=== PATIENT | female | born 1940 | race Caucasian/White ===

== ENCOUNTER 2022-01-20 13:39 | Outpatient (CLI) | payer MEDICARE, SELFPAY ==
[2022-01-20 13:47] LABS: Albumin* 4.6 g/dL (3.3-5.0); Chloride* 92 mmol/L (96-114); Potassium* 3.3 mmol/L (3.6-5.1); Sodium* 134 mmol/L (135-149)
[2022-01-20 13:48] LABS: Iron* 61 ug/dL (37-170)
[2022-01-20 13:50] LABS: Alanine Aminotransferase* 17 U/L (4-35); Aspartate Amino Transferase* 22 U/L (12-35); Blood Urea Nitrogen* 99 mg/dL (7-30); Carbon Dioxide* 26 mmol/L (20-32); Creatinine* 2.1 mg/dL (0.5-1.5); Estimated Glomerular Filt Rate 24 ml/min; Glucose* 137 mg/dL (60-115); Phosphorus* 4.5 mg/dL (2.5-4.5); Uric Acid* 7.3 mg/dL (2.2-8.4)
[2022-01-20 13:55] LABS: Creatinine Urine 59.7 mg/dL
[2022-01-20 13:57] LABS: Percent Iron Saturation 18 % (20-50); Total Iron Binding Capacity 347 ug/dL (265-497)
[2022-01-20 13:58] LABS: Microalbumin Creatinine Ratio 50 mg/g (0-30); Microalbumin Urine 3 mg/dL
[2022-01-20 16:45] LABS: Ferritin* 76.1 ng/mL (11.1-264.0)
== END 2022-01-20 13:40 | disposition home or self-care (01) ==
PROVIDERS: Visit Provider Internal Medicine Nephrology
DX: D64.9 Anemia, unspecified (principal); I10 Essential (primary) hypertension; N18.9 Chronic kidney disease, unspecified
CPT/HCPCS: 80069; 82043; 82310; 82570; 82728; 83540; 83550; 83970; 84450; 84460; 84550; 87086; 87186

== ENCOUNTER 2022-03-27 20:39 | Inpatient (IN) | payer MEDICAID, SELFPAY ==
[2022-03-27 20:45] VITALS: BP 112/58; PULSE 85; RESP 18; TEMP 37.2; O2SAT 94; BMI 27.4
[2022-03-27] MEDS: ONDANSETRON 2 MG/ML inj 4 MG IVP (21:29)
[2022-03-27] MEDS: 0.9 % SODIUM CHLORIDE 1000 ml 1,000 ML IV (21:29)
[2022-03-27 21:34] LABS: Hematocrit 36.3 % (33.0-51.0); Hemoglobin* 12.4 gm/dL (12.0-16.0); Immature Granulocytes Pct Auto 0.4 %; Lymphocytes Percent Auto 2.9 % (20-44); Mean Corpuscular HGB Conc 34 gm/dL (32-36); Mean Corpuscular Hemoglobin 32 pg (26-34); Mean Corpuscular Volume 93 fL (80-100); Monocytes Percent Auto 9.5 % (0.0-11.0); Neutrophils Percent Auto 87.2 % (42.0-72.0); Platelet Count* 246 K/uL (140-440); RDW Coefficient of Variation % 15.1 % (11.5-15.5); White Blood Count* 16.82 K/uL (4.50-11.00)
--- NOTE | 2022-03-27 21:36 | ED_ITS ---
HPI - Weakness General Chief complaint: Weakness Stated complaint: Lethargy, chills Time Seen by Provider: 03/27/22 20:41 History of Present Illness HPI Narrative: Pt is a 81 year old woman with chronic diarrhea who presents with acute diarrhea and weakness starting today. Pt was in her usual state of health this morning when she began having very loose stools and vomited several times. As a result, pt became extremely weak. She has not had anything to eat today either. As a result of her symptoms, she called her sister who then called 911. Pt is subsequently brought in to the ED via ambulance. Pt has had no fever, chills, abd pain, dysuria, rash or focal neurological symptoms. No other complaints at this time. Related Data Home Medications Medication Instructions Recorded Confirmed allopurinol 100 mg tablet 200 mg PO QDAY 12/18/21 latanoprost 0.005 % eye drops 1 drp ophthalmic (eye) QPM 12/18/21 potassium chloride 20 mEq 20 meq PO BIDWMEAL 12/18/21 tablet,extended release prednisone 10 mg tablet 10 mg PO QDAY 12/18/21 timolol 0.5 % eye drops 1 drp ophthalmic (eye) QDAY 12/18/21 metolazone 5 mg tablet 2.5 mg PO DAILY PRN 01/27/22 Previous Rx's Medication Instructions Recorded torsemide 20 mg tablet 40 mg PO BID #360 tabs 12/18/21 Allergies Allergy/AdvReac Type Severity Reaction Status Date / Time oxycodone AdvReac Severe Dizzy Verified 01/27/22 13:42 procaine AdvReac Severe Combative Verified 01/27/22 13:42 codeine AdvReac Unknown Nausea, Verified 01/27/22 13:42 Dizzy Review of Systems Status of ROS: Reports: 10 or more systems reviewed and unremarkable except as noted in History and below [facility] Medical History History of malignant neoplasm of breast Surgical History History of hysterectomy for benign disease History of lumpectomy of left breast Status post hysterectomy Status post left breast lumpectomy Status post total hip replacement, right Status post total left knee replacement Family History Mother Colon cancer Heart disease Father Skin cancer Exam Narrative: Exam Narrative: EXAM GENERAL: Patient appears comfortable and well. EYES: No scleral icterus. THYROID: no thyroid nodules or thyromegaly. LYMPH: No supraclavicular or cervical lymphadenopathy. SKIN: Visible skin seen during exam normal or with benign process only. EXT: No dependent lower extremity pedal edema. HEART: Regular rate and rhythm with no murmurs, rubs, or gallops. LUNGS: Clear to auscultation bilaterally with no crackles or wheezes. ABD: Soft, non tender, non distended. PSYCH: Good eye contact, speech is not pressured. Const: Vital Signs, click to edit/add: Vital Signs - 24 hr 03/27/22 20:45 Temperature 98.9 F Pulse Rate [Pulse Oximeter] 85 Respiratory Rate 18 Blood Pressure [Le ft Upper Arm] 112/58 L Pulse Oximetry 94 Oxygen Delivery Me thod Room Air Course Course Hospital Course: Pt seen and examined. Normal saline bolus and zofran given. Labs pending. Reevaluation(s) Reevaluation #1: Pt has elevated WBC, Sodium of 127, Chronic elevation of Cr at 1.8. Evidence of UTI on UA. Lactate ordered as well as blood cultures. Urine sent for culture. Pt received 1 liter of saline and 4 mg of zofran. States that she is too weak to go home. Rocephin 1 gram given IVP. Time: 23:09 Reevaluation #2: Pt still feeling too weak to go home. Time: 23:55 Vital Signs Vital signs: Initial Vital Signs Temperature 98.9 F 03/27/22 20:45 Temperature Source Temporal Artery Scan 03/27/22 20:45 Pulse Rate 85 03/27/22 20:45 Respiratory Rate 18 03/27/22 20:45 Blood Pressure 112/58 L 03/27/22 20:45 Blood Pressure Mean 76 03/27/22 20:45 Pulse Oximetry 94 03/27/22 20:45 Oxygen Delivery Method 03/27/22 20:45 Vital Signs Temperature 98.9 F 03/27/22 20:45 Pulse Rate 85 03/27/22 20:45 Respiratory Rate 18 03/27/22 20:45 Blood Pressure 112/58 L 01/06/23 20:45 Pulse Oximetry 94 03/27/22 20:45 Oxygen Delivery Method 03/27/22 20:45 Temperature 98.9 F 03/27/22 20:45 Pulse Rate 85 03/27/22 20:45 Respiratory Rate 18 03/27/22 20:45 Blood Pressure 112/58 L 03/27/22 20:45 Pulse Oximetry 94 03/27/22 20:45 Oxygen Delivery Method 03/27/22 20:45 MDM - Weakness MDM Narrative Medical decision making narrative: Pt presents with nausea and vomiting and weakness. No cardiac symptoms. Pt given normal saline and zofran still feeling weak. Pt noted to be mildly hyponatremic and hypokalemic with an elevated WBC and a chronically elevated Cr. UA shows evidence of UTI. Lactate normal. Troponin pending. Pt given IV Rocephin 1 gram and will be admitted for further evaluation. Cultures pending. Differential Diagnosis Differential diagnosis: Likely anemia, hypoglycemia, sepsis and dehydration Lab Data Labs: Lab Results 03/27/22 03/27/22 03/27/22 Range/Units 21:24 21:24 21:24 WBC 16.82 H (4.50-11.00) K/uL RBC 3.90 L (4.00-5.20) m/uL Hgb 12.4 (12.0-16.0) gm/dL Hct 36.3 (33.0-51.0) % MCV 93 (80-100) fL MCH 32 (26-34) pg MCHC 34 (32-36) gm/dL RDW Coeff of [place] 15.1 (11.5-15.5) % Plt Count 246 (140-440) K/uL Neut % (Auto) 87.2 H (42.0-72.0) % Lymph % (Auto) 2.9 L (20-44) % [place] % (Auto) 9.5 (0.0-11.0) % Eos % (Auto) 0.0 (0.0-7.0) % Baso % (Auto) 0.0 (0.0-3.0) % Neut # (Auto) 14.70 H (1.7-7.0) K/uL Lymph # (Auto) 0.50 L (0.90-2.90) K/uL [place] # (Auto) 1.60 H (0.00-0.90) K/UL Eos # (Auto) 0.00 (0.00-0.50) K/uL Baso # (Auto) 0.00 (0.00-0.30) K/uL Sodium 127 L (135-149) mmol/L Potassium 3.1 L (3.6-5.1) mmol/L Chloride 87 L (96-114) mmol/L Carbon Dioxide 28 (20-32) mmol/L BUN 84 H (7-30) mg/dL Creatinine 1.8 H (0.5-1.5) mg/dL Estimated Creat Clear 24.64 Estimated GFR 28 ml/min Glucose 150 H (60-115) mg/dL Lactate (0.5-1.9) mmol/L Calcium 8.1 L (8.4-10.6) mg/dL Total Bilirubin 1.2 (0.1-1.5) mg/dL AST 42 H (12-35) U/L ALT 20 (4-35) U/L Alkaline Phosphatase 58 (40-150) U/L Total Protein 8.2 (6.0-8.3) g/dL Albumin 4.2 (3.3-5.0) g/dL Amylase (18-89) U/L Urine Color (Yellow) Urine Appearance (Clear) Urine pH (5.0-8.5) Ur Specific [place] (1.000-1.030) Urine Protein (Negative) Urine Glucose (UA) (Negative) Urine Ketones (Negative) Urine Blood (Negative) Urine Nitrite (Negative) Urine Bilirubin (Negative) Urine Urobilinogen (0.2-1.0) Ur Leukocyte Esterase (Negative) Urine RBC (0-2) Urine WBC (0-5) Ur Squamous Epith Cells (None-Few) Urine Bacteria (None) SARS-CoV-2 (PCR) Negative SARS-CoV-2 (Negative) Influenza Type A (PCR) Negative PCR FLU A (Negative) Influenza Type B (PCR) Negative PCR FLU B (Negative) RSV (PCR) Negative PCR RSV (Negative) 03/27/22 03/27/22 03/27/22 Range/Units 21:24 22:00 23:15 WBC (4.50-11.00) K/uL RBC (4.00-5.20) m/uL Hgb (12.0-16.0) gm/dL Hct (33.0-51.0) % MCV (80-100) fL MCH (26-34) pg MCHC (32-36) gm/dL RDW Coeff of [place] (11.5-15.5) % Plt Count (140-440) K/uL Neut % (Auto) (42.0-72.0) % Lymph % (Auto) (20-44) % [place] % (Auto) (0.0-11.0) % Eos % (Auto) (0.0-7.0) % Baso % (Auto) (0.0-3.0) % Neut # (Auto) (1.7-7.0) K/uL Lymph # (Auto) (0.90-2.90) K/uL [place] # (Auto) (0.00-0.90) K/UL Eos # (Auto) (0.00-0.50) K/uL Baso # (Auto) (0.00-0.30) K/uL Sodium (135-149) mmol/L Potassium (3.6-5.1) mmol/L Chloride (96-114) mmol/L Carbon Dioxide (20-32) mmol/L BUN (7-30) mg/dL Creatinine (0.5-1.5) mg/dL Estimated Creat Clear Estimated GFR ml/min Glucose (60-115) mg/dL Lactate 1.2 (0.5-1.9) mmol/L Calcium (8.4-10.6) mg/dL Total Bilirubin (0.1-1.5) mg/dL AST (12-35) U/L ALT (4-35) U/L Alkaline Phosphatase (40-150) U/L Total Protein (6.0-8.3) g/dL Albumin (3.3-5.0) g/dL Amylase 137 H (18-89) U/L Urine Color Dark yellow (Yellow) Urine Appearance Slightly Cloudy A (Clear) Urine pH 6.0 (5.0-8.5) Ur Specific [place] 1.015 (1.000-1.030) Urine Protein 2+ A (Negative) Urine Glucose (UA) Negative (Negative) Urine Ketones Negative (Negative) Urine Blood 2+ A (Negative) Urine Nitrite Negative (Negative) Urine Bilirubin Negative (Negative) Urine Urobilinogen 0.2 (0.2-1.0) Ur Leukocyte Esterase 3+ A (Negative) Urine RBC 2-5 A (0-2) Urine WBC 10-25 A (0-5) Ur Squamous Epith Cells Few (None-Few) Urine Bacteria Many A (None) SARS-CoV-2 (PCR) (Negative) Influenza Type A (PCR) (Negative) Influenza Type B (PCR) (Negative) RSV (PCR) (Negative) Discharge Plan Discharge Clinical Impression: Weakness Patient Disposition: Admitted As Inpatient Condition: Stable Activity Level: Other Discharge Diet: Other
[2022-03-27 21:42] LABS: Slide Review Reflex No
[2022-03-27 22:09] LABS: PCR FLU A Negative PCR FLU A (Negative); PCR FLU B Negative PCR FLU B (Negative); PCR RSV Negative PCR RSV (Negative)
[2022-03-27 22:19] LABS: Appearance Urine Slightly Cloudy (Clear); Bilirubin Urine Negative (Negative); Blood Urine 2+ (Negative); Color Urine Dark yellow (Yellow); Glucose Urine Negative (Negative); Ketones Urine Negative (Negative); Leukocyte Esterase Urine 3+ (Negative); Nitrite Urine Negative (Negative); Protein Urine 2+ (Negative); Specific Gravity Urine 1.015 (1.000-1.030); Urobilinogen Urine 0.2 (0.2-1.0)
[2022-03-27 22:27] LABS: SARS PCR* Negative SARS-CoV-2 (Negative)
--- NOTE | 2022-03-27 22:33 | ED.NURSE ---
Patient required assist of one to pivot to commode. Patient complained of left hip pain that she reports started yesterday.
[2022-03-27 22:35] LABS: Bacteria Urine Many; Squamous Epithelial Cell Urine Few (None-Few)
[2022-03-27 22:48] LABS: Albumin* 4.2 g/dL (3.3-5.0); Chloride* 87 mmol/L (96-114)
[2022-03-27 22:49] LABS: Sodium* 127 mmol/L (135-149)
[2022-03-27 22:51] LABS: Bilirubin Total* 1.2 mg/dL (0.1-1.5); Blood Urea Nitrogen* 84 mg/dL (7-30); Carbon Dioxide* 28 mmol/L (20-32); Creatinine* 1.8 mg/dL (0.5-1.5); Est. Creatinine Clearance* 24.64; Estimated Glomerular Filt Rate 28 ml/min; Total Protein* 8.2 g/dL (6.0-8.3)
[2022-03-27 22:52] LABS: Alanine Aminotransferase* 20 U/L (4-35); Alkaline Phosphatase* 58 U/L (40-150); Calcium* 8.1 mg/dL (8.4-10.6); Glucose* 150 mg/dL (60-115)
[2022-03-27 22:56] LABS: Potassium* 3.1 mmol/L (3.6-5.1)
[2022-03-27 22:57] LABS: Aspartate Amino Transferase* 42 U/L (12-35)
[2022-03-27 23:06] LABS: Amylase* 137 U/L (18-89)
[2022-03-27 23:30] VITALS: O2SAT 99
[2022-03-27 23:34] LABS: Lactate* 1.2 mmol/L (0.5-1.9)
[2022-03-28] VITALS (17 sets, daily range): BP systolic 88–115; BP diastolic 37–74; PULSE 70–89; RESP 16–20; TEMP 37–38.7; O2SAT 90–97; BMI 29.0
[2022-03-28] MEDS: 0.9 % SODIUM CHLORIDE 500 ML 500 ML IV ×3 (00:40→12:24)
[2022-03-28] MEDS: cefTRIAXone 1 GM in 0.9 % SODIUM CHLORIDE Mini-bag 100 ML IVPB (00:40)
[2022-03-28 00:45] LABS: Troponin I* 0.08 ng/mL (0.01-0.04)
[2022-03-28] MEDS: ONDANSETRON 2 MG/ML inj 4 MG IVP (00:53)
--- NOTE | 2022-03-28 02:10 | P.IMCN_ITS ---
Date of Consult Consult date: 03/28/22 Requesting Physician: Other Primary Care Provider: Not a Local Provider Consult Narrative Narrative: Lela Lindsey is a 81 year old female [facility] Medical History History of malignant neoplasm of breast Surgical History History of hysterectomy for benign disease History of lumpectomy of left breast Status post hysterectomy Status post left breast lumpectomy Status post total hip replacement, right Status post total left knee replacement Family History Mother Colon cancer Heart disease Father Skin cancer Meds Home Medications and Allergies Home Medications Medication Instructions Recorded Confirmed Type allopurinol 100 mg tablet 200 mg PO QDAY 12/18/21 History latanoprost 0.005 % eye drops 1 drp ophthalmic (eye) QPM 12/18/21 History potassium chloride 20 mEq 20 meq PO BIDWMEAL 12/18/21 History tablet,extended release prednisone 10 mg tablet 10 mg PO QDAY 12/18/21 History timolol 0.5 % eye drops 1 drp ophthalmic (eye) QDAY 12/18/21 History metolazone 5 mg tablet 2.5 mg PO DAILY PRN 01/27/22 History Allergies Allergy/AdvReac Type Severity Reaction Status Date / Time oxycodone AdvReac Severe Dizzy Verified 01/27/22 13:42 procaine AdvReac Severe Combative Verified 01/27/22 13:42 codeine AdvReac Unknown Nausea, Verified 01/27/22 13:42 Dizzy Exam Const: Vital Signs, click to edit/add: Vital Signs - 24 hr 03/28/22 01:49 03/27/22 23:30 03/27/22 20:45 Temperature 98.9 F 98.9 F Pulse Rate [Pulse Oximeter] 89 85 Respiratory Rate 18 18 Blood Pressure [Le ft Upper Arm] 115/74 112/58 L Pulse Oximetry 94 99 94 Oxygen Delivery Me thod Room Air Room Air Labs Labs: Short CBC 03/27/22 Range/Units 21:24 WBC 16.82 H (4.50-11.00) K/uL Hgb 12.4 (12.0-16.0) gm/dL Hct 36.3 (33.0-51.0) % Plt Count 246 (140-440) K/uL BMP 03/27/22 21:24 Sodium 127 L Potassium 3.1 L Chloride 87 L Carbon Dioxide 28 BUN 84 H Creatinine 1.8 H Glucose 150 H Calcium 8.1 L Cardiac Enzymes 03/27/22 Range/Units 23:20 Troponin I 0.08 H* (0.01-0.04) ng/mL Liver Function 03/27/22 Range/Units 21:24 Total Bilirubin 1.2 (0.1-1.5) mg/dL AST 42 H (12-35) U/L ALT 20 (4-35) U/L Alkaline Phosphatase 58 (40-150) U/L Albumin 4.2 (3.3-5.0) g/dL Urine 03/27/22 Range/Units 22:00 Urine Color Dark yellow (Yellow) Urine Appearance Slightly Cloudy A (Clear) Urine pH 6.0 (5.0-8.5) Ur Specific [place] 1.015 (1.000-1.030) Urine Protein 2+ A (Negative) Urine Glucose (UA) Negative (Negative) Assessment and Plan Assessment and plan (1) Weakness: Status: Acute (2) Edema: Status: Acute Plan [facility] Hospitalist eHospitalist was contacted with request of consultation on Vicki Lindsey for admission support. Chief complaint: Weakness and lethargy HPI: 81-year-old female with chronic diarrhea presented for acute on chronic diarrhea and weakness starting yesterday. She was in her usual state of health until last morning when she began having loose stools. It is loose watery. She denies any nausea or vomiting. As result she became very weak. Could not eat anything yesterday. Eventually brought to ED by ambulance. She denies any fever, abdominal pain, rash or focal neurologic symptoms. no abdominal pain.lives alone and does not use tobacco or alcohol. Denies any hematemesis hematochezia. Denies any new medications. No sick contacts. Medical history significant for CKD stage IV, hypertension, chronic diastolic heart failure, renal artery stenosis, anemia of renal disease, rheumatoid arthritis and hyperparathyroidism. Upon presentation she was normotensive, nontachycardic. Saturating fine on room air and afebrile. Labs show WBC 16.8, hemoglobin stable and normal platelets. BMP showed sodium 127, potassium 3.1, chloride 87, anion gap normal with bicarb 28. BUN 84 and creatinine 1.8. Glucose 150. Lactate 1.2, calcium 8.1, AST 42, normal bilirubin and other liver enzymes. Amylase 137, troponin 0.08. Urinalysis positive for bacteriuria, positive leukocyte esterase. COVID influenza and RSV negative. Blood and urine cultures sent. Patient was given normal saline and ceftriaxone and admitted for further management. Home Medications: see EMR Pertinent Medical History: See EMR Pertinent Social History: See EMR Exam (performed via interactive video with assistance of bedside nurse; ): General: alert, cooperative, no acute distress HEENT: oral mucosa dry lungs: clear to auscultation bilaterally without crackle or wheeze CV: regular rate and rhythm without loud murmur rub or gallop Abd: denies tenderness and does not exhibit signs of pain with palpation done by bedside nurse Ext: 1+ pitting edema noted Skin: no rashes, bruises or lesions. Neuro:[alert, oriented x 3. facial muscles grossly intact, moves all extremities without any significant focal deficit appreciated by nurse Labs and imaging were reviewed Assessment and Plan: Generalized weakness UTI, leukocytosis Acute on chronic diarrhea Hyponatremia, hypochloremia related to diarrhea CKD stage IV stable Slight elevation of troponin related to dehydration and CKD Patient is s/p 1.5 L of normal saline. Recheck labs in the morning. Continue ceftriaxone. Follow-up on cultures. Hold diuretics. Repeat troponins. Check C. difficile and if negative can use as needed antidiarrheals. IV fluids: none Diet: Clear liquid DVT prophylaxis: SCDs and heparin CODE STATUS: Full code [facility] you [facility] This service is available for further assistance as requested by your care team by calling [phone].
[2022-03-28] MEDS: ACETAMINOPHEN 325 MG TABLET 650 MG PO ×3 (02:46→22:00)
--- NOTE | 2022-03-28 05:30 | PC.NURSE ---
Patient to unit at 0150. A&Ox3. Rates pain in R. hip 8/10 with movement. PRN Tylenol for relief. A1/walker/GB. C/o weakness. Denies N/V/dizziness.
[2022-03-28 07:53] LABS: Basophils Percent Auto 0.1 % (0.0-3.0); Hematocrit 33.2 % (33.0-51.0); Hemoglobin* 11.2 gm/dL (12.0-16.0); Immature Granulocytes Pct Auto 0.4 %; Lymphocytes Percent Auto 5.3 % (20-44); Mean Corpuscular HGB Conc 34 gm/dL (32-36); Mean Corpuscular Hemoglobin 32 pg (26-34); Mean Corpuscular Volume 94 fL (80-100); Monocytes Percent Auto 7.9 % (0.0-11.0); Neutrophils Percent Auto 86.3 % (42.0-72.0); Platelet Count* 192 K/uL (140-440); Red Blood Count 3.55 m/uL (4.00-5.20); White Blood Count* 12.82 K/uL (4.50-11.00)
[2022-03-28 07:58] LABS: Slide Review Reflex No
[2022-03-28 08:05] LABS: Albumin* 3.6 g/dL (3.3-5.0); Chloride* 94 mmol/L (96-114)
[2022-03-28 08:06] LABS: Sodium* 130 mmol/L (135-149)
[2022-03-28 08:08] LABS: Bilirubin Total* 0.8 mg/dL (0.1-1.5); Creatinine* 1.8 mg/dL (0.5-1.5); Est. Creatinine Clearance* 23.72; Estimated Glomerular Filt Rate 28 ml/min
[2022-03-28 08:09] LABS: Alanine Aminotransferase* 16 U/L (4-35); Alkaline Phosphatase* 62 U/L (40-150); Aspartate Amino Transferase* 28 U/L (12-35); Blood Urea Nitrogen* 74 mg/dL (7-30); Calcium* 7.2 mg/dL (8.4-10.6); Carbon Dioxide* 26 mmol/L (20-32); Glucose* 117 mg/dL (60-115)
[2022-03-28 08:10] LABS: Magnesium* 1.2 mg/dL (1.5-2.6)
[2022-03-28 08:25] LABS: Troponin I* 0.08 ng/mL (0.01-0.04)
[2022-03-28 08:26] LABS: Procalcitonin* 6.44 ng/mL (<0.50)
[2022-03-28 08:37] LABS: C Reactive Protein* 22.5 mg/dL (0.5-1.0); Potassium* 2.1 mmol/L (3.6-5.1)
--- NOTE | 2022-03-28 08:49 | PM.IMHP1 ---
Hospitalist- H&P: HPI History of Present Illness Time Seen by Provider: 08:25 Date Seen: 03/28/22 Chief complaint: Lethargy, chills Narrative: Lela Lindsey is a 81 year old female who became progressively weak over the last few days. She denies urinary symptoms, fever, uri symptoms, sob, cp, melena, hematochezia. She has right hip pain that started yesterday and is a bit better today, but still there. She has a h/o RTHA, but has never had trouble with that hip before. She had 1 loose stool last night which she says is not unusual for her. She has not had any bowel movement since then. 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 Tricuspid insufficiency Venous insufficiency of both lower extremities Vitamin D deficiency Surgical History (Updated 03/28/22 @ 08:20 by Meghan Ervin MD) H/O hernia repair History of hysterectomy for benign disease History of lumpectomy of left breast S/P tendon repair S/P tubal ligation Status post hysterectomy Status post left breast lumpectomy Status post total hip replacement, right Status post total left knee replacement Family History (Updated 03/28/22 @ 08:22 by Meghan Ervin MD) Mother Colon cancer Arthritis CHF (congestive heart failure) Father Skin cancer Aunt Breast cancer Sister Brain tumor Epilepsy Stroke Social History (Updated 03/28/22 @ 08:52 by Meghan Ervin MD) Narrative: Quit smoking >15 years ago. Glass of wine or a beer once a month. No recreational drugs. FULL CODE. Highest level of school completed/degree received: high school graduate Smoking Status: Former smoker Do you use any of these nicotine containing products: None How often do you have a drink containing alcohol: never AUDIT-C Alcohol total score: 0 Non-prescribed substance use: denies use Caffeine: No service: No Meds Home Medications and Allergies Home Medications Medication Instructions Recorded Confirmed Type allopurinol 100 mg tablet 200 mg PO DAILY 12/18/21 03/28/22 History latanoprost 0.005 % eye drops 1 drp ophthalmic (eye) HS 12/18/21 03/28/22 History potassium chloride 20 mEq 40 meq PO BID 12/18/21 03/28/22 History tablet,extended release metolazone 2.5 mg tablet 2.5 mg PO .2X/WEEK PRN 03/28/22 03/28/22 History prednisone 5 mg tablet 5 mg PO DAILY 03/28/22 03/28/22 History timolol 0.25 % eye drops 1 drp ophthalmic (eye) BID 03/28/22 03/28/22 History Allergies Allergy/AdvReac Type Severity Reaction Status Date / Time oxycodone AdvReac Severe Dizzy Verified 01/27/22 13:42 procaine AdvReac Severe Combative Verified 01/27/22 13:42 codeine AdvReac Unknown Nausea, Verified 01/27/22 13:42 Dizzy Exam Narrative: Exam Narrative: General: No acute distress. Awake alert oriented x3. Generally weak, unable to pull herself up from laying down. HEENT: Normocephalic atraumatic, pupils equally round and reactive to light and accommodation. Oropharynx clear. Mucous membranes are slightly dry. No cervical lymphadenopathy, thyromegaly or carotid bruits. No JVD. Cardiovascular: Regular rate and rhythm. No murmurs, gallops, or rubs. Chest: No increased work of breathing. Clear to auscultation bilaterally. No crackles or wheezes. Abdomen: Bowel sounds present. Soft, nondistended, nontender. No hepatosplenomegaly or masses. Extremities: Right thumb deformity from childhood accident. 2+ bilateral pretibial edema, no cyanosis or clubbing. Skin: No jaundice, no pallor, no rashes. Neuro: Generalized weakness. Grossly intact. No focal deficits. Const: Vital Signs, click to edit/add: Vital Signs - 24 hr 03/28/22 01:49 03/27/22 23:30 03/28/22 01:50 Temperature 98.9 F 98.9 F Pulse Rate [Left P ulse Oximeter] Pulse Rate [Pulse Oximeter] 89 89 Respiratory Rate 18 18 Blood Pressure [Le ft Upper Arm] 115/74 115/74 Blood Pressure [Ri ght Arm] Pulse Oximetry 94 99 Oxygen Delivery Me thod Room Air 03/28/22 01:28 03/28/22 01:28 03/28/22 03:00 Temperature 98.6 F 98.9 F Pulse Rate [Left P ulse Oximeter] 74 74 Pulse Rate [Pulse Oximeter] Respiratory Rate 20 20 18 Blood Pressure [Le ft Upper Arm] Blood Pressure [Ri ght Arm] 110/59 L 110/59 L Pulse Oximetry 94 94 94 Oxygen Delivery Me thod Room Air Room Air Room Air 03/27/22 20:45 Temperature 98.9 F Pulse Rate [Left P ulse Oximeter] Pulse Rate [Pulse Oximeter] 85 Respiratory Rate 18 Blood Pressure [Le ft Upper Arm] 112/58 L Blood Pressure [Ri ght Arm] Pulse Oximetry 94 Oxygen Delivery Pa thod Room Air Hospitalist - H&P: Result Labs Labs: Short CBC 03/27/22 03/28/22 Range/Units 21:24 07:24 WBC 16.82 H 12.82 H (4.50-11.00) K/uL Hgb 12.4 11.2 L (12.0-16.0) gm/dL Hct 36.3 33.2 (33.0-51.0) % Plt Count 246 192 (140-440) K/uL BMP 03/27/22 03/28/22 21:24 07:24 Sodium 127 L 130 L Potassium 3.1 L 2.1 L* Chloride 87 L 94 L Carbon Dioxide 28 26 BUN 84 H 74 H Creatinine 1.8 H 1.8 H Glucose 150 H 117 H Calcium 8.1 L 7.2 L Cardiac Enzymes 03/27/22 03/28/22 Range/Units 23:20 07:24 Troponin I 0.08 H* 0.08 H* (0.01-0.04) ng/mL Liver Function 03/27/22 03/28/22 Range/Units 21:24 07:24 Total Bilirubin 1.2 0.8 (0.1-1.5) mg/dL AST 42 H 28 (12-35) U/L ALT 20 16 (4-35) U/L Alkaline Phosphatase 58 62 (40-150) U/L Albumin 4.2 3.6 (3.3-5.0) g/dL Urine 03/27/22 Range/Units 22:00 Urine Color Dark yellow (Yellow) Urine Appearance Slightly Cloudy A (Clear) Urine pH 6.0 (5.0-8.5) Ur Specific [place] 1.015 (1.000-1.030) Urine Protein 2+ A (Negative) Urine Glucose (UA) Negative (Negative) Assessment and Plan Assessment and plan (1) Weakness: Status: Acute (2) Dehydration: Status: Acute (3) Elevated troponin: Status: Acute (4) Chronic kidney disease, stage 3: Problem comment: Mild Cr elevation starting 2011; Increased in 2018 with diuresis. Follows with Dr. Natarajan ([facility]) Status: Acute (5) Hypokalemia: Status: Acute (6) Hypomagnesemia: Status: Acute (7) ARF (acute renal failure): Status: Acute Plan I have reviewed her [facility] records. Mild ARF on CKD. BUN elevated and Cr mildly elevated. She received 1.5 L of IV fluid in the emergency department. Give another bolus this am. Obtain chest x-ray and right hip x-ray. Ecoli in urine Jan 2022. Suspect UTI. Continue ceftriaxone started in emergency department and await cultures. Weakness is likely multifactorial including UTI and electrolyte abnormalities. Correct electrolyte abnormalities. If hip x-ray is unremarkable, start PT and OT.
--- NOTE | 2022-03-28 08:53 | CRLHL7_ITS ---
For Patients: As a result of the Cures Act, medical imaging exams and procedure reports are released immediately into your electronic medical record. You may view this report before your referring provider. If you have questions, please contact your health care provider. INDICATION: Leukocytosis. Weakness. History of tobacco use COMPARISON: December 30, 2020 TECHNIQUE: PA and lateral views of the chest were acquired FINDINGS: TUBES AND LINES: None. HEART AND MEDIASTINUM: Heart size normal. Tortuous aorta. Similar appearance to the prior study.. LUNGS AND PLEURAL SPACES: The lungs appear normal.The pleural spaces are unremarkable. OSSEOUS STRUCTURES: Age-appropriate appearance. No acute focal finding. IMPRESSION: No evidence of active pulmonary disease when compared to December 30, 2020 Dictated by Bib Jansen MD @ 03/28/2022 9:29:05 AM (Electronically Signed)
--- NOTE | 2022-03-28 08:53 | CRLHL7_ITS ---
For Patients: As a result of the Cures Act, medical imaging exams and procedure reports are released immediately into your electronic medical record. You may view this report before your referring provider. If you have questions, please contact your health care provider. Indication: Right hip pain. History of right total hip arthroplasty. No injury. Technique: Examination consists of an AP view of the pelvis as well as AP and lateral views of the right hip Comparison: None Findings: Decreased bone mineral density. Right hip arthroplasty. The arthroplasty appears intact. There is no abnormal lucency about the acetabular or femoral component of the implant. The surrounding osseous structures appear normal. No fracture or destructive process Impression: Normal appearance status post right hip arthroplasty. No visible complication. No fracture, destructive process or abnormal lucency above the implants Dictated by Bib Jansen MD @ 03/28/2022 9:33:04 AM (Electronically Signed)
[2022-03-28] MEDS: HEPARIN 5,000 UNIT/0.5 ML INJ 5000 UNIT SUBCUT ×2 (10:02→21:09)
[2022-03-28] MEDS: MAGNESIUM IV 2 GM/50 ML PIGGYBACK IVPB (10:03)
[2022-03-28] MEDS: POTASSIUM BICARB 25 MEQ EFFERVESCENT TAB PO ×6 (10:03→23:01)
[2022-03-28] MEDS: SODIUM CHLORIDE 0.9 % (FLUSH) 10 ML SYRINGE 5 ML IVF (10:03)
[2022-03-28 12:01] LABS: Troponin I* 0.08 ng/mL (0.01-0.04)
[2022-03-28] MEDS: PIPERACILLIN/TAZOBACTAM 3.375 GM in 0.9 % SODIUM CHLORIDE Mini-bag 100 ML IVPB ×3 (12:09→23:01)
[2022-03-28 12:38] LABS: Troponin I* 0.08 ng/mL (0.01-0.04)
[2022-03-28] MEDS: IPRAT-ALBUT 0.5-2.5 MG/3 ML NEB 1 NEB IH ×3 (12:40→23:36)
--- NOTE | 2022-03-28 13:44 | RESP.RT ---
Patient lying in bed, on room air, SaO2 93%, respiratory rate 18/minute, breathing regular/easy. Bilateral breath sounds; both upper lobes clear with good air movement, Both lower lobes clear, fair air movement, slightly diminished from upper lobes. Asked patiet to cough, good clear forceful cough able to clear secretions when present. Patient alert, orientated to; person, place, time. Good color and clear voice.
[2022-03-28] MEDS: 0.9 % SODIUM CHLORIDE 1000 ml 1,000 ML IV ×2 (14:22→18:08)
[2022-03-28 19:03] LABS: Chloride* 97 mmol/L (96-114); Sodium* 130 mmol/L (135-149)
[2022-03-28 19:06] LABS: Carbon Dioxide* 24 mmol/L (20-32); Creatinine* 1.5 mg/dL (0.5-1.5); Est. Creatinine Clearance* 28.47; Estimated Glomerular Filt Rate 35 ml/min
--- NOTE | 2022-03-28 19:06 | CRLHL7_ITS ---
For Patients: As a result of the Century Cures Act, medical imaging exams and procedure reports are released immediately into your electronic medical record. You may view this report before your referring provider. If you have questions, please contact your health care provider. INDICATION: Sepsis, abdominal fullness, possible hernia. TECHNIQUE: CT abdomen and pelvis acquired without contrast. COMPARISON: None. FINDINGS: Lower chest: Trace right pleural effusion. Bilateral posterior dependent atelectasis. Liver: Hepatic steatosis. No suspicious lesion given noncontrast technique Gallbladder and bile ducts: Tiny stones in the gallbladder. No mural thickening or pericholecystic fluid. No biliary ductal dilatation. Pancreas: Unremarkable. No mass or inflammation. Spleen: Unremarkable. Normal in size. No masses. Adrenal glands: Unremarkable. No nodules. Kidneys: Unremarkable. No suspicious masses, stones, or hydronephrosis. GI tract: Small hiatal hernia. The cecum is in the mid anterior abdomen. There is gaseous distention with small air-fluid levels within the colon. No evidence for obstruction. Vasculature: Normal caliber abdominal aorta with mild atherosclerotic calcification. Lymph nodes: No lymphadenopathy. Peritoneum/Abdominal Wall: Small fat-containing right Bochdalek hernia. No free fluid or free air. Pelvis: Posthysterectomy. Bones: Unremarkable for age. IMPRESSION: Cecum located in the mid anterior abdomen, compatible with mobile cecum. No evidence for gastrointestinal obstruction. Gaseous distension of the colon with small air-fluid levels. Findings are nonspecific but could represent diarrhea. Hepatic steatosis. Cholelithiasis. Small fat-containing right Bochdalek hernia. Please note that all CT scans at this facility use dose modulation, iterative reconstruction, and/or weight-based dosing when appropriate to reduce radiation dose to as low as reasonably achievable. Dictated by Basilio Glover MD @ 03/28/2022 8:21:41 PM (Electronically Signed)
[2022-03-28 19:07] LABS: Blood Urea Nitrogen* 54 mg/dL (7-30); Calcium* 6.4 mg/dL (8.4-10.6); Glucose* 117 mg/dL (60-115)
[2022-03-28 19:12] LABS: Potassium* 2.8 mmol/L (3.6-5.1)
--- NOTE | 2022-03-28 20:25 | PC.NURSE ---
shift note [id number]- Pt BP on AM assessment 95/55 and Temp 99.3. when up with OT to chair, BP 88/48 and 77/44. pt transferred back to bed and in reverse Trendelenburg. NS bolus initiated. temp up to 101.6 at 1015 with chills. second IV access obtained. Magnesium started and potassium replaced d/t being 2.1. tylenol given. Xrays obtained d/t R hip pain. EKG's done see chart. tele placed. second IV bolus initiated. abx changed from ceftraixone to Zosyn and Vanco. no BM for lyric writer. trops remained the same. pt transferred to unit at 1300.
[2022-03-28] MEDS: CALCIUM GLUC 1,000MG/50 ML 1,000 MG/50 ML BAG 100 MG IVPB (20:32)
--- NOTE | 2022-03-28 20:41 | PC.NURSE ---
shift note; Pt having pain to rt shoulder and rt hip. pt repositioned for comfort. Dr. Ervin updated on pt's vss @ 1500. pt with variable temps 99.3,100.3,100.9. Pt iv replaced in rt AC. LS with faint crkls bibasilar. Pt placed on halley hugger on low due to uncontrolled shivering. Pt taking po fluids. pt's family at bedside. Dr. Nazario notfied of pt's abd appearing swollen. BS hypo x4, abd soft on palapation. Orders to have CT of abd per Dr. Nazario. bladder scanned for 33cc.
[2022-03-28 21:12] LABS: C.Difficile Negative (Negative); CDIFFEPI 027 PRESUMPTIVE NEGATIVE (Negative)
[2022-03-28] MEDS: hydrOXYzine pamoate 25 MG CAPSULE PO (22:00)
[2022-03-28] MEDS: LOPERAMIDE HCL 2 MG CAPSULE 4 MG PO (23:36)
[2022-03-28] MEDS: MORPHINE 2 MG/ML inj IVP (23:36)
[2022-03-29] VITALS (37 sets, daily range): BP systolic 80–110; BP diastolic 43–86; PULSE 66–95; RESP 18–24; TEMP 36.3–36.8; O2SAT 94–99
[2022-03-29] MEDS: POTASSIUM BICARB 25 MEQ EFFERVESCENT TAB PO ×4 (00:51→11:11)
--- NOTE | 2022-03-29 02:00 | CRLHL7_ITS ---
For Patients: As a result of the Century Cures Act, medical imaging exams and procedure reports are released immediately into your electronic medical record. You may view this report before your referring provider. If you have questions, please contact your health care provider. INDICATION: Confirm central line placement COMPARISON: March 28, 2022 at 9:13 a.m. TECHNIQUE: Single-view study March 2022 at 2:28 a.m. FINDINGS: TUBES AND LINES: Right IJ catheter ending in the distal SVC. HEART AND MEDIASTINUM: The heart size is normal. The mediastinal contour appears normal for patient age. LUNGS AND PLEURAL SPACES: Low lung volumes. No focal consolidation or infiltrate.The pleural spaces are unremarkable. OSSEOUS STRUCTURES: Age-appropriate appearance. No acute focal finding. IMPRESSION: Right IJ catheter ending in the distal SVC. Low lung volumes. No focal consolidation or infiltrate. No pleural effusion or pneumothorax. Dictated by Bib Jansen MD @ 03/29/2022 10:21:33 AM (Electronically Signed)
[2022-03-29] MEDS: 0.9 % SODIUM CHLORIDE 1000 ml 1,000 ML 150 ML IV (03:00)
[2022-03-29] MEDS: LORazepam 2 MG/ML inj 0.5 MG IVP (03:00)
[2022-03-29 04:51] LABS: Hematocrit 31.6 % (33.0-51.0); Hemoglobin* 10.4 gm/dL (12.0-16.0); Mean Corpuscular HGB Conc 33 gm/dL (32-36); Mean Corpuscular Hemoglobin 31 pg (26-34); Mean Corpuscular Volume 95 fL (80-100); Platelet Count* 188 K/uL (140-440); Red Blood Count 3.34 m/uL (4.00-5.20); White Blood Count* 12.18 K/uL (4.50-11.00)
[2022-03-29 04:52] LABS: Immature Granulocytes Pct Auto 0.9 %; Lymphocytes Percent Auto 4.7 % (20-44); Monocytes Percent Auto 8.2 % (0.0-11.0); Neutrophils Percent Auto 86.2 % (42.0-72.0); Slide Review Reflex No
[2022-03-29 04:53] LABS: Blood Urea Nitrogen* 48 mg/dL (7-30); Calcium* 6.6 mg/dL (8.4-10.6); Carbon Dioxide* 27 mmol/L (20-32); Chloride* 95 mmol/L (96-114); Creatinine* 1.4 mg/dL (0.5-1.5); Estimated Glomerular Filt Rate 38 ml/min; Glucose* 114 mg/dL (60-115); Potassium* 3.7 mmol/L (3.6-5.1); Sodium* 129 mmol/L (135-149)
[2022-03-29 04:54] LABS: Ionized Calcium* 0.88 mmol/L (1.11-1.30); Lactate* 1.4 mmol/L (0.5-1.9)
[2022-03-29] MEDS: PIPERACILLIN/TAZOBACTAM 3.375 GM in 0.9 % SODIUM CHLORIDE Mini-bag 100 ML IVPB ×2 (05:20→11:31)
[2022-03-29 05:48] LABS: Magnesium* 1.6 mg/dL (1.5-2.6)
[2022-03-29] MEDS: LACTATED RINGERS 1000 ML 1,000 ML 150 ML IV (06:10)
[2022-03-29] MEDS: SODIUM CHLORIDE 0.9 % (FLUSH) 10 ML SYRINGE IVF ×3 (06:16→21:13)
[2022-03-29] MEDS: HEPARIN 500 UNIT/5 ML SYRINGE IVF ×4 (06:17→20:02)
[2022-03-29] MEDS: IPRAT-ALBUT 0.5-2.5 MG/3 ML NEB 1 NEB IH ×3 (06:17→20:36)
--- NOTE | 2022-03-29 06:53 | PC.NURSE ---
[id number]: at start of shift patient tele showing in and out of sinus arrhythmia to rate controlled Afib, patient slightly hypotensive, Dr Nazario updated, see new orders and EMAR for meds given. around 0000 patient became more hypotensive, see VS charting, Dr Nazario updated, see new orders/EMAR for meds given. unable to replace infiltrated PIV after multiple attempts by multiple staff, right side IJ central line place by Dr Jc with Dr Nazario and policy writer sales at bedside. patient remains afebrile, continues to report pain in R hip and back with movement, appears to sleep well between cares. c/o discomforts with most movement. assist X1 to BSC, no further loose stools overnight. abd. remains large and soft. tele currently shows NSR with a rate 60s-70s.
[2022-03-29 07:16] LABS: Basophils Absolute Auto 0.01 K/uL (0.00-0.30); Basophils Percent Auto 0.1 % (0.0-3.0); Eosinophils Absolute Auto 0.01 K/uL (0.00-0.50); Eosinophils Percent Auto 0.1 % (0.0-7.0); Hematocrit 30.5 % (33.0-51.0); Hemoglobin* 9.9 gm/dL (12.0-16.0); Immature Granulocytes Abs Auto 0.03 K/uL (0.00-0.30); Immature Granulocytes Pct Auto 0.3 %; Lymphocytes Percent Auto 4.7 % (20-44); Mean Corpuscular HGB Conc 33 gm/dL (32-36); Mean Corpuscular Hemoglobin 31 pg (26-34); Mean Corpuscular Volume 96 fL (80-100); Monocytes Percent Auto 8.3 % (0.0-11.0); Neutrophils Percent Auto 86.5 % (42.0-72.0); Platelet Count* 174 K/uL (140-440); RDW Coefficient of Variation % 15.4 % (11.5-15.5); Red Blood Count 3.19 m/uL (4.00-5.20); White Blood Count* 10.35 K/uL (4.50-11.00)
[2022-03-29 07:19] LABS: Slide Review Reflex No
[2022-03-29] MEDS: 0.9 % SODIUM CHLORIDE 1000 ml 1,000 ML IV (07:20)
[2022-03-29 07:29] LABS: Chloride* 98 mmol/L (96-114)
[2022-03-29 07:30] LABS: Potassium* 3.4 mmol/L (3.6-5.1); Sodium* 130 mmol/L (135-149)
[2022-03-29 07:32] LABS: Creatinine* 1.2 mg/dL (0.5-1.5); Est. Creatinine Clearance* 35.59; Estimated Glomerular Filt Rate 46 ml/min
[2022-03-29 07:33] LABS: Blood Urea Nitrogen* 44 mg/dL (7-30); Carbon Dioxide* 25 mmol/L (20-32); Glucose* 105 mg/dL (60-115)
[2022-03-29 07:34] LABS: Calcium* 6.9 mg/dL (8.4-10.6); Magnesium* 1.6 mg/dL (1.5-2.6)
[2022-03-29 08:07] LABS: C Reactive Protein* 30.3 mg/dL (0.5-1.0)
--- NOTE | 2022-03-29 08:36 | P.IMPN_ITS ---
Progress Note: A&P Assessment and plan (1) Septic shock: Status: Acute (2) Gram-negative bacteremia: Status: Acute (3) UTI (urinary tract infection): Problem details: Specimen: [id number] COMP Collected: 03/27/22 Received: 03/27/22 Source: Urine CC Sp Descrip: Sub Dr: Emiliano Unger M.D. Other Dr: Procedure Result Site Urine Culture Final ML Organism 1 Escherichia coli Ur [place] Count >100,000 CFU/ml E coli ODALYS RX --------- --- Ampicillin <=2 S Ampicillin/Sulbactam <=2 S Cefazolin <=4 S Cefepime <=1 S Cefoxitin <=4 S Ceftazidime <=1 S Ceftriaxone <=1 S Ciprofloxacin <=0.25 S Ertapenem <=0.5 S Gentamicin <=1 S Imipenem <=0.25 S Levofloxacin 1 S Nitrofurantoin <=16 S Tobramycin <=1 S Trimethoprim/Sulfamethoxazole <=20 S Piperacillin/Tazobactam <=4 S Status: Acute (4) Right hip pain: Problem details: Pain began 03/27/2022, severe sepsis and hypotension Right total hip arthroplasty 2015, Dr. Berrios Status: Acute (5) ARF (acute renal failure): Status: Resolved (6) Hypomagnesemia: Status: Acute (7) Hypokalemia: Status: Acute (8) Elevated troponin: Status: Acute (9) Chronic kidney disease, stage 3: Problem details: Mild Cr elevation starting 2011; Increased in 2018 with diuresis. Follows with Dr. Natarajan ([facility] [place]) Status: Acute (10) Weakness: Status: Acute (11) Anemia: Status: Acute (12) Dehydration: Status: Acute (13) Edema: Status: Acute (14) Hypocalcemia: Status: Acute Plan - BP a little better this afternoon, tolerating being off IVF this afternoon. She is on chronic prednisone and adrenal crisis may be complicating septic shock. Give stress dose steroids. - Continue to replace electrolytes. - R hip pain, sepsis. Ortho consult for possible septic hip. - G- tremayne bacteremia with Ecoli UTI, garibay sensitive. Continue broad antibiotic coverage until more is known about possibility of septic hip. Subjective Time Seen by Provider: 08:15 Date Seen: 03/29/22 Interval history: Vicki continues to complain of right hip pain, especially at night, but notes it is better again today. She states her breathing is a bit heavier today when she tries to take a deep breath. Denies CP. Exam Narrative: Exam Narrative: General: No acute distress. Awake alert oriented x3. Remains generally weak. Cardiovascular: Regular rate and rhythm. No murmurs, gallops, or rubs. Chest: No increased work of breathing. Coarse. No crackles. Abdomen: Bowel sounds present. Soft, nondistended, nontender. No hepatosplenomegaly or masses. Extremities: Bilateral pretibial edema, no cyanosis or clubbing. Const: Vital Signs, click to edit/add: Vital Signs - 24 hr 03/28/22 13:42 03/28/22 11:00 03/28/22 11:00 Temperature 99.4 F Pulse Rate 86 Pulse Rate [Left P ulse Oximeter] 70 Respiratory Rate 18 18 Blood Pressure [Ri ght Arm] 95/55 L Pulse Oximetry 93 93 Oxygen Delivery Me thod Room Air Room Air Oxygen Flow Rate 03/28/22 10:15 03/28/22 11:13 03/28/22 15:00 Temperature 101.6 F H Pulse Rate Pulse Rate [Left P ulse Oximeter] 80 71 81 Respiratory Rate 18 20 Blood Pressure [Ri ght Arm] 108/60 88/48 L Pulse Oximetry 93 90 Oxygen Delivery Me thod Room Air Room Air Oxygen Flow Rate 03/28/22 15:00 03/28/22 19:00 03/28/22 13:14 Temperature 100.3 F H 98.6 F 99.3 F Pulse Rate Pulse Rate [Left P ulse Oximeter] 81 89 86 Respiratory Rate 18 18 18 Blood Pressure [Ri ght Arm] 90/37 L 112/57 L 108/69 Pulse Oximetry 96 91 97 Oxygen Delivery Me thod Nasal Cannula Room Air Room Air Oxygen Flow Rate 2 03/28/22 21:00 03/28/22 20:00 03/28/22 19:00 Temperature 98.7 F Pulse Rate 77 Pulse Rate [Left P ulse Oximeter] 78 Respiratory Rate 20 Blood Pressure [Ri ght Arm] 110/56 L 100/55 L Pulse Oximetry 93 Oxygen Delivery Me thod Nasal Cannula Oxygen Flow Rate 2 03/28/22 23:03 03/28/22 23:00 03/28/22 23:00 Temperature 98.6 F Pulse Rate 77 Pulse Rate [Left P ulse Oximeter] 77 77 Respiratory Rate 16 16 Blood Pressure [Ri ght Arm] 103/55 L Pulse Oximetry 94 Oxygen Delivery Me thod Nasal Cannula Oxygen Flow Rate 2 03/28/22 23:44 03/29/22 00:05 03/29/22 03:30 Temperature Pulse Rate Pulse Rate [Left P ulse Oximeter] Respiratory Rate Blood Pressure [Ri ght Arm] 83/51 L 85/45 L Pulse Oximetry 94 Oxygen Delivery Me thod Oxygen Flow Rate 03/29/22 03:00 03/29/22 03:00 03/29/22 06:18 Temperature 98.1 F 97.7 F Pulse Rate 66 Pulse Rate [Left P ulse Oximeter] 68 69 Respiratory Rate 18 18 Blood Pressure [Ri ght Arm] 92/51 L 80/43 L Pulse Oximetry 95 94 Oxygen Delivery Me thod Nasal Cannula Nasal Cannula Oxygen Flow Rate 1 1 03/29/22 07:04 03/29/22 07:23 03/29/22 08:10 Temperature 98.1 F Pulse Rate Pulse Rate [Left P ulse Oximeter] 74 Respiratory Rate 24 Blood Pressure [Ri ght Arm] 102/49 L 88/48 L Pulse Oximetry 97 98 Oxygen Delivery Me thod Nasal Cannula Oxygen Flow Rate 2 03/29/22 07:30 03/29/22 08:20 03/29/22 07:40 Temperature Pulse Rate Pulse Rate [Left P ulse Oximeter] Respiratory Rate Blood Pressure [Ri ght Arm] 93/71 96/86 104/70 Pulse Oximetry Oxygen Delivery Me thod Oxygen Flow Rate 03/29/22 07:50 03/29/22 08:00 03/29/22 08:10 Temperature Pulse Rate Pulse Rate [Left P ulse Oximeter] 74 Respiratory Rate 24 Blood Pressure [Ri ght Arm] 94/51 L 95/64 94/51 L Pulse Oximetry 98 Oxygen Delivery Me thod Nasal Cannula Oxygen Flow Rate 2 Labs Labs: Laboratory Results - last 24 hr 03/28/22 03/28/22 03/28/22 07:24 10:58 11:40 WBC RBC Hgb Hct MCV MCH MCHC RDW Coeff of [place] Plt Count Neut % (Auto) Lymph % (Auto) [place] % (Auto) Eos % (Auto) Baso % (Auto) Neut # (Auto) Lymph # (Auto) [place] # (Auto) Eos # (Auto) Baso # (Auto) Sodium 130 L Potassium 2.1 L* Chloride 94 L Carbon Dioxide 26 BUN 74 H Creatinine 1.8 H Estimated Creat Clear 23.72 Estimated GFR 28 Glucose 117 H Lactate Calcium 7.2 L Ionized Calcium [place] Magnesium 1.2 L Total Bilirubin 0.8 AST 28 ALT 16 Alkaline Phosphatase 62 Troponin I 0.08 H* 0.08 H* C-Reactive Protein 22.5 H Total Protein 7.0 Albumin 3.6 Procalcitonin 6.44 H Stl C.difficile Tox PCR St C. diff Tox Epid 027 03/28/22 03/28/22 03/28/22 14:45 18:40 20:06 WBC RBC Hgb Hct MCV MCH MCHC RDW Coeff of [place] Plt Count Neut % (Auto) Lymph % (Auto) [place] % (Auto) Eos % (Auto) Baso % (Auto) Neut # (Auto) Lymph # (Auto) [place] # (Auto) Eos # (Auto) Baso # (Auto) Sodium 130 L Potassium 2.8 L* Chloride 97 Carbon Dioxide 24 BUN 54 H Creatinine 1.5 Estimated Creat Clear 28.47 Estimated GFR 35 Glucose 117 H Lactate 1.0 Calcium 6.4 L Ionized Calcium [place] Magnesium Total Bilirubin AST ALT Alkaline Phosphatase Troponin I C-Reactive Protein Total Protein Albumin Procalcitonin Stl C.difficile Tox PCR Negative St C. diff Tox Epid 027 PRESUMPTIVE NEGATIVE 03/29/22 03/29/22 03/29/22 02:30 02:30 02:30 WBC 12.18 H RBC 3.34 L Hgb 10.4 L Hct 31.6 L MCV 95 MCH 31 MCHC 33 RDW Coeff of [place] Plt Count 188 Neut % (Auto) 86.2 H Lymph % (Auto) 4.7 L [place] % (Auto) 8.2 Eos % (Auto) 0.0 Baso % (Auto) 0.0 Neut # (Auto) 10.50 H Lymph # (Auto) 0.60 L [place] # (Auto) 1.00 H Eos # (Auto) 0.00 Baso # (Auto) 0.00 Sodium Potassium Chloride Carbon Dioxide BUN Creatinine Estimated Creat Clear Estimated GFR Glucose Lactate Calcium Ionized Calcium [place] 0.88 L Magnesium Total Bilirubin AST ALT Alkaline Phosphatase Troponin I 0.10 H* C-Reactive Protein Total Protein Albumin Procalcitonin Stl C.difficile Tox PCR St C. diff Tox Epid 027 03/29/22 03/29/22 03/29/22 02:30 02:30 06:30 WBC 10.35 RBC 3.19 L Hgb 9.9 L Hct 30.5 L MCV 96 MCH 31 MCHC 33 RDW Coeff of [place] 15.4 Plt Count 174 Neut % (Auto) 86.5 H Lymph % (Auto) 4.7 L [place] % (Auto) 8.3 Eos % (Auto) 0.1 Baso % (Auto) 0.1 Neut # (Auto) 9.00 H Lymph # (Auto) 0.50 L [place] # (Auto) 0.90 Eos # (Auto) 0.01 Baso # (Auto) 0.01 Sodium 129 L Potassium 3.7 Chloride 95 L Carbon Dioxide 27 BUN 48 H Creatinine 1.4 Estimated Creat Clear 30.50 Estimated GFR 38 Glucose 114 Lactate 1.4 Calcium 6.6 L Ionized Calcium [place] Magnesium 1.6 Total Bilirubin AST ALT Alkaline Phosphatase Troponin I C-Reactive Protein 34.0 H Total Protein Albumin Procalcitonin Stl C.difficile Tox PCR St C. diff Tox Epid 027 03/29/22 06:30 WBC RBC Hgb Hct MCV MCH MCHC RDW Coeff of [place] Plt Count Neut % (Auto) Lymph % (Auto) [place] % (Auto) Eos % (Auto) Baso % (Auto) Neut # (Auto) Lymph # (Auto) [place] # (Auto) Eos # (Auto) Baso # (Auto) Sodium 130 L Potassium 3.4 L Chloride 98 Carbon Dioxide 25 BUN 44 H Creatinine 1.2 Estimated Creat Clear 35.59 Estimated GFR 46 Glucose 105 Lactate Calcium 6.9 L Ionized Calcium [place] Magnesium 1.6 Total Bilirubin AST ALT Alkaline Phosphatase Troponin I C-Reactive Protein 30.3 H Total Protein Albumin Procalcitonin Stl C.difficile Tox PCR St C. diff Tox Epid 027 Ordering Physician: Melanie Nazario M.D. Date of Service: 03/29/22 Procedure(s): XR chest 1V portable Accession Number(s): [id number] cc: Melanie Nazario M.D.; Provider,Not a Local ~ For Patients:? As a result of the Cures Act, medical imaging exams and procedure reports are released immediately into your electronic medical record.? You may view this report before your referring provider.? If you have questions, please contact your health care provider. INDICATION: Confirm central line placement COMPARISON: March 28, 2022 at 9:13 a.m. TECHNIQUE: Single-view study March 2022 at 2:28 a.m. FINDINGS: TUBES AND LINES: Right IJ catheter ending in the distal SVC. HEART AND MEDIASTINUM: The heart size is normal. The mediastinal contour appears normal for patient age. LUNGS AND PLEURAL SPACES: Low lung volumes. No focal consolidation or infiltrate.The pleural spaces are unremarkable. OSSEOUS STRUCTURES: Age-appropriate appearance. No acute focal finding. IMPRESSION: Right IJ catheter ending in the distal SVC. Low lung volumes. No focal consolidation or infiltrate. No pleural effusion or pneumothorax. Dictated by Bib Jansen MD @ 03/29/2022 10:21:33 AM (Electronically Signed)
[2022-03-29 09:11] LABS: Troponin I* 0.08 ng/mL (0.01-0.04)
[2022-03-29] MEDS: HEPARIN 5,000 UNIT/0.5 ML INJ 5000 UNIT SUBCUT ×2 (09:30→21:13)
[2022-03-29 11:22] LABS: Ionized Calcium* 0.94 mmol/L (1.11-1.30)
--- NOTE | 2022-03-29 12:46 | P.ORPN_ITS ---
Ortho Exam Const Vital Signs, click to edit/add: Vital Signs - 24 hr 03/28/22 13:42 03/28/22 15:00 03/28/22 15:00 Temperature 100.3 F H Pulse Rate Pulse Rate [Apical] Pulse Rate [Left Pulse Oximeter] 81 81 Respiratory Rate 18 18 Blood Pressure [Right Arm] 90/37 L Pulse Oximetry 93 96 Oxygen Delivery Method Room Air Nasal Cannula Oxygen Flow Rate 2 03/28/22 19:00 03/28/22 13:14 03/28/22 21:00 Temperature 98.6 F 99.3 F 98.7 F Pulse Rate Pulse Rate [Apical] Pulse Rate [Left Pulse Oximeter] 89 86 78 Respiratory Rate 18 18 20 Blood Pressure [Right Arm] 112/57 L 108/69 110/56 L Pulse Oximetry 91 97 93 Oxygen Delivery Method Room Air Room Air Nasal Cannula Oxygen Flow Rate 2 03/28/22 20:00 03/28/22 19:00 03/28/22 23:03 Temperature 98.6 F Pulse Rate 77 Pulse Rate [Apical] Pulse Rate [Left Pulse Oximeter] 77 Respiratory Rate 16 Blood Pressure [Right Arm] 100/55 L 103/55 L Pulse Oximetry 94 Oxygen Delivery Method Nasal Cannula Oxygen Flow Rate 2 03/28/22 23:00 03/28/22 23:00 03/28/22 23:44 Temperature Pulse Rate 77 Pulse Rate [Apical] Pulse Rate [Left Pulse Oximeter] 77 Respiratory Rate 16 Blood Pressure [Right Arm] Pulse Oximetry 94 Oxygen Delivery Method Oxygen Flow Rate 03/29/22 00:05 03/29/22 03:30 03/29/22 03:00 Temperature 98.1 F Pulse Rate Pulse Rate [Apical] Pulse Rate [Left Pulse Oximeter] 68 Respiratory Rate 18 Blood Pressure [Right Arm] 83/51 L 85/45 L 92/51 L Pulse Oximetry 95 Oxygen Delivery Method Nasal Cannula Oxygen Flow Rate 1 03/29/22 03:00 03/29/22 06:18 03/29/22 07:04 Temperature 97.7 F Pulse Rate 66 Pulse Rate [Apical] Pulse Rate [Left Pulse Oximeter] 69 Respiratory Rate 18 Blood Pressure [Right Arm] 80/43 L 102/49 L Pulse Oximetry 94 Oxygen Delivery Method Nasal Cannula Oxygen Flow Rate 1 03/29/22 07:23 03/29/22 08:10 03/29/22 07:30 Temperature 98.1 F Pulse Rate Pulse Rate [Apical] Pulse Rate [Left Pulse Oximeter] 74 Respiratory Rate 24 Blood Pressure [Right Arm] 88/48 L 93/71 Pulse Oximetry 97 98 Oxygen Delivery Method Nasal Cannula Oxygen Flow Rate 2 03/29/22 08:20 03/29/22 07:40 03/29/22 07:50 Temperature Pulse Rate Pulse Rate [Apical] Pulse Rate [Left Pulse Oximeter] Respiratory Rate Blood Pressure [Right Arm] 96/86 104/70 94/51 L Pulse Oximetry Oxygen Delivery Method Oxygen Flow Rate 03/29/22 08:00 03/29/22 08:10 03/29/22 07:26 Temperature Pulse Rate 70 Pulse Rate [Apical] Pulse Rate [Left Pulse Oximeter] 74 Respiratory Rate 24 Blood Pressure [Right Arm] 95/64 94/51 L Pulse Oximetry 98 Oxygen Delivery Method Nasal Cannula Oxygen Flow Rate 2 03/29/22 08:30 03/29/22 09:30 03/29/22 09:40 Temperature 97.4 F L Pulse Rate Pulse Rate [Apical] 75 Pulse Rate [Left Pulse Oximeter] Respiratory Rate 20 Blood Pressure [Right Arm] 87/53 L 80/52 L 97/60 Pulse Oximetry 97 Oxygen Delivery Method Nasal Cannula Oxygen Flow Rate 2 03/29/22 09:50 03/29/22 08:40 03/29/22 08:50 Temperature Pulse Rate Pulse Rate [Apical] Pulse Rate [Left Pulse Oximeter] Respiratory Rate Blood Pressure [Right Arm] 90/61 92/51 L 95/54 L Pulse Oximetry Oxygen Delivery Method Oxygen Flow Rate 03/29/22 09:00 03/29/22 09:10 03/29/22 09:20 Temperature Pulse Rate Pulse Rate [Apical] Pulse Rate [Left Pulse Oximeter] Respiratory Rate Blood Pressure [Right Arm] 86/57 L 95/59 L 87/50 L Pulse Oximetry Oxygen Delivery Method Oxygen Flow Rate 03/29/22 10:00 03/29/22 10:10 03/29/22 10:20 Temperature Pulse Rate Pulse Rate [Apical] Pulse Rate [Left Pulse Oximeter] Respiratory Rate Blood Pressure [Right Arm] 92/53 L 105/63 106/71 Pulse Oximetry Oxygen Delivery Method Oxygen Flow Rate 03/29/22 10:30 03/29/22 11:00 03/29/22 11:30 Temperature 98.1 F Pulse Rate Pulse Rate [Apical] Pulse Rate [Left Pulse Oximeter] 76 74 Respiratory Rate 22 Blood Pressure [Right Arm] 97/55 L 95/64 92/54 L Pulse Oximetry 98 99 Oxygen Delivery Method Nasal Cannula Nasal Cannula Oxygen Flow Rate 2 2 03/29/22 11:00 03/29/22 12:00 03/29/22 12:37 Temperature 98.1 F Pulse Rate 73 Pulse Rate [Apical] Pulse Rate [Left Pulse Oximeter] 81 74 Respiratory Rate 22 20 Blood Pressure [Right Arm] 92/59 L 97/51 L Pulse Oximetry 98 98 Oxygen Delivery Method Nasal Cannula Nasal Cannula Oxygen Flow Rate 2 2 Assessment and Plan Assessment and plan (1) Weakness: Status: Acute (2) Dehydration: Status: Acute (3) Elevated troponin: Status: Acute (4) Chronic kidney disease, stage 3: Problem details: Mild Cr elevation starting 2011; Increased in 2018 with diuresis. Follows with Dr. Natarajan ([facility] [place]) Status: Acute (5) Hypokalemia: Status: Acute (6) Hypomagnesemia: Status: Acute (7) ARF (acute renal failure): Status: Acute
--- NOTE | 2022-03-29 12:55 | P.ORCN_ITS ---
History of Present Illness HPI Time Seen by Provider: 10:30 Date Seen: 03/29/22 Consult date: 03/29/22 Requesting physician: Meghan Ervin Chief complaint: Lethargy, chills Narrative: Orthopedics is asked to consult on Lela's right hip pain. She states her pain is better today. Staff states her pain is better in the day but worsens in the evenings. Right hip pain began 03/27/2022, 2 days ago. She points to the lateral side of her right hip. She is able to stand on both feet to transition to a commode without severe right hip pain currently. She also describes diarrhea and weakness. For antibiotics she is on Zosyn and vancomycin. She was brought by ambulance to [facility] Emergency Room on 03/27/2022. She was admitted with an elevated white blood cell count, hyponatremia, hypokalemia, nausea and vomiting evidence of UTI. Yesterday she had a fever of 101.6 as a high. She has severe sepsis and hypotension. She has a history of right hip replacement in 2016 and left knee replacement in [address] Berrios and myself. She has had no trouble with her right hip until now. Review of Systems Const: Reports: fever (Yesterday, Currently afebrile), fatigue and malaise GI: Reports: diarrhea Musculo: Reports: extremity pain (Right hip and thigh pain) Endo: Reports: fatigue PFSH PFS Medical History (Updated 03/29/22 @ 13:21 by Brandie Silver PA-C) Chronic kidney disease, stage 3 Glaucoma Gout Health care maintenance History of malignant neoplasm of breast HTN (hypertension) Hyperuricemia Left anterior fascicular block Lumbar degenerative disc disease Nephrosclerosis Normal echocardiogram Spinal stenosis of lumbar region without neurogenic claudication Squamous cell carcinoma in situ (SCCIS) of skin Tricuspid insufficiency Venous insufficiency of both lower extremities Vitamin D deficiency Surgical History (Updated 03/28/22 @ 08:20 by Meghan Ervin MD) H/O hernia repair History of hysterectomy for benign disease History of lumpectomy of left breast S/P tendon repair S/P tubal ligation Status post hysterectomy Status post left breast lumpectomy Status post total hip replacement, right Status post total left knee replacement Family History (Updated 03/28/22 @ 08:22 by Meghan Ervin MD) Mother Colon cancer Arthritis CHF (congestive heart failure) Father Skin cancer Aunt Breast cancer Sister Brain tumor Epilepsy Stroke Social History (Updated 03/28/22 @ 08:52 by Meghan Ervin MD) Narrative: Quit smoking >15 years ago. Glass of wine or a beer once a month. No recreational drugs. FULL CODE. Highest level of school completed/degree received: high school graduate Smoking Status: Former smoker Do you use any of these nicotine containing products: None How often do you have a drink containing alcohol: never AUDIT-C Alcohol total score: 0 Non-prescribed substance use: denies use Caffeine: No service: No Meds Home Medications and Allergies Home Medications Medication Instructions Recorded Confirmed Type allopurinol 100 mg tablet 200 mg PO DAILY 12/18/21 03/28/22 History latanoprost 0.005 % eye drops 1 drp ophthalmic (eye) HS 12/18/21 03/28/22 H istory potassium chloride 20 mEq 40 meq PO BID 12/18/21 03/28/22 History tablet,extended release metolazone 2.5 mg tablet 2.5 mg PO .2X/WEEK PRN 03/28/22 03/28/22 History prednisone 5 mg tablet 5 mg PO DAILY 03/28/22 03/28/22 History timolol 0.25 % eye drops 1 drp ophthalmic (eye) BID 03/28/22 03/28/22 History Allergies Allergy/AdvReac Type Severity Reaction Status Date / Time oxycodone AdvReac Severe Dizzy Verified 01/27/22 13:42 procaine AdvReac Severe Combative Verified 01/27/22 13:42 codeine AdvReac Unknown Nausea, Verified 01/27/22 13:42 Dizzy Ortho Exam Narrative Exam Narrative: Alert and oriented x3. Patient is in no acute distress. Converses without labored breathing. Hearing is grossly intact. Ambulates with assistance and a walker. Examination of the right hip shows the right hip incision is healed. There is no erythema or warmth or soft tissue edema about the thigh. No ecchymosis. Mild pretibial edema. No pain with gentle log-rolling. No pain in right hip with pounding against her right heel. She has lateral hip pain with abduction. She has groin pain with flexion, internal and external rotation. Tenderness to palpation about the greater trochanter, IT band over the lateral thigh to the knee. Of note she has similar tenderness over the left greater trochanter, IT band to the knee. I observed her stand up and pivot to the commode with 2 assistants. With palpation over the right hip joint she does not describe discomfort. Range of motion of the ankle and knee and toes is normal on the right and without pain. Examination of her left knee shows midline incision is well healed. No erythema or warmth or sign of infection. Range of motion of the left knee is without pain. ( Previous knee replacement on the left.) Bilateral calves are soft and nontender. SCDs are in place. Const Vital Signs, click to edit/add: Vital Signs - 24 hr 03/28/22 13:42 03/28/22 15:00 03/28/22 15:00 Temperature 100.3 F H Pulse Rate Pulse Rate [Apical] Pulse Rate [Left Pulse Oximeter] 81 81 Respiratory Rate 18 18 Blood Pressure [Right Arm] 90/37 L Pulse Oximetry 93 96 Oxygen Delivery Method Room Air Nasal Cannula Oxygen Flow Rate 2 03/28/22 19:00 03/28/22 13:14 03/28/22 21:00 Temperature 98.6 F 99.3 F 98.7 F Pulse Rate Pulse Rate [Apical] Pulse Rate [Left Pulse Oximeter] 89 86 78 Respiratory Rate 18 18 20 Blood Pressure [Right Arm] 112/57 L 108/69 110/56 L Pulse Oximetry 91 97 93 Oxygen Delivery Method Room Air Room Air Nasal Cannula Oxygen Flow Rate 2 03/28/22 20:00 03/28/22 19:00 03/28/22 23:03 Temperature 98.6 F Pulse Rate 77 Pulse Rate [Apical] Pulse Rate [Left Pulse Oximeter] 77 Respiratory Rate 16 Blood Pressure [Right Arm] 100/55 L 103/55 L Pulse Oximetry 94 Oxygen Delivery Method Nasal Cannula Oxygen Flow Rate 2 03/28/22 23:00 03/28/22 23:00 03/28/22 23:44 Temperature Pulse Rate 77 Pulse Rate [Apical] Pulse Rate [Left Pulse Oximeter] 77 Respiratory Rate 16 Blood Pressure [Right Arm] Pulse Oximetry 94 Oxygen Delivery Method Oxygen Flow Rate 03/29/22 00:05 03/29/22 03:30 03/29/22 03:00 Temperature 98.1 F Pulse Rate Pulse Rate [Apical] Pulse Rate [Left Pulse Oximeter] 68 Respiratory Rate 18 Blood Pressure [Right Arm] 83/51 L 85/45 L 92/51 L Pulse Oximetry 95 Oxygen Delivery Method Nasal Cannula Oxygen Flow Rate 1 03/29/22 03:00 03/29/22 06:18 03/29/22 07:04 Temperature 97.7 F Pulse Rate 66 Pulse Rate [Apical] Pulse Rate [Left Pulse Oximeter] 69 Respiratory Rate 18 Blood Pressure [Right Arm] 80/43 L 102/49 L Pulse Oximetry 94 Oxygen Delivery Method Nasal Cannula Oxygen Flow Rate 1 03/29/22 07:23 03/29/22 08:10 03/29/22 07:30 Temperature 98.1 F Pulse Rate Pulse Rate [Apical] Pulse Rate [Left Pulse Oximeter] 74 Respiratory Rate 24 Blood Pressure [Right Arm] 88/48 L 93/71 Pulse Oximetry 97 98 Oxygen Delivery Method Nasal Cannula Oxygen Flow Rate 2 03/29/22 08:20 03/29/22 07:40 03/29/22 07:50 Temperature Pulse Rate Pulse Rate [Apical] Pulse Rate [Left Pulse Oximeter] Respiratory Rate Blood Pressure [Right Arm] 96/86 104/70 94/51 L Pulse Oximetry Oxygen Delivery Method Oxygen Flow Rate 03/29/22 08:00 03/29/22 08:10 03/29/22 07:26 Temperature Pulse Rate 70 Pulse Rate [Apical] Pulse Rate [Left Pulse Oximeter] 74 Respiratory Rate 24 Blood Pressure [Right Arm] 95/64 94/51 L Pulse Oximetry 98 Oxygen Delivery Method Nasal Cannula Oxygen Flow Rate 2 03/29/22 08:30 03/29/22 09:30 03/29/22 09:40 Temperature 97.4 F L Pulse Rate Pulse Rate [Apical] 75 Pulse Rate [Left Pulse Oximeter] Respiratory Rate 20 Blood Pressure [Right Arm] 87/53 L 80/52 L 97/60 Pulse Oximetry 97 Oxygen Delivery Method Nasal Cannula Oxygen Flow Rate 2 03/29/22 09:50 03/29/22 08:40 03/29/22 08:50 Temperature Pulse Rate Pulse Rate [Apical] Pulse Rate [Left Pulse Oximeter] Respiratory Rate Blood Pressure [Right Arm] 90/61 92/51 L 95/54 L Pulse Oximetry Oxygen Delivery Method Oxygen Flow Rate 03/29/22 09:00 03/29/22 09:10 03/29/22 09:20 Temperature Pulse Rate Pulse Rate [Apical] Pulse Rate [Left Pulse Oximeter] Respiratory Rate Blood Pressure [Right Arm] 86/57 L 95/59 L 87/50 L Pulse Oximetry Oxygen Delivery Method Oxygen Flow Rate 03/29/22 10:00 03/29/22 10:10 03/29/22 10:20 Temperature Pulse Rate Pulse Rate [Apical] Pulse Rate [Left Pulse Oximeter] Respiratory Rate Blood Pressure [Right Arm] 92/53 L 105/63 106/71 Pulse Oximetry Oxygen Delivery Method Oxygen Flow Rate 03/29/22 10:30 03/29/22 11:00 03/29/22 11:30 Temperature 98.1 F Pulse Rate Pulse Rate [Apical] Pulse Rate [Left Pulse Oximeter] 76 74 Respiratory Rate 22 Blood Pressure [Right Arm] 97/55 L 95/64 92/54 L Pulse Oximetry 98 99 Oxygen Delivery Method Nasal Cannula Nasal Cannula Oxygen Flow Rate 2 2 03/29/22 11:00 03/29/22 12:00 03/29/22 12:37 Temperature 98.1 F Pulse Rate 73 Pulse Rate [Apical] Pulse Rate [Left Pulse Oximeter] 81 74 Respiratory Rate 22 20 Blood Pressure [Right Arm] 92/59 L 97/51 L Pulse Oximetry 98 98 Oxygen Delivery Method Nasal Cannula Nasal Cannula Oxygen Flow Rate 2 2 Results Labs Labs: Laboratory Results - last 48 hr 03/27/22 03/27/22 03/27/22 21:24 21:24 21:24 WBC 16.82 H RBC 3.90 L Hgb 12.4 Hct 36.3 MCV 93 MCH 32 MCHC 34 RDW Coeff of [place] 15.1 Plt Count 246 Neut % (Auto) 87.2 H Lymph % (Auto) 2.9 L [place] % (Auto) 9.5 Eos % (Auto) 0.0 Baso % (Auto) 0.0 Neut # (Auto) 14.70 H Lymph # (Auto) 0.50 L [place] # (Auto) 1.60 H Eos # (Auto) 0.00 Baso # (Auto) 0.00 Sodium 127 L Potassium 3.1 L Chloride 87 L Carbon Dioxide 28 BUN 84 H Creatinine 1.8 H Estimated Creat Clear 24.64 Estimated GFR 28 Glucose 150 H Lactate Calcium 8.1 L Ionized Calcium Wyatt Magnesium Total Bilirubin 1.2 AST 42 H ALT 20 Alkaline Phosphatase 58 Troponin I C-Reactive Protein Total Protein 8.2 Albumin 4.2 Amylase Procalcitonin Urine Color Urine Appearance Urine pH Ur Specific [place] Urine Protein Urine Glucose (UA) Urine Ketones Urine Blood Urine Nitrite Urine Bilirubin Urine Urobilinogen Ur Leukocyte Esterase Urine RBC Urine WBC Ur Squamous Epith Cells Urine Bacteria Stl C.difficile Tox PCR St C. diff Tox Epid 027 SARS-CoV-2 (PCR) Negative SARS-CoV-2 Influenza Type A (PCR) Negative PCR FLU A Influenza Type B (PCR) Negative PCR FLU B RSV (PCR) Negative PCR RSV 03/27/22 03/27/22 03/27/22 21:24 22:00 23:15 WBC RBC Hgb Hct MCV MCH MCHC RDW Coeff of [place] Plt Count Neut % (Auto) Lymph % (Auto) [place] % (Auto) Eos % (Auto) Baso % (Auto) Neut # (Auto) Lymph # (Auto) [place] # (Auto) Eos # (Auto) Baso # (Auto) Sodium Potassium Chloride Carbon Dioxide BUN Creatinine Estimated Creat Clear Estimated GFR Glucose Lactate 1.2 Calcium Ionized Calcium Wyatt Magnesium Total Bilirubin AST ALT Alkaline Phosphatase Troponin I C-Reactive Protein Total Protein Albumin Amylase 137 H Procalcitonin Urine Color Dark yellow Urine Appearance Slightly Cloudy A Urine pH 6.0 Ur Specific [place] 1.015 Urine Protein 2+ A Urine Glucose (UA) Negative Urine Ketones Negative Urine Blood 2+ A Urine Nitrite Negative Urine Bilirubin Negative Urine Urobilinogen 0.2 Ur Leukocyte Esterase 3+ A Urine RBC 2-5 A Urine WBC 10-25 A Ur Squamous Epith Cells Few Urine Bacteria Many A Stl C.difficile Tox PCR St C. diff Tox Epid 027 SARS-CoV-2 (PCR) Influenza Type A (PCR) Influenza Type B (PCR) RSV (PCR) 03/27/22 03/28/22 03/28/22 23:20 07:24 07:24 WBC 12.82 H RBC 3.55 L Hgb 11.2 L Hct 33.2 MCV 94 MCH 32 MCHC 34 RDW Coeff of [place] 15.0 Plt Count 192 Neut % (Auto) 86.3 H Lymph % (Auto) 5.3 L [place] % (Auto) 7.9 Eos % (Auto) 0.0 Baso % (Auto) 0.1 Neut # (Auto) 11.10 H Lymph # (Auto) 0.70 L [place] # (Auto) 1.00 H Eos # (Auto) 0.00 Baso # (Auto) 0.00 Sodium Potassium Chloride Carbon Dioxide BUN Creatinine Estimated Creat Clear Estimated GFR Glucose Lactate Calcium Ionized Calcium Wyatt Magnesium Total Bilirubin AST ALT Alkaline Phosphatase Troponin I 0.08 H* 0.08 H* C-Reactive Protein Total Protein Albumin Amylase Procalcitonin Urine Color Urine Appearance Urine pH Ur Specific [place] Urine Protein Urine Glucose (UA) Urine Ketones Urine Blood Urine Nitrite Urine Bilirubin Urine Urobilinogen Ur Leukocyte Esterase Urine RBC Urine WBC Ur Squamous Epith Cells Urine Bacteria Stl C.difficile Tox PCR St C. diff Tox Epid 027 SARS-CoV-2 (PCR) Influenza Type A (PCR) Influenza Type B (PCR) RSV (PCR) 03/28/22 03/28/22 03/28/22 07:24 10:58 11:40 WBC RBC Hgb Hct MCV MCH MCHC RDW Coeff of [place] Plt Count Neut % (Auto) Lymph % (Auto) [place] % (Auto) Eos % (Auto) Baso % (Auto) Neut # (Auto) Lymph # (Auto) [place] # (Auto) Eos # (Auto) Baso # (Auto) Sodium 130 L Potassium 2.1 L* Chloride 94 L Carbon Dioxide 26 BUN 74 H Creatinine 1.8 H Estimated Creat Clear 23.72 Estimated GFR 28 Glucose 117 H Lactate Calcium 7.2 L Ionized Calcium Wyatt Magnesium 1.2 L Total Bilirubin 0.8 AST 28 ALT 16 Alkaline Phosphatase 62 Troponin I 0.08 H* 0.08 H* C-Reactive Protein 22.5 H Total Protein 7.0 Albumin 3.6 Amylase Procalcitonin 6.44 H Urine Color Urine Appearance Urine pH Ur Specific [place] Urine Protein Urine Glucose (UA) Urine Ketones Urine Blood Urine Nitrite Urine Bilirubin Urine Urobilinogen Ur Leukocyte Esterase Urine RBC Urine WBC Ur Squamous Epith Cells Urine Bacteria Stl C.difficile Tox PCR St C. diff Tox Epid 027 SARS-CoV-2 (PCR) Influenza Type A (PCR) Influenza Type B (PCR) RSV (PCR) 03/28/22 03/28/22 03/28/22 14:45 18:40 20:06 WBC RBC Hgb Hct MCV MCH MCHC RDW Coeff of [place] Plt Count Neut % (Auto) Lymph % (Auto) [place] % (Auto) Eos % (Auto) Baso % (Auto) Neut # (Auto) Lymph # (Auto) [place] # (Auto) Eos # (Auto) Baso # (Auto) Sodium 130 L Potassium 2.8 L* Chloride 97 Carbon Dioxide 24 BUN 54 H Creatinine 1.5 Estimated Creat Clear 28.47 Estimated GFR 35 Glucose 117 H Lactate 1.0 Calcium 6.4 L Ionized Calcium Wyatt Magnesium Total Bilirubin AST ALT Alkaline Phosphatase Troponin I C-Reactive Protein Total Protein Albumin Amylase Procalcitonin Urine Color Urine Appearance Urine pH Ur Specific [place] Urine Protein Urine Glucose (UA) Urine Ketones Urine Blood Urine Nitrite Urine Bilirubin Urine Urobilinogen Ur Leukocyte Esterase Urine RBC Urine WBC Ur Squamous Epith Cells Urine Bacteria Stl C.difficile Tox PCR Negative St C. diff Tox Epid 027 PRESUMPTIVE NEGATIVE SARS-CoV-2 (PCR) Influenza Type A (PCR) Influenza Type B (PCR) RSV (PCR) 03/29/22 03/29/22 03/29/22 02:30 02:30 02:30 WBC 12.18 H RBC 3.34 L Hgb 10.4 L Hct 31.6 L MCV 95 MCH 31 MCHC 33 RDW Coeff of [place] Plt Count 188 Neut % (Auto) 86.2 H Lymph % (Auto) 4.7 L [place] % (Auto) 8.2 Eos % (Auto) 0.0 Baso % (Auto) 0.0 Neut # (Auto) 10.50 H Lymph # (Auto) 0.60 L [place] # (Auto) 1.00 H Eos # (Auto) 0.00 Baso # (Auto) 0.00 Sodium Potassium Chloride Carbon Dioxide BUN Creatinine Estimated Creat Clear Estimated GFR Glucose Lactate Calcium Ionized Calcium [place]att 0.88 L Magnesium Total Bilirubin AST ALT Alkaline Phosphatase Troponin I 0.10 H* C-Reactive Protein Total Protein Albumin Amylase Procalcitonin Urine Color Urine Appearance Urine pH Ur Specific [place] Urine Protein Urine Glucose (UA) Urine Ketones Urine Blood Urine Nitrite Urine Bilirubin Urine Urobilinogen Ur Leukocyte Esterase Urine RBC Urine WBC Ur Squamous Epith Cells Urine Bacteria Stl C.difficile Tox PCR St C. diff Tox Epid 027 SARS-CoV-2 (PCR) Influenza Type A (PCR) Influenza Type B (PCR) RSV (PCR) 03/29/22 03/29/22 03/29/22 02:30 02:30 06:30 WBC 10.35 RBC 3.19 L Hgb 9.9 L Hct 30.5 L MCV 96 MCH 31 MCHC 33 RDW Coeff of [place] 15.4 Plt Count 174 Neut % (Auto) 86.5 H Lymph % (Auto) 4.7 L [place] % (Auto) 8.3 Eos % (Auto) 0.1 Baso % (Auto) 0.1 Neut # (Auto) 9.00 H Lymph # (Auto) 0.50 L [place] # (Auto) 0.90 Eos # (Auto) 0.01 Baso # (Auto) 0.01 Sodium 129 L Potassium 3.7 Chloride 95 L Carbon Dioxide 27 BUN 48 H Creatinine 1.4 Estimated Creat Clear 30.50 Estimated GFR 38 Glucose 114 Lactate 1.4 Calcium 6.6 L Ionized Calcium Wyatt Magnesium 1.6 Total Bilirubin AST ALT Alkaline Phosphatase Troponin I C-Reactive Protein 34.0 H Total Protein Albumin Amylase Procalcitonin Urine Color Urine Appearance Urine pH Ur Specific [place] Urine Protein Urine Glucose (UA) Urine Ketones Urine Blood Urine Nitrite Urine Bilirubin Urine Urobilinogen Ur Leukocyte Esterase Urine RBC Urine WBC Ur Squamous Epith Cells Urine Bacteria Stl C.difficile Tox PCR St C. diff Tox Epid 027 SARS-CoV-2 (PCR) Influenza Type A (PCR) Influenza Type B (PCR) RSV (PCR) 03/29/22 03/29/22 06:30 11:17 WBC RBC Hgb Hct MCV MCH MCHC RDW Coeff of [place] Plt Count Neut % (Auto) Lymph % (Auto) [place] % (Auto) Eos % (Auto) Baso % (Auto) Neut # (Auto) Lymph # (Auto) [place] # (Auto) Eos # (Auto) Baso # (Auto) Sodium 130 L Potassium 3.4 L Chloride 98 Carbon Dioxide 25 BUN 44 H Creatinine 1.2 Estimated Creat Clear 35.59 Estimated GFR 46 Glucose 105 Lactate Calcium 6.9 L Ionized Calcium [place] 0.94 L Magnesium 1.6 Total Bilirubin AST ALT Alkaline Phosphatase Troponin I 0.08 H* C-Reactive Protein 30.3 H Total Protein Albumin Amylase Procalcitonin Urine Color Urine Appearance Urine pH Ur Specific [place] Urine Protein Urine Glucose (UA) Urine Ketones Urine Blood Urine Nitrite Urine Bilirubin Urine Urobilinogen Ur Leukocyte Esterase Urine RBC Urine WBC Ur Squamous Epith Cells Urine Bacteria Stl C.difficile Tox PCR St C. diff Tox Epid 027 SARS-CoV-2 (PCR) Influenza Type A (PCR) Influenza Type B (PCR) RSV (PCR) Diagnostic results Hip x-ray: report reviewed, image reviewed and other (X-ray of the right hip taken 03/28/2022 AP view of the pelvis and AP and lateral view of the right hip shows normal appearance status post right total hip arthroplasty. No visible complication. No fracture, destructive process, or abnormal lucency about the implants.) Assessment and Plan Assessment and plan (1) Weakness: Status: Acute Total time spent: Total time spent is greater than 50% in coordination of care (as documented) at patient's floor/unit and/or counseling patient: (2) Dehydration: Status: Acute Total time spent: Total time spent is greater than 50% in coordination of care (as documented) at patient's floor/unit and/or counseling patient: (3) Elevated troponin: Status: Acute Total time spent: Total time spent is greater than 50% in coordination of care (as documented) at patient's floor/unit and/or counseling patient: (4) Chronic kidney disease, stage 3: Problem comment: Mild Cr elevation starting 2011; Increased in 2018 with diuresis. Follows with Dr. Natarajan ([facility]) Status: Acute Total time spent: Total time spent is greater than 50% in coordination of care (as documented) at patient's floor/unit and/or counseling patient: (5) Hypokalemia: Status: Acute Total time spent: Total time spent is greater than 50% in coordination of care (as documented) at patient's floor/unit and/or counseling patient: (6) Hypomagnesemia: Status: Acute Total time spent: Total time spent is greater than 50% in coordination of care (as documented) at patient's floor/unit and/or counseling patient: (7) ARF (acute renal failure): Status: Acute Total time spent: Total time spent is greater than 50% in coordination of care (as documented) at patient's floor/unit and/or counseling patient: (8) Right hip pain: Problem comment: Pain began 03/27/2022, severe sepsis and hypotension Right total hip arthroplasty 2016, Dr. Berrios Status: Acute Assessment and Plan: White blood cell count is normal today at 10.35, was elevated yesterday at 12.18. CRP is elevated at 30.3. Lela's right hip pain is mostly lateral hip, lateral thigh IT band to the knee, however she does have groin pain as well with passive range of motion in flexion, external, internal rotation. With severe sepsis, prosthetic joint infection is indeed a concern in her right hip given her continued pain over the last couple days. I have called Radiology and have spoken with Trini and Roverto. Dr. Umana is available at 9:00 a.m. tomorrow for right hip aspiration or attempt at right hip aspiration. If synovial fluid is aspirated, the aspirate will be sent to lab to test for cell count with differential, crystals, Gram s tain, culture and specificity and alpha- defense immunoassay test. Dr. Galo agrees with the plan as well. He will check on the patient tomorrow as well. Patient agrees with the plan. Note, dictation performed with voice recognition, and as a result, wrong word or sound like substitutions may have occurred. There may be areas in the script that have gone on detected. Please consider this when interpreting information found in the chart. Total time spent: 35 min
[2022-03-29] MEDS: dexAMETHasone 10 MG/ML inj IVP (16:28)
[2022-03-29 16:55] LABS: Ionized Calcium* 0.95 mmol/L (1.11-1.30)
[2022-03-29 17:13] LABS: Chloride* 100 mmol/L (96-114); Potassium* 3.3 mmol/L (3.6-5.1); Sodium* 132 mmol/L (135-149)
[2022-03-29 17:16] LABS: Blood Urea Nitrogen* 37 mg/dL (7-30); Calcium* 6.9 mg/dL (8.4-10.6); Carbon Dioxide* 26 mmol/L (20-32); Creatinine* 1.5 mg/dL (0.5-1.5); Est. Creatinine Clearance* 28.47; Estimated Glomerular Filt Rate 35 ml/min; Glucose* 131 mg/dL (60-115)
[2022-03-29] MEDS: PIPERACILLIN/TAZOBACTAM 2.25 GM in 0.9 % SODIUM CHLORIDE Mini-bag 100 ML IVPB (18:37)
[2022-03-29] MEDS: SODIUM CHLORIDE 0.9 % (FLUSH) 10 ML SYRINGE 5 ML IVF (18:38)
[2022-03-29] MEDS: POTASSIUM CHLORIDE 10 MEQ CAPSULE ER 40 MEQ PO (18:38)
--- NOTE | 2022-03-29 19:56 | PC.NURSE ---
Pt pleasant and cooperative with cares. Corey patent and draining. Continent of bowel. Pt is up to bedside commode and chair with walker, gait belt, and assist of 1. Central line protocol followed.
[2022-03-29] MEDS: LOPERAMIDE HCL 2 MG CAPSULE PO (21:12)
[2022-03-29] MEDS: timoloL maleate 0.25% EYE DROPS 1 DROP EYE-BOTH (21:24)
[2022-03-30] VITALS (17 sets, daily range): BP systolic 86–107; BP diastolic 52–82; PULSE 61–150; RESP 18; TEMP 36.3–36.7; O2SAT 93–98
[2022-03-30] MEDS: IPRAT-ALBUT 0.5-2.5 MG/3 ML NEB 1 NEB IH ×3 (00:21→12:20)
[2022-03-30] MEDS: PIPERACILLIN/TAZOBACTAM 2.25 GM in 0.9 % SODIUM CHLORIDE Mini-bag 100 ML IVPB ×4 (00:21→18:34)
--- NOTE | 2022-03-30 00:40 | PC.NURSE ---
patient reported slight L sided chest pain with deep breaths, described as muscular and located under L breast, no radiating or worsening. Dr Chamberlain updated and EKG obtained. see scanned EKG
--- NOTE | 2022-03-30 03:31 | CRLHL7_ITS ---
For Patients: As a result of the Cures Act, medical imaging exams and procedure reports are released immediately into your electronic medical record. You may view this report before your referring provider. If you have questions, please contact your health care provider. INDICATION: Worsening shortness of breath. TECHNIQUE: Chest 1 view. COMPARISON: Chest radiograph 03/29/2022. FINDINGS: Right IJ CVC with tip in the mid SVC. New tiny left pleural effusion. No focal consolidation or pneumothorax. Normal heart size and pulmonary vascularity. Surgical clips left axilla. Degenerative changes of the shoulders. IMPRESSION: New tiny left pleural effusion. Dictated by Parvin Keyes MD @ 03/30/2022 5:11:21 AM (Electronically Signed)
--- NOTE | 2022-03-30 03:34 | P.CCN_ITS ---
Assessment and Plan Assessment and plan (1) Chest pain: Status: Acute Plan Pepe Hairist Cross Cover Note eHospitalist was contacted by nursing staff with concern of chest pain and tachycardia. Earlier at around midnight patient had some chest pain and EKG at that time was reassuring. Patient went to sleep. Woke up around 3:00 in complained of left precordial chest pain 5/10, nonradiating, worse with deep breaths. No nausea or vomiting. She feels hungry. Blood pressure stable around 100 that has been running low. Oxygen requirement is stable. Physical examination with tachycardia, irregular heart rate. Bibasilar crackles. EKG done little bit earlier showed atrial fibrillation. Atypical pleuritic chest pain. Atrial fibrillation new onset with RVR. Bibasilar crackles, fluid overload. Cannot rule out bilateral pneumonia. One-time dose of digoxin. Continue telemetry. EKG with A. fib but grossly unchanged and no ischemic changes. Check BMP and replace potassium as per the results. IV magnesium, Calcium and potassium ordered. Portable chest x-ray With mild pleural effusions and congestion without any pneumothorax. Will defer anticoagulation to the morning team. Continue to hold IV fluids. Due to blood pressure patient will likely not be able to tolerate Lasix. She is saturating fine on room air. Continue to monitor. [facility] This service is available for further assistance as requested by your care team by calling [phone].
[2022-03-30 03:54] LABS: Hematocrit 30.9 % (33.0-51.0); Hemoglobin* 10.2 gm/dL (12.0-16.0); Immature Granulocytes Abs Auto 0.03 K/uL (0.00-0.30); Immature Granulocytes Pct Auto 0.5 %; Lymphocytes Percent Auto 2.8 % (20-44); Mean Corpuscular HGB Conc 33 gm/dL (32-36); Mean Corpuscular Hemoglobin 32 pg (26-34); Mean Corpuscular Volume 96 fL (80-100); Neutrophils Percent Auto 93.7 % (42.0-72.0); Platelet Count* 171 K/uL (140-440); RDW Coefficient of Variation % 15.4 % (11.5-15.5); Red Blood Count 3.21 m/uL (4.00-5.20); White Blood Count* 6.42 K/uL (4.50-11.00)
[2022-03-30 03:57] LABS: Slide Review Reflex No
[2022-03-30] MEDS: DIGOXIN 250 MCG/ML inj IV (03:57)
[2022-03-30] MEDS: MAGNESIUM SULFATE 2 GM/50 ML PIGGYBACK IVPB (03:58)
[2022-03-30 03:59] LABS: Ionized Calcium* 1.01 mmol/L (1.11-1.30)
[2022-03-30 04:09] LABS: Albumin* 3.2 g/dL (3.3-5.0); Chloride* 103 mmol/L (96-114); Sodium* 134 mmol/L (135-149)
[2022-03-30 04:10] LABS: Potassium* 3.5 mmol/L (3.6-5.1)
[2022-03-30 04:12] LABS: Alkaline Phosphatase* 69 U/L (40-150); Aspartate Amino Transferase* 23 U/L (12-35); Bilirubin Total* 0.5 mg/dL (0.1-1.5); Carbon Dioxide* 24 mmol/L (20-32); Creatinine* 1.5 mg/dL (0.5-1.5); Est. Creatinine Clearance* 28.47; Estimated Glomerular Filt Rate 35 ml/min
[2022-03-30 04:13] LABS: Alanine Aminotransferase* 18 U/L (4-35); Blood Urea Nitrogen* 41 mg/dL (7-30); Calcium* 7.6 mg/dL (8.4-10.6); Glucose* 190 mg/dL (60-115); Total Protein* 6.6 g/dL (6.0-8.3)
[2022-03-30 04:24] LABS: Troponin I* 0.03 ng/mL (0.01-0.04)
--- NOTE | 2022-03-30 04:27 | PC.NURSE ---
at approx. 0300 patient tele show Afib rate 130s-150s, EKG obtained confirmed Afib with RVRPepe hospitalist called and assessed patient at bedside using [employer] cart/Ipad. see new orders.
[2022-03-30] MEDS: POTASSIUM CHLORIDE 10 MEQ CAPSULE ER 40 MEQ PO ×3 (05:20→18:34)
[2022-03-30] MEDS: POTASSIUM CHLORIDE 10 MEQ/100 ML PIGGYBACK 100 MEQ IVPB (05:27)
[2022-03-30] MEDS: MORPHINE 2 MG/ML inj IVP (06:27)
--- NOTE | 2022-03-30 06:48 | PC.NURSE ---
[id number]: patient assist X1 to [facility], around 0300 patients tele shows Afib with rate 150s, at this time patient reports some chest pain in left side that worsens with deep breathing, EKG confirms this, desmond Mills called and at patients bedside via ipad. new orders, rate continues to be 110s-130s afib after medication, patient reports pain has improved. around 0600 patient reports feeling wetness on her back and pain in R arm, IJ central line appeared to be leaking and infiltrated. infusions stopped through central line, new PIV inserted in R wrist. IJ left in place for MD to assess.
[2022-03-30] MEDS: predniSONE 5 MG TABLET 20 MG PO (08:34)
[2022-03-30] MEDS: SODIUM CHLORIDE 0.9 % (FLUSH) 10 ML SYRINGE IVF (08:34)
[2022-03-30] MEDS: HEPARIN 5,000 UNIT/0.5 ML INJ 5000 UNIT SUBCUT (08:35)
[2022-03-30] MEDS: timoloL maleate 0.25% EYE DROPS 1 DROP EYE-BOTH (08:35)
--- NOTE | 2022-03-30 09:00 | CRLHL7_ITS ---
For Patients: As a result of the Century Cures Act, medical imaging exams and procedure reports are released immediately into your electronic medical record. You may view this report before your referring provider. If you have questions, please contact your health care provider. Indication: right hip joint aspiration, sepsis, pain Comparison: CT 03/28/2022 Procedure : Informed consent was obtained. The site was marked. Time-out was performed. The skin of the right hip was cleansed with ChloraPrep. A sterile drape was placed. 8 cc of 1 percent lidocaine was administered for superficial anesthesia. Subsequently a 22 gauge spinal needle was introduced into the right hip joint under intermittent fluoroscopic guidance. Aspiration of 3 cc purulent fluid performed. No additional fluid could be aspirated. The needle was removed and hemostasis achieved with direct pressure. A dressing was placed. The patient tolerated the procedure well without immediate complication. Total fluoroscopy time 14 seconds. Impression: Successful fluoroscopically guided right hip aspiration with 3 cc of purulent fluid sent to the lab for cell count, Gram stain and culture. Dictated by Teofilo Pimentel MD @ 03/30/2022 9:37:44 AM (Electronically Signed)
[2022-03-30] MEDS: LOPERAMIDE HCL 2 MG CAPSULE PO (09:43)
[2022-03-30 11:05] LABS: Mononuclear WBC Body Fluid* 19 %; Polynuclear WBC Body Fluid* 81 %; RBC, Body Fluid* 33000 Cells/uL
[2022-03-30 11:19] LABS: BF Color Xanthochromic; BF Total Volume* 3.5
[2022-03-30 11:20] LABS: BF Clarity* Cloudy
--- NOTE | 2022-03-30 11:50 | CRLHL7_ITS ---
For Patients: As a result of the Cures Act, medical imaging exams and procedure reports are released immediately into your electronic medical record. You may view this report before your referring provider. If you have questions, please contact your health care provider. INDICATION: Check IJ placement. TECHNIQUE: Chest 1 views. COMPARISON: March 30, 2022. FINDINGS: Cardiovascular and mediastinum: Stable heart size and vasculature. Right IJ with catheter tip at the superior cavoatrial junction. Lungs and pleural spaces: Lungs are clear. No sign of infiltrate or mass. No sign of large pleural effusion. No pneumothorax. Bones and soft tissues: No significant findings. IMPRESSION: Right IJ with catheter tip at the superior cavoatrial junction. Dictated by Petey Felix MD @ 03/30/2022 3:00:37 PM (Electronically Signed)
--- NOTE | 2022-03-30 12:01 | P.GSCN_ITS ---
History of Present Illness Consult details Date Seen: 03/30/22 Consult date: 03/30/22 Narrative: Patient is currently in the hospital for urosepsis and bacteremia, on broad- spectrum antibiotics. She had a central line placed on 03/28/2022. This had been working well for her until early this morning, when it was noted by nursing to be infiltrated and leaking. On examination the catheter is almost all of the way out with about <[address] There is [facility] review. 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 Tricuspid insufficiency Venous insufficiency of both lower extremities Vitamin D deficiency Surgical History (Updated 03/28/22 @ 08:20 by Meghan Ervin MD) H/O hernia repair History of hysterectomy for benign disease History of lumpectomy of left breast S/P tendon repair S/P tubal ligation Status post hysterectomy Status post left breast lumpectomy Status post total hip replacement, right Status post total left knee replacement Family History (Updated 03/28/22 @ 08:22 by Meghan Ervin MD) Mother Colon cancer Arthritis CHF (congestive heart failure) Father Skin cancer Aunt Breast cancer Sister Brain tumor Epilepsy Stroke Social History (Updated 03/28/22 @ 08:52 by Meghan Ervin MD) Narrative: Quit smoking >15 years ago. Glass of wine or a beer once a month. No recreational drugs. FULL CODE. Highest level of school completed/degree received: high school graduate Smoking Status: Former smoker Do you use any of these nicotine containing products: None How often do you have a drink containing alcohol: never AUDIT-C Alcohol total score: 0 Non-prescribed substance use: denies use Caffeine: No service: No Meds Home Medications and Allergies Home Medications Medication Instructions Recorded Confirmed Type allopurinol 100 mg tablet 200 mg PO DAILY 12/18/21 03/28/22 History latanoprost 0.005 % eye drops 1 drp ophthalmic (eye) HS 12/18/21 03/28/22 Hist ory potassium chloride 20 mEq 40 meq PO BID 12/18/21 03/28/22 History tablet,extended release metolazone 2.5 mg tablet 2.5 mg PO .2X/WEEK PRN 03/28/22 03/28/22 History prednisone 5 mg tablet 5 mg PO DAILY 03/28/22 03/28/22 History timolol 0.25 % eye drops 1 drp ophthalmic (eye) BID 03/28/22 03/28/22 History Allergies Allergy/AdvReac Type Severity Reaction Status Date / Time oxycodone AdvReac Severe Dizzy Verified 01/27/22 13:42 procaine AdvReac Severe Combative Verified 01/27/22 13:42 codeine AdvReac Unknown Nausea, Verified 01/27/22 13:42 Dizzy Exam Narrative: Exam Narrative: Gen: lying in bed, mildly diaphoretic. HEENT: RIJ central line almost completely displaced. Handheld US used to evaluate with distal tip within vein. Resp: maintained on NC, equal breath rise CV: tachycardia, irregularly irregular Const: Vital Signs, click to edit/add: Vital Signs - 24 hr 03/29/22 12:37 03/29/22 13:00 03/29/22 13:30 Temperature 98.3 F Pulse Rate Pulse Rate [Apical ] Pulse Rate [Left P ulse Oximeter] 74 78 Respiratory Rate 20 20 Blood Pressure [[facility] Arm] 97/51 L 89/51 L 95/48 L Pulse Oximetry 98 97 96 Oxygen Delivery Me thod Nasal Cannula Nasal Cannula Nasal Cannula Oxygen Flow Rate 2 2 2 03/29/22 15:00 03/29/22 15:00 03/29/22 15:20 Temperature 98.1 F Pulse Rate 94 Pulse Rate [Apical ] Pulse Rate [Left P ulse Oximeter] 84 Respiratory Rate 20 20 Blood Pressure [[facility] Arm] 103/51 L Pulse Oximetry 97 Oxygen Delivery Me thod Nasal Cannula Oxygen Flow Rate 2 03/29/22 21:27 03/29/22 20:21 03/30/22 00:02 Temperature 97.7 F 97.6 F Pulse Rate 90 Pulse Rate [Apical ] 95 68 Pulse Rate [Left P ulse Oximeter] Respiratory Rate 18 18 Blood Pressure [Ri ght Arm] 110/64 106/63 Pulse Oximetry 94 97 Oxygen Delivery Me thod Nasal Cannula Room Air Oxygen Flow Rate 1 03/29/22 23:00 03/30/22 00:55 03/30/22 01:43 Temperature Pulse Rate 71 Pulse Rate [Apical ] 68 Pulse Rate [Left P ulse Oximeter] Respiratory Rate 18 Blood Pressure [Ri ght Arm] Pulse Oximetry 94 Oxygen Delivery Me thod Room Air Oxygen Flow Rate 03/30/22 02:52 03/30/22 03:57 03/30/22 04:17 Temperature 98 F Pulse Rate 120 H Pulse Rate [Apical ] 67 144 H Pulse Rate [Left P ulse Oximeter] Respiratory Rate 18 Blood Pressure [Ri ght Arm] 100/59 L 89/74 L Pulse Oximetry 94 Oxygen Delivery Me thod Room Air Oxygen Flow Rate 03/30/22 03:18 03/30/22 04:00 03/30/22 05:08 Temperature Pulse Rate Pulse Rate [Apical ] 134 H Pulse Rate [Left P ulse Oximeter] 116 H Respiratory Rate 18 Blood Pressure [Ri ght Arm] 97/69 86/68 L 107/77 Pulse Oximetry 97 Oxygen Delivery Me thod Room Air Oxygen Flow Rate 03/30/22 06:04 03/30/22 06:00 03/30/22 07:25 Temperature 97.3 F L Pulse Rate 81 Pulse Rate [Apical ] 150 H 127 H Pulse Rate [Left P ulse Oximeter] Respiratory Rate 18 Blood Pressure [Ri ght Arm] 104/82 104/82 Pulse Oximetry 98 95 Oxygen Delivery Me thod Room Air Room Air Oxygen Flow Rate 03/30/22 07:50 03/30/22 07:50 03/30/22 11:15 Temperature 98.0 F 98.1 F Pulse Rate Pulse Rate [Apical ] 66 66 61 Pulse Rate [Left P ulse Oximeter] 66 66 61 Respiratory Rate 18 18 18 Blood Pressure [Ri ght Arm] 96/58 L 96/62 Pulse Oximetry 93 94 Oxygen Delivery Me thod Room Air Room Air Oxygen Flow Rate 1 Results Labs Labs: Abnormal lab results 03/29/22 03/29/22 03/30/22 Range/Units 16:50 16:50 03:45 RBC 3.21 L (4.00-5.20) m/uL Hgb 10.2 L (12.0-16.0) gm/dL Hct 30.9 L (33.0-51.0) % Neut % (Auto) 93.7 H (42.0-72.0) % Lymph % (Auto) 2.8 L (20-44) % Lymph # (Auto) 0.20 L (0.90-2.90) K/uL Sodium 132 L (135-149) mmol/L Potassium 3.3 L (3.6-5.1) mmol/L BUN 37 H (7-30) mg/dL Glucose 131 H (60-115) mg/dL Calcium 6.9 L (8.4-10.6) mg/dL Ionized Calcium Wyatt 0.95 L (1.11-1.30) mmol/L C-Reactive Protein (0.5-1.0) mg/dL Albumin (3.3-5.0) g/dL Fluid Color Fluid Appearance 03/30/22 03/30/22 03/30/22 Range/Units 03:45 03:45 09:00 RBC (4.00-5.20) m/uL Hgb (12.0-16.0) gm/dL Hct (33.0-51.0) % Neut % (Auto) (42.0-72.0) % Lymph % (Auto) (20-44) % Lymph # (Auto) (0.90-2.90) K/uL Sodium 134 L (135-149) mmol/L Potassium 3.5 L (3.6-5.1) mmol/L BUN 41 H (7-30) mg/dL Glucose 190 H (60-115) mg/dL Calcium 7.6 L (8.4-10.6) mg/dL Ionized Calcium Wyatt 1.01 L (1.11-1.30) mmol/L C-Reactive Protein 34.0 H (0.5-1.0) mg/dL Albumin 3.2 L (3.3-5.0) g/dL Fluid Color Xanthochromic A Fluid Appearance Cloudy A Diabetes panel 03/29/22 03/30/22 Range/Units 16:50 03:45 Sodium 132 L 134 L (135-149) mmol/L Potassium 3.3 L 3.5 L (3.6-5.1) mmol/L Chloride 100 103 (96-114) mmol/L Carbon Dioxide 26 24 (20-32) mmol/L BUN 37 H 41 H (7-30) mg/dL Creatinine 1.5 1.5 (0.5-1.5) mg/dL Glucose 131 H 190 H (60-115) mg/dL Calcium 6.9 L 7.6 L (8.4-10.6) mg/dL AST 23 (12-35) U/L ALT 18 (4-35) U/L Alkaline Phosphatase 69 (40-150) U/L Total Protein 6.6 (6.0-8.3) g/dL Albumin 3.2 L (3.3-5.0) g/dL Calcium panel 03/29/22 03/29/22 03/30/22 Range/Units 16:50 16:50 03:45 Calcium 6.9 L 7.6 L (8.4-10.6) mg/dL Ionized Calcium Wyatt 0.95 L (1.11-1.30) mmol/L Albumin 3.2 L (3.3-5.0) g/dL 03/30/22 Range/Units 03:45 Calcium (8.4-10.6) mg/dL Ionized Calcium Wyatt 1.01 L (1.11-1.30) mmol/L Albumin (3.3-5.0) g/dL Pituitary panel 03/29/22 03/30/22 Range/Units 16:50 03:45 Sodium 132 L 134 L (135-149) mmol/L Potassium 3.3 L 3.5 L (3.6-5.1) mmol/L Chloride 100 103 (96-114) mmol/L Carbon Dioxide 26 24 (20-32) mmol/L BUN 37 H 41 H (7-30) mg/dL Creatinine 1.5 1.5 (0.5-1.5) mg/dL Glucose 131 H 190 H (60-115) mg/dL Calcium 6.9 L 7.6 L (8.4-10.6) mg/dL Adrenal panel 03/29/22 03/30/22 Range/Units 16:50 03:45 Sodium 132 L 134 L (135-149) mmol/L Potassium 3.3 L 3.5 L (3.6-5.1) mmol/L Chloride 100 103 (96-114) mmol/L Carbon Dioxide 26 24 (20-32) mmol/L BUN 37 H 41 H (7-30) mg/dL Creatinine 1.5 1.5 (0.5-1.5) mg/dL Glucose 131 H 190 H (60-115) mg/dL Calcium 6.9 L 7.6 L (8.4-10.6) mg/dL Total Bilirubin 0.5 (0.1-1.5) mg/dL AST 23 (12-35) U/L ALT 18 (4-35) U/L Alkaline Phosphatase 69 (40-150) U/L Total Protein 6.6 (6.0-8.3) g/dL Albumin 3.2 L (3.3-5.0) g/dL All other labs normal. Imaging Chest x-ray: report reviewed, image reviewed and other (CXR from 3am and post procedure reviewed) Assessment and Plan Assessment and plan (1) Central line complication: Status: Acute Plan Patient is a 81-year-old female, currently being treated for septic shock with need for central line placement. Her right internal jugular central line, which was reportedly placed 2 days earlier, has been almost completely displaced. Risks and benefits of rewire were discussed at length with the patient. Risks included, but were not limited to: Bleeding, infection, risk of damage to surrounding structures and possible need for additional procedures. Her right internal jugular central line was rewired without difficulty and a new central line was placed at 14 cm at the skin. This was secured in place at 2 points with suture. Chest x-ray was obtained, which demonstrated adequate placement. Line is okay to use. Please call with any acute questions or concerns, general surgery to sign off. General Surgery Procedures Central Line Placement Right IJ: Time out performed: No Patient placed on monitor/pulse ox: Yes MD prep: mask, gown and gloves Central line prep: Chlorhexidine scrub and sterile drapes applied Local anesthesia used: lidocaine 1% Amount of anesthesia used (ml): 5 Central line lumen inserted: triple Central line placement: non-tunnelled Post procedure: sutured in place, good blood return, all ports aspirated, flushed, capped and sterile dressing applied Post procedure x-ray: tip of catheter in good position and no pneumothorax seen Patient tolerated procedure: well Complications: none Additional comments: Rewire procedure.
[2022-03-30 13:32] LABS: Ionized Calcium* 1.14 mmol/L (1.11-1.30)
--- NOTE | 2022-03-30 17:48 | P.DS_ITS ---
DS: Providers Provider Time Seen by Provider: 08:10 Date Seen: 03/30/22 Date of admission: 03/28/22 13:00 Primary care physician: Not a Local Provider Admitting Clinician: Melanie Nazario MD Consults: 03/28/22 03:48 Consult to Occupational Therapy [CONS] Routine Comment: Reason(s) for OT Consult:: Difficulty Managing ADLs Any Restrictions?:: Unknown Consult to Physical Therapy [CONS] Routine Comment: Reason(s) for PT Consult:: Weakness Any Restrictions?:: Unknown 03/28/22 12:11 Consult to Respiratory Therapy [CONS] Routine Comment: Reason(s) for RT Consult:: Consult 03/29/22 07:37 Consult to Physician [CONS] Routine Comment: Consulting Provider: Joey Galo Has provider been notified: Yes Attending Physician on discharge: Meghan Ervin MD Date of Discharge: 03/30/22 DS: Diagnosis Discharge Diagnosis (1) Septic hip: Status: Acute Problem details: right hip with h/o TICO hardware (2) Central line complication: Status: Acute Problem details: migrated out, changed out 03/30/22 (3) UTI (urinary tract infection): Status: Acute Problem details: Specimen: [id number] COMP Collected: 03/27/22 Received: 03/27/22 Source: Urine CC Sp Descrip: Sub Dr: Emiliano Unger M.D. Other Dr: Procedure Result Site Urine Culture Final ML Organism 1 Escherichia coli Ur [place] Count >100,000 CFU/ml E coli ODALYS RX --------- --- Ampicillin <=2 S Ampicillin/Sulbactam <=2 S Cefazolin <=4 S Cefepime <=1 S Cefoxitin <=4 S Ceftazidime <=1 S Ceftriaxone <=1 S Ciprofloxacin <=0.25 S Ertapenem <=0.5 S Gentamicin <=1 S Imipenem <=0.25 S Levofloxacin 1 S Nitrofurantoin <=16 S Tobramycin <=1 S Trimethoprim/Sulfamethoxazole <=20 S Piperacillin/Tazobactam <=4 S (4) Hypocalcemia: Status: Acute (5) Gram-negative bacteremia: Status: Acute (6) Septic shock: Status: Acute (7) Right hip pain: Status: Acute Problem details: Pain began 03/27/2022, severe sepsis and hypotension Right total hip arthroplasty 2016, Dr. Berrios (8) ARF (acute renal failure): Status: Resolved (9) Hypomagnesemia: Status: Acute (10) Hypokalemia: Status: Acute (11) Elevated troponin: Status: Acute Problem details: peak 0.1, suspect demand ischemia due to septic shock (12) Chronic kidney disease, stage 3: Status: Acute Problem details: Mild Cr elevation starting 2011; Increased in 2018 with diuresis. Follows with Dr. Natarajan ([facility]) (13) Weakness: Status: Acute (14) Anemia: Status: Acute (15) Dehydration: Status: Acute (16) Edema: Status: Acute DS: Summary Hospital Course Hospital Course: 81-year-old female with chronic kidney disease and chronic prednisone use who had been living independently at home. She came in for progressive weakness over the last few days. I later obtained history from her daughter lives in [place] noted that Vicki has been having severe watery diarrhea for 18 months. Recently she has had more difficulty walking and tends to be sedentary where as a year ago she was very active. Her daughter also notes that she has had some cognitive decline over the last 1 to 2 years. C diff was obtained upon admission and was negative. She was diagnosed with a UTI and admitted to the hospital. She was started on ceftriaxone. Patient became febrile and hypotensive a few hours after admission and blood cultures became positive for Gram-negative rods. Antibiotics were broadened to Zosyn and vancomycin. She complained of right hip pain for which an x-ray was obtained and was unremarkable. Ortho consult was also obtained. She was started on stress dose steroids. Urine culture grew out E coli. Blood cultures grew out E coli. Both of these are pansensitive. Right hip aspiration done by Interventional Radiology today shows 3.5 mL purulence drainage that is xanthochromic, cloudy, fluid wbc's 87,000, fluid RBCs 33,000. Fluid polynuclear WBCs 81%, fluid mononuclear wbc's 19%. Patient does have hardware in the right hip that was placed in 2016 for a total hip arthroplasty. Due to septic hip hardware, ortho recommended transfer to a larger facility. I spoke with Dr. Desai from [facility] and Dr. England from Medicine team at that facility. Dr. England accepted this patient in transfer. Time Spent with Patient Time attestation: Total time spent providing and/or coordinating discharge services: Exam Narrative: Exam Narrative: General: No acute distress. Awake, alert, oriented x3. Affect brighter today. States she is feeling much better. No pallor. No jaundice. Oropharynx: Clear. Mucous membranes moist. Cardiovascular: Regular rate and rhythm. No murmurs, gallops, or rubs. Respiratory: Fine bibasilar crackles. No wheezes. Abdomen: Bowel sounds present. Soft, nondistended, nontender. Extremities: 1+ pretibial edema. Const: Vital Signs, click to edit/add: Vital Signs - 24 hr 03/29/22 21:27 03/29/22 20:21 03/30/22 00:02 Temperature 97.7 F 97.6 F Pulse Rate 90 Pulse Rate [Apical ] 95 68 Pulse Rate [Left P ulse Oximeter] Respiratory Rate 18 18 Blood Pressure [Ri ght Arm] 110/64 106/63 Pulse Oximetry 94 97 Oxygen Delivery Me thod Nasal Cannula Room Air Oxygen Flow Rate 1 03/29/22 23:00 03/30/22 00:55 03/30/22 01:43 Temperature Pulse Rate 71 Pulse Rate [Apical ] 68 Pulse Rate [Left P ulse Oximeter] Respiratory Rate 18 Blood Pressure [Ri ght Arm] Pulse Oximetry 94 Oxygen Delivery Me thod Room Air Oxygen Flow Rate 03/30/22 02:52 03/30/22 03:57 03/30/22 04:17 Temperature 98 F Pulse Rate 120 H Pulse Rate [Apical ] 67 144 H Pulse Rate [Left P ulse Oximeter] Respiratory Rate 18 Blood Pressure [Ri ght Arm] 100/59 L 89/74 L Pulse Oximetry 94 Oxygen Delivery Me thod Room Air Oxygen Flow Rate 03/30/22 03:18 03/30/22 04:00 03/30/22 05:08 Temperature Pulse Rate Pulse Rate [Apical ] 134 H Pulse Rate [Left P ulse Oximeter] 116 H Respiratory Rate 18 Blood Pressure [Ri ght Arm] 97/69 86/68 L 107/77 Pulse Oximetry 97 Oxygen Delivery Me thod Room Air Oxygen Flow Rate 03/30/22 06:04 03/30/22 06:00 03/30/22 07:25 Temperature 97.3 F L Pulse Rate 81 Pulse Rate [Apical ] 150 H 127 H Pulse Rate [Left P ulse Oximeter] Respiratory Rate 18 Blood Pressure [Ri ght Arm] 104/82 104/82 Pulse Oximetry 98 95 Oxygen Delivery Me thod Room Air Room Air Oxygen Flow Rate 03/30/22 07:50 03/30/22 07:50 03/30/22 11:15 Temperature 98.0 F 98.1 F Pulse Rate Pulse Rate [Apical ] 66 66 61 Pulse Rate [Left P ulse Oximeter] 66 66 61 Respiratory Rate 18 18 18 Blood Pressure [Ri ght Arm] 96/58 L 96/62 Pulse Oximetry 93 94 Oxygen Delivery Me thod Room Air Room Air Oxygen Flow Rate 1 03/30/22 11:15 03/30/22 15:08 03/30/22 15:30 Temperature 97.8 F Pulse Rate 77 Pulse Rate [Apical ] 61 71 Pulse Rate [Left P ulse Oximeter] 61 71 Respiratory Rate 18 18 Blood Pressure [Ri ght Arm] 106/52 L Pulse Oximetry 95 Oxygen Delivery Me thod Room Air Oxygen Flow Rate 03/30/22 15:15 Temperature Pulse Rate Pulse Rate [Apical ] 71 Pulse Rate [Left P ulse Oximeter] 71 Respiratory Rate 18 Blood Pressure [Ri ght Arm] Pulse Oximetry Oxygen Delivery Me thod Oxygen Flow Rate DS: Data Data Completed and Pending Completed studies during hospitalization: Ordering Physician: Meghan Ervin M.D. Date of Service: 03/28/22 Procedure(s): XR chest 1V portable Accession Number(s): [id number] cc: Meghan Ervin M.D.; Provider,Not a Local ~ For Patients: As a result of the Cures Act, medical imaging exams and procedure reports are released immediately into your electronic medical record. You may view this report before your referring provider. If you have questions, please contact your health care provider. INDICATION: Leukocytosis. Weakness. History of tobacco use COMPARISON: December 30, 2020 TECHNIQUE: PA and lateral views of the chest were acquired FINDINGS: TUBES AND LINES: None. HEART AND MEDIASTINUM: Heart size normal. Tortuous aorta. Similar appearance to the prior study.. LUNGS AND PLEURAL SPACES: The lungs appear normal.The pleural spaces are unremarkable. OSSEOUS STRUCTURES: Age-appropriate appearance. No acute focal finding. IMPRESSION: No evidence of active pulmonary disease when compared to December 30, 2020 Dictated by Bib Jansen MD @ 03/28/2022 9:29:05 AM (Electronically Signed) Ordering Physician: Meghan Ervin M.D. Date of Service: 03/28/22 Procedure(s): XR hip RT min 2V Accession Number(s): [id number] cc: Meghan Ervin M.D.; Provider,Not a Local ~ For Patients: As a result of the Cures Act, medical imaging exams and procedure reports are released immediately into your electronic medical record. You may view this report before your referring provider. If you have questions, please contact your health care provider. Indication: Right hip pain. History of right total hip arthroplasty. No injury. Technique: Examination consists of an AP view of the pelvis as well as AP and lateral views of the right hip Comparison: None Findings: Decreased bone mineral density. Right hip arthroplasty. The arthroplasty appears intact. There is no abnormal lucency about the acetabular or femoral component of the implant. The surrounding osseous structures appear normal. No fracture or destructive process Impression: Normal appearance status post right hip arthroplasty. No visible complication. No fracture, destructive process or abnormal lucency above the implants Dictated by Bib Jansen MD @ 03/28/2022 9:33:04 AM (Electronically Signed) Ordering Physician: Melanie Nazario M.D. Date of Service: 03/28/22 Procedure(s): CT abdomen pelvis wo con Accession Number(s): [id number] cc: Melanie Nazario M.D.; Provider,Not a Local ~ For Patients: As a result of the s Act, medical imaging exams and procedure reports are released immediately into your electronic medical record. You may view this report before your referring provider. If you have questions, please contact your health care provider. INDICATION: Sepsis, abdominal fullness, possible hernia. TECHNIQUE: CT abdomen and pelvis acquired without contrast. COMPARISON: None. FINDINGS: Lower chest: Trace right pleural effusion. Bilateral posterior dependent atelectasis. Liver: Hepatic steatosis. No suspicious lesion given noncontrast technique Gallbladder and bile ducts: Tiny stones in the gallbladder. No mural thickening or pericholecystic fluid. No biliary ductal dilatation. Pancreas: Unremarkable. No mass or inflammation. Spleen: Unremarkable. Normal in size. No masses. Adrenal glands: Unremarkable. No nodules. Kidneys: Unremarkable. No suspicious masses, stones, or hydronephrosis. GI tract: Small hiatal hernia. The cecum is in the mid anterior abdomen. There is gaseous distention with small air-fluid levels within the colon. No evidence for obstruction. Vasculature: Normal caliber abdominal aorta with mild atherosclerotic calcification. Lymph nodes: No lymphadenopathy. Peritoneum/Abdominal Wall: Small fat-containing right Bochdalek hernia. No free fluid or free air. Pelvis: Posthysterectomy. Bones: Unremarkable for age. IMPRESSION: Cecum located in the mid anterior abdomen, compatible with mobile cecum. No evidence for gastrointestinal obstruction. Gaseous distension of the colon with small air-fluid levels. Findings are nonspecific but could represent diarrhea. Hepatic steatosis. Cholelithiasis. Small fat-containing right Bochdalek hernia. Please note that all CT scans at this facility use dose modulation, iterative reconstruction, and/or weight-based dosing when appropriate to reduce radiation dose to as low as reasonably achievable. Dictated by Basilio Glover MD @ 03/28/2022 8:21:41 PM (Electronically Signed) Ordering Physician: Melanie Nazario M.D. Date of Service: 03/29/22 Procedure(s): XR chest 1V portable Accession Number(s): [id number] cc: Melanie Nazario M.D.; Provider,Not a Local ~ For Patients: As a result of the Century Cures Act, medical imaging exams and procedure reports are released immediately into your electronic medical record. You may view this report before your referring provider. If you have questions, please contact your health care provider. INDICATION: Confirm central line placement COMPARISON: March 28, 2022 at 9:13 a.m. TECHNIQUE: Single-view study March 2022 at 2:28 a.m. FINDINGS: TUBES AND LINES: Right IJ catheter ending in the distal SVC. HEART AND MEDIASTINUM: The heart size is normal. The mediastinal contour appears normal for patient age. LUNGS AND PLEURAL SPACES: Low lung volumes. No focal consolidation or infiltrate.The pleural spaces are unremarkable. OSSEOUS STRUCTURES: Age-appropriate appearance. No acute focal finding. IMPRESSION: Right IJ catheter ending in the distal SVC. Low lung volumes. No focal consolidation or infiltrate. No pleural effusion or pneumothorax. Dictated by Bib Jansen MD @ 03/29/2022 10:21:33 AM (Electronically Signed) Ordering Physician: Curtis Mills MD Date of Service: 03/30/22 Procedure(s): XR chest 1V portable Accession Number(s): [id number] cc: Provider,Not a Local ; Curtis Mills MD~ For Patients: As a result of the Cures Act, medical imaging exams and procedure reports are released immediately into your electronic medical record. You may view this report before your referring provider. If you have questions, please contact your health care provider. INDICATION: Worsening shortness of breath. TECHNIQUE: Chest 1 view. COMPARISON: Chest radiograph 03/29/2022. FINDINGS: Right IJ CVC with tip in the mid SVC. New tiny left pleural effusion. No focal consolidation or pneumothorax. Normal heart size and pulmonary vascularity. Surgical clips left axilla. Degenerative changes of the shoulders. IMPRESSION: New tiny left pleural effusion. Dictated by Parvin Keyes MD @ 03/30/2022 5:11:21 AM (Electronically Signed) Ordering Physician: Brandie Silver PA-C Date of Service: 03/30/22 Procedure(s): FL inj/asp hip RT Accession Number(s): [id number] cc: Brandie Silver PA-C; Provider,Not a Local ~ For Patients: As a result of the Cures Act, medical imaging exams and procedure reports are released immediately into your electronic medical record. You may view this report before your referring provider. If you have questions, please contact your health care provider. Indication: right hip joint aspiration, sepsis, pain Comparison: CT 03/28/2022 Procedure : Informed consent was obtained. The site was marked. Time-out was performed. The skin of the right hip was cleansed with ChloraPrep. A sterile drape was placed. 8 cc of 1 percent lidocaine was administered for superficial anesthesia. Subsequently a 22 gauge spinal needle was introduced into the right hip joint under intermittent fluoroscopic guidance. Aspiration of 3 cc purulent fluid performed. No additional fluid could be aspirated. The needle was removed and hemostasis achieved with direct pressure. A dressing was placed. The patient tolerated the procedure well without immediate complication. Total fluoroscopy time 14 seconds. Impression: Successful fluoroscopically guided right hip aspiration with 3 cc of purulent fluid sent to the lab for cell count, Gram stain and culture. Dictated by Teofilo Pimentel MD @ 03/30/2022 9:37:44 AM (Electronically Signed) Ordering Physician: Meghan Ervin M.D. Date of Service: 03/30/22 Procedure(s): XR chest 1V portable Accession Number(s): [id number] cc: Meghan Ervin M.D.; Provider,Not a Local ~ For Patients: As a result of the Century Cures Act, medical imaging exams and procedure reports are released immediately into your electronic medical record. You may view this report before your referring provider. If you have questions, please contact your health care provider. INDICATION: Check IJ placement. TECHNIQUE: Chest 1 views. COMPARISON: March 30, 2022. FINDINGS: Cardiovascular and mediastinum: Stable heart size and vasculature. Right IJ with catheter tip at the superior cavoatrial junction. Lungs and pleural spaces: Lungs are clear. No sign of infiltrate or mass. No sign of large pleural effusion. No pneumothorax. Bones and soft tissues: No significant findings. IMPRESSION: Right IJ with catheter tip at the superior cavoatrial junction. Dictated by Petey Felix MD @ 03/30/2022 3:00:37 PM (Electronically Signed) Specimen: [id number] COMP Collected: 03/27/22 Received: 03/27/22 Source: Blood Sp Descrip: Sub Dr: Emiliano Unger M.D. Other Dr: Procedure Result Site Blood Culture Final ML Organism 1 Escherichia coli Growth detected in Anaerobic bottle Critical Results Called To & Readback By: KHLOE Reported By: DANIELLE 03/29/22 [id number] (CALLED YESTERDAY WHEN BOTTLE TURNED POSITIVE) E coli ODALYS RX --------- --- Ampicillin <=2 S Ampicillin/Sulbactam <=2 S Cefazolin <=4 S Cefepime <=1 S Cefoxitin <=4 S Ceftazidime <=1 S Ceftriaxone <=1 S Ciprofloxacin <=0.25 S Ertapenem <=0.5 S Gentamicin <=1 S Imipenem <=0.25 S Levofloxacin 1 S Nitrofurantoin <=16 S Tobramycin <=1 S Trimethoprim/Sulfamethoxazole <=20 S Piperacillin/Tazobactam <=4 S Specimen: [id number] Collected: 03/27/22 Received: 03/27/22 Source: Urine CC Sp Descrip: Sub Dr: Emiliano Unger M.D. Other Dr: Procedure Result Site Urine Culture Final ML Organism 1 Escherichia coli Ur [place] Count >100,000 CFU/ml E coli ODALYS RX --------- --- Ampicillin <=2 S Ampicillin/Sulbactam <=2 S Cefazolin <=4 S Cefepime <=1 S Cefoxitin <=4 S Ceftazidime <=1 S Ceftriaxone <=1 S Ciprofloxacin <=0.25 S Ertapenem <=0.5 S Gentamicin <=1 S Imipenem <=0.25 S Levofloxacin 1 S Nitrofurantoin <=16 S Tobramycin <=1 S Trimethoprim/Sulfamethoxazole <=20 S Piperacillin/Tazobactam <=4 S Labs on day of discharge: Labs from last 24 hours 03/30/22 03/30/22 03/30/22 13:18 09:00 09:00 WBC RBC Hgb Hct MCV MCH MCHC RDW Coeff of [place] Plt Count Neut % (Auto) Lymph % (Auto) [place] % (Auto) Eos % (Auto) Baso % (Auto) Neut # (Auto) Lymph # (Auto) [place] # (Auto) Eos # (Auto) Baso # (Auto) Sodium Potassium Chloride Carbon Dioxide BUN Creatinine Estimated Creat Clear Estimated GFR Glucose Calcium Ionized Calcium [place] 1.14 Total Bilirubin AST ALT Alkaline Phosphatase Troponin I C-Reactive Protein Total Protein Albumin Fluid Volume 3.5 Fluid Color Xanthochromic A Fluid Appearance Cloudy A Fluid WBC 56807 Fluid RBC 39827 Fluid Polynuclear WBCs 81 Fluid Mononuclear WBCs 19 Fluid Crystal ID Pending 03/30/22 03/30/22 03/30/22 03:45 03:45 03:45 WBC 6.42 RBC 3.21 L Hgb 10.2 L Hct 30.9 L MCV 96 MCH 32 MCHC 33 RDW Coeff of [place] 15.4 Plt Count 171 Neut % (Auto) 93.7 H Lymph % (Auto) 2.8 L [place] % (Auto) 3.0 Eos % (Auto) 0.0 Baso % (Auto) 0.0 Neut # (Auto) 6.00 Lymph # (Auto) 0.20 L [place] # (Auto) 0.20 Eos # (Auto) 0.00 Baso # (Auto) 0.00 Sodium 134 L Potassium 3.5 L Chloride 103 Carbon Dioxide 24 BUN 41 H Creatinine 1.5 Estimated Creat Clear 28.47 Estimated GFR 35 Glucose 190 H Calcium 7.6 L Ionized Calcium [place] 1.01 L Total Bilirubin 0.5 AST 23 ALT 18 Alkaline Phosphatase 69 Troponin I 0.03 C-Reactive Protein 34.0 H Total Protein 6.6 Albumin 3.2 L Fluid Volume Fluid Color Fluid Appearance Fluid WBC Fluid RBC Fluid Polynuclear WBCs Fluid Mononuclear WBCs Fluid Crystal ID Preliminary micro results at discharge 03/28/22 10:58 Blood Culture - Preliminary Blood NO GROWTH AFTER 48 HOURS 03/28/22 10:52 Blood Culture - Preliminary Blood NO GROWTH AFTER 48 HOURS 03/27/22 23:25 Blood Culture - Preliminary Blood NO GROWTH AFTER 24 HOURS Discharge Plan Discharge Disposition: Xfer Other Date of Admission: 03/28/22 13:00 Attending Provider on Discharge: Meghan Ervin Consulting Providers: Joey Galo Primary Care Provider: Provider,Not a Local Condition: Stable Discharge Medications: Continued prednisone 5 mg tablet 5 mg PO DAILY Label Comments: TAKE 1 TABLET BY ORAL ROUTE EVERY DAY metolazone 2.5 mg tablet 2.5 mg PO .2X/WEEK PRN Label Comments: TAKE 1 TABLET (2.5 MG TOTAL) BY MOUTH DIRECTED. TAKE NEEDED FOR LOWER EXTRAMITY EDEMA AND WEIGHT GAIN OF 2 LBS UP TO TWICE A WEEK timolol 0.25 % drops 1 drp ophthalmic (eye) BID allopurinol 100 mg tablet 200 mg PO DAILY potassium chloride 20 mEq tablet extended release 40 meq PO BID latanoprost 0.005 % drops 1 drp ophthalmic (eye) HS torsemide 20 mg tablet 40 mg PO BID Qty: 360 3RF Discharge Orders: Discharge Order (Routine); Ordered 03/30/22 Ordered By: Meghan Ervin Activity Level: Other Discharge Diet: Other Follow Up Appointments: Provider,Not a Local [Primary Care Provider] - Forms: Prompt.ly Info Instructions
--- NOTE | 2022-03-30 19:24 | PC.NURSE ---
Discharge. pt has been pleasant. she converted in to NSR at shift change this am. md is aware. Tele shows NSR> SL is patent Central line was replaced by this am right hip was aspirated this am for 3 mls of purulent drainage. she is alert x4, she is up with 1 assist and a walker and GB. EMS here at 1850. she was transferred to [address] [place] [address].
--- NOTE | 2022-04-29 09:29 | W.PM.CROSSCO ---
Subjective Subjective Date Seen: 03/29/22 Interval history: Patient lost her IV access and remains quite sick. Dr. Jc from ED consulted, agreed to come over at 1am on 03/29/22 for central line placement. Assessment and Plan Assessment and plan (1) Dehydration: Status: Acute
== END 2022-03-30 19:02 | disposition short-term general hospital (02) | DRG 871 ==
LOC: ED 03-28 00:02 → MEDSURG 03-28 01:24
PROVIDERS: Family Medicine; Internal Medicine; Admitting Provider Family Medicine; Emergency Provider Internal Medicine; Visit Provider Family Medicine
DX: A41.9 Sepsis, unspecified organism (principal); R65.21 Severe sepsis with septic shock; T84.51XA Infection and inflammatory reaction due to internal right hip prosthesis, initial encounter; M00.851 Arthritis due to other bacteria, right hip; N17.9 Acute kidney failure, unspecified; T82.524A Displacement of infusion catheter, initial encounter; N39.0 Urinary tract infection, site not specified; E87.1 Hypo-osmolality and hyponatremia; I13.0 Hypertensive heart and chronic kidney disease with heart failure and stage 1 through stage 4 chronic kidney disease, or unspecified chronic kidney disease; N18.4 Chronic kidney disease, stage 4 (severe); I50.32 Chronic diastolic (congestive) heart failure; E86.0 Dehydration; R60.9 Edema, unspecified; R77.8 Other specified abnormalities of plasma proteins; E87.6 Hypokalemia; E83.42 Hypomagnesemia; M25.551 Pain in right hip; E83.51 Hypocalcemia; I12.9 Hypertensive chronic kidney disease with stage 1 through stage 4 chronic kidney disease, or unspecified chronic kidney disease; D63.1 Anemia in chronic kidney disease; R07.9 Chest pain, unspecified; R19.7 Diarrhea, unspecified; I44.4 Left anterior fascicular block; I87.2 Venous insufficiency (chronic) (peripheral); M48.061 Spinal stenosis, lumbar region without neurogenic claudication; I07.1 Rheumatic tricuspid insufficiency; I48.91 Unspecified atrial fibrillation; Z87.891 Personal history of nicotine dependence; Z85.3 Personal history of malignant neoplasm of breast; Z85.828 Personal history of other malignant neoplasm of skin; Z96.641 Presence of right artificial hip joint; M06.9 Rheumatoid arthritis, unspecified
CPT/HCPCS: 20610; 36415; 51798; 71045; 73502; 74176; 77002; 80048; 80053; 81003; 81015; 82150; 82330; 83605; 83735; 84145; 84484; 85025; 86140; 87040; 87070; 87086; 87186; 87205; 87493; 87502; 87634; 87635; 89051; 89060; 93005; 94640; 94761; 97162; 97166; 97530; 97535; 99199; 99283; 99284; 99285; A9270; J0610; J0696; J1100; J1160; J1642; J1644; J2001; J2060; J2270; J2405; J2543; J3370; J3475; J3480; J7030; J7050; J7120; J7512; Q9966

== ENCOUNTER 2022-03-30 18:51 | Outpatient (CLI) | payer MEDICARE, SELFPAY | END 2022-03-30 18:52 | disposition home or self-care (01) | LOC: AMB 03-31 10:21 | PROVIDERS: Visit Provider Family Medicine | DX: A41.9 Sepsis, unspecified organism (principal); R50.9 Fever, unspecified | CPT/HCPCS: A0425; A0428 ==

== ENCOUNTER 2022-05-08 14:13 | Outpatient (REF) | payer MEDICARE, SELFPAY ==
[2022-05-08 15:11] LABS: Basophils Percent Auto 0.2 % (0.0-3.0); Eosinophils Percent Auto 0.6 % (0.0-7.0); Hematocrit 31.4 % (33.0-51.0); Hemoglobin* 9.8 gm/dL (12.0-16.0); Immature Granulocytes Pct Auto 0.9 %; Lymphocytes Percent Auto 5.5 % (20-44); Mean Corpuscular HGB Conc 31 gm/dL (32-36); Mean Corpuscular Hemoglobin 30 pg (26-34); Mean Corpuscular Volume 96 fL (80-100); Monocytes Percent Auto 5.5 % (0.0-11.0); Neutrophils Percent Auto 87.3 % (42.0-72.0); Platelet Count* 317 K/uL (140-440); RDW Coefficient of Variation % 15.9 % (11.5-15.5); Red Blood Count 3.27 m/uL (4.00-5.20); White Blood Count* 12.38 K/uL (4.50-11.00)
[2022-05-08 15:30] LABS: Slide Review Reflex No
== END 2022-05-08 14:14 | disposition home or self-care (01) ==
LOC: NPINS 14:13
PROVIDERS: Visit Provider Family Medicine
DX: M01.X51 Direct infection of right hip in infectious and parasitic diseases classified elsewhere (principal)
CPT/HCPCS: 85025

== ENCOUNTER 2022-05-21 09:42 | Outpatient (REF) | payer MEDICARE, SELFPAY ==
[2022-05-21 11:42] LABS: C.Difficile Negative (Negative); CDIFFEPI 027 PRESUMPTIVE NEGATIVE (Negative)
== END 2022-05-21 09:43 | disposition home or self-care (01) ==
LOC: NPINS 09:42
PROVIDERS: PCP Family Medicine; Visit Provider Family Medicine
DX: R19.7 Diarrhea, unspecified (principal)
CPT/HCPCS: 87493

== ENCOUNTER 2022-06-22 23:43 | Outpatient (REF) | payer MEDICARE, SELFPAY ==
[2022-06-23 09:06] LABS: PCR FLU A Negative PCR FLU A (Negative); PCR FLU B Negative PCR FLU B (Negative); SARS PCR* ND (Negative)
== END 2022-06-22 23:44 | disposition home or self-care (01) ==
LOC: LAB 23:43
PROVIDERS: PCP Family Medicine; Visit Provider Nurse Practitioner Adult Health
DX: J10.1 Influenza due to other identified influenza virus with other respiratory manifestations (principal)
CPT/HCPCS: 87631

== ENCOUNTER 2022-09-09 14:08 | Outpatient (CLI) | payer MEDICARE, SELFPAY | END 2022-09-09 14:09 | disposition home or self-care (01) | LOC: AMB 09-11 05:18 | PROVIDERS: PCP Family Medicine; Visit Provider Emergency Medicine | DX: M25.551 Pain in right hip (principal) | CPT/HCPCS: A0425; A0427 ==

== ENCOUNTER 2022-09-09 14:42 | Emergency (ER) | payer MEDICARE, SELFPAY ==
[2022-09-09] VITALS (34 sets, daily range): BP systolic 104–143; BP diastolic 68–97; PULSE 56–66; RESP 10–36; TEMP 36.3; O2SAT 90–100; BMI 28.3
--- NOTE | 2022-09-09 14:53 | CRLHL7_ITS ---
For Patients: As a result of the Cures Act, medical imaging exams and procedure reports are released immediately into your electronic medical record. You may view this report before your referring provider. If you have questions, please contact your health care provider. INDICATION: Suspected dislocation. TECHNIQUE: AP pelvis and cross table lateral view of the right hip. COMPARISON : March 28, 2022. FINDINGS: Right hip arthroplasty. New dislocation across the acetabular femoral component. Specifically there is posterior superior subluxation of the femoral component relative to the acetabular component. No fracture deformity identified. IMPRESSION: Right hip arthroplasty dislocation as described without fracture. Dictated by Cole Brown MD @ 09/09/2022 3:34:31 PM (Electronically Signed)
--- NOTE | 2022-09-09 14:54 | ED_ITS ---
HPI - General Adult General Date Seen: 09/09/22 Chief complaint: Hip Injury/Pain Stated complaint: Fall Time Seen by Provider: 09/09/22 14:49 Source: patient Mode of arrival: EMS Limitations: no limitations History of Present Illness HPI narrative: Patient is an 82-year-old woman who is status post hip replacement originally in 2010, who presents for evaluation of severe right hip pain. She says she was bending forward to pick something up off the ground and she felt her hip shift. She says this happens sometimes but she is usually able to show me it back into place. Today she could not. EMS was called. She complains of severe pain in the hip, denies falling, she says she did have to lower her herself to the ground because she could not stand. 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 She does not take any blood thinners. Related Data Home Medications Medication Instructions Recorded Confirmed allopurinol 100 mg tablet 200 mg PO DAILY 12/18/21 09/09/22 latanoprost 0.005 % eye drops 1 drp ophthalmic (eye) HS 12/18/21 09/09/22 potassium chloride 20 mEq 40 meq PO TID 12/18/21 09/09/22 tablet,extended release metolazone 2.5 mg tablet 2.5 mg PO .2X/WEEK PRN 03/28/22 09/09/22 prednisone 5 mg tablet 5 mg PO DAILY 03/28/22 09/09/22 timolol 0.25 % eye drops 1 drp ophthalmic (eye) BID 03/28/22 09/09/22 tramadol 50 mg tablet 50 mg PO Q4H PRN 09/09/22 09/09/22 Previous Rx's Medication Instructions Recorded torsemide 20 mg tablet 40 mg (2 x 20 mg) PO BID #360 tabs 12/18/21 Allergies Allergy/AdvReac Type Severity Reaction Status Date / Time oxycodone AdvReac Severe Dizzy Verified 09/09/22 14:53 procaine AdvReac Severe Combative Verified 09/09/22 14:53 codeine AdvReac Unknown Nausea, Verified 09/09/22 14:53 Dizzy Review of Systems Status of ROS: Reports: 6 or more systems reviewed and unremarkable except as noted in History and below [facility] Medical History Normal echocardiogram Left anterior fascicular block ?I44.4 - Left anterior fascicular block (ICD-10) Spinal stenosis of lumbar region without neurogenic claudication ?M48.061 - Spinal stenosis, lumbar region without neurogenic claudication (ICD-10) Health care maintenance ?Z00.00 - Encounter for general adult medical examination without abnormal findings (ICD-10) Tricuspid insufficiency ?I07.1 - Rheumatic tricuspid insufficiency (ICD-10) Venous insufficiency of both lower extremities ?I87.2 - Venous insufficiency (chronic) (peripheral) (ICD-10) Squamous cell carcinoma in situ (SCCIS) of skin ?D04.9 - Carcinoma in situ of skin, unspecified (ICD-10) HTN (hypertension) ?I10 - Essential (primary) hypertension (ICD-10) History of malignant neoplasm of breast ?Z85.3 - Personal history of malignant neoplasm of breast (ICD-10) Vitamin D deficiency ?E55.9 - Vitamin D deficiency, unspecified (ICD-10) Gout ?M10.9 - Gout, unspecified (ICD-10) Hyperuricemia ?E79.0 - Hyperuricemia without signs of inflammatory arthritis and tophaceous disease (ICD-10) Lumbar degenerative disc disease ?M51.36 - Other intervertebral disc degeneration, lumbar region (ICD-10) Glaucoma ?H40.9 - Unspecified glaucoma (ICD-10) Nephrosclerosis ?I12.9 - Hypertensive chronic kidney disease with stage 1 through stage 4 chronic kidney disease, or unspecified chronic kidney disease (ICD-10) Chronic kidney disease, stage 3 ?N18.30 - Chronic kidney disease, stage 3 unspecified (ICD-10) Surgical History (Updated 03/28/22 @ 08:20 by Meghan Ervin MD) S/P tendon repair ?Z98.890 - Other specified postprocedural states (ICD-10) S/P tubal ligation ?Z98.51 - Tubal ligation status (ICD-10) H/O hernia repair ?Z98.890 - Other specified postprocedural states (ICD-10) ?Z87.19 - Personal history of other diseases of the digestive system (ICD-10) History of lumpectomy of left breast ?Z98.890 - Other specified postprocedural states (ICD-10) History of hysterectomy for benign disease ?Z90.710 - Acquired absence of both cervix and uterus (ICD-10) Status post hysterectomy ?Z90.710 - Acquired absence of both cervix and uterus (ICD-10) Status post total left knee replacement ?Z96.652 - Presence of left artificial knee joint (ICD-10) Status post total hip replacement, right ?Z96.641 - Presence of right artificial hip joint (ICD-10) Status post left breast lumpectomy ?Z98.890 - Other specified postprocedural states (ICD-10) Family History Mother Colon cancer Arthritis CHF (congestive heart failure) Father Skin cancer Aunt Breast cancer Sister Brain tumor Epilepsy Stroke Social History Narrative: Quit smoking >15 years ago. Glass of wine or a beer once a month. No recreational drugs. FULL CODE. Highest level of school completed/degree received: high school graduate Smoking Status: Former smoker Do you use any of these nicotine containing products: None Second hand tobacco smoke exposure: No How often do you have a drink containing alcohol: never AUDIT-C Alcohol total score: 0 Non-prescribed substance use: denies use Caffeine: No service: No Exam Narrative: Exam Narrative: Vital signs as noted above. In general, an alert, nontoxic elderly woman. She looks very uncomfortable. Head: Normocephalic, atraumatic. Eyes: Pupils are equal reactive. Extraocular movements are full. Conjunctivae are normal. ENT: Mucous membranes are moist. Throat is normal. Neck: Supple without lymphadenopathy. Heart: Regular rate and rhythm. No murmur or rub. Lungs: Clear bilaterally. No increased work of breathing, crackles or wheezes. Abdomen: Soft and nontender. No organomegaly. Extremities: Well perfused. Pulses intact. The right leg is slightly shortened and internally rotated. Range of motion was not assessed. Distal CMS is normal. Neurologic: Patient is alert and oriented to person and place. Speech is fluent. Face is symmetric. Moves all extremities equally. Affect: Normal. Skin: Warm and dry. Well perfused. Const: Vital Signs, click to edit/add: Vital Signs - 24 hr 09/09/22 14:48 09/09/22 14:53 09/09/22 15:39 Temperature 97.4 F L Pulse Rate 65 Pulse Rate [Pulse Oximeter] 66 Respiratory Rate 22 Blood Pressure Blood Pressure [Ri ght Upper Arm] 143/85 H Pulse Oximetry 100 100 100 Oxygen Delivery Me thod Room Air 09/09/22 15:40 09/09/22 15:45 09/09/22 15:46 Temperature Pulse Rate 63 62 Pulse Rate [Pulse Oximeter] Respiratory Rate 12 19 36 H Blood Pressure 104/92 H Blood Pressure [Ri ght Upper Arm] Pulse Oximetry 100 100 Oxygen Delivery Me thod 09/09/22 15:49 09/09/22 15:50 09/09/22 15:55 Temperature Pulse Rate 66 65 65 Pulse Rate [Pulse Oximeter] Respiratory Rate 12 Blood Pressure 139/82 Blood Pressure [Ri ght Upper Arm] Pulse Oximetry 100 97 100 Oxygen Delivery Me thod 09/09/22 15:59 09/09/22 16:00 09/09/22 16:01 Temperature Pulse Rate 57 L 62 59 L Pulse Rate [Pulse Oximeter] Respiratory Rate 12 29 H 16 Blood Pressure 119/97 H 124/68 Blood Pressure [Ri ght Upper Arm] Pulse Oximetry 100 99 100 Oxygen Delivery Me thod 09/09/22 16:05 09/09/22 16:07 09/09/22 16:10 Temperature Pulse Rate 57 L 57 L 58 L Pulse Rate [Pulse Oximeter] Respiratory Rate 20 12 Blood Pressure 142/76 H Blood Pressure [Ri ght Upper Arm] Pulse Oximetry 100 95 95 Oxygen Delivery Me thod 09/09/22 16:12 09/09/22 16:15 09/09/22 16:17 Temperature Pulse Rate 57 L 60 56 L Pulse Rate [Pulse Oximeter] Respiratory Rate Blood Pressure 139/77 138/74 Blood Pressure [Ri ght Upper Arm] Pulse Oximetry 96 94 94 Oxygen Delivery Me thod Documenting provider has reviewed patient's vital signs: yes Course Course Hospital Course: Based on her presentation would suspect hip dislocation, fracture felt less likely, x-rays pending. I have ordered Dilaudid. X-ray of the right hip by my review shows dislocation without evidence of fracture. Final radiology review is in agreement. An IV was established, we discussed sedation and reduction, patient agreed to proceed. Risks and benefits were reviewed and questions were answered. She was maintained on oximetry, end- tidal CO2, and director airport. Dr. Hills provided sedation. She tolerated procedure well. Hip was reduced without difficulty. Postreduction x-rays are pending. Postreduction x-rays by my read show reduction, again without evidence of fracture. Final radiology read is pending. She is feeling significantly vivek r, is and ambulatory. I have recommended orthopedic follow-up, will give her an abduction pillow and she is aware of things to avoid in terms of what could lead to another dislocation. Vital Signs Vital signs: Initial Vital Signs Temperature 97.4 F L 09/09/22 14:48 Temperature Source Temporal Artery Scan 09/09/22 14:48 Pulse Rate 66 09/09/22 14:48 Pulse Rhythm Regular 09/09/22 14:48 Pulse Strength 3+ Normal 09/09/22 14:48 Respiratory Rate 22 09/09/22 14:48 Blood Pressure 143/85 H 09/09/22 14:48 Blood Pressure Mean 104 09/09/22 14:48 Blood Pressure Position Supine 09/09/22 14:48 Pulse Oximetry 100 09/09/22 14:48 Oxygen Delivery Method Room Air 09/09/22 14:48 Vital Signs Temperature 97.4 F L 09/09/22 14:48 Pulse Rate 66 09/09/22 14:48 Respiratory Rate 22 09/09/22 14:48 Blood Pressure 143/85 H 09/09/22 14:48 Pulse Oximetry 100 09/09/22 14:48 Oxygen Delivery Method Room Air 09/09/22 14:48 Temperature 97.4 F L 09/09/22 14:48 Pulse Rate 62 09/09/22 16:30 Respiratory Rate 12 09/09/22 16:37 Blood Pressure 127/78 09/09/22 17:37 Pulse Oximetry 91 09/09/22 16:30 Oxygen Delivery Method Room Air 09/09/22 14:48 Discharge Plan Discharge Clinical Impression: Dislocation of right hip Patient Disposition: Home, Self-Care Condition: Improved Instructions: Hip Dislocation (ED), Hip Abduction Pillow (DC) Additional Instructions: Orthopedic follow-up in the next week. Abduction pillow, avoid positions which could lead to repeat dislocation. Prescriptions: No Action prednisone 5 mg tablet 5 mg PO DAILY Patient Comments: TAKE 1 TABLET BY ORAL ROUTE EVERY DAY metolazone 2.5 mg tablet 2.5 mg PO .2X/WEEK PRN Patient Comments: TAKE 1 TABLET (2.5 MG TOTAL) BY MOUTH DIRECTED. TAKE NEEDED FOR LOWER EXTRAMITY EDEMA AND WEIGHT GAIN OF 2 LBS UP TO TWICE A WEEK timolol 0.25 % drops 1 drp ophthalmic (eye) BID tramadol 50 mg tablet 50 mg PO Q4H PRN allopurinol 100 mg tablet 200 mg PO DAILY potassium chloride 20 mEq tablet extended release 40 meq PO TID latanoprost 0.005 % drops 1 drp ophthalmic (eye) HS torsemide 20 mg tablet 40 mg PO BID Qty: 360 3RF Follow Up/Referrals: Isac Pritchett MD [Primary Care Provider] - Stand Alone Forms: [facility] Info Instructions
[2022-09-09] MEDS: HYDROmorphone 0.5 mg/0.5 ml inj IVP (15:00)
--- NOTE | 2022-09-09 15:45 | ED.NURSE ---
Pt needed to use bedpan. Had increase in pain with movement. Dr Jc updated. Ok to straight cath. Pt straight cathed with red cath.
--- NOTE | 2022-09-09 15:49 | CRLHL7_ITS ---
For Patients: As a result of the Cures Act, medical imaging exams and procedure reports are released immediately into your electronic medical record. You may view this report before your referring provider. If you have questions, please contact your health care provider. INDICATION: Postreduction/recheck. TECHNIQUE: AP pelvis and 2 views of the right hip. COMPARISON: Pre reduction images from the same date. FINDINGS: Successful interval reduction of the previous identified dislocated right total hip arthroplasty. IMPRESSION : Right total hip arthroplasty. The components are adequately aligned. Successful interval reduction. Dictated by Cole Brown MD @ 09/09/2022 5:05:47 PM (Electronically Signed)
--- NOTE | 2022-09-09 16:06 | ED.NURSE ---
Inspector Eyeglass did observe RN waste 12ml propofol.
--- NOTE | 2022-09-09 16:08 | RESP.RT ---
Pt airway managed for conscious sedation. See charting for vitals.
--- NOTE | 2022-09-09 16:18 | ED.NURSE ---
Catheter placement at 1453 entered in error.
--- NOTE | 2022-09-09 17:14 | ED.NURSE ---
[facility] nursing staff called asking for update on pt. Nurse notified of hip dislocation and treatment. Notified of no medication changes. Pt will be leaving with family member when they arrive. All questions answered.
== END 2022-09-09 17:45 | disposition home or self-care (01) ==
LOC: ED 16:33
PROVIDERS: Emergency Provider Emergency Medicine; PCP Family Medicine
DX: T84.020A Dislocation of internal right hip prosthesis, initial encounter (principal)
CPT/HCPCS: 27266; 73502; 94761; 96374; 99152; 99284; J1170

== ENCOUNTER 2022-12-03 17:39 | Outpatient (REF) | payer MEDICARE, SELFPAY ==
[2022-12-03 18:26] LABS: Appearance Urine Cloudy (Clear); Bilirubin Urine Negative (Negative); Blood Urine 2+ (Negative); Color Urine Yellow (Yellow); Glucose Urine Negative (Negative); Ketones Urine Negative (Negative); Leukocyte Esterase Urine 1+ (Negative); Nitrite Urine Negative (Negative); Protein Urine Negative (Negative); Specific Gravity Urine 1.015 (1.000-1.030); Urobilinogen Urine 0.2 (0.2-1.0)
[2022-12-03 18:42] LABS: WBC Urine 50-100 (0-5)
== END 2022-12-03 17:40 | disposition home or self-care (01) ==
LOC: NPINS 17:39
PROVIDERS: PCP Family Medicine; Referring Provider Nurse Practitioner Adult Health; Visit Provider Family Medicine
DX: R39.9 Unspecified symptoms and signs involving the genitourinary system (principal)
CPT/HCPCS: 81001; 87086

== ENCOUNTER 2024-02-02 13:23 | Outpatient (REF) | payer MEDICARE, SELFPAY ==
[2024-02-02 14:11] LABS: Appearance Urine Cloudy (Clear); Bilirubin Urine Negative (Negative); Blood Urine 1+ (Negative); Color Urine Yellow (Yellow); Glucose Urine Negative (Negative); Ketones Urine Negative (Negative); Leukocyte Esterase Urine Negative (Negative); Nitrite Urine Negative (Negative); Protein Urine Negative (Negative); Urobilinogen Urine 0.2 (0.2-1.0)
[2024-02-02 14:32] LABS: Bacteria Urine Many; RBC Urine 0-2 (0-2); Squamous Epithelial Cell Urine Few (None-Few)
[2024-02-02 14:44] LABS: Creatinine Urine 41.3 mg/dL
[2024-02-02 14:49] LABS: Microalbumin Creatinine Ratio 70 mg/g (0-30); Microalbumin Urine 3 mg/dL
== END 2024-02-02 13:24 | disposition home or self-care (01) ==
LOC: NPINS 13:23
PROVIDERS: PCP Family Medicine; Visit Provider Nurse Practitioner Gerontology
DX: R35.0 Frequency of micturition (principal); R82.90 Unspecified abnormal findings in urine; R80.9 Proteinuria, unspecified; R94.4 Abnormal results of kidney function studies
CPT/HCPCS: 81001; 82043; 82570; 87086; 87186

== ENCOUNTER 2024-02-29 09:59 | Outpatient (CLI) | payer MEDICARE, SELFPAY ==
--- NOTE | 2024-02-29 10:15 | CRLHL7_ITS ---
For Patients: As a result of the Cures Act, medical imaging exams and procedure reports are released immediately into your electronic medical record. You may view this report before your referring provider. If you have questions, please contact your health care provider. INDICATION: Vaginal fistula. COMPARISON: CT scan of the abdomen and pelvis dated 28 March 2022. TECHNIQUE: Pelvic MRI with T1, T2, and postcontrast images. Intravenous gadolinium administered. FINDINGS: Hysterectomy. Colonic diverticulosis. Pericolonic edema involving the mid sigmoid colon abuts the vaginal cuff. A few small bilateral pelvic sidewall lymph nodes. Right hip arthroplasty causes metallic susceptibility artifact. No other bony or soft tissue abnormalities identified. Impression : 1. 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 Dictated by Charanjit Bradford MD @ 03/03/2024 8:34:55 AM (Electronically Signed)
== END 2024-02-29 10:00 | disposition home or self-care (01) ==
LOC: MRI 10:02
PROVIDERS: PCP Family Medicine; Visit Provider Obstetrics & Gynecology
DX: N82.3 Fistula of vagina to large intestine (principal); K57.32 Diverticulitis of large intestine without perforation or abscess without bleeding; N18.30 Chronic kidney disease, stage 3 unspecified
CPT/HCPCS: 72197; A9575

== ENCOUNTER 2024-03-06 11:57 | Outpatient (REF) | payer MEDICARE, SELFPAY ==
[2024-03-06 12:52] LABS: Appearance Urine Cloudy (Clear); Bilirubin Urine Negative (Negative); Blood Urine 1+ (Negative); Color Urine Yellow (Yellow); Glucose Urine Negative (Negative); Ketones Urine Negative (Negative); Leukocyte Esterase Urine 3+ (Negative); Nitrite Urine Negative (Negative); Protein Urine Trace (Negative); Specific Gravity Urine 1.015 (1.000-1.030); Urobilinogen Urine 0.2 (0.2-1.0)
[2024-03-06 13:00] LABS: WBC Clumps Urine Few
[2024-03-06 13:01] LABS: Bacteria Urine Many; Squamous Epithelial Cell Urine Few (None-Few)
== END 2024-03-06 11:58 | disposition home or self-care (01) ==
LOC: NPINS 11:57
PROVIDERS: PCP Family Medicine; Visit Provider Nurse Practitioner Gerontology
DX: R53.83 Other fatigue (principal); R82.90 Unspecified abnormal findings in urine
CPT/HCPCS: 81001; 81003; 87086; 87186

== ENCOUNTER 2024-03-24 12:24 | Outpatient (REF) | payer MEDICARE, SELFPAY ==
[2024-03-24 13:01] LABS: Appearance Urine Slightly Cloudy (Clear); Bilirubin Urine Negative (Negative); Blood Urine 2+ (Negative); Color Urine Yellow (Yellow); Glucose Urine Negative (Negative); Ketones Urine Negative (Negative); Leukocyte Esterase Urine 3+ (Negative); Nitrite Urine Negative (Negative); Protein Urine 2+ (Negative); Specific Gravity Urine 1.015 (1.000-1.030); Urobilinogen Urine 0.2 (0.2-1.0)
[2024-03-24 13:21] LABS: Bacteria Urine Many; Squamous Epithelial Cell Urine Few (None-Few); WBC Clumps Urine Moderate; WBC Urine 50-100 (0-5)
== END 2024-03-24 12:25 | disposition home or self-care (01) ==
LOC: NPINS 12:24
PROVIDERS: PCP Family Medicine; Visit Provider Nurse Practitioner Gerontology
DX: R30.0 Dysuria (principal)
CPT/HCPCS: 81001; 87086; 87186

== ENCOUNTER 2024-03-29 14:48 | Outpatient (REF) | payer MEDICARE, SELFPAY ==
[2024-03-29 18:09] LABS: PCR FLU A Negative PCR FLU A (Negative); PCR FLU B Negative PCR FLU B (Negative); PCR RSV Negative PCR RSV (Negative); SARS PCR* Negative SARS-CoV-2 (Negative)
== END 2024-03-29 14:49 | disposition home or self-care (01) ==
LOC: NPINS 14:48
PROVIDERS: PCP Family Medicine; Visit Provider Nurse Practitioner Gerontology
DX: R09.81 Nasal congestion (principal); R53.1 Weakness
CPT/HCPCS: 87631

== ENCOUNTER 2024-04-03 12:38 | Emergency (ER) | payer MEDICARE, SELFPAY ==
[2024-04-03] VITALS (14 sets, daily range): BP systolic 115–131; BP diastolic 62–70; PULSE 64–89; RESP 20; TEMP 36.6; O2SAT 93–99; BMI 28.4
--- NOTE | 2024-04-03 12:56 | CRLHL7_ITS ---
For Patients: As a result of the Century Cures Act, medical imaging exams and procedure reports are released immediately into your electronic medical record. You may view this report before your referring provider. If you have questions, please contact your health care provider. Indication: Left eye vision loss Technique: Multiplanar, multisequence MRI of the brain obtained without contrast. Comparison: None. Findings: The ventricles and cortical sulci are diffusely prominent, compatible with generalized cerebral volume loss. There is a bulky extra-axial calcified structure along the right paramedian parietal vertex, measuring approximately 1.8 x 2.1 x 2.1 cm, suggestive of calcified meningioma. There is mild local mass effect without subjacent parenchymal edema, midline shift, ventricular effacement or herniation small foci of T2/FLAIR hyperintensity are scattered throughout the bilateral cerebral white matter, typical of chronic microangiopathy. There is partial empty sella configuration. Major intracranial arterial flow voids are preserved where visualized. Normal calvarial marrow signal. No paranasal sinus air-fluid level or significant mastoid effusion. Unremarkable orbits. Impression: 1. No evidence of acute intracranial abnormality. 2. Mild generalized cerebral volume loss and mild chronic microangiopathy changes. 3. Approximately 2.1 cm presumed calcified meningioma at the right parietal vertex, with local mass effect but no parenchymal edema. Dictated by Alana Mahoney MD @ 04/03/2024 1:44:36 PM (Electronically Signed)
--- NOTE | 2024-04-03 12:57 | CRLHL7_ITS ---
For Patients: As a result of the Century Cures Act, medical imaging exams and procedure reports are released immediately into your electronic medical record. You may view this report before your referring provider. If you have questions, please contact your health care provider. Indication: Left eye vision loss. Technique: Routine protocol. Comparison: None. Findings: Extra-axial spaces: 2.1 x 2.1 x 2.1 centimeter dural-based predominantly ossified right parasagittal extra-axial parietal lesion which abuts both the dura and falx. Depression of the adjacent sulcus without edema. No significant underlying bone reactive change. The adjacent superior sagittal sinus is patent. Mild diffuse cerebral volume loss commensurate with age. Brain: No intracranial hemorrhage, intra-axial mass lesion or acute cortical ischemia. Ventricles: No hydrocephalus. Commensurate with the sulci. Midline: No shift. Normal structures. Posterior fossa: Normal. Orbits: Normal. Paranasal sinuses: Subcentimeter mucous retention cyst left maxillary sinus. Minor sphenoid and right maxillary sinus mucosal thickening. Mastoid sinuses: Normal. Skull base and calvarium: Normal. Impression: 1. No acute intracranial abnormalities. 2. 2.1 centimeter right parasagittal extra-axial parietal predominantly ossified lesion typical for a benign meningioma. No significant mass effect or thrombosis of the adjacent superior sagittal sinus. Please note that all CT scans at this facility use dose modulation, iterative reconstruction, and/or weight-based dosing when appropriate to reduce radiation dose to as low as reasonably achievable. Dictated by Tino Currie MD @ 04/03/2024 3:19:24 PM (Electronically Signed)
--- NOTE | 2024-04-03 12:57 | CRLHL7_ITS ---
For Patients: As a result of the Century Cures Act, medical imaging exams and procedure reports are released immediately into your electronic medical record. You may view this report before your referring provider. If you have questions, please contact your health care provider. DATE: 04/03/2024 CLINICAL HISTORY: Patient with left eye vision loss. TECHNIQUE: Standard helical CT image acquisition of the neck up to the skull base after bolus intravenous contrast enhancement. 2D and 3D MIP images for post-processing were performed and interpreted on an independent workstation and 3D images were permanently archived. COMPARISON: CT same day. FINDINGS: The origins of the great vessels from the aortic arch are patent. The origin of the right vertebral artery is patent. The origin of the left vertebral artery is patent. The common carotid arteries are patent. There is no stenosis at the origin of the right internal carotid artery. There is no stenosis at the origin of the left internal carotid artery. The rest of the cervical segments of the internal carotid arteries are patent up to the skull base. The vertebral arteries are codominant. The cervical segments of the vertebral arteries are patent up to the skull base. The visualized lung apices are unremarkable. The thyroid gland demonstrates a 2cm heterogeneous nodule in its right lobe. The soft tissues of the neck demonstrates a chronic left glenohumeral joint dislocation. There are degenerative changes in the cervical spine. IMPRESSION: 1. Patent cervical vasculature. 2. 2cm heterogeneous right thyroid nodule. Further evaluation with ultrasound is recommended. Please note that all CT scans at this facility use dose modulation, iterative reconstruction, and/or weight-based dosing when appropriate to reduce radiation dose to as low as reasonably achievable. Dictated by Sandy Smith MD @ 04/04/2024 10:04:51 AM (Electronically Signed)
--- NOTE | 2024-04-03 12:57 | CRLHL7_ITS ---
For Patients: As a result of the Century Cures Act, medical imaging exams and procedure reports are released immediately into your electronic medical record. You may view this report before your referring provider. If you have questions, please contact your health care provider. DATE: 04/04/2024 CLINICAL HISTORY: Patient with left eye vision loss. TECHNIQUE: Standard helical CT image acquisition through the intracranial circulation following intravenous administration of contrast material with bolus tracking. 2D and 3D MIP images for post-processing were performed and interpreted on an independent workstation and 3D images were permanently archived. COMPARISON: CT same day. FINDINGS: There is no cerebral aneurysm or large vessel occlusion. There is a 2cm calcified extra-axial lesion overlying the right parietal lobe, likely a meningioma. The right internal carotid artery is normal. The right middle cerebral artery and its branches are normal. The right anterior cerebral artery and its branches are normal. The left internal carotid artery is normal. The left middle cerebral artery and its branches are normal. The left anterior cerebral artery and its branches are normal. The anterior communicating artery is well visualized and appears normal. The right vertebral artery and PICA are normal. The left vertebral artery and PICA are normal. The left vertebral artery is dominant. The basilar artery is patent and appears normal. The right posterior cerebral artery is normal. The left posterior cerebral artery is normal. The visualized venous structures are patent. IMPRESSION: 1. Patent proximal intracranial vasculature without intracranial aneurysms. 2. 2cm calcified extra-axial lesion overlying the right parietal lobe is likely a meningioma. Please note that all CT scans at this facility use dose modulation, iterative reconstruction, and/or weight-based dosing when appropriate to reduce radiation dose to as low as reasonably achievable. Dictated by Sandy Smith MD @ 04/04/2024 10:07:40 AM (Electronically Signed)
--- NOTE | 2024-04-03 13:19 | ED.EYEPROB ---
HPI - Eye Problem General Date Seen: 04/03/24 Chief complaint: Eye Problems Stated complaint: stroke like symptoms Time Seen by Provider: 04/03/24 12:50 Source: patient Mode of arrival: ambulatory Limitations: no limitations History of Present Illness HPI Narrative: Patient is an 83-year-old female presenting to emergency department for loss of vision to her left eye. Symptoms have been going on for the past week. She went to the information security officer and they diagnosed her with a retinal artery occlusion. They then called our emergency department inform was that they were sending her here for a stroke rule out as per their protocol. Also recommended we check an ESR and CRP to look for signs of temporal arteritis. I informed him we do not have any specialties and very random it that that will be okay and she is needs to be ruled out for stroke with head imaging. She states she woke up 7 days ago it was suddenly unable see however left eye. She states she occasionally gets some blurry vision but has not had normal vision in her left eye since then. States it does not feel like a curtain coming down over her vision. Right vision has been normal. Denies dizziness, lightheadedness, headache, weakness, numbness, hearing issues, abdominal pain, chest pain, shortness of breath, fevers, chills. States she is completely asymptomatic other than the vision loss. No other concerns noted. Has not had previous vision issues. 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 11/30/22 04/05/24 torsemide 20 mg tablet 40 mg PO BID 12/14/22 04/05/24 tramadol 50 mg tablet 50 mg PO QDAY 02/22/24 04/05/24 amoxicillin 500 mg capsule 2,000 mg PO ONCE PRN 02/25/24 04/05/24 ergocalciferol (vitamin D2) 1,250 1,250 mcg PO QWEEK 02/25/24 04/05/24 mcg (50,000 unit) capsule (Vitamin D2) metolazone 2.5 mg tablet 2.5 mg PO QDAY PRN 02/25/24 04/05/24 nystatin 100,000 unit/gram topical 1 applic topical BID-TID 02/25/24 04/05/24 powder (Nystop) aspirin 81 mg tablet,delayed 81 mg PO DAILY 04/03/24 04/05/24 release (Adult Aspirin Regimen) Previous Rx's ?Medication ?Instructions ?Recorded prednisone 20 mg tablet 80 mg (4 x 20 mg) PO DAILY 3 weeks 04/03/24 #84 tabs Allergies Allergy/AdvReac Type Severity Reaction Status Date / Time acetaminophen (From Percocet) Allergy Intermediate Agitated Verified 04/05/24 09:52 oxycodone AdvReac Severe Dizzy Verified 04/05/24 09:52 procaine AdvReac Severe Combative Verified 04/05/24 09:52 codeine AdvReac Unknown Nausea, Verified 04/05/24 09:52 Dizzy Review of Systems Status of ROS: Reports: 10 or more systems reviewed and unremarkable except as noted in History and below [facility] Medical History Breast cancer, left breast (2000) ?C50.912 - Malignant neoplasm of unspecified site of left female breast (ICD-10) POLST (Physician Orders for Life-Sustaining Treatment) ?Z78.9 - Other specified health status (ICD-10) Normal echocardiogram Left anterior fascicular block ?I44.4 - Left anterior fascicular block (ICD-10) Spinal stenosis of lumbar region without neurogenic claudication ?M48.061 - Spinal stenosis, lumbar region without neurogenic claudication (ICD-10) Health care maintenance ?Z00.00 - Encounter for general adult medical examination without abnormal findings (ICD-10) Tricuspid insufficiency ?I07.1 - Rheumatic tricuspid insufficiency (ICD-10) Venous insufficiency of both lower extremities ?I87.2 - Venous insufficiency (chronic) (peripheral) (ICD-10) Squamous cell carcinoma in situ (SCCIS) of skin ?D04.9 - Carcinoma in situ of skin, unspecified (ICD-10) HTN (hypertension) ?I10 - Essential (primary) hypertension (ICD-10) History of malignant neoplasm of breast ?Z85.3 - Personal history of malignant neoplasm of breast (ICD-10) Vitamin D deficiency ?E55.9 - Vitamin D deficiency, unspecified (ICD-10) Gout ?M10.9 - Gout, unspecified (ICD-10) Hyperuricemia ?E79.0 - Hyperuricemia without signs of inflammatory arthritis and tophaceous disease (ICD-10) Lumbar degenerative disc disease ?M51.36 - Other intervertebral disc degeneration, lumbar region (ICD-10) Glaucoma ?H40.9 - Unspecified glaucoma (ICD-10) Nephrosclerosis ?I12.9 - Hypertensive chronic kidney disease with stage 1 through stage 4 chronic kidney disease, or unspecified chronic kidney disease (ICD-10) Chronic kidney disease, stage 3 ?N18.30 - Chronic kidney disease, stage 3 unspecified (ICD-10) Surgical History History of incision and drainage (~03/2022) ?Z98.890 - Other specified postprocedural states (ICD-10) History of appendectomy ?Z90.49 - Acquired absence of other specified parts of digestive tract (ICD-10) S/P tendon repair ?Z98.890 - Other specified postprocedural states (ICD-10) S/P tubal ligation ?Z98.51 - Tubal ligation status (ICD-10) H/O hernia repair ?Z98.890 - Other specified postprocedural states (ICD-10) ?Z87.19 - Personal history of other diseases of the digestive system (ICD-10) History of lumpectomy of left breast ?Z98.890 - Other specified postprocedural states (ICD-10) History of hysterectomy for benign disease ?Z90.710 - Acquired absence of both cervix and uterus (ICD-10) Status post hysterectomy ?Z90.710 - Acquired absence of both cervix and uterus (ICD-10) 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 Glass of wine or a beer once a month. No recreational drugs. FULL CODE. Highest level of school completed/degree received: high school graduate Smoking Status: Former smoker Do you use any of these nicotine containing products: None Second hand tobacco smoke exposure: No How often do you have a drink containing alcohol: never AUDIT-C Alcohol total score: 0 Non-prescribed substance use: denies use Caffeine: No service: No Exam Narrative: Exam Narrative: Const: Well-nourished, Well-developed, in no distress Eyes: PERRL, no conjunctival injection, and symmetrical lids HENT: Atraumatic external nose and ears. Moist mucous membranes. Neck: Symmetric, trachea midline, No thyromegaly. CVS: RRR, No murmurs or gallops. Peripheral pulses 2+ and equal in all extremities RESP: Unlabored respiratory effort. Clear to auscultation bilaterally. GI: Nontender/Nondistended, No rebound or guarding. MSK:Extremities w/o deformity, Normal Active ROM Skin: Warm, Dry. No rashes or lesions. Neuro: Normal Muscle tone, No vision to left eye. No other focal neurological deficits. Psych: Awake, Alert, & Oriented x3. Appropriate mood and affect. Const: Vital Signs, click to edit/add: Vital Signs - 24 hr 04/03/24 12:45 04/03/24 13:57 04/03/24 14:03 Temperature 98 F Pulse Rate 70 67 Pulse Rate [Pulse Oximeter] 74 Respiratory Rate 20 Blood Pressure Blood Pressure [Ri ght Upper Arm] 131/62 Pulse Oximetry 99 Oxygen Delivery Me thod Room Air 04/03/24 14:04 04/03/24 14:15 04/03/24 14:30 Temperature Pulse Rate 67 70 64 Pulse Rate [Pulse Oximeter] Respiratory Rate Blood Pressure Blood Pressure [Ri ght Upper Arm] Pulse Oximetry 96 93 93 Oxygen Delivery Me thod 04/03/24 14:34 04/03/24 14:58 04/03/24 15:00 Temperature Pulse Rate 66 89 77 Pulse Rate [Pulse Oximeter] Respiratory Rate Blood Pressure Blood Pressure [Ri ght Upper Arm] Pulse Oximetry 96 98 96 Oxygen Delivery Me thod 04/03/24 15:18 04/03/24 15:30 04/03/24 15:41 Temperature Pulse Rate 77 70 72 Pulse Rate [Pulse Oximeter] Respiratory Rate Blood Pressure 115/70 Blood Pressure [Ri ght Upper Arm] Pulse Oximetry 94 96 97 Oxygen Delivery Me thod 04/03/24 15:45 04/03/24 16:00 Temperature Pulse Rate 71 81 Pulse Rate [Pulse Oximeter] Respiratory Rate Blood Pressure Blood Pressure [Ri ght Upper Arm] Pulse Oximetry 98 Oxygen Delivery Me thod Course Vital Signs Vital signs: Initial Vital Signs Temperature 98 F 04/03/24 12:45 Temperature Source Temporal Artery Scan 04/03/24 12:45 Pulse Rate 74 04/03/24 12:45 Respiratory Rate 20 04/03/24 12:45 Blood Pressure 131/62 04/03/24 12:45 Blood Pressure Mean 85 04/03/24 12:45 Blood Pressure Position Supine 04/03/24 12:45 Pulse Oximetry 99 04/03/24 12:45 Oxygen Delivery Method Room Air 04/03/24 12:45 Vital Signs Temperature 98 F 04/03/24 12:45 Pulse Rate 74 04/03/24 12:45 Respiratory Rate 20 04/03/24 12:45 Blood Pressure 131/62 04/03/24 12:45 Pulse Oximetry 99 04/03/24 12:45 Oxygen Delivery Method Room Air 04/03/24 12:45 Temperature 98 F 04/03/24 12:45 Pulse Rate 81 04/03/24 16:00 Respiratory Rate 20 04/03/24 12:45 Blood Pressure 115/70 04/03/24 15:41 Pulse Oximetry 98 04/03/24 16:00 Oxygen Delivery Method Room Air 04/03/24 12:45 Medications Administered Medications: Discontinued Medications Generic Name Dose Route Start Last Admin Trade Name Bhavna PRN Reason Stop Dose Admin Sodium Chloride 1,000 mls @ 1,000 mls/hr 04/03/24 14:31 04/03/24 17:01 0.9 % Sodium Chloride 1000 Ml IV 04/03/24 15:30 Infused .Q1H REGIS Infusion MDM - Eye Problem MDM Narrative Medical decision making narrative: Patient is an 83-year-old female presenting to emergency department for a stroke rule out and for evaluation for temporal arteritis. ESR, CRP, CBC, BMP, point of care creatinine all ordered. Patient will go straight to MRI as the tech is available. Will also order a CTA head, neck along with a non con CT of her head. No other concerning symptoms. CBC came back elevated at 14. To prior lab work does show elevated white blood cell count. Not seen any signs of infection at this time. Her creatinine is slightly elevated 1.8 but does not meet criteria of JAMES at this time. MRI was done showing a meningioma that is not causing any significant mass effect. CT and CTA is reviewed by myself and the radiologist also showed no acute concerning abnormalities. Did do the CTA despite her lower GFR since was just slightly below the cut off it was important to get this imaging. Did give her L fluid afterwards. Her ESR and CRP are quite elevated at this time. At this time considered I cannot definitively rule out giant cell arteritis, although she is having no pain, I will start her on high-dose steroids. I explained to her and her son along the importance of close follow-up with the general surgeon, her primary care provider, ophthalmology. I did speak to the general surgeon on-call who states her clinic will call the patient the morning to set up the biopsy. Patient and family are agreeable to this plan. Of note once everything returned I did try to get in contact with her information security officer office but no providers there were available to speak to me. This office is the [facility] Lab Data Labs: Lab Results 04/03/24 Range/Units 13:55 WBC 14.04 H (4.50-11.00) K/uL RBC 3.24 L (4.00-5.20) m/uL Hgb 9.8 L (12.0-16.0) gm/dL Hct 31.6 L (33.0-51.0) % MCV 98 (80-100) fL MCH 30 (26-34) pg MCHC 31 L (32-36) gm/dL RDW Coeff of [place] 15.9 H (11.5-15.5) % Plt Count 530 H (140-440) K/uL Neut % (Auto) 84.9 H (42.0-72.0) % Lymph % (Auto) 7.8 L (20-44) % [place] % (Auto) 5.1 (0.0-11.0) % Eos % (Auto) 0.0 (0.0-7.0) % Baso % (Auto) 0.1 (0.0-3.0) % Neut # (Auto) 11.90 H (1.7-7.0) K/uL Lymph # (Auto) 1.10 (0.90-2.90) K/uL [place] # (Auto) 0.70 (0.00-0.90) K/UL Eos # (Auto) 0.00 (0.00-0.50) K/uL Baso # (Auto) 0.00 (0.00-0.30) K/uL Abs Immat Gran (auto) 0.30 (0.00-0.30) K/uL Imm/Tot Granulo (auto) 2.1 % ESR 100 H (2-20) mm/hr Sodium 135 (135-149) mmol/L Potassium 3.9 (3.6-5.1) mmol/L Chloride 99 (96-114) mmol/L Carbon Dioxide 29 (20-32) mmol/L Anion Gap 7 (7-15) mEq/L BUN 34 H (7-30) mg/dL Creatinine 1.8 H (0.5-1.5) mg/dL Estimated Creat Clear 22.95 Estimated GFR 28 ml/min Glucose 156 H (60-115) mg/dL Calcium 10.2 (8.4-10.6) mg/dL C-Reactive Protein 11.8 H (0.5-1.0) mg/dL POC Creatinine 1.8 H (0.6-1.3) mg/dl Imaging Data MR Brain: Attestation: I have reviewed the pertinent imaging results. Radiologist's impression: 1. No evidence of acute intracranial abnormality. 2. Mild generalized cerebral volume loss and mild chronic microangiopathy changes. 3. Approximately 2.1 cm presumed calcified meningioma at the right parietal vertex, with local mass effect but no parenchymal edema. Dictated by Alana Mahoney MD @ 04/03/2024 1:44:[address] scan - head: Attestation: I have reviewed the pertinent imaging results. Radiologist's impression: 1. No acute intracranial abnormalities. 2. 2.1 centimeter right parasagittal extra-axial parietal predominantly ossified lesion typical for a benign meningioma. No significant mass effect or thrombosis of the adjacent superior sagittal sinus. Please note that all CT scans at this facility use dose modulation, iterative reconstruction, and/or weight-based dosing when appropriate to reduce radiation dose to as low as reasonably achievable. Dictated by Tino Currie MD @ 04/03/2024 3:19:24 PM CTA head and neck: Radiologist's impression: Preliminary Report: Comparison Same day head CT. Findings CTA Neck: No hemodynamically significant stenosis, occlusion or dissection. CTA Head: No hemodynamically significant large vessel stenosis or occlusion. No aneurysm. Chronic appearing anterior left glenohumeral dislocation. Osseous remodeling of the undersurface of the left clavicle likely due to rotator cuff arthropathy/chronic dislocation. Calcified right parietal extra-axial lesion is favored to represent a calcified meningioma. Heterogeneous thyroid with largest thyroid on the right measuring 1.5 cm. This could be further evaluated as clinically indicated with thyroid ultrasound. Full report to follow. Read by:?Alice Friedman MD @04/03/2024 3:18:42 PM ECG Data Attestation: I personally reviewed and interpreted this ECG as follows: Prior ECG tracings: available for review Interpretation: Normal sinus rhythm with a rate of 69 beats per minute, bifascicular block, normal intervals, no ST or T-wave abnormalities. Looks relatively similar previous EKG on file. Discharge Plan Discharge Clinical Impression: Sudden visual loss, left eye Patient Disposition: Home, Self-Care Condition: Stable Instructions: Temporal Arteritis (ED) Additional Instructions: You will be on high dose steroids for the next several weeks. It is important you do not stop these without consulting the physician as suddenly stopping steroids is a very dangerous. You will need to follow-up with ophthalmology and your primary care provider over the next week or 2, prior to running out of this steroid. Again this is very important do have very close follow-up for this. The sooner you can follow-up the better. You will be getting a phone call from our general surgeon to schedule a biopsy to look for giant cell arteritis. When you speak to your information security officer any primary care provider inform them that your ESR and CRP were both quite elevated. You also have a meningioma. These are benign brain masses. These typically do not need routine follow-up. There is also a thyroid nodule that you should have outpatient ultrasound performed done. Prescriptions: New prednisone 20 mg tablet 80 mg PO DAILY 21 Days Qty: 84 2RF No Action allopurinol 100 mg tablet 200 mg PO DAILY denosumab 60 mg/mL syringe 60 mg subcut [id number] prednisone 5 mg tablet 5 mg PO DAILY acetaminophen 650 mg tablet extended release 1,300 mg PO Q12H ergocalciferol (vitamin D2) [Vitamin D2] 1,250 mcg (50,000 unit) capsule 1,250 mcg PO QWEEK torsemide 20 mg tablet 40 mg PO BID metolazone 2.5 mg tablet 2.5 mg PO QDAY PRN tramadol 50 mg tablet 50 mg PO QDAY amoxicillin 500 mg capsule 2,000 mg PO ONCE PRN Rx Instructions: Give 2000mg po one time prior to dental procedure nystatin [Nystop] 100,000 unit/gram powder 1 applic topical BID-TID timolol 0.25 % drops 1 drp ophthalmic (eye) BID aspirin [Adult Aspirin Regimen] 81 mg tablet,delayed release (DR/EC) 81 mg PO DAILY tramadol 50 mg tablet 50 mg PO Q4H PRN potassium chloride 20 mEq tablet extended release 40 meq PO TID latanoprost 0.005 % drops 1 drp ophthalmic (eye) HS Follow Up/Referrals: Isac Pritchett MD [Primary Care Provider] - Stand Alone Forms: [employer] Info Instructions
--- NOTE | 2024-04-03 13:32 | ED.NURSE ---
Shortly after arrival patient was brought to MRI. No time permitted for starting IV or doing EKG.
[2024-04-03 14:20] LABS: Chloride* 99 mmol/L (96-114); Sodium* 135 mmol/L (135-149)
[2024-04-03 14:21] LABS: Potassium* 3.9 mmol/L (3.6-5.1)
[2024-04-03 14:22] LABS: Creatinine, Point-of-Care* 1.8 mg/dl (0.6-1.3)
[2024-04-03 14:23] LABS: Creatinine* 1.8 mg/dL (0.5-1.5); Est. Creatinine Clearance* 22.95; Estimated Glomerular Filt Rate 28 ml/min
[2024-04-03 14:24] LABS: Anion Gap 7 mEq/L (7-15); Blood Urea Nitrogen* 34 mg/dL (7-30); Calcium* 10.2 mg/dL (8.4-10.6); Carbon Dioxide* 29 mmol/L (20-32); Glucose* 156 mg/dL (60-115)
[2024-04-03 14:30] LABS: Basophils Percent Auto 0.1 % (0.0-3.0); Hematocrit 31.6 % (33.0-51.0); Hemoglobin* 9.8 gm/dL (12.0-16.0); Immature Granulocytes Pct Auto 2.1 %; Lymphocytes Percent Auto 7.8 % (20-44); Mean Corpuscular HGB Conc 31 gm/dL (32-36); Mean Corpuscular Hemoglobin 30 pg (26-34); Mean Corpuscular Volume 98 fL (80-100); Monocytes Percent Auto 5.1 % (0.0-11.0); Neutrophils Percent Auto 84.9 % (42.0-72.0); Platelet Count* 530 K/uL (140-440); RDW Coefficient of Variation % 15.9 % (11.5-15.5); Red Blood Count 3.24 m/uL (4.00-5.20); White Blood Count* 14.04 K/uL (4.50-11.00)
[2024-04-03 14:31] LABS: Slide Review Reflex No
[2024-04-03 14:40] LABS: C Reactive Protein* 11.8 mg/dL (0.5-1.0)
[2024-04-03] MEDS: 0.9 % SODIUM CHLORIDE 1000 ml 1,000 ML IV (15:30)
[2024-04-03 15:31] LABS: Erythrocyte SedimentationRate* 100 mm/hr (2-20)
--- NOTE | 2024-04-03 17:12 | ED.NURSE ---
Message left at two different numbers requesting to speak to RN to give information about diagnosis and follow up steps. As of yet, still no call back. Discharge instructions given to patient and an additional copy sent for [facility].
== END 2024-04-03 17:15 | disposition home or self-care (01) ==
PROVIDERS: Emergency Provider Student in an Organized Health Care Education/Training Program; PCP Family Medicine
DX: H53.132 Sudden visual loss, left eye (principal)
CPT/HCPCS: 36415; 70450; 70496; 70498; 70551; 80048; 82565; 85025; 85651; 86140; 93005; 99284; 99285; J7030; Q9967

== ENCOUNTER 2024-04-14 13:31 | Outpatient (CLI) | payer MEDICARE, SELFPAY | END 2024-04-14 13:32 | disposition home or self-care (01) | LOC: AMB 04-23 06:21 | PROVIDERS: PCP Family Medicine; Visit Provider Student in an Organized Health Care Education/Training Program | DX: N93.9 Abnormal uterine and vaginal bleeding, unspecified (principal); R10.2 Pelvic and perineal pain | CPT/HCPCS: A0425; A0427 ==

== ENCOUNTER 2024-04-14 13:49 | Emergency (ER) | payer MEDICARE, SELFPAY ==
--- OUTSIDE RECORDS SUMMARY | 2024-04-14 13:51 | XMS_ITS | Encounter Summary ---
Author Organization [place] Address [address] [facility] [place] [address] Care Team Providers Care Supervisor Riveting Name Role Phone Lynette Mena Primary Care Provider [phone] Uriel Franco MD Unavailable [phone] Encounter Details Date Type Department Care Team (Late st Contact Info) Description 05/19/2022 External Order Results [facility] [address] [place] [address] Outside, Provider Social History Tobacco Use Types Packs/Day Years Used Date Smoking Tobacco: Former Cigarettes Alcohol Use Standard Drinks/Week Comments Yes 0 (1 standard drink = 0.6 oz pure alcohol) Once a month 1 beer or 1 glass of 1 Comments No Sex and Gender Information Value Date Recorded Sex Assigned at Not on file Legal Sex Female 5:31 PM MARINE OILER Gender Identity Not on file Sexual Orientation Not on file documented as of this encounter Plan of Treatment Not on file documented as of this encounter Procedures Procedure Name Priority Date/Time Associated Diagnosis Comments CBC WITH PLATELETS & DIFFERENTIAL Routine 05/19/2022 7:25 AM MARINE OILER PHOSPHORUS Routine 05/19/2022 7:25 AM MARINE OILER MAGNESIUM Routine 05/19/2022 7:25 AM MARINE OILER HEPATIC FUNCTION PANEL Routine 05/19/2022 7:25 AM MARINE OILER CRP INFLAMMATION Routine 05/19/2022 7:25 AM MARINE OILER BASIC METABOLIC PANEL Routine 05/19/2022 7:25 AM MARINE OILER documented in this encounter Results * Magnesium (05/19/2022 7:25 AM MARINE OILER) Pathologist [facility] Magnesium (External) 1.6 1.6 - 26 mg/dL NON-INTERFACED (ONBASE SCANS) Blood BLOOD SPECIMEN / Unknown 05/19/2022 7:25 AM MARINE OILER Narrative BREEZE PFT - 05/19/2022 3:11 PM MARINE OILER Verified by Haylie Persaud on 05/19/2022. [facility] - BLOOD ORDERABLES Edited Re [facility] KRISTINEEZE PFT NON-INTERFACED (ONBASE SCANS) * (ABNORMAL) CRP inflammation (05/19/2022 7:25 AM MARINE OILER) [facility] CRP Inflammation (External) 1.46(H) <0.50 mg/dL NON-INTERFACE D (ONBASE SCANS) Blood BLOOD SPECIMEN / Unknown 05/19/2022 7:25 AM MARINE OILER Narrative BREEZE PFT - 05/19/2022 3:11 PM MARINE OILER Verified by Haylie Persaud on 05/19/2022. [facility] - BLOOD ORDERABLES Edited [facility] KRISTINEEZE PFT NON-INTERFACED (ONBASE SCANS) * (ABNORMAL) Basic metabolic panel (05/19/2022 7:25 AM MARINE OILER) Pathologist [facility] Sodium (External) 140 135 - 145 mmol/L NON-INTERFACE D (ONBASE SCANS) Potassium (External) 3.2(L) 3.5 - 5.0 mmol/L NON-INTERFACE D (ONBASE SCANS) Chloride (External) 100 98 - 110 mmol/L NON-INTERFACE D (ONBASE SCANS) CO2 (External) 27 21 - 31 mmol/L NON-INTERFACE D (ONBASE SCANS) Anion Gap (External) 13 5 - 18 NON-INTERFACE D (ONBASE SCANS) Glucose (External) 92 70 - 99 mg/dl NON-INTERFACE D (ONBASE SCANS) Calcium (External) 10.0 8.5 - 10.5 mg/dl NON-INTERFACE D (ONBASE SCANS) Urea Nitrogen (External) 41(H) 8 - 25 mg/dl NON-INTERFACE D (ONBASE SCANS) Creatinine (External) 1.13(H) 0.57 - 1.11 mg/dl NON-INTERFACE D (ONBASE SCANS) BUN/Creatinine Ratio (External) 36(H) 10 - 20 Ratio NON-INTERFACE D (ONBASE SCANS) GFR Estimated (External) 50(L) >90 ml/min/1.7 3m2 NON-INTERFACE D (ONBASE SCANS) Blood BLOOD SPECIMEN / Unknown 05/19/2022 7:25 AM MARINE OILER Narrative ROSE MARY PFT - 05/19/2022 3:11 PM MARINE OILER Verified by Haylie Persaud on 05/19/2022. [facility] - BLOOD ORDERABLES Edited Re justin - Final ROSE MARY PFBatsheva NON-INTERFACED (ONBASE SCANS) * Hepatic function panel (05/19/2022 7:25 AM MARINE OILER) Albumin (External) 3.4 3.2 - 4.6 g/dL NON-INTERFACED (ONBASE SCANS) Protein Total (External) 7.4 6.0 - 8.0 g/dL NON-INTERFACED (ONBASE SCANS) Bilirubin Total (External) 0.3 0.2 - 1.2 mg/dL NON-INTERFACED (ONBASE SCANS) Alk Phosphatase (External) 66 50 - 136 IU/L NON-INTERFACED (ONBASE SCANS) ALT (External) 11 8 - 45 IU/L NON-INTERFACED (ONBASE SCANS) AST (External) 13 2 - 40 IU/L NON-INTERFACED (ONBASE SCANS) Blood BLOOD SPECIMEN / Unknown 05/19/2022 7:25 AM MARINE OILER Narrative ROSE MARY PFT - 05/19/2022 3:11 PM MARINE OILER Verified by Haylie Persaud on 05/19/2022. [facility] - BLOOD ORDERABLES Edited Re [facility] ROSE MARY PFT NON-INTERFACED (ONBASE SCANS) * Phosphorus (05/19/2022 7:25 AM MARINE OILER) Pathologist [facility] Phosphorus (External) 3.3 2.3 - 4.7 mg/dL NON-INTERFACED (ONBASE SCANS) Blood BLOOD SPECIMEN / Unknown 05/19/2022 7:25 AM MARINE OILER Narrative ELIZABETHE PFT - 05/19/2022 3:05 PM MARINE OILER Verified by Haylie Persaud on 05/19/2022. [facility] - BLOOD ORDERABLES Edited [facility] Performing Organization Address [facility] de Phone Number ROSE MARY PFT NON-INTERFACED (ONBASE SCANS) * (ABNORMAL) CBC with Platelets & Differential (05/19/2022 7:25 AM MARINE OILER) WBC Count (External) 8.8 4.5 - 11.0 thou/cu mm NON-INTERFACE D (ONBASE SCANS) RBC Count (External) 3.32(L) 4.00 - 5.20 mil/cu mm NON-INTERFACE D (ONBASE SCANS) Hemoglobin (External) 9.9(L) 12.0 - 16.0 g/dl NON-INTERFACE D (ONBASE SCANS) Hematocrit (External) 32.1(L) 33.0 - 51.0 % NON-INTERFACE D (ONBASE SCANS) MCV (External) 97 80 - 100 fL NON-INTERFACE D (ONBASE SCANS) MCH (External) 29.8 26.0 - 34.0 pg NON-INTERFACE D (ONBASE SCANS) MCHC (External) 30.8(L) 32.0 - 36.0 g/dL NON-INTERFACE D (ONBASE SCANS) RDW (External) 16.1(H) 11.5 - 15.5 % NON-INTERFACE D (ONBASE SCANS) Platelet Count (External) 308 140 - 440 thou/cu mm NON-INTERFACE D (ONBASE SCANS) % Neutrophils (External) 77.0 % NON-INTERFACE D (ONBASE SCANS) % Lymphocytes (External) 13.0 % NON-INTERFACE D (ONBASE SCANS) % Monocytes (External) 9.0 % NON-INTERFACE D (ONBASE SCANS) % Eosinophils (External) 1.0 % NON-INTERFACE D (ONBASE SCANS) % Basophils (External) 0.0 % NON-INTERFACE D (ONBASE SCANS) Absolute Neutrophils (External) 6.8 1.7 - 7.0 thou/cu mm NON-INTERFACE D (ONBASE SCANS) Absolute Lymphocytes (External) 1.1 0.9 - 2.9 thou/cu mm NON-INTERFACE D (ONBASE SCANS) Absolute Monocytes (External) 0.8 <0.9 thou/cu mm NON-INTERFACE D (ONBASE SCANS) Absolute Eosinophils (External) 0.1 <0.5 thou/cu mm NON-INTERFACE D (ONBASE SCANS) Absolute Basophils (External) 0.0 <0.3 thou/cu mm NON-INTERFACE D (ONBASE SCANS) Method (External) Manual NON-INTERFACE D (ONBASE SCANS) Blood BLOOD SPECIMEN / Unknown 05/19/2022 7:25 AM MARINE OILER Narrative ROSE MARY PFT - 05/19/2022 3:05 PM MARINE OILER Verified by Haylie Persaud on 05/19/2022. [facility] - BLOOD ORDERABLES Edited Re sult - Final ROSE MARY PFT NON-INTERFACED (ONBASE SCANS) documented in this encounter Visit Diagnoses Not on filedocumented in this encounter Care Teams Supervisor Riveting Relationship Specialty Start Date End Date Lynette Mena DO [address] [place] [id number] PCP - General 03/30/22 Uriel Franco MD [address] [place] [address] [address] [place] [address] Assigned Infectious Disease Provider 05/02/22 12/12/23 documented as of this encounter
--- OUTSIDE RECORDS SUMMARY | 2024-04-14 13:51 | XMS_ITS | Encounter Summary ---
Author Organization [place] Address [address] [facility] [place] [address] Care Team Providers Care Arranging Funeral Director Name Role Phone Lynette Mena Primary Care Provider [phone] Uriel Franco MD Unavailable [phone] Encounter Details Date Type Department Care Team (Late st Contact Info) Description 05/12/2022 External Order Results [facility] [address] [place] [address] Outside, Provider Social History Tobacco Use Types Packs/Day Years Used Date Smoking Tobacco: Former Cigarettes Alcohol Use Standard Drinks/Week Comments Yes 0 (1 standard drink = 0.6 oz pure alcohol) Once a month 1 beer or 1 glass of 1 Comments No Sex and Gender Information Value Date Recorded Sex Assigned at Not on file Legal Sex Female 5:31 PM TOOL AND DIE REPAIRER Gender Identity Not on file Sexual Orientation Not on file documented as of this encounter Plan of Treatment Not on file documented as of this encounter Procedures Procedure Name Priority Date/Time Associated Diagnosis Comments CBC WITH PLATELETS & DIFFERENTIAL Routine 05/12/2022 8:44 AM TOOL AND DIE REPAIRER PHOSPHORUS Routine 05/12/2022 8:44 AM TOOL AND DIE REPAIRER MAGNESIUM Routine 05/12/2022 8:44 AM TOOL AND DIE REPAIRER CRP INFLAMMATION Routine 05/12/2022 8:44 AM TOOL AND DIE REPAIRER COMPREHENSIVE METABOLIC PANEL Routine 05/12/2022 8:44 AM TOOL AND DIE REPAIRER documented in this encounter Results * CRP inflammation (05/12/2022 8:44 AM TOOL AND DIE REPAIRER) Pathologist [facility] CRP Inflammation (External) 46.40 mg/L NON-INTERFACE D (ONBASE SCANS) Comment:High Sensitivity-CRP Blood BLOOD SPECIMEN / Unknown 05/12/2022 8:44 AM TOOL AND DIE REPAIRER Narrative ROSE MARY PFT - 05/17/2022 7:48 AM TOOL AND DIE REPAIRER Verified by Clive Mcnally on 05/17/2022. us [facility] - BLOOD ORDERABLES Edited Re sult - Final ROSE MARY PFT NON-INTERFACED (ONBASE SCANS) * (ABNORMAL) CBC with Platelets & Differential (05/12/2022 8:44 AM TOOL AND DIE REPAIRER) Pathologist [facility] WBC Count (External) 11.6(H) 4.5 - 11.0 thou/cu mm NON-INTERFACE D (ONBASE SCANS) RBC Count (External) 3.29(L) 4.00 - 5.20 mil/cu mm NON-INTERFACE D (ONBASE SCANS) Hemoglobin (External) 9.8(L) 12.0 - 16.0 g/dL NON-INTERFACE D (ONBASE SCANS) Hematocrit (External) 32.3(L) 33.0 - 51.0 % NON-INTERFACE D (ONBASE SCANS) MCV (External) 98 80 - 100 fl NON-INTERFACE D (ONBASE SCANS) MCH (External) 29.8 26.0 - 34.0 pg NON-INTERFACE D (ONBASE SCANS) MCHC (External) 30.3(L) 32.0 - 36.0 g/dL NON-INTERFACE D (ONBASE SCANS) RDW (External) 16.3(H) 11.5 - 15.5 % NON-INTERFACE D (ONBASE SCANS) Platelet Count (External) 312 140 - 400 thou/cu mm NON-INTERFACE D (ONBASE SCANS) % Neutrophils (External) 83.4 % NON-INTERFACE D (ONBASE SCANS) % Lymphocytes (External) 7.6 % NON-INTERFACE D (ONBASE SCANS) % Monocytes (External) 6.6 % NON-INTERFACE D (ONBASE SCANS) % Eosinophils (External) 2.2 % NON-INTERFACE D (ONBASE SCANS) % Basophils (External) 0.2 % NON-INTERFACE D (ONBASE SCANS) Absolute Neutrophils (External) 9.7(H) 1.7 - 7.0 thou/cu mm NON-INTERFACE D (ONBASE SCANS) Absolute Lymphocytes (External) 0.9 0.9 - 2.9 thou/cu mm NON-INTERFACE D (ONBASE SCANS) Absolute Monocytes (External) 0.8 <0.9 thou/cu mm NON-INTERFACE D (ONBASE SCANS) Absolute Eosinophils (External) 0.3 <0.5 thou/cu mm NON-INTERFACE D (ONBASE SCANS) Absolute Basophils (External) 0.0 <0.3 thou/cu mm NON-INTERFACE D (ONBASE SCANS) Blood BLOOD SPECIMEN / Unknown 05/12/2022 8:44 AM TOOL AND DIE REPAIRER Narrative [facility]REEZE PFT - 05/13/2022 12:38 PM TOOL AND DIE REPAIRER Verified by Yissel Maharaj on 05/13/2022. [facility] - BLOOD ORDERABLES Edited [facility] BREEZE PFT NON-INTERFACED (ONBASE SCANS) * Phosphorus (05/12/2022 8:44 AM TOOL AND DIE REPAIRER) Phosphorus (External) 2.3 2.3 - 4.7 mg/dL NON-INTERFACED (ONBASE SCANS) Blood BLOOD SPECIMEN / Unknown 05/12/2022 8:44 AM TOOL AND DIE REPAIRER Narrative BREEZE PFT - 05/13/2022 12:38 PM TOOL AND DIE REPAIRER Verified by Yissel Maharaj on 05/13/2022. [facility] - BLOOD ORDERABLES Edited [facility] BREEZE PFT NON-INTERFACED (ONBASE SCANS) * Magnesium (05/12/2022 8:44 AM TOOL AND DIE REPAIRER) Magnesium (External) 1.6 1.6 - 2.6 mg/dL NON-INTERFACED (ONBASE SCANS) Blood BLOOD SPECIMEN / Unknown 05/12/2022 8:44 AM TOOL AND DIE REPAIRER Narrative ROSE MARY PFT - 05/13/2022 12:38 PM TOOL AND DIE REPAIRER Verified by Yissel Maharaj on 05/13/2022. us [facility] F [facility] - BLOOD ORDERABLES Edited Re sult - Final ROSE MARY PFT NON-INTERFACED (ONBASE SCANS) * (ABNORMAL) Comprehensive metabolic panel (05/12/2022 8:44 AM TOOL AND DIE REPAIRER) Sodium (External) 139 135 - 145 mmol/L NON-INTERFACE D (ONBASE SCANS) Potassium (External) 4.0 3.5 - 5.0 mmol/L NON-INTERFACE D (ONBASE SCANS) Chloride (External) 103 98 - 110 mmol/L NON-INTERFACE D (ONBASE SCANS) CO2 (External) 24 21 - 31 mmol/L NON-INTERFACE D (ONBASE SCANS) Anion Gap (External) 12 5 - 18 NON-INTERFACE D (ONBASE SCANS) Glucose (External) 97 70 - 99 mg/dL NON-INTERFACE D (ONBASE SCANS) Calcium (External) 10.0 8.5 - 10.5 mg/dl NON-INTERFACE D (ONBASE SCANS) Urea Nitrogen (External) 39(H) 8 - 25 mg/dL NON-INTERFACE D (ONBASE SCANS) Creatinine (External) 1.24(H) 0.57 - 1.11 mg/dL NON-INTERFACE D (ONBASE SCANS) BUN/Creatinine Ratio (External) 31(H) 10 - 20 NON-INTERFA CE D (ONBASE SCANS) Albumin (External) 3.3 3.2 - 4.6 g/dL NON-INTERFACE D (ONBASE SCANS) Protein Total (External) 7.5 6.0 - 8.0 g/dL NON-INTERFACE D (ONBASE SCANS) Bilirubin Total (External) 0.2 0.2 - 1.2 mg/dL NON-INTERFACE D (ONBASE SCANS) Alk Phosphatase (External) 66 50 - 136 IU/L NON-INTERFACE D (ONBASE SCANS) ALT (External) 11 8 - 45 IU/L NON-INTERFACE D (ONBASE SCANS) AST (External) 11 2 - 40 IU/L NON-INTERFACE D (ONBASE SCANS) GFR Estimated (External) 44(L) >60 ml/min/1.7 3m2 NON-INTERFACE D (ONBASE SCANS) Blood BLOOD SPECIMEN / Unknown 05/12/2022 8:44 AM TOOL AND DIE REPAIRER Narrative ROSE MARY PFT - 05/13/2022 12:38 PM TOOL AND DIE REPAIRER Verified by Yissel Maharaj on 05/13/2022. us [facility] - BLOOD ORDERABLES Edited Re sult - Final ROSE MARY PFT NON-INTERFACED (ONBASE SCANS) documented in this encounter Visit Diagnoses Not on filedocumented in this encounter Care Teams Arranging Funeral Director Relationship Specialty Start Date End Date Lynette Mena DO [address] [place] [id number] PCP - General 03/30/22 Uriel Franco MD [address] [place] [address] [address] [place] [address] Assigned Infectious Disease Provider 05/02/22 12/12/23 documented as of this encounter
--- OUTSIDE RECORDS SUMMARY | 2024-04-14 13:51 | XMS_ITS | Clinical Summary ---
Author Organization [employer] [facility] Address [place], [place] [address] Care Team Providers Care Sorting Machine Operator Name Role Phone Tino Natarajan Unavailable [phone] Teofilo Bertrand MD Unavailable [phone] Vikki Harden Unavailable Lynette Mena DO Primary Care Provider Allergies Active Allergy Reactions Criticality Noted Date Comments Aspirin *Unknown 07/30/2014 Ibprofin Codeine Nausea And Vomiting,Dizziness 11/04/2004 Procaine Syncope 08/06/2006 Oxycodone Nausea And Vomiting 07/30/2014 Oxycodone Terephthalate Nausea And Vomiting 01/2015 Oxycodone-Acetaminophen Nausea And Vomiting,Dizziness 10/07/2017 Oxycodone-Aspirin Nausea And Vomiting,Dizziness,Tinnitus 11/04/2004 Medications acetaminophen (TYLENOL EXTRA STRGTH) 500 mg tablet Take 1 tablet by mouth every 6 hours if needed. Max acetaminophen dose: 4000mg in 24 hrs. 0 1 Active latanoprost (XALATAN) 0.005 % ophthalmic solution Place 1 Drop into both eyes at bedtime. Active torsemide (DEMADEX) 20 mg tablet Take 20 mg by mouth 2 times daily. Active allopurinoL (ZYLOPRIM) 100 mg tablet Take 200 mg by mouth once daily. Active timoloL maleate (TIMOPTIC) 0.25 % ophthalmic solution Place 1 Drop into both eyes 2 times daily. Active predniSONE (DELTASONE) 5 mg tablet Take 5 mg by mouth once daily with a meal. Active potassium chloride (KLOR-CON M20) 20 mEq Extended-Relea se tabletIndicati ons:Pedal edema Take 2 Tablets (40 mEq) by mouth two times daily with meals. 360 Tablet 3 2 Active metOLazone (ZAROXOLYN) 5 mg tabletIndicati ons:Pedal edema Take 1/2 tab daily as needed swelling. 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 Venous insufficiency - lower extremity edema 04/2020 Moderate tricuspid insufficiency 06/21/2020 Overview (06/21/2020): Echocardiogram 05/2020 - Normal EF and moderate TR. Health care maintenance 06/21/2020 Overview (06/21/2020): Colonoscopy: 02/12/14 - normal. Mammogram: 09/23/2017 and normal Pap/Pelvic: s/p hysterectomy. DXA: 2009 (T -1.2 in right femur and -1.8 in left femoral neck.) Hip Fx risk 1.4%. Chronic kidney disease, stage III (moderate) Overview (06/21/2020): Mild Cr elevation starting 2011; Increased in 2018 with diuresis. Follows with Dr. Natarajan ([facility]) Squamous cell carcinoma in situ of skin 05/29/19 Overview (05/28/2016): thumb S/P hip replacement, right 08/16/2015 Vitamin D deficiency 07/31/2009 Unspecified glaucoma 06/30/2006 Malignant neoplasm of breast (female), unspecifi ed site 06/30/2006 Overview (06/21/2020): 2001- left breast, had lumpectomy had left breast cancer and had chemo and radiation. No recurrence. Resolved Problems Problem Noted Date Diagnosed Date Resolved Date Lumbosacral disc herniation 08/09/2021 08/09/2021 Lumbar stenosis with neurogenic claudication 2 08/09/2021 Anticoagulation monitoring, special range (1.8-2.5) 08/16/2015 06/21/2020 Other malaise and fatigue 08/09/2006 Excessive or frequent menstruation 08/06/2006 07/23/2015 Edema 06/30/2006 06/21/2020 Hyperparathyroidism, unspecified 06/30/2006 07/23/2015 Unspecified essential hypertension 06/30/2006 04/05/2009 Encounters Date Type Department Care Team Description 04/03/2024 Lab Requisition [facility] [phone] Lupe Gómez NP 02/03/2024 Lab Requisition [facility] [phone] Lupe Gómez NP 02/03/2024 Lab Requisition [facility] [phone] from Last 3 Months Immunizations Name Administration Dates Next Due COVID-19 vaccine ([employer] [place] 30mcg/0.3mL) P F, MDV 05/21/2020,04/30/2020 Pneumococcal Poly,23-Valent (Pneumovax) 08/21/19 17,08/15/2004 Pneumococcal conj 13-Valent (Prevnar 13) 015 Td (Age >=7 Years) 08/15/2004 Tdap 07/30/2015 Family History Medical History Relation Name Comments Cancer Father SQUAMOUS CELL N SHANIQUE Cancer-breast Maternal Aunt Arthritis Mother Cancer-colon Mother Heart Disease Mother CHF Other Sister BRAIN TUMOR IN 1 [place], Epilepsy Stroke Sister Relation Name Status Comments Father (Age 86) Maternal Aunt Mother (Age 79) Sister Social History Tobacco Use Types Packs/Day Years Used Date Smoking Tobacco: Former Cigarettes 0.8 15 0 03/22/1959 - 03/22/1974 Smokeless Tobacco: Never Tobacco Cessation:Counseling Given: Yes Alcohol Use Standard Drinks/Week Comments Yes 0 (1 standard drink = 0.6 oz pur e alcohol) occasional PHQ-2 Answer Date Recorded PHQ-2 TOTAL SCORE 0 02/02/2022 Social Connections Answer Date Recorded Frequency of Communication with Friends and Fami ly 0 08/04/2021 Financial Resource Strain Answer Date R ecorded Difficulty of Paying Living Expenses 3 08/04/2021 Difficulty of Paying Living Expenses Not on file 08/04/2021 Food Insecurity Answer Date Recorded Worried About Running Out of Food in the Last Ye ar 1 08/04/2021 Transportation Needs Answer Date Record ed Lack of Transportation (Medical) 1 08/04/2021 Housing Stability Answer Date Recorded Unable to Pay for Housing in the Last Year 1 08/04/2021 Comments No Sex and Gender Information Value Date Recorded Sex Assigned at Not on file Legal Sex Female 6:26 AM [facility] Gender Identity Not on file Sexual Orientation Not on file 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 Not on file Not on file Obstetrics History Para Term AB IAB SAB Ectopic Multiple Livin g Live Births 7 4 3 3 4 Date Outcome GA Total Labor Labor/2nd/3rd Weight Sex Type Anes PTL Kelsi A1 A5 Name Clin SAB SAB SAB Para Para Para Para Last Filed Vital Signs Vital Sign Reading Time Taken Comments Blood Pressure 106/58 03/09/2022 3:06 PM [facility] Pulse 76 03/09/2022 3:06 PM [facility] Temperature 36.6 C (97.8 F) 08/19/2021 2:23 PM CDT Respiratory Rate 16 03/09/2022 3:06 PM [facility] Oxygen Saturation 98% 03/09/2022 3:06 PM [facility] Inhaled Oxygen Concentration - - Weight 81.5 kg (179 lb 9.6 oz) 03/09/2022 3:06 P M [facility] Height 163.8 cm (5' 4.49) 02/26/2022 2:52 PM CS T Body Mass Index 30.36 02/26/2022 2:52 PM [facility] Plan of Treatment Health Maintenance Due Date Last Done Comments Zoster (shingles) series for age 50+ (1 of 2) 1992 RSV vaccine for adults or (1 - 1-dose 75+ series) 2017 Depression screening for age 12+ 02/03/2023 02/03/2022, 02/02/2022, 06/30/2021, Additional history exists Medicare Wellness for age 65+ 02/03/2023 02/02/2022, 08/20/2016 BMI (ht and wt on same day) for age 18+ 02/26/2023 02/26/2022, 02/02/2022, 08/19/2021, Additional history exists COVID-19 vaccine series ( season) 2023 05/21/2020, 04/30/2020 Influenza for age 65+ 11/21/2023 Tetanus booster 07/29/2025 07/30/2015, 08/15/2004 Tdap Completed 07/30/2015 Pneumococcal series for age 50+ Completed 08/20/2016, 07/25/2014, 07/25/2014, Additional history exists DEXA/DXA scan for age 65+ Completed 02/09/2022, 01/2010 Procedures Procedure Name Priority Date/Time Associated Diagnosis Comments RED CELL MORPHOLOGY Routine 04/04/2024 7 :56 AM [facility] Unspecified visual loss Other giant cell arteritis (HC) Weakness PLATELET ESTIMATE Routine 04/04/2024 7:5 6 AM [facility] Unspecified visual loss Other giant cell arteritis (HC) Weakness MANUAL DIFFERENTIAL Routine 04/04/2024 7 :56 AM [facility] Unspecified visual loss Other giant cell arteritis (HC) Weakness CBC WITH AUTO DIFFERENTIAL Routine 04/04/2024 7:56 AM [facility] Unspecified visual loss Other giant cell arteritis (HC) Weakness C-REACTIVE PROTEIN Routine 04/04/2024 7: 56 AM [facility] Unspecified visual loss Other giant cell arteritis (HC) Weakness SEDIMENTATION RATE Routine 04/04/2024 7: 56 AM [facility] Unspecified visual loss Other giant cell arteritis (HC) Weakness BASIC METABOLIC PANEL Routine 04/04/2024 7:56 AM [facility] Unspecified visual loss Other giant cell arteritis (HC) Weakness CBC WITH AUTO DIFFERENTIAL Routine 04/04/2024 7:56 AM [facility] Unspecified visual loss Other giant cell arteritis (HC) Weakness RENAL FUNCTION PANEL Routine 02/08/2024 8:10 AM [facility] Anemia in chronic kidney disease (CODE) Essential (primary) hypertension Chronic kidney disease, stage 3b (HC) PTH,INTACT Routine 02/08/2024 8:10 AM [facility] Anemia in chronic kidney disease (CODE) Essential (primary) hypertension Chronic kidney disease, stage 3b (HC) IRON Routine 02/08/2024 8:10 AM [facility] Anemia in chronic kidney disease (CODE) Essential (primary) hypertension Chronic kidney disease, stage 3b (HC) FERRITIN Routine 02/08/2024 8:10 AM [facility] Anemia in chronic kidney disease (CODE) Essential (primary) hypertension Chronic kidney disease, stage 3b (HC) CBC W PLT NO DIFF Routine 02/08/2024 8:1 0 AM [facility] Anemia in chronic kidney disease (CODE) Essential (primary) hypertension Chronic kidney disease, stage 3b (HC) XR DXA BONE DENSITY 2 SITES AXIAL Routine 02/09/2022 2:25 PM [facility] Asymptomatic postmenopausal state from Last 3 Months or Most Recently Relevant to Health Maintenance Results * (ABNORMAL) SEDIMENTATION RATE (04/04/2024 7:56 AM [facility]) SEDIMENTATION RATE 97(H) <30 mm/hr 2024 9:59 AM [facility] Blood BLOOD SPECIMEN / Unknown Butterfly / Unknown 04/04/2024 7:56 AM [facility] 04/04/2024 9:41 AM [facility] us Lupe Gómez NP HEMATOLOGY Final Resul t [facility] [address] [place] [id number] * (ABNORMAL) CBC WITH AUTO DIFFERENTIAL (04/04/2024 7:56 AM [facility]) WHITE BLOOD COUNT 13.6(H) 4.5 - 11.0 thou/cu mm 04/04/2024 12:41 PM [facility] RED BLOOD COUNT 3.01(L) 4.00 - 5.20 mil/cu mm 04/04/2024 12:41 PM [facility] HEMOGLOBIN 9.1(L) 12.0 - 16.0 g/dL 04/04/2024 12:41 PM [facility] HEMATOCRIT 29.6(L) 33.0 - 51.0 % 04/04/2024 12:41 PM [facility] MCV 98 80 - 100 fL 04/04/2024 12:41 PM [facility] MCH 30.2 26.0 - 34.0 pg 04/04/2024 12:41 PM [facility] MCHC 30.7(L) 32.0 - 36.0 g/dL 04/04/2024 12:41 PM [facility] RDW 16.0(H) 11.5 - 15.5 % 04/04/2024 12:41 PM [facility] PLATELET COUNT 511(H) 140 - 440 thou/cu mm 04/04/2024 12:41 PM [facility] MPV 9.8 6.5 - 11.0 fL 04/04/2024 12:41 PM [facility] Blood BLOOD SPECIMEN / Unknown Butterfly / Unknown 04/04/2024 7:56 AM [facility] 04/04/2024 9:41 AM [facility] us Lupe Gómez NP HEMATOLOGY Final Resul t [facility] [address] [place] [address] * RED CELL MORPHOLOGY (04/04/2024 7:56 AM [facility]) RBC COMMENT RBC morphology appears normal RBC morphology appears normal, RBC morphology within normal limits for newborns. 04/04/2024 12:41 PM [facility] Blood BLOOD SPECIMEN / Unknown Butterfly / Unknown 04/04/2024 7:56 AM [facility] 04/04/2024 9:41 AM [facility] Lupe Gómez NP HEMATOLOGY Final Resul t Performing Organization Address City/[facility]/ZIP Co de Phone Number [facility] [address] [place] [address] * (ABNORMAL) PLATELET ESTIMATE (04/04/2024 7:56 AM [facility]) PLATELET ESTIMATE Increased (A) Adequate, No estimate 04/04/2024 12:41 PM [facility] Blood BLOOD SPECIMEN / Unknown Butterfly / Unknown 04/04/2024 7:56 AM [facility] 04/04/2024 9:41 AM [facility] Lupe Gómez NP HEMATOLOGY Final Resul t Performing Organization Address City/[facility]/ZIP Co de Phone Number [facility] [address] [place] [address] * (ABNORMAL) MANUAL DIFFERENTIAL (04/04/2024 7:56 AM [facility]) Pathologist [facility] % NEUTROPHILS 87.0 % 04/04/2024 12:41 PM [facility] % LYMPHOCYTES 7.0 % 04/04/2024 12:41 PM [facility] % MONOCYTES 5.0 % 04/04/2024 12:41 PM [facility] % EOSINOPHILS 1.0 % 04/04/2024 12:41 PM [facility] % BASOPHILS 0.0 % 04/04/2024 12:41 PM [facility] NEUTROPHILS ABSOLUTE 11.8(H) 1.7 - 7.0 thou/cu mm 04/04/2024 12:41 PM [facility] LYMPHOCYTES ABSOLUTE 1.0 0.9 - 2.9 thou/cu mm 04/04/2024 12:41 PM [facility] MONOCYTES ABSOLUTE 0.7 <0.9 thou/cu mm 04/04/2024 12:41 PM [facility] EOSINOPHILS ABSOLUTE 0.1 <0.5 thou/cu mm 04/04/2024 12:41 PM [facility] BASOPHILS ABSOLUTE 0.0 <0.3 thou/cu mm 04/04/2024 12:41 PM [facility] Blood BLOOD SPECIMEN / Unknown Butterfly / Unknown 04/04/2024 7:56 AM [facility] 04/04/2024 9:41 AM [facility] Lupe Gómez COAL CRUSHER OPERATOR HEMATOLOGY Final Resul t Performing Organization Address [facility]/ZIP Co de Phone Number [facility] [address] [place] [address] * (ABNORMAL) C-REACTIVE PROTEIN (04/04/2024 7:56 AM [facility]) C-REACTIVE PROTEIN 10.8(H) <0.5 mg/dL 04/04/2024 10:13 AM [facility] Blood BLOOD SPECIMEN / Unknown Butterfly / Unknown 04/04/2024 7:56 AM [facility] 04/04/2024 9:41 AM [facility] Lupe Gómez NP CHEMISTRY Final Resul t Performing Organization Address [facility]/ZIP Co de Phone Number [facility] [address] [place] [address] * (ABNORMAL) BASIC METABOLIC PANEL (04/04/2024 7:56 AM [facility]) SODIUM 136 136 - 145 mmol/L 04/04/2024 10:13 AM [facility] POTASSIUM 3.7 3.5 - 5.1 mmol/L 04/04/2024 10:13 AM [facility] CHLORIDE 98 98 - 107 mmol/L 04/04/2024 10:13 AM [facility] CO2,TOTAL 26 22 - 29 mmol/L 04/04/2024 10:13 AM [facility] ANION GAP 12 5 - 18 04/04/2024 10:13 AM [facility] GLUCOSE 100(H) 70 - 99 mg/dL 04/04/2024 10:13 AM [facility] CALCIUM 9.2 8.8 - 10.4 mg/dL 04/04/2024 10:13 AM [facility] Comment: Reference ranges for this test were updated on 01/25/2024 to reflect our healthy population more accurately. Reference range changes are not retroactively applied to results, but previous results using the same methodology can be interpreted in the context of the new reference range. BUN 27(H) 8 - 23 mg/dL 04/04/2024 10:13 AM [facility] CREATININE 1.21(H) 0.50 - 0.90 mg/dL 04/04/2024 10:13 AM [facility] BUN/CREAT RATIO 22(H) 10 - 20 10:13 AM [facility] eGFR 45(L) >90 mL/min/1. 73m2 04/04/2024 10:13 AM [facility] Comment:As of 2021, eG FR is calculated by the CKD-EPI creatinine equation without race adjustment. eGFR can be influenced by muscle mass, exercise, and diet. The reported eGFR is an estimation only and is only applicable if the renal function is stable. Blood BLOOD SPECIMEN / Unknown Butterfly / Unknown 04/04/2024 7:56 AM [facility] 04/04/2024 9:41 AM [facility] us Lupe Gómez NP CHEMISTRY Final Resul t [facility] [address] [place], [place] [id number] * IRON (02/08/2024 8:10 AM [facility]) IRON 44 37 - 145 ug/dL 02/08/2024 12:50 PM [facility] Blood BLOOD SPECIMEN / Unknown Butterfly / Unknown 02/08/2024 8:10 AM [facility] 02/08/2024 8:50 AM [facility] us Lupe Gómez NP CHEMISTRY Final Resul t [facility] [address] [place] [address], * (ABNORMAL) CBC W PLT NO DIFF (02/08/2024 8:10 AM [facility]) WHITE BLOOD COUNT 7.4 4.5 - 11.0 thou/cu mm 02/08/2024 9:23 AM [facility] RED BLOOD COUNT 3.62(L) 4.00 - 5.20 mil/cu mm 02/08/2024 9:23 AM [facility] HEMOGLOBIN 11.4(L) 12.0 - 16.0 g/dL 02/08/2024 9:23 AM [facility] HEMATOCRIT 37.3 33.0 - 51.0 % 02/08/2024 9:23 AM [facility] MCV 103(H) 80 - 100 fL 02/08/2024 9:23 AM [facility] MCH 31.5 26.0 - 34.0 pg 02/08/2024 9:23 AM [facility] MCHC 30.6(L) 32.0 - 36.0 g/dL 02/08/2024 9:23 AM [facility] RDW 14.7 11.5 - 15.5 % 02/08/2024 9:23 AM [facility] PLATELET COUNT 324 140 - 440 thou/cu mm 02/08/2024 9:23 AM [facility] MPV 10.6 6.5 - 11.0 fL 02/08/2024 9:23 AM [facility] Blood BLOOD SPECIMEN / Unknown Butterfly / Unknown 02/08/2024 8:10 AM [facility] 02/08/2024 8:50 AM [facility] us Lupe Gómez NP HEMATOLOGY Final Resul t [facility] [address] [place] [address] * (ABNORMAL) PTH,INTACT (02/08/2024 8:10 AM [facility]) Pathologist [facility] CALCIUM 9.6 8.8 - 10.4 mg/dL 02/08/2024 12:50 PM [facility] Comment: Reference ranges for this test were updated on 01/25/2024 to reflect our healthy population more accurately. Reference range changes are not retroactively applied to results, but previous results using the same methodology can be interpreted in the context of the new reference range. PTH,INTACT 177.0(H) 15.0 - 69.0 pg/mL 02/08/2024 12:50 PM [facility] Blood BLOOD SPECIMEN / Unknown Butterfly / Unknown 02/08/2024 8:10 AM [facility] 02/08/2024 8:50 AM [facility] Lupe Gómez COAL CRUSHER OPERATOR SEND OUTS Final Resul t Performing Organization Address City/[facility]/ZIP Co de Phone Number [facility] [address] [place] [address], [place] * FERRITIN (02/08/2024 8:10 AM [facility]) Pathologist [facility] FERRITIN 94.1 15.0 - 150.0 ng/mL 02/08/2024 12:50 PM [facility] Blood BLOOD SPECIMEN / Unknown Butterfly / Unknown 02/08/2024 8:10 AM [facility] 02/08/2024 8:50 AM [facility] Lupe Gómez NP CHEMISTRY Final Resul t [facility] [address] [place] [address], * (ABNORMAL) RENAL FUNCTION PANEL (02/08/2024 8:10 AM [facility]) Pathologist [facility] SODIUM 142 136 - 145 mmol/L 02/08/2024 9:35 AM [facility] POTASSIUM 4.4 3.5 - 5.1 mmol/L 02/08/2024 9:35 AM [facility] CHLORIDE 101 98 - 107 mmol/L 02/08/2024 9:35 AM [facility] CO2,TOTAL 28 22 - 29 mmol/L 02/08/2024 9:35 AM [facility] ANION GAP 13 5 - 18 02/08/2024 9:35 AM [facility] GLUCOSE 92 70 - 99 mg/dL 02/08/2024 9:35 AM [facility] CALCIUM 9.9 8.8 - 10.4 mg/dL 02/08/2024 9:35 AM [facility] Comment: Reference ranges for this test were updated on 01/25/2024 to reflect our healthy population more accurately. Reference range changes are not retroactively applied to results, but previous results using the same methodology can be interpreted in the context of the new reference range. BUN 18 8 - 23 mg/dL 02/08/2024 9:35 AM [facility] CREATININE 1.19(H) 0.50 - 0.90 mg/dL 02/08/2024 9:35 AM [facility] BUN/CREAT RATIO 15 10 - 20 9:35 AM [facility] eGFR 46(L) >90 mL/min/1. 73m2 02/08/2024 9:35 AM [facility] Comment:As of 2021, eG FR is calculated by the CKD-EPI creatinine equation without race adjustment. eGFR can be influenced by muscle mass, exercise, and diet. The reported eGFR is an estimation only and is only applicable if the renal function is stable. PHOSPHORUS 3.4 2.5 - 4.5 mg/dL 02/08/2024 9:35 AM [facility] ALBUMIN 3.6(L) 4.0 - 4.9 g/dL 02/08/2024 9:35 AM [facility] Blood BLOOD SPECIMEN / Unknown Butterfly / Unknown 02/08/2024 8:10 AM [facility] 02/08/2024 8:50 AM [facility] us Lupe Gómez COAL CRUSHER OPERATOR CHEMISTRY Final Resul t [facility] [address] [place] [address] * (ABNORMAL) XR DXA BONE DENSITY 2 SITES AXIAL (02/09/2022 2:25 PM [facility]) Anatomical Region Laterality Modality Spine, HIPS, HIPL, HIPR Computed Radiography Impressions 02/10/2022 5:21 PM [facility] Osteoporosis. Bone density has decreased significantly since 2009 and is now in the osteoporosis range. RECOMMENDATIONS: The National Osteoporosis Foundation recommends pharmacologic treatment for patients with T-scores of -2.5 or less, patients with prior history of fragility fractures, or patients with 10-year probability of greater than 3% at hips or greater than 20% of suffering major osteoporotic fractures. Recommend continued optimization of calcium and vitamin D intake through dietary means and/or supplementation and regular exercise. Consider pharmacologic therapy for osteoporosis. Follow-up bone density reading in 2 years if therapy initiated to assess therapeutic efficacy. Narrative 02/10/2022 5:21 PM [facility] For Patients: Results are automatically released to your [facility] account once available, in compliance with federal regulations. This means that you may see your results before your provider has had a chance to review them. Please allow 2-3 business days for your provider to comment on the results. XR DXA Bone Mineral Density (BMD) EXAM LOCATION: [facility] [address] [facility] [id number] PATIENT NAME: Lela Lindsey DATE OF : 1940 EXAM DATE: 02/09/2022 REQUESTING PROVIDER: Lynette Mena DO GENDER AT : female HEIGHT: 5' 4.5 (02/02/2022) WEIGHT: 182 lb 1.6 oz (02/02/2022) MENOPAUSAL STATUS: Postmenopausal RACE/ETHNICITY: White RISK FACTORS: History of Fragility Fracture CURRENT MEDICATION FOR BONE LOSS: NONE INDICATION: postmenopausal, follow up osteopenia COMPARISON DATE(S): 2009 DXA scans are compared to prior studies for a patient only when the two (or more) studies were performed on the same scanner. It is not possible to compare data generated on one scanner to data from another because there are not standards in DXA equipment. This applies even if the two scanners are made by the same central control room operator. PROCEDURE: Dual-energy x-ray absorptiometry performed with routine technique. Reporting is completed in the form of a T-score. The T-score represents the standard deviation from peak bone mass based on young healthy adult. A Z-score is used for diagnosis in premenopausal women, and for men under the age of 50. FINDINGS: RESULT LUMBAR SPINE L1 - L4(4) BMD: 0.942 g/cm2 T-Score: - 1.9 Change from prior in 2009: Decrease 16.3%. RESULTS FEMUR Left femoral neck BMD: 0.565 g/cm2 T-Score: - 3.4 Change from prior in 2009: Decrease 27.8%. Left hip BMD: 0.575 g/cm2 T-Score: - 3.4 Change from prior in 2009: Decrease 34.7%. WHO criteria: Normal: T-score at or above -1 SD Osteopenia: T-score between -1.1 and -2.4 SD Osteoporosis: T-score at or below -2.5 SD FRAX RISK CALCULATION (USED FOR OSTEOPENIA ONLY): 10-year probability of major osteoporotic fracture: 38.4%. 10-year probability of hip fracture: 16.8%. Lynette Gem Rajesh DO DEXA Final Result from Last 3 Months or Most Recently Relevant to Health Maintenance Insurance [employer] MED[employer]ARE [employer]VANTAGE MEDICARE PART A HB ONLY [employer] MED[employer]ARE ADVANTAGE MR MEDICARE PART B HB ONLY Advance Directives * Full Code (Latest Code Status on File) Date Activated Date Inactivated Comments 08/08/2021 10:39 AM 08/10/2021 5:57 PM Question Answer Comments Code Status Discussion: Per Existing Order Care Teams Sorting Machine Operator Relationship Specialty Start Date End Date Lynette Mena DO [address] [place] [address] [place] [address] PCP - General Internal Medicine 08/06/21 Tino Natarajan DO [address] [place] [address] Nephrology Internal Medicine 06/21/20 Teofilo Bertrand MD [facility] [place] [address] [place] [address] Cardiology Cardiovascular Disease 06/21/20 Vikki Harden [address] [facility] [address] [place] [address] Dermatology Dermatology 06/21/20
--- OUTSIDE RECORDS SUMMARY | 2024-04-14 13:51 | XMS_ITS | Referral Summary ---
Author Organization [facility] Address [address] [place] [address]. [place] [address] Care Team Providers Care [employer] Name Role Phone Lynette Mena Primary Care Provider [phone] Encounters Date Type Department Care Team Description 04/04/2024 Telephone [facility] Nurse Advisors [address] [place] [address] Aruna Card RN from Last 3 Months Allergies Active Allergy Reactions Criticality Noted Date Comments Codeine Dizziness,GI Disturbance,Nausea and Vomiting Low 11/04/2004 Oxycodone Nephrotoxicity,Nause a and Vomiting Medium 07/30/2014 Hx of kidney disease. Tolerates hydromorphone Medications denosumab (PROLIA) 60 MG/ML SOSY injection Inject 60 mg Subcutaneous every 6 months Got a dose in Mar 2022 03/02/20 22 Active cefTRIAXone (ROCEPHIN) 2 GM vialIndications:B acteremia Inject 2 g into the vein every 24 hours 620 mL 04/13/19 23 Active torsemide 40 MG TABSIndications:C hronic diastolic (congestive) heart failure (H) Take 40 mg by mouth 2 times daily 04/12/19 23 Active tiZANidine (ZANAFLEX) 4 MG tabletIndications :S/P hip replacement, right Take 1 tablet (4 mg) by mouth 3 times daily as needed for muscle spasms 04/12/19 23 Active vitamin D2 (ERGOCALCIFEROL) 96771 units (1250 mcg) capsuleIndication s:Hyperparathyroi dism due to renal insufficiency Take 1 capsule (50,000 Units) by mouth every 7 days 04/14/19 23 Active Lidocaine (LIDOCARE) 4 % PatchIndications: S/P hip replacement, right Place 2 patches onto the skin every 24 hours To prevent lidocaine toxicity, patient should be patch free for 12 hrs daily. 04/12/19 Active acetaminophen (TYLENOL) 500 MG tabletIndications :S/P hip replacement, right Take 1-2 tablets (500-1,000 mg) by mouth every 8 hours as needed for pain 04/12/19 Active allopurinol (ZYLOPRIM) 100 MG tabletIndications :Gout, unspecified cause, unspecified chronicity, unspecified site Take 2 tablets (200 mg) by mouth daily 04/12/19 Active latanoprost (XALATAN) 0.005 % ophthalmic solutionIndicatio ns:History of eye problem Apply 1 drop to eye At Bedtime 04/12/19 Active metolazone (ZAROXOLYN) 2.5 MG tabletIndications :Chronic diastolic (congestive) heart failure (H) Take 1 tablet (2.5 mg) by mouth as needed TAKE 1 TABLET (2.5 MG TOTAL) BY MOUTH DIRECTED. TAKE NEEDED FOR LOWER EXTRAMITY EDEMA AND WEIGHT GAIN OF 2 LBS UP TO TWICE A WEEK 04/12/19 Active potassium chloride ER (KLOR-CON M) 20 MEQ CR tabletIndications :Chronic diastolic (congestive) heart failure (H) Take 2 tablets (40 mEq) by mouth 2 times daily 04/12/19 Active predniSONE (DELTASONE) 5 MG tabletIndications :Gout, unspecified cause, unspecified chronicity, unspecified site Take 1 tablet (5 mg) by mouth daily 04/12/19 Active timolol maleate (TIMOPTIC) 0.25 % ophthalmic solutionIndicatio ns:History of eye problem Apply 1 drop to eye 2 times daily 04/12/19 Active calcium carbonate (OS-NOBLE) 1500 (600 Ca) MG tabletIndications :Other osteoporosis, unspecified pathological fracture presence Take 1 tablet (600 mg) by mouth 2 times daily (with meals) 04/13/19 Active Active Problems Problem Noted Date Diagnosed Date Escherichia coli sepsis 03/30/2022 DDD (degenerative disc disease), lumbar 02/27/20 Spinal stenosis of lumbar re gion without neurogenic claudication 02/26/2022 Age-related osteoporosis wit hout current pathological fracture 02/15/2022 Overview (03/30/2022): DEXA scan 01/2022 - worsening bone density, recommending treatment. Anemia of chronic renal failure 01/27/2022 Chronic diastolic (congestive) heart failure 10/2021 Hyperparathyroidism due to renal insufficiency 1 03/29/2021 Rheumatoid arthritis involving multiple joints 1 03/29/2021 Moderate tricuspid insufficiency 06/21/2020 Overview (03/30/2022): Echocardiogram 05/2020 - Normal EF and moderate TR. Renal osteodystrophy 09/07/2018 Hypertensive kidney disease, stage IV 07/13/2018 Acquired renal artery stenosis 02/02/2018 Squamous cell carcinoma in situ of skin 05/29/19 17 Overview (03/30/2022): Overview: thumb thumb Presence of right artificial hip joint 6 S/P hip replacement, right 08/16/2015 Vitamin D deficiency 07/31/2009 Edema 06/30/2006 Glaucoma 06/30/2006 Malignant neoplasm of female breast 06/30/2006 Overview (03/30/2022): 2000- left breast, had lumpectomy had left breast cancer and had chemo and radiation. No recurrence. Social History Tobacco Use Types Packs/Day Years Used Date Smoking Tobacco: Former Cigarettes Tobacco Cessation:Counseling Given: Not Answered Alcohol Use Standard Drinks/Week Comments Yes 0 (1 standard drink = 0.6 oz pure alcohol) Once a month 1 beer or 1 glass of 1 Adolescent Education Answer Date Record ed Getting School Help Needed Not on file 12/12 Comments No Sex and Gender Information Value Date Recorded Sex Assigned at Not on file Legal Sex Female 5:31 PM WINDOW CLERK Gender Identity Not on file Sexual Orientation Not on file Last Filed Vital Signs Vital Sign Reading Time Taken Comments Blood Pressure 127/61 04/13/2022 8:30 AM WINDOW CLERK Pulse 78 04/13/2022 8:30 AM WINDOW CLERK Temperature 36.8 C (98.2 F) 04/13/2022 8:30 AM WINDOW CLERK Respiratory Rate 16 04/12/2022 11:22 PM WINDOW CLERK Oxygen Saturation 98% 04/13/2022 8:30 AM WINDOW CLERK Inhaled Oxygen Concentration - - Weight 84.4 kg (186 lb 1.6 oz) 04/12/2022 7:55 A M WINDOW CLERK Height 167.6 cm (5' 6) 03/30/2022 10:39 PM WINDOW CLERK Body Mass Index 30.04 03/30/2022 10:39 PM WINDOW CLERK Plan of Treatment Not on file Medical Devices Implanted Type Area Expanded Duty Dental Assistant Device Identifier Shelf Expiration Date Model / Serial / Lot Imp Liner Hip Depuy [place] Altrx [id number] +[id number] 1221-36-454 - [id number] Implanted:Qty : 1 on 04/02/2022 by Yao Snyder MD at [facility] Total Joint Componen t/Insert Right: Hip [employer] [id number] 11/19/2026 [id number] / / [id number] Imp Head Femoral Depuy 36mm +5 1365-52-000 - [id number] Implanted:Qty : 1 on 04/02/2022 by Yao Snyder MD at [facility] Total Joint Componen t/Insert Right: Hip [employer] [id number] 04/21/2026 [id number] / / [id number] Explanted Type Area Expanded Duty Dental Assistant Device Identifier Shelf Expiration Date Model / Serial / Lot Imp Head Femoral Depuy 36mm +5 1365-52-000 - [id number] Explanted:Qty : 1 on 04/02/2022 by Yao Snyder MD at [facility] Total Joint Componen t/Insert Right: Hip [employer] [id number] / / Imp Liner Hip Depuy [place] Altrx [id number] +4 1221-36-454 - [id number] Explanted:Qty : 1 on 04/02/2022 at [facility] Total Joint Componen t/Insert Right: Hip [employer] [id number] / / Procedures Procedure Name Priority Date/Time Associated Diagnosis Comments CBC WITH PLATELETS & DIFFERENTIAL Routine 06/09/2022 7:47 AM CDT COMPREHENSIVE METABOLIC PANEL Routine 06/09/2022 7:47 AM CDT PHOSPHORUS Routine 06/02/2022 7:25 AM CDT TSH WITH FREE T4 REFLEX STAT 04/02/2022 6:57 PM WINDOW CLERK from Last 3 Months or Most Recently Relevant to Health Maintenance Results * (ABNORMAL) CBC with Platelets & Differential (06/09/2022 7:47 AM CDT) WBC Count (External) 12.9(H) 4.5 - 11.0 thou/cu mm NON-INTERFACE D (ONBASE SCANS) RBC Count (External) 3.43(L) 4.40 - 5.20 mil/cu mm NON-INTERFACE D (ONBASE SCANS) Hemoglobin (External) 10.1(L) 12.6 - 16.0 g/dL NON-INTERFACE D (ONBASE SCANS) Hematocrit (External) 32.9(L) 33.0 - 51.0 % NON-INTERFACE D (ONBASE SCANS) MCV (External) 96 80 - 100 fL NON-INTERFACE D (ONBASE SCANS) MCH (External) 29.4 26.0 - 34.0 pg NON-INTERFACE D (ONBASE SCANS) MCHC (External) 30.7(L) 32.0 - 36.0 g/dL NON-INTERFACE D (ONBASE SCANS) RDW (External) 16.3(H) 11.5 - 15.5 % NON-INTERFACE D (ONBASE SCANS) Platelet Count (External) 288 140 - 440 mil/cu mm NON-INTERFACE D (ONBASE SCANS) % Neutrophils (External) 83.5 % NON-INTERFACE D (ONBASE SCANS) % Lymphocytes (External) 7.1 % NON-INTERFACE D (ONBASE SCANS) % Monocytes (External) 7.5 % NON-INTERFACE D (ONBASE SCANS) % Eosinophils (External) 1.8 % NON-INTERFACE D (ONBASE SCANS) % Basophils (External) 0.1 % NON-INTERFACE D (ONBASE SCANS) Absolute Neutrophils (External) 10.8(H) 1.7 - 7.0 thou/cu mm NON-INTERFACE D (ONBASE SCANS) Absolute Lymphocytes (External) 0.9 0.9 - 2.9 thou/cu mm NON-INTERFACE D (ONBASE SCANS) Absolute Monocytes (External) 1.0(H) <0.9 thou/cu mm NON-INTERFACE D (ONBASE SCANS) Absolute Eosinophils (External) 0.2 <0.6 thou/cu mm NON-INTERFACE D (ONBASE SCANS) Absolute Basophils (External) 0.0 <0.3 thou/cu mm NON-INTERFACE D (ONBASE SCANS) Blood BLOOD SPECIMEN / Unknown 06/09/2022 7:47 AM CDT Narrative ROSE MARY PFT - 06/10/2022 10:44 AM CDT Verified by Clive Mcnally on 06/10/2022. us Isac Prit[facility] LAB - BLOOD ORDERABLES Edited Re sult - Final ROSE MARY PFBatsheva NON-INTERFACED (ONBASE SCANS) * (ABNORMAL) Comprehensive metabolic panel (06/09/2022 7:47 AM CDT) Sodium (External) 140 135 - 145 mmol/L NON-INTERFACED (ONBASE SCANS) Potassium (External) 3.5 3.5 - 5.0 mmol/L NON-INTERFACED (ONBASE SCANS) Chloride (External) 105 98 - 110 mmol/L NON-INTERFACED (ONBASE SCANS) CO2 (External) 24 21 - 31 mmol/L NON-INTERFACED (ONBASE SCANS) Anion Gap (External) 11 5 - 18 NON-INTERFACED (ONBASE SCANS) Glucose (External) 90 70 - 99 mg/dL NON-INTERFACED (ONBASE SCANS) Calcium (External) 9.6 8.5 - 10.5 mg/dL NON-INTERFACED (ONBASE SCANS) Urea Nitrogen (External) 29(H) 8 - 25 mg/dL NON-INTERFACED (ONBASE SCANS) Creatinine (External) 1.10 0.57 - 1.11 mg/dL NON-INTERFACED (ONBASE SCANS) BUN/Creatinine Ratio (External) 26(H) 10 - 20 NON-INTERFA PRISCILA (ONBASE SCANS) Albumin (External) 3.3 3.2 - 4.6 g/dL NON-INTERFACED (ONBASE SCANS) Protein Total (External) 7.2 6.0 - 8.0 g/dL NON-INTERFACED (ONBASE SCANS) Bilirubin Total (External) 0.5 0.2 - 1.2 mg/dL NON-INTERFACED (ONBASE SCANS) Alk Phosphatase (External) 64 50 - 138 IU/L NON-INTERFACED (ONBASE SCANS) ALT (External) 10 8 - 45 IU/L NON-INTERFACED (ONBASE SCANS) AST (External) 9 2 - 40 IU/L NON-INTERFACED (ONBASE SCANS) GFR Estimated (External) 51(L) >90 mL/min/1.7 3m2 NON-INTERFACED (ONBASE SCANS) Blood BLOOD SPECIMEN / Unknown 06/09/2022 7:47 AM CDT Narrative BREEZE PFT - 06/10/2022 10:52 AM CDT Verified by Clive Mcnally on 06/10/2022. [facility] Pritchett LAB - BLOOD ORDERABLES Edited Re [facility] BREEZE PFT NON-INTERFACED (ONBASE SCANS) * Phosphorus (06/02/2022 7:25 AM CDT) Phosphorus (External) 2.3 2.3 - 4.7 mg/dL NON-INTERFACED (ONBASE SCANS) Blood BLOOD SPECIMEN / Unknown 06/02/2022 7:25 AM CDT Narrative [facility] PFT - 06/03/2022 2:27 PM CDT Verified by Haylie Persaud on 06/03/2022. [facility] Prit[facility]tt LAB - BLOOD ORDERABLES Edited Re sult - Final BREEZE PFT NON-INTERFACED (ONBASE SCANS) * TSH with free T4 reflex (04/02/2022 6:57 PM WINDOW CLERK) TSH 0.55 0.40 - 4.00 mU/L 04/02/2022 8:05 PM WINDOW CLERK [facility] Blood ARTERIAL LINE / Unknown Venipuncture / Unknown 04/02/2022 6:57 PM WINDOW CLERK 04/02/2022 7:32 PM WINDOW CLERK us Petey Lisa PA-C LAB - BLOOD ORDERAB LES Final Result [facility] [address] [facility] [place] [address], [facility] [phone] from Last 3 Months or Most Recently Relevant to Health Maintenance Insurance [facility] MEDICARE Advance Directives For more information, please contact: [phone] * Full Code (Latest Code Status on File) Date Activated Date Inactivated Comments 04/12/2022 5:11 PM Question Answer Comments Code status determined by: Discussion with patie nt/ legal decision maker * Full Code Date Activated Date Inactivated Comments 04/06/2022 1:03 PM 04/12/2022 5:11 PM All basic an d advanced life-sustaining interventions are performed as appropriate Question Answer Comments Code status determined by: Discussion with patie nt/ legal decision maker * Full Code Date Activated Date Inactivated Comments 04/06/2022 1:03 PM 04/06/2022 1:03 PM All basic an d advanced life-sustaining interventions are performed as appropriate Question Answer Comments Code status determined by: Discussion with jerry nt/ legal decision maker * Full Code Date Activated Date Inactivated Comments 04/02/2022 6:54 PM 04/06/2022 12:56 PM All basic a nd advanced life-sustaining interventions are performed as appropriate Question Answer Comments Code status determined by: Unable to dis cuss and no AD/POLST on file; continue PREVIOUSLY ORDERED code status * Full Code Date Activated Date Inactivated Comments 03/30/2022 9:35 PM 04/02/2022 6:54 PM All basic and advanced life-sustaining interventions are performed as appropriate Question Answer Comments Code status determined by: Discussion with jerry allen/ legal decision maker Care Teams [employer] Relationship Specialty Start Date End Date Lynette Mena DO [address] [place] [address] PCP - General 03/30/22
--- OUTSIDE RECORDS SUMMARY | 2024-04-14 13:51 | XMS_ITS | Encounter Summary ---
Author Organization [facility] Address [address] [place] [address] Care Team Providers Care Brick Cleaner Name Role Phone None Reported, Pcp Primary Care Provider Unavail able Encounter Details Date Type Department Care Team ([facility] st Contact Info) Description 03/21/2024 Abstract [place], [place] [address] [place] [phone] Provider, Historical Social History Tobacco Use Types Packs/Day Years Used Date Smoking Tobacco: Former Cigarettes Q uit: 11/02/1977 Smokeless Tobacco: Never PHQ-2 Answer Date Recorded PHQ-2 Score 0 08/30/2018 Nutrition Answer Date Recorded Nutrition: EVOO Fat Source Unknown 05/13 Nutrition: Servings of Fruits/Vegetables per Day Not on file 05/13/2020 Dental Answer Date Recorded Dental: Regular Dentist Unknown 05/13/19 21 Comments Unknown Sex and Gender Information Value Date Recorded Sex Assigned at Not on file Legal Sex Female 11:44 PM WOUND/OSTOMY CLINICAL NURSE SPECIALIST Gender Identity Not on file Sexual Orientation Not on file documented as of this encounter Plan of Treatment Not on file documented as of this encounter Visit Diagnoses Not on filedocumented in this encounter Care Teams Brick Cleaner Relationship Specialty Start Date End Date None Reported, Pcp PCP - General Family Medicine 01/28/23 documented as of this encounter
--- OUTSIDE RECORDS SUMMARY | 2024-04-14 13:51 | XMS_ITS | Referral Summary ---
Author Organization [facility] Address [address] [place] [address] Care Team Providers Care Health Information Assistant Name Role Phone None Reported, Pcp Primary Care Provider Unavail able Source Comments Patient records contain information from all sites at [facility]. For routine questions regarding patient records, call [phone] during business hours, M-F 8:00 AM - 5:00 PM Central Time. Record requests for emergency care only can be directed to [phone] at any time.[facility] Encounters Date Type Department Care Team Description 03/21/2024 Abstract [place], [place] [address] [place] [address] Provider, Historical 02/22/2024 10:00 AM ASBESTOS WORKER External Outreach Division of Nephrology and Hypertension in [place], [place] [address] [place] [address] Tino Natarajan Jr., D.O. Chronic Kidney Disease Stage 4 Glomerular Filtration Rate 15-29 (HCC) (Primary Dx); Hypertensive Chronic Kidney Disease With Stage 1 Through Stage 4 Chronic Kidney Disease, Or Unspecified Chronic Kidney Disease; Hyperparathyroidism Renal Secondary (HCC); Usp (Current) Anticoagulant Treatment; Rheumatoid Arthritis Without Rheumatoid Factor Multiple Sites (HCC); Chronic Diastolic (Congestive) Heart Failure (HCC); Malignant Neoplasm Of Unspecified Site Of Laterality Unknown Female Breast (HCC) from Last 3 Months Allergies Active Allergy Reactions Criticality Noted Date Comments Codeine Nausea And Vomiting 11/04/2004 Oxycodone Nausea And Vomiting 07/30/2014 Oxycodone Terephthalate Nausea And Vomiting 01/2015 Oxycodone-Acetaminophen Nausea And Vomiting Other reaction(s): Dizziness Oxycodone-Aspirin Nausea And Vomiting,Tinnitus 11/04/2004 Other reaction(s): Dizziness Procaine Other (see comments) 08/06/2006 Medications latanoprost (XALATAN) 0.005 % ophthalmic solution Administer 1 drop into both eyes at bedtime. 8 Active timolol (TIMOPTIC) 0.25 % ophthalmic solution 1 drop each eye in am 9 Active metOLazone (ZAROXOLYN) 2.5 mg tablet Take 1 tablet (2.5 mg total) by mouth as directed. Take as needed for lower extramity edema and weight gain of 2 lbs up to twice a week 60 tablet 3 2 Active torsemide (DEMADEX) 20 mg tablet Take 1 tablet (20 mg total) by mouth 2 (two) times a day. 360 tablet 3 3 Active Active Problems Problem Noted Date Diagnosed Date Anemia Of Chronic Renal Disease 01/27/2022 Rheumatoid Arthritis Without Rheumatoid Factor Multiple Sites 01/27/2022 Hyperparathyroidism Renal Secondary 01/27/2022 Chronic Diastolic (Congestive) Heart Failure 10/2021 Osteodystrophy Renal 09/07/2018 Hypertensive Chronic Kidney Disease With Stage 1 Through Stage 4 Chronic Kidney Disease, Or Unspecified Chronic Kidney Disease 07/13/2018 Chronic Kidney Disease Stage 4 Glomerular Filtration Rate 15-29 12/06/2016 Cancer Skin In Situ 05/28/2016 Overview (11/02/2017): Overview: thumb Usp (Current) Anticoagulant Treatment 07/21 Presence Of Right Artificial Hip Joint 6 Deficiency Vitamin D 07/31/2009 Edema 06/30/2006 Malignant Neoplasm Of Unspec ified Site Of Laterality Unknown Female Breast 06/30/2006 Glaucoma 06/30/2006 Resolved Problems Problem Noted Date Diagnosed Date Resolved Date Stenosis Renal Artery 02/02/20182022 Immunizations Immunization Administration Dates Next Due PCV13 07/25/2014 Td (Adult), adsorbed 08/15/2004 Tdap 07/30/2015 Social History Tobacco Use Types Packs/Day Years [...] on file Legal Sex Female 11:44 PM ASBESTOS WORKER Gender Identity Not on file Sexual Orientation Not on file Last Filed Vital Signs Vital Sign Reading Time Taken Comments Blood Pressure 118/60 02/22/2024 10:20 AM ASBESTOS WORKER Pulse 83 02/22/2024 10:20 AM ASBESTOS WORKER Temperature - - Respiratory Rate - - Oxygen Saturation - - Inhaled Oxygen Concentration - - Weight 87.5 kg (192 lb 14.4 oz) 024 10:20 AM ASBESTOS WORKER Height 182.8 cm (5' 11.97) 12/14/2022 3:01 PM C DT Body Mass Index 26.18 12/14/2022 3:01 PM CDT Plan of Treatment Not on file Procedures Procedure Name Priority Date/Time Associated Diagnosis Comments BASIC METABOLIC PANEL, S/P Routine 10/21/2017 from Last 3 Months or Most Recently Relevant to Health Maintenance Insurance [facility] Advance Directives For more information, please contact: [phone] Documents on File Type Date Recorded Patient Support Services Manager Expl anation Advance Directives 03/20/2024 2:20 PM Jessica Morillo HCPOA/ADVOCATE/AGENT/R EPRESENTATIVE/SURROGAT E Healthcare Agents on File Name Relationship Healthcare Agent Relationshi p Communication Jessicatamir Sabillonrdena Daughter Health Care Agent Neelam Morillo Daughter First Alternate Health Care Agent Care Teams Health Information Assistant Relationship Specialty Start Date End Date None Reported, Pcp PCP - General Family Medicine 01/28/23
--- OUTSIDE RECORDS SUMMARY | 2024-04-14 13:51 | XMS_ITS | Encounter Summary ---
Author Organization [facility] Address [address] [place] [address]. [place] [address] Care Team Providers Care Oil Lease Broker Name Role Phone Lynette Mena Primary Care Provider [phone] Encounter Details Date Type Department Care Team (Late st Contact Info) Description 04/04/2024 Telephone [facility] Nurse Advisors [address] [place] [address] Aruna Card, RN Social History Tobacco Use Types Packs/Day Years [...] on file Legal Sex Female 5:31 PM SUMMER CLERK Gender Identity Not on file Sexual Orientation Not on file documented as of this encounter Miscellaneous Notes * Telephone Encounter - Aruna Card RN - 04/04/2024 8:07 PM CST Patient's granddaughter calling regarding her grandma. Unable to provide address or phone number. Unable to provide patient information. Granddaughter looking for appointment time for surgery tomorrow at [facility]. Advised the clinic is closed with no scheduling available. Will need to call inthe morning to verify appointment time. Aruna Card RN 04/04/24 8:12 PM Health Triage Nurse Advisor ER CLERK documented in this encounter Plan of Treatment Not on file documented as of this encounter Visit Diagnoses Not on filedocumented in this encounter Care Teams Oil Lease Broker Relationship Specialty Start Date End Date Lynette Mena DO [address] [place] [address] [place] [address] PCP - General 03/30/22 documented as of this encounter
--- OUTSIDE RECORDS SUMMARY | 2024-04-14 13:51 | XMS_ITS | Encounter Summary ---
Author Organization [place] Address [address] [facility] [place] [address] Care Team Providers Care Java Grails Developer Name Role Phone Lynette Mena Primary Care Provider [phone] Uriel Franco MD Unavailable [phone] Encounter Details Date Type Department Care Team (Late st Contact Info) Description 05/08/2022 External Order Results [facility] [address] [place] [address] Outside, Provider Social History Tobacco Use Types Packs/Day Years Used Date Smoking Tobacco: Former Cigarettes Alcohol Use Standard Drinks/Week Comments Yes 0 (1 standard drink = 0.6 oz pure alcohol) Once a month 1 beer or 1 glass of 1 Comments No Sex and Gender Information Value Date Recorded Sex Assigned at Not on file Legal Sex Female 5:31 PM BEER BREWER Gender Identity Not on file Sexual Orientation Not on file documented as of this encounter Plan of Treatment Not on file documented as of this encounter Procedures Procedure Name Priority Date/Time Associated Diagnosis Comments CBC WITH PLATELETS & DIFFERENTIAL Routine 05/08/2022 1:50 PM BEER BREWER documented in this encounter Results * (ABNORMAL) CBC with Platelets & Differential (05/08/2022 1:50 PM BEER BREWER) WBC Count (External) 12.38(H) 4.50 - 11.0 K/uL NON-INTERFACE D (ONBASE SCANS) RBC Count (External) 3.27(L) 4.00 - 5.20 M/uL NON-INTERFACE D (ONBASE SCANS) Hemoglobin (External) 9.8(L) 12.0 - 16.0 gm/dL NON-INTERFACE D (ONBASE SCANS) Hematocrit (External) 31.4(L) 33.0 - 51.0 % NON-INTERFACE D (ONBASE SCANS) MCV (External) 96 80 - 100 fL NON-INTERFACE D (ONBASE SCANS) MCH (External) 30 26 - 34 pg NON-INTERFACE D (ONBASE SCANS) MCHC (External) 31(L) 32 - 36 gm/dL NON-INTERFACE D (ONBASE SCANS) Platelet Count (External) 317 140 - 440 K/uL NON-INTERFACE D (ONBASE SCANS) RDW (External) 15.9(H) 11.5 - 15.5 % NON-INTERFACE D (ONBASE SCANS) % Neutrophils (External) 87.3(H) 42.0 - 72.0 % NON-INTERFACE D (ONBASE SCANS) % Lymphocytes (External) 5.5(L) 20 - 44 % NON-INTERFACE D (ONBASE SCANS) % Monocytes (External) 5.5 0.0 - 11.0 % NON-INTERFACE D (ONBASE SCANS) % Eosinophils (External) 0.6 0.0 - 7.0 % NON-INTERFACE D (ONBASE SCANS) % Basophils (External) 0.2 0.0 - 3.0 % NON-INTERFACE D (ONBASE SCANS) Absolute Neutrophils (External) 10.80(H) 1.7 - 7.0 K/uL NON-INTERFACE D (ONBASE SCANS) Absolute Lymphocytes (External) 0.70(L) 0.90 - 2.90 K/uL NON-INTERFACE D (ONBASE SCANS) Absolute Monocytes (External) 0.70 0.00 - 0.90 K/uL NON-INTERFACE D (ONBASE SCANS) Absolute Eosinophils (External) 0.10 0.00 - 0.50 K/uL NON-INTERFACE D (ONBASE SCANS) Absolute Basophils (External) 0.00 0.00 - 0.30 K/uL NON-INTERFACE D (ONBASE SCANS) Absolute Immature Granulocytes (External) 0.10 0.00 - 0.30 K/uL NON-INTERFACE D (ONBASE SCANS) Blood BLOOD SPECIMEN / Unknown 05/08/2022 1:50 PM BEER BREWER Thao MENON - 05/19/2022 7:33 AM BEER BREWER Verified by Clive Mcnally on 05/19/2022. us Isac [facility] - BLOOD ORDERABLES Edited Re sult - Final ROSE MARY PFT NON-INTERFACED (ONBASE SCANS) documented in this encounter Visit Diagnoses Not on filedocumented in this encounter Care Teams Java Grails Developer Relationship Specialty Start Date End Date Lynette Mena DO [address] [place] [address] PCP - General 03/30/22 Uriel Franco MD [address] [place] [address] [address] [place] [address] Assigned Infectious Disease Provider 05/02/22 12/12/23 documented as of this encounter
--- OUTSIDE RECORDS SUMMARY | 2024-04-14 13:51 | XMS_ITS | Clinical Summary ---
Author Organization [place] Address [address] [place] [address]. [place] [address] Care Team Providers Care Photographer Model Name Role Phone Lynette Mena Primary Care Provider [phone] Allergies Active Allergy Reactions Criticality Noted Date [...] spasms 04/12/19 23 Active vitamin D2 (ERGOCALCIFEROL) 24726 units (1250 mcg) capsuleIndication s:Hyperparathyroi dism due to renal insufficiency Take 1 capsule (50,000 Units) by mouth every 7 days 04/14/19 23 Active Lidocaine (LIDOCARE) 4 % PatchIndications: S/P hip replacement, right Place 2 patches onto the skin every 24 hours To prevent lidocaine toxicity, patient should be patch free for 12 hrs daily. 04/12/19 23 Active acetaminophen (TYLENOL) 500 MG tabletIndications :S/P [...] and had chemo and radiation. No recurrence. Encounters Date Type Department Care Team Description 04/04/[address] [facility] [address] [place] [address] Aruna Card RN from Last 3 Months Social History Tobacco Use Types Packs/Day Years [...] on file Legal Sex Female 5:31 PM INFANT BABYSITTER Gender Identity Not on file Sexual Orientation Not on file Last Filed Vital Signs Vital Sign Reading Time Taken Comments Blood Pressure 127/61 04/13/2022 8:30 AM INFANT BABYSITTER Pulse 78 04/13/2022 8:30 AM INFANT BABYSITTER Temperature 36.8 C (98.2 F) 04/13/2022 8:30 AM INFANT BABYSITTER Respiratory Rate 16 04/12/2022 11:22 PM INFANT BABYSITTER Oxygen Saturation 98% 04/13/2022 8:30 AM INFANT BABYSITTER Inhaled Oxygen Concentration - - Weight 84.4 kg (186 lb 1.6 oz) 04/12/2022 7:55 A M INFANT BABYSITTER Height 167.6 cm (5' 6) 03/30/2022 10:39 PM INFANT BABYSITTER Body Mass Index 30.04 03/30/2022 10:39 PM INFANT BABYSITTER Plan of Treatment Health Maintenance Due Date Last Done Comments ADVANCE CARE PLANNING 1940 ANNUAL REVIEW OF HM ORDERS 1940 DEXA 1940 HF ACTION PLAN 1942 LIPID 1942 MAMMO SCREENING 1942 MICROALBUMIN 1942 PARATHYROID 1942 URIC ACID 1942 URINALYSIS 05/30/1943 ZOSTER IMMUNIZATION (1 of 2) 1992 FALL RISK ASSESSMENT 05/30/2007 RSV VACCINE (1 - 1-dose 75+ series) 2017 BMP 09/09/2022 06/09/2022, 05/20, 05/26/2022, Additional history exists HEMOGLOBIN 12/10/2022 06/09/2022, 05/20, 05/26/2022, Additional history exists MEDICARE ANNUAL WELLNESS VISIT 02/02/2023 02/02/2022 ALT 06/10/2023 06/09/2022, 05/20, 05/26/2022, Additional history exists CBC 06/10/2023 06/09/2022, 05/20, 05/26/2022, Additional history exists COVID-19 Vaccine ( season) 2023 05/21/2020, 04/30/2020 INFLUENZA VACCINE (#1) 2023 PHQ-2 (once per calendar year) 2024 DTAP/TDAP/TD IMMUNIZATION (2 - Td or Tdap) 07/29/2025 07/30/2015, 08/15/2004 Pneumococcal Vaccine: 50+ Years Completed 08/20/2016, 07/25/2014, 08/15/2004 TSH W/FREE T4 REFLEX Completed 04/02/2022 PHOSPHORUS Completed 06/02/2022, 09/2022, 05/19/2022, Additional history exists ALK PHOS Completed 06/09/2022, 05/20, 05/26/2022, Additional history exists HPV IMMUNIZATION Aged Out No longer e ligible based on patient's age to complete this topic MENINGITIS IMMUNIZATION Aged Out No l onger eligible based on patient's age to complete this topic RSV MONOCLONAL ANTIBODY Aged Out No l onger eligible based on patient's age to complete this topic Medical Devices Implanted Type Area Tire And Lube Technician Device Identifier Shelf Expiration Date Model / Serial / Lot Imp Liner Hip Depuy [place] Altrx [id number] +[id number] 1221-36-454 - [id number] Implanted:Qty : 1 on 04/02/2022 by Yao Snyder MD at [facility] Total Joint Componen t/Insert Right: Hip [employer] [id number] 11/19/2026 [id number] / / [id number] Imp Head Femoral Depuy 36mm +5 1365-52-000 - [id number] Implanted:Qty : 1 on 04/02/2022 by Yao Snyder MD at [facility] Total Joint Componen t/Insert Right: Hip [employer] [id number] 04/21/2026 [id number] / / [id number] Explanted Type Area Tire And Lube Technician Device Identifier Shelf Expiration Date Model / Serial / Lot Imp Head Femoral Depuy 36mm +5 1365-52-000 - [id number] Explanted:Qty : 1 on 04/02/2022 by Yao Snyder MD at [facility] Total Joint Componen t/Insert Right: Hip [employer] [id number] / / Imp Liner Hip Depuy [place] Altrx [id number] +4 1221-36-454 - [id number] Explanted:Qty : 1 on 04/02/2022 at [facility] Total Joint Componen t/Insert Right: Hip [employer] [facility]- [id number] / / Procedures Procedure Name Priority Date/Time Associated Diagnosis Comments CBC WITH PLATELETS & DIFFERENTIAL Routine 06/09/2022 7:47 AM CDT COMPREHENSIVE METABOLIC PANEL Routine 06/09/2022 7:47 AM CDT PHOSPHORUS Routine 06/02/2022 7:25 AM CDT TSH WITH FREE T4 REFLEX STAT 04/02/2022 6:57 PM INFANT BABYSITTER from Last 3 Months or Most Recently [...] Edited Re sult - Final ROSE MARY Batsheva NON-INTERFACED (ONBASE SCANS) * (ABNORMAL) Comprehensive metabolic [...] [facility] - BLOOD ORDERABLES Edited Re gailt - [facility] Performing Organization Address City/[facility] Co de Phone Number KRISTINEEZE PFT NON-INTERFACED (ONBASE SCANS) * Phosphorus (06/02/2022 [...] with free T4 reflex (04/02/2022 6:57 PM INFANT BABYSITTER) TSH 0.55 0.40 - 4.00 mU/L 04/02/2022 8:05 PM INFANT BABYSITTER UR LAB[facility]ATORY Blood ARTERIAL LINE / Unknown Venipuncture / Unknown 04/02/2022 6:57 PM INFANT BABYSITTER 04/02/2022 7:32 PM INFANT BABYSITTER us Petey Lisa PA-C LAB - BLOOD ORDERAB LES Final Result UR [facility]ATORY [facility] [address] [facility] [place] [address], [facility] [phone] from Last 3 Months or Most Recently Relevant to Health Maintenance Insurance [employer] MEDIC[employer] Advance Directives For more information, please contact: [phone] * Full Code (Latest Code Status on [...] Discussion with jerry allen/ legal decision maker * Full Code Date [...] jerry allen/ legal decision maker Care Teams Photographer Model Relationship Specialty Start Date End Date Lynette Mena DO [address] [place] [address] PCP - General 03/30/22
--- OUTSIDE RECORDS SUMMARY | 2024-04-14 13:51 | XMS_ITS | Clinical Summary ---
Author Organization [facility] Address [address] [place] [address] Care Team Providers Care Associate Professor Of Musicology Name Role Phone None Reported, Pcp Primary Care Provider Unavail able Source Comments Patient records contain information from all sites at [facility]. For routine questions regarding patient records, call [phone] during business hours, M-F 8:00 AM - 5:00 PM Central Time. 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 (HCC) from Last 3 Months Immunizations Immunization Administration Dates Next Due PCV13 [...] on file Legal Sex Female 11:44 PM CHIEF CLERK SHELTER Gender Identity Not on file Sexual Orientation Not on file Last Filed Vital Signs Vital Sign Reading Time Taken Comments Blood Pressure 118/60 02/22/2024 10:20 AM CHIEF CLERK SHELTER Pulse 83 02/22/2024 10:20 AM CHIEF CLERK SHELTER Temperature - - Respiratory Rate - - Oxygen Saturation - - Inhaled Oxygen Concentration - - Weight 87.5 kg (192 lb 14.4 oz) 024 10:20 AM CHIEF CLERK SHELTER Height 182.8 cm (5' 11.97) 12/14/2022 3:01 PM C DT Body Mass Index 26.18 12/14/2022 3:01 PM CDT Plan of Treatment Health Maintenance Due Date Last Done Comments Visit: Chronic Disease, age 18+ 1940 Visit: Medicare Annual Wellness 1940 Zoster Vaccines (1 of 2) 1961 RSV vaccine - (32-36 weeks) or 60+ years (1 - 1-dose 75+ series) 2017 COVID-19 Vaccine (3 - Pfizer risk series) 06/18/2020 05/21/2020, 04/30/2020 Influenza Vaccine (#1) 2023 Depression Screening (Annual PHQ-2) 03/22/2024 Fall Risk Screen (Annual) 03/22/2024 Office Visit for Blood Pressure Check / Re-check 02/21/2025 02/22/2024 Creatinine Level (Kidney Function Test) 04/04/2025 04/04/2024, 02/08/2024, 01/11/2024, Additional history exists Potassium Level 04/04/2025 04/04/2024, 01/20, 01/11/2024, Additional history exists Sodium Level 04/04/2025 04/04/2024, 01/20, 01/11/2024, Additional history exists DTaP,Tdap,and Td Vaccines (2 - Td or Tdap) 07/29/2025 07/30/2015, 08/15/2004 Pneumococcal vaccine (50+ years) Completed 08/20/2016, 07/25/2014, 08/15/2004 HPV Vaccines Aged Out No longer eligi ble based on patient's age to complete this topic IPV Vaccines Aged Out No longer eligi ble based on patient's age to complete this topic Procedures Procedure Name Priority Date/Time Associated Diagnosis Comments BASIC METABOLIC PANEL, S/P Routine 10/21/2017 from Last 3 Months or Most Recently Relevant to Health Maintenance Insurance [facility] Advance Directives For more information, please contact: [phone] Documents on File Type Date Recorded Patient Pole Shaver Expl anation Advance Directives 03/20/2024 2:20 PM Jessica Morillo HCPOA/ADVOCATE/AGENT/R EPRESENTATIVE/SURROGAT E Healthcare Agents on File Name Relationship Healthcare Agent Relationshi p Communication Jessica Lindsey Daughter Health Care Agent Neelam Morillo Daughter First Alternate Health Care Agent Care Teams Associate Professor Of Musicology Relationship Specialty Start Date End Date None Reported, Pcp PCP - General Family Medicine 01/28/23
--- OUTSIDE RECORDS SUMMARY | 2024-04-14 13:51 | XMS_ITS | Encounter Summary ---
Author Organization [place] Address [address] [facility] [place] [address] Care Team Providers Care Patternmaker Metal Name Role Phone Lynette Mena DO Primary Care Provider Uriel Franco MD Unavailable [phone] Encounter Details Date Type Department Care Team (Late st Contact Info) Description 06/09/2022 External Order Results [facility] [address] [place] [address] Outside, Provider Social History Tobacco Use Types Packs/Day Years Used Date Smoking Tobacco: Former Cigarettes Alcohol Use Standard Drinks/Week Comments Yes 0 (1 standard drink = 0.6 oz pure alcohol) Once a month 1 beer or 1 glass of 1 Comments No Sex and Gender Information Value Date Recorded Sex Assigned at Not on file Legal Sex Female 5:31 PM CLAMSHELL OPERATOR Gender Identity Not on file Sexual Orientation Not on file documented as of this encounter Plan of Treatment Not on file documented as of this encounter Procedures Procedure Name Priority Date/Time Associated Diagnosis Comments CBC WITH PLATELETS & DIFFERENTIAL Routine 06/09/2022 7:47 AM CDT MAGNESIUM Routine 06/09/2022 7:47 AM CDT CRP INFLAMMATION Routine 06/09/2022 7:47 AM CDT COMPREHENSIVE METABOLIC PANEL Routine 06/09/2022 7:47 AM CDT documented in this encounter Results * (ABNORMAL) Magnesium (06/09/2022 7:47 AM CDT) Magnesium (External) 1.5(L) 1.6 - 2.6 mg/dL NON-INTERFACED (ONBASE SCANS) Blood BLOOD SPECIMEN / Unknown 06/09/2022 7:47 AM CDT Narrative BREEZE PFT - 06/10/2022 10:52 AM CDT Verified by Clive Mcnally on 06/10/2022. Isac [facility] - BLOOD ORDERABLES Edited [facility] Performing Organization Address [facility] Co de Phone Number ROSE MARY PFT NON-INTERFACED (ONBASE SCANS) * (ABNORMAL) CRP inflammation (06/09/2022 7:47 AM CDT) [facility] CRP Inflammation (External) 2.06(H) <0.50 mg/dL NON-INTERFACE D (ONBASE SCANS) Blood BLOOD SPECIMEN / Unknown 06/09/2022 7:47 AM CDT Narrative KRISTINEEZE PFT - 06/10/2022 10:52 AM CDT Verified by Clive Mcnally on 06/10/2022. Isac [facility]rit[facility] LAB - BLOOD ORDERABLES Edited [facility] Performing Organization Address [facility] de Phone Number ROSE MARY PFT NON-INTERFACED (ONBASE SCANS) * (ABNORMAL) Comprehensive metabolic panel (06/09/2022 7:47 AM CDT) Pathologist [facility] Sodium (External) 140 135 - 145 mmol/L [...] CDT Narrative ROSE MARY PFT - 06/10/2022 10:52 AM CDT Verified by Clive Mcnally on 06/10/2022. us Isac [facility] LAB - BLOOD ORDERABLES Edited Re sult - Final ROSE MARY PFBatsheva NON-INTERFACED (ONBASE SCANS) * (ABNORMAL) CBC with [...] Edited Re sult - Final ROSE MARY LYNSEY NON-INTERFACED (ONBASE SCANS) documented in this encounter Visit Diagnoses Not on filedocumented in this encounter Care Teams Patternmaker Metal Relationship Specialty Start Date End Date Lynette Mena DO [address] [place] [address] PCP - General 03/30/22 Uriel Franco MD [address] [place] [address] Assigned Infectious Disease Provider 05/02/22 12/12/23 documented as of this encounter
--- OUTSIDE RECORDS SUMMARY | 2024-04-14 13:51 | XMS_ITS ---
Author Organization [facility] Address [address] [place] [address] Care Team Providers Care Transmission Assembler Name Role Phone Unavailable Unavailable Unavailable Surgery Details Not on file Complications Check Surgery Details section. Procedure Estimated Blood Loss Check Surgery Details section. Procedure Findings Check Surgery Details section. Procedure Specimens Taken Check Surgery Details section.
[2024-04-14 13:52] VITALS: BP 123/68; PULSE 73; RESP 16; TEMP 35.7; O2SAT 96; BMI 27.9
--- OUTSIDE RECORDS SUMMARY | 2024-04-14 13:52 | XMS_ITS | Encounter Summary ---
Author Organization [place] Address [address] [place] [address] Care Team Providers Care C Iron Worker Name Role Phone Lynette Mena Primary Care Provider [phone] Uriel Franco MD Unavailable [phone] Encounter Details Date Type Department Care Team (Late st Contact Info) Description 05/26/2022 External Order Results [facility] [address] [place] [address] Outside, Provider Social History Tobacco Use Types Packs/Day Years Used Date Smoking Tobacco: Former Cigarettes Alcohol Use Standard Drinks/Week Comments Yes 0 (1 standard drink = 0.6 oz pure alcohol) Once a month 1 beer or 1 glass of 1 Comments No Sex and Gender Information Value Date Recorded Sex Assigned at Not on file Legal Sex Female 5:31 PM LEAD DATA ENTRY OPERATOR Gender Identity Not on file Sexual Orientation Not on file documented as of this encounter Plan of Treatment Not on file documented as of this encounter Procedures Procedure Name Priority Date/Time Associated Diagnosis Comments CBC WITH PLATELETS & DIFFERENTIAL Routine 05/26/2022 7:22 AM LEAD DATA ENTRY OPERATOR PHOSPHORUS Routine 05/26/2022 7:22 AM LEAD DATA ENTRY OPERATOR MAGNESIUM Routine 05/26/2022 7:22 AM LEAD DATA ENTRY OPERATOR HEPATIC FUNCTION PANEL Routine 05/26/2022 7:22 AM LEAD DATA ENTRY OPERATOR CRP INFLAMMATION Routine 05/26/2022 7:22 AM LEAD DATA ENTRY OPERATOR BASIC METABOLIC PANEL Routine 05/26/2022 7:22 AM LEAD DATA ENTRY OPERATOR documented in this encounter Results * (ABNORMAL) CBC with Platelets & Differential (05/26/2022 7:22 AM LEAD DATA ENTRY OPERATOR) WBC Count (External) 8.9 4.5 - 11.0 thou/cu mm NON-INTERFAC ED (ONBASE SCANS) RBC Count (External) 3.47(L) 4.00 - 5.20 mil/cu mm NON-INTERFAC ED (ONBASE SCANS) Hemoglobin (External) 10.2(L) 12.0 - 16.0 g/dL NON-INTERFAC ED (ONBASE SCANS) Hematocrit (External) 33.8 33.0 - 51.0 % NON-INTERFAC ED (ONBASE SCANS) MCV (External) 97 80 - 100 fL NON-INTERFAC ED (ONBASE SCANS) MCH (External) 29.4 26.0 - 34.0 pg NON-INTERFAC ED (ONBASE SCANS) MCHC (External) 30.2(L) 32.0 - 36.0 g/dL NON-INTERFAC ED (ONBASE SCANS) RDW (External) 15.9(H) 11.5 - 15.5 % NON-INTERFAC ED (ONBASE SCANS) Platelet Count (External) 359 140 - 440 thou/cu mm NON-INTERFAC ED (ONBASE SCANS) Method (External) Manual Differential NON-INTERFAC ED (ONBASE SCANS) % Neutrophils (External) 61.0 % NON-INTERFAC ED (ONBASE SCANS) % Lymphocytes (External) 29.0 % NON-INTERFAC ED (ONBASE SCANS) % Monocytes (External) 5.0 % NON-INTERFAC ED (ONBASE SCANS) % Eosinophils (External) 4.0 % NON-INTERFAC ED (ONBASE SCANS) % Basophils (External) 1.0 % NON-INTERFAC ED (ONBASE SCANS) Absolute Neutrophils (External) 5.4 1.7 - 7.0 thou/cu mm NON-INTERFAC ED (ONBASE SCANS) Absolute Lymphocytes (External) 2.6 0.9 - 2.9 thou/cu mm NON-INTERFAC ED (ONBASE SCANS) Absolute Monocytes (External) 0.4 <0.9 thou/cu mm NON-INTERFAC ED (ONBASE SCANS) Absolute Eosinophils (External) 0.4 <0.5 thou/cu mm NON-INTERFAC ED (ONBASE SCANS) Absolute Basophils (External) 0.1 <0.3 thou/cu mm NON-INTERFAC ED (ONBASE SCANS) Blood BLOOD SPECIMEN / Unknown 05/26/2022 7:22 AM LEAD DATA ENTRY OPERATOR Narrative [facility] P[facility] - 05/26/2022 3:32 PM LEAD DATA ENTRY OPERATOR Verified by Maisha Lopez on 05/26/2022. [facility] - BLOOD ORDERABLES Edited Re sult - Final [facility]FT NON-INTERFACED (ONBASE SCANS) * Phosphorus (05/26/2022 7:22 AM LEAD DATA ENTRY OPERATOR) Phosphorus (External) 3.1 2.3 - 4.7 mg/dL NON-INTERFACED (ONBASE SCANS) Blood BLOOD SPECIMEN / Unknown 05/26/2022 7:22 AM LEAD DATA ENTRY OPERATOR Narrative [facility] PFT - 05/26/2022 3:23 PM LEAD DATA ENTRY OPERATOR Verified by Yissel Maharaj on 05/26/2022. [facility] - BLOOD ORDERABLES Edited Re sult [facility] Performing Organization Address [facility] Co de Phone Number B[facility] PFT NON-INTERFACED (ONBASE SCANS) * Magnesium (05/26/2022 7:22 AM LEAD DATA ENTRY OPERATOR) Magnesium (External) 1.6 1.6 - 2.6 mg/dl NON-INTERFACED (ONBASE SCANS) Blood BLOOD SPECIMEN / Unknown 05/26/2022 7:22 AM LEAD DATA ENTRY OPERATOR Narrative [facility] PFT - 05/26/2022 3:23 PM LEAD DATA ENTRY OPERATOR Verified by Yissel Maharaj on 05/26/2022. [facility] - BLOOD ORDERABLES Edited Re sult - Final B[facility] PFT NON-INTERFACED (ONBASE SCANS) * CRP inflammation (05/26/2022 7:22 AM LEAD DATA ENTRY OPERATOR) Pathologist [facility] CRP Inflammation (External) 0.46 <0.50 mg/dL NON-INTERFACE D (ONBASE SCANS) Blood BLOOD SPECIMEN / Unknown 05/26/2022 7:22 AM LEAD DATA ENTRY OPERATOR Narrative ROSE MARY PFT - 05/26/2022 3:23 PM LEAD DATA ENTRY OPERATOR Verified by Yissel Maharaj on 05/26/2022. us [facility] - BLOOD ORDERABLES Edited Re sult - Final ROSE MARY PFBatsheva NON-INTERFACED (ONBASE SCANS) * (ABNORMAL) Basic metabolic panel (05/26/2022 7:22 AM LEAD DATA ENTRY OPERATOR) Pathologist [facility] Sodium (External) 139 135 - 145 mmol/L NON-INTERFACE D (ONBASE SCANS) Potassium (External) 3.3(L) 3.5 - 5.0 mmol/L NON-INTERFACE D (ONBASE SCANS) Chloride (External) 99 98 - 110 mmol/L NON-INTERFACE D (ONBASE SCANS) CO2 (External) 27 21 - 31 mmol/L NON-INTERFACE D (ONBASE SCANS) Anion Gap (External) 13 5 - 18 NON-INTERFACE D (ONBASE SCANS) Glucose (External) 89 70 - 99 mg/dL NON-INTERFACE D (ONBASE SCANS) Calcium (External) 10.3 8.5 - 10.5 mg/dL NON-INTERFACE D (ONBASE SCANS) Urea Nitrogen (External) 45(H) 8 - 25 mg/dL NON-INTERFACE D (ONBASE SCANS) Creatinine (External) 1.20(H) 0.57 - 1.11 mg/dL NON-INTERFACE D (ONBASE SCANS) BUN/Creatinine Ratio (External) 38(H) 10 - 20 NON-INTERFACE D (ONBASE SCANS) GFR Estimated (External) 46(L) >90 ml/min/1.7 3m2 NON-INTERFACE D (ONBASE SCANS) Blood BLOOD SPECIMEN / Unknown 05/26/2022 7:22 AM LEAD DATA ENTRY OPERATOR Narrative ELIZABETHE PFT - 05/26/2022 3:23 PM LEAD DATA ENTRY OPERATOR Verified by Yissel Maharaj on 05/26/2022. [facility] - BLOOD ORDERABLES Edited [facility] ROSE MARY PFT NON-INTERFACED (ONBASE SCANS) * Hepatic function panel (05/26/2022 7:22 AM LEAD DATA ENTRY OPERATOR) Albumin (External) 3.5 3.2 - 4.6 g/dL NON-INTERFACED (ONBASE SCANS) Protein Total (External) 7.5 6.0 - 8.0 g/dL NON-INTERFACED (ONBASE SCANS) Bilirubin Total (External) 0.2 0.2 - 1.2 mg/dL NON-INTERFACED (ONBASE SCANS) Alk Phosphatase (External) 73 50 - 136 IU/L NON-INTERFACED (ONBASE SCANS) ALT (External) 15 8 - 45 IU/L NON-INTERFACED (ONBASE SCANS) AST (External) 14 2 - 40 IU/L NON-INTERFACED (ONBASE SCANS) Blood BLOOD SPECIMEN / Unknown 05/26/2022 7:22 AM LEAD DATA ENTRY OPERATOR Narrative ROSE MARY PFT - 05/26/2022 3:23 PM LEAD DATA ENTRY OPERATOR Verified by Yissel Maharaj on 05/26/2022. [facility] - BLOOD ORDERABLES Edited Re [facility] ROSE MARY PFT NON-INTERFACED (ONBASE SCANS) documented in this encounter Visit Diagnoses Not on filedocumented in this encounter Care Teams C Iron Worker Relationship Specialty Start Date End Date Lynette Mena DO [address] [place] [id number] PCP - General 03/30/22 Uriel Franco MD [address] [place] [address] [address] [place] [address] Assigned Infectious Disease Provider 05/02/22 12/12/23 documented as of this encounter
--- OUTSIDE RECORDS SUMMARY | 2024-04-14 13:52 | XMS_ITS | Encounter Summary ---
Author Organization [facility] Address [address] [place] [address] Care Team Providers Care Lens Maker Name Role Phone Lynette Mena Primary Care Provider [phone] Uriel Franco MD Unavailable [phone] Encounter Details Date Type Department Care Team (Late st Contact Info) Description 04/14/2022 External Order Results [facility] [address] [place] [address] Outside, Provider Social History Tobacco Use Types Packs/Day Years Used Date Smoking Tobacco: Former Cigarettes Alcohol Use Standard Drinks/Week Comments Yes 0 (1 standard drink = 0.6 oz pure alcohol) Once a month 1 beer or 1 glass of 1 Comments No Sex and Gender Information Value Date Recorded Sex Assigned at Not on file 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 Sex Female 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 Gender Identity Not on file Sexual Orientation Not on file documented as of this encounter Plan of Treatment Not on file documented as of this encounter Procedures Procedure Name Priority Date/Time Associated Diagnosis Comments POTASSIUM Routine 04/14/2022 7:57 AM CAMERA STORAGE CLERK PHOSPHORUS Routine 04/14/2022 7:57 AM CAMERA STORAGE CLERK MAGNESIUM Routine 04/14/2022 7:57 AM CAMERA STORAGE CLERK CRP INFLAMMATION Routine 04/14/2022 7:57 AM CAMERA STORAGE CLERK CBC WITH PLATELETS Routine 04/14/2022 7: 57 AM CAMERA STORAGE CLERK documented in this encounter Results * CRP inflammation (04/14/2022 7:57 AM CAMERA STORAGE CLERK) CRP Inflammation (External) 45.50 mg/L NON-INTERFACE D (ONBASE SCANS) Blood BLOOD SPECIMEN / Unknown 04/14/2022 7:57 AM CAMERA STORAGE CLERK Narrative ROSE MARY PFT - 04/16/2022 8:59 AM CAMERA STORAGE CLERK Verified by Maisha Lopez on 04/16/2022. [facility] - BLOOD ORDERABLES Edited Re gailt - Final ROSE MARY PFT NON-INTERFACED (ONBASE SCANS) * (ABNORMAL) CBC with platelets (04/14/2022 7:57 AM CAMERA STORAGE CLERK) [facility] WBC Count (External) 8.4 4.5 - 11.0 thou/cu mm NON-INTERFACE D (ONBASE SCANS) RBC Count (External) 3.08(L) 12.0 - 16.0 mil/cu mm NON-INTERFACE D (ONBASE SCANS) Hemoglobin (External) 9.3(L) 12.0 - 16.0 g/dL NON-INTERFACE D (ONBASE SCANS) Hematocrit (External) 31.1(L) 33.0 - 51.0 % NON-INTERFACE D (ONBASE SCANS) MCV (External) 101(H) 80 - 100 fL NON-INTERFACE D (ONBASE SCANS) MCH (External) 30.2 26.0 - 34.0 pg NON-INTERFACE D (ONBASE SCANS) MCHC (External) 29.9(L) 32.0 - 36.0 g/dL NON-INTERFACE D (ONBASE SCANS) RDW (External) 16.5(H) 11.5 - 15.5 % NON-INTERFACE D (ONBASE SCANS) Platelet Count (External) 307 140 - 440 thou/cu mm NON-INTERFACE D (ONBASE SCANS) Blood BLOOD SPECIMEN / Unknown 04/14/2022 7:57 AM CAMERA STORAGE CLERK Narrative ROSE MARY PFT - 04/16/2022 8:58 AM CAMERA STORAGE CLERK Verified by Maisha Lopez on 04/16/2022. [facility] - BLOOD ORDERABLES Edited Re sult - Final Performing Organization Address [facility] de Phone Number [facility] PFT NON-INTERFACED (ONBASE SCANS) * Potassium (04/14/2022 7:57 AM CAMERA STORAGE CLERK) Potassium (External) 3.6 3.5 - 5.1 mmol/L NON-INTERFACED (ONBASE SCANS) Blood BLOOD SPECIMEN / Unknown 04/14/2022 7:57 AM CAMERA STORAGE CLERK Narrative [facility] PFT - 04/16/2022 8:58 AM CAMERA STORAGE CLERK Verified by Maisha Lopez on 04/16/2022. [facility] - BLOOD ORDERABLES Edited [facility] Performing Organization Address [facility] Phone Number BREEZE PFT NON-INTERFACED (ONBASE SCANS) * Phosphorus (04/14/2022 7:57 AM CAMERA STORAGE CLERK) Phosphorus (External) 3.2 2.5 - 4.5 mg/dL NON-INTERFACED (ONBASE SCANS) Blood BLOOD SPECIMEN / Unknown 04/14/2022 7:57 AM CAMERA STORAGE CLERK Narrative BREEZE PFT - 04/16/2022 8:58 AM CAMERA STORAGE CLERK Verified by Maisha Lopez on 04/16/2022. [facility] - BLOOD ORDERABLES Edited [facility] Performing Organization Address [facility] Phone Number B[facility]ZE PFT NON-INTERFACED (ONBASE SCANS) * Magnesium (04/14/2022 7:57 AM CAMERA STORAGE CLERK) Magnesium (External) 1.6 1.6 - 2.4 mg/dL NON-INTERFACED (ONBASE SCANS) Blood BLOOD SPECIMEN / Unknown 04/14/2022 7:57 AM CAMERA STORAGE CLERK Narrative B[facility]ZE PFT - 04/16/2022 8:58 AM CAMERA STORAGE CLERK Verified by Maisha Lopez on 04/16/2022. [facility] - BLOOD ORDERABLES Edited Re sult - Final [facility] PFT NON-INTERFACED (ONBASE SCANS) documented in this encounter Visit Diagnoses Not on filedocumented in this encounter Additional Health Concerns Infection Onset Date Last Indicated Resolved Time RSV 04/12/2022 04/12/2022 04/19/2022 11:3 9 PM CAMERA STORAGE CLERK documented as of this encounter Care Teams Lens Maker Relationship Specialty Start Date End Date Lynette Mena DO [address] [place] [address] PCP - General 03/30/22 Uriel Franco MD [address] [place] [address] [address] [place] [address] Assigned Infectious Disease Provider 05/02/22 12/12/23 documented as of this encounter
--- OUTSIDE RECORDS SUMMARY | 2024-04-14 13:52 | XMS_ITS | Encounter Summary ---
Author Organization [place] Address [address] [facility] [place] [address] Care Team Providers Care Bag Repairer Name Role Phone Lynette Mena Primary Care Provider [phone] Uriel Franco MD Unavailable [phone] Encounter Details Date Type Department Care Team (Late st Contact Info) Description 06/02/2022 External Order Results [facility] [address] [place] [address] Outside, Provider Social History Tobacco Use Types Packs/Day Years Used Date Smoking Tobacco: Former Cigarettes Alcohol Use Standard Drinks/Week Comments Yes 0 (1 standard drink = 0.6 oz pure alcohol) Once a month 1 beer or 1 glass of 1 Comments No Sex and Gender Information Value Date Recorded Sex Assigned at Not on file 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 Gender Identity Not on file Sexual Orientation Not on file documented as of this encounter Plan of Treatment Not on file documented as of this encounter Procedures Procedure Name Priority Date/Time Associated Diagnosis Comments CBC WITH PLATELETS & DIFFERENTIAL Routine 06/02/2022 7:25 AM CDT PHOSPHORUS Routine 06/02/2022 7:25 AM CDT MAGNESIUM Routine 06/02/2022 7:25 AM CDT HEPATIC FUNCTION PANEL Routine 06/02/2022 7:25 AM CDT CRP INFLAMMATION Routine 06/02/2022 7:25 AM CDT BASIC METABOLIC PANEL Routine 06/02/2022 7:25 AM CDT documented in this encounter Results * (ABNORMAL) CBC with Platelets & Differential (06/02/2022 7:25 AM CDT) WBC Count (External) 13.8(H) 4.5 - 11.0 thou/cu mm NON-INTERFACE D (ONBASE SCANS) RBC Count (External) 3.45(L) 4.00 - 5.20 mil/cu mm NON-INTERFACE D (ONBASE SCANS) Hemoglobin (External) 10.3(L) 12.0 - 16.0 g/dL NON-INTERFACE D (ONBASE SCANS) Hematocrit (External) 33.5 33.0 - 51.0 % NON-INTERFACE D (ONBASE SCANS) MCV (External) 97 80 - 100 fL NON-INTERFACE D (ONBASE SCANS) MCH (External) 29.9 26.0 - 34.0 pg NON-INTERFACE D (ONBASE SCANS) MCHC (External) 30.7(L) 32.0 - 36.0 g/dL NON-INTERFACE D (ONBASE SCANS) RDW (External) 16.3(H) 11.5 - 15.5 % NON-INTERFACE D (ONBASE SCANS) Platelet Count (External) 328 140 - 440 thou/cu mm NON-INTERFACE D (ONBASE SCANS) % Neutrophils (External) 76.5 % NON-INTERFACE D (ONBASE SCANS) % Lymphocytes (External) 13.3 % NON-INTERFACE D (ONBASE SCANS) % Monocytes (External) 8.6 % NON-INTERFACE D (ONBASE SCANS) % Eosinophils (External) 1.5 % NON-INTERFACE D (ONBASE SCANS) % Basophils (External) 0.1 % NON-INTERFACE D (ONBASE SCANS) Absolute Neutrophils (External) 10.5(H) 1.7 - 7.0 thou/cu mm NON-INTERFACE D (ONBASE SCANS) Absolute Lymphocytes (External) 1.8 0.9 - 2.9 thou/cu mm NON-INTERFACE D (ONBASE SCANS) Absolute Monocytes (External) 1.2(H) <0.9 thou/cu mm NON-INTERFACE D (ONBASE SCANS) Absolute Eosinophils (External) 0.2 <0.5 thou/cu mm NON-INTERFACE D (ONBASE SCANS) Absolute Basophils (External) 0.0 <0.3 thou/cu mm NON-INTERFACE D (ONBASE SCANS) Blood BLOOD SPECIMEN / Unknown 06/02/2022 7:25 AM CDT Narrative [facility] - 06/03/2022 2:27 PM CDT Verified by Haylie Persaud on 06/03/2022. [facility] - BLOOD ORDERABLES Edited Re sult - Final Performing Organization Address [facility] Co de Phone Number [facility] PFT NON-INTERFACED (ONBASE SCANS) * Phosphorus (06/02/2022 7:25 AM CDT) Phosphorus (External) 2.3 2.3 - 4.7 mg/dL NON-INTERFACED (ONBASE SCANS) Blood BLOOD SPECIMEN / Unknown 06/02/2022 7:25 AM CDT Narrative [facility] PFT - 06/03/2022 2:27 PM CDT Verified by Haylie Persaud on 06/03/2022. [facility] - BLOOD ORDERABLES Edited Re sult - Final Performing Organization Address [facility] de Phone Number B[facility]ZE PFT NON-INTERFACED (ONBASE SCANS) * Magnesium (06/02/2022 7:25 AM CDT) Magnesium (External) 1.9 1.6 - 2.6 mg/dL NON-INTERFACED (ONBASE SCANS) Blood BLOOD SPECIMEN / Unknown 06/02/2022 7:25 AM CDT Narrative [facility] PFT - 06/03/2022 2:27 PM CDT Verified by Haylie Persaud on 06/03/2022. [facility] - BLOOD ORDERABLES Edited Re sult - Final Performing Organization Address [facility] de Phone Number [facility] PFT NON-INTERFACED (ONBASE SCANS) * (ABNORMAL) CRP inflammation (06/02/2022 7:25 AM CDT) CRP Inflammation (External) 2.30(H) <0.50 mg/dL NON-INTERFACE D (ONBASE SCANS) Blood BLOOD SPECIMEN / Unknown 06/02/2022 7:25 AM CDT Narrative ROSE MARY PFT - 06/03/2022 2:27 PM CDT Verified by Haylie Persaud on 06/03/2022. us [facility] - BLOOD ORDERABLES Edited Re sult - Final ROSE MARY PFBatsheva NON-INTERFACED (ONBASE SCANS) * (ABNORMAL) Basic metabolic panel (06/02/2022 7:25 AM CDT) Pathologist [facility] Sodium (External) 140 135 - 145 mmol/L NON-INTERFACED (ONBASE SCANS) Potassium (External) 4.8 3.5 - 5.0 mmol/L NON-INTERFACED (ONBASE SCANS) Chloride (External) 106 98 - 110 mmol/L NON-INTERFACED (ONBASE SCANS) CO2 (External) 23 21 - 31 mmol/L NON-INTERFACED (ONBASE SCANS) Anion Gap (External) 11 5 - 18 NON-INTERFACED (ONBASE SCANS) Glucose (External) 90 70 - 99 mg/dL NON-INTERFACED (ONBASE SCANS) Calcium (External) 10.1 8.5 - 10.5 mg/dL NON-INTERFACED (ONBASE SCANS) Urea Nitrogen (External) 37(H) 8 - 25 mg/dL NON-INTERFACED (ONBASE SCANS) Creatinine (External) 1.11 0.57 - 1.11 mg/dL NON-INTERFACED (ONBASE SCANS) BUN/Creatinine Ratio (External) 33(H) 10 - 20 Ratio NON-INTERFACED (ONBASE SCANS) GFR Estimated (External) 50(L) >90 ml/min/1.7 3m2 NON-INTERFACED (ONBASE SCANS) Blood BLOOD SPECIMEN / Unknown 06/02/2022 7:25 AM CDT Thao BAZZI PFT - 06/03/2022 2:17 PM CDT Verified by Haylie Persaud on 06/03/2022. [facility] - BLOOD ORDERABLES Edited Re [facility] Performing Organization Address City/[facility]/ZIP Co de Phone Number ROSE MARY PFT NON-INTERFACED (ONBASE SCANS) * Hepatic function panel (06/02/2022 7:25 AM CDT) Albumin (External) 3.5 3.2 - 4.6 g/dL NON-INTERFACED (ONBASE SCANS) Protein Total (External) 7.6 6.0 - 8.0 g/dL NON-INTERFACED (ONBASE SCANS) Bilirubin Total (External) 0.4 0.2 - 1.2 mg/dL NON-INTERFACED (ONBASE SCANS) Alk Phosphatase (External) 68 50 - 136 IU/L NON-INTERFACED (ONBASE SCANS) ALT (External) 10 8 - 45 IU/L NON-INTERFACED (ONBASE SCANS) AST (External) 15 2 - 40 IU/L NON-INTERFACED (ONBASE SCANS) Blood BLOOD SPECIMEN / Unknown 06/02/2022 7:25 AM CDT Narrative ROSE MARY PFT - 06/03/2022 2:17 PM CDT Verified by Haylie Persaud on 06/03/2022. [facility] - BLOOD ORDERABLES Edited Re [facility] Performing Organization Address City/[facility]/ZIP Co de Phone Number ROSE MARY PFT NON-INTERFACED (ONBASE SCANS) documented in this encounter Visit Diagnoses Not on filedocumented in this encounter Care Teams Bag Repairer Relationship Specialty Start Date End Date Lynette Mena DO [address] [place] [id number] PCP - General 03/30/22 Uriel Franco MD [address] [place] [address] [address] [place] [address] Assigned Infectious Disease Provider 05/02/22 12/12/23 documented as of this encounter
--- OUTSIDE RECORDS SUMMARY | 2024-04-14 13:52 | XMS_ITS | Encounter Summary ---
Author Organization [place] Address [address] [facility] [place] [address] Care Team Providers Care Electrical Logger Name Role Phone Lynette Mena Primary Care Provider [phone] Uriel Franco MD Unavailable [phone] Encounter Details Date Type Department Care Team (Late st Contact Info) Description 05/05/2022 External Order Results [facility] [address] [place] [address] Outside, Provider Social History Tobacco Use Types Packs/Day Years Used Date Smoking Tobacco: Former Cigarettes Alcohol Use Standard Drinks/Week Comments Yes 0 (1 standard drink = 0.6 oz pure alcohol) Once a month 1 beer or 1 glass of 1 Comments No Sex and Gender Information Value Date Recorded Sex Assigned at Not on file Legal Sex Female 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 PM TELEPHONE 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 Gender Identity Not on file Sexual Orientation Not on file documented as of this encounter Plan of Treatment Not on file documented as of this encounter Procedures Procedure Name Priority Date/Time Associated Diagnosis Comments CBC WITH PLATELETS & DIFFERENTIAL Routine 05/05/2022 9:54 AM TELEPHONE 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 PHOSPHORUS Routine 05/05/2022 9:54 AM TELEPHONE 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 MAGNESIUM Routine 05/05/2022 9:54 AM TELEPHONE 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 HEPATIC FUNCTION PANEL Routine 05/05/2022 9:54 AM TELEPHONE 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 CRP INFLAMMATION Routine 05/05/2022 9:54 AM TELEPHONE 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 BASIC METABOLIC PANEL Routine 05/05/2022 9:54 AM TELEPHONE 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 documented in this encounter Results * (ABNORMAL) CBC with Platelets & Differential (05/05/2022 9:54 AM TELEPHONE 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) WBC Count (External) 12.8(H) 4.5 - 11.0 thou/cu mm NON-INTERFACE D (ONBASE SCANS) RBC Count (External) 3.20(L) 4.00 - 5.20 mm NON-INTERFACE D (ONBASE SCANS) Hemoglobin (External) 9.5(L) 12.0 - 16.0 g/dL NON-INTERFACE D (ONBASE SCANS) Hematocrit (External) 32.2(L) 33.0 - 51.0 % NON-INTERFACE D (ONBASE SCANS) MCV (External) 101(H) 80 - 100 fL NON-INTERFACE D (ONBASE SCANS) MCH (External) 29.7 26.0 - 34.0 pg NON-INTERFACE D (ONBASE SCANS) MCHC (External) 29.5(L) 32.0 - 36.0 g/dL NON-INTERFACE D (ONBASE SCANS) RDW (External) 16.5(H) 11.5 - 15.5 % NON-INTERFACE D (ONBASE SCANS) Platelet Count (External) 345 140 - 440 thou/cu mm NON-INTERFACE D (ONBASE SCANS) % Neutrophils (External) 83.0 % NON-INTERFACE D (ONBASE SCANS) % Lymphocytes (External) 7.0 % NON-INTERFACE D (ONBASE SCANS) % Monocytes (External) 7.0 % NON-INTERFACE D (ONBASE SCANS) % Eosinophils (External) 3.0 % NON-INTERFACE D (ONBASE SCANS) % Basophils (External) 0.0 % NON-INTERFACE D (ONBASE SCANS) Absolute Neutrophils (External) 10.6(H) 1.7 - 7.0 thou/cu mm NON-INTERFACE D (ONBASE SCANS) Absolute Lymphocytes (External) 0.9 0.9 - 2.9 thou/cu mm NON-INTERFACE D (ONBASE SCANS) Absolute Monocytes (External) 0.9(H) <0.9 thou/cu mm NON-INTERFACE D (ONBASE SCANS) Absolute Eosinophils (External) 0.4 <0.5 thou/cu mm NON-INTERFACE D (ONBASE SCANS) Absolute Basophils (External) 0.0 <0.3 thou/cu mm NON-INTERFACE D (ONBASE SCANS) Method (External) Manual NON-INTERFACE D (ONBASE SCANS) Blood BLOOD SPECIMEN / Unknown 05/05/2022 9:54 AM TELEPHONE 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 Narrative BREEZE PFT - 05/06/2022 3:21 PM TELEPHONE 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 Verified by Yissel Maharaj on 05/06/2022. Faith Thompson NP LAB - BLOOD ORDERABLES Edited [facility] Performing Organization Address [facility] de Phone Number BREEZE PFT NON-INTERFACED (ONBASE SCANS) * Phosphorus (05/05/2022 9:54 AM TELEPHONE 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) Phosphorus (External) 2.5 2.3 - 4.7 mg/dL NON-INTERFACED (ONBASE SCANS) Blood BLOOD SPECIMEN / Unknown 05/05/2022 9:54 AM TELEPHONE 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 Narrative BREEZE PFT - 05/06/2022 3:21 PM TELEPHONE 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 Verified by Yissel Maharaj on 05/06/2022. Faith Thompson NP LAB - BLOOD ORDERABLES Edited [facility] Performing Organization Address [facility] de Phone Number BREEZE PFT NON-INTERFACED (ONBASE SCANS) * (ABNORMAL) Magnesium (05/05/2022 9:54 AM TELEPHONE 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) Magnesium (External) 1.5(L) 1.6 - 2.6 mg/dL NON-INTERFACED (ONBASE SCANS) Blood BLOOD SPECIMEN / Unknown 05/05/2022 9:54 AM TELEPHONE 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 Narrative BREEZE PFT - 05/06/2022 3:21 PM TELEPHONE 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 Verified by Yissel Maharaj on 05/06/2022. Faith Thompson NP LAB - BLOOD ORDERABLES Edited Re [facility] Final Performing Organization Address [facility] de Phone Number BREEZE PFT NON-INTERFACED (ONBASE SCANS) * (ABNORMAL) CRP inflammation (05/05/2022 9:54 AM TELEPHONE 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) Pathologist [facility] CRP Inflammation (External) 1.70(H) <0.50 mg/dL NON-INTERFACE D (ONBASE SCANS) Blood BLOOD SPECIMEN / Unknown 05/05/2022 9:54 AM TELEPHONE 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 Narrative ROSE MARY PFT - 05/06/2022 3:21 PM TELEPHONE 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 Verified by Yissel Maharaj on 05/06/2022. us Faith Thompson NP LAB - BLOOD ORDERABLES Edited Re sult - Final ROSE MARY PFBatsheva NON-INTERFACED (ONBASE SCANS) * (ABNORMAL) Basic metabolic panel (05/05/2022 9:54 AM TELEPHONE 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) [facility] Sodium (External) 139 135 - 145 mmol/L NON-INTERFACE D (ONBASE SCANS) Potassium (External) 4.3 3.5 - 5.0 mmol/L NON-INTERFACE D (ONBASE SCANS) Chloride (External) 105 98 - 110 mmol/L NON-INTERFACE D (ONBASE SCANS) CO2 (External) 26 21 - 31 mmol/L NON-INTERFACE D (ONBASE SCANS) Anion Gap (External) 8 5 - 18 NON-INTERFACE D (ONBASE SCANS) Glucose (External) 103(H) 70 - 99 mg/dL NON-INTERFACE D (ONBASE SCANS) Calcium (External) 9.7 8.5 - 10.5 mg/dL NON-INTERFACE D (ONBASE SCANS) Urea Nitrogen (External) 35(H) 8 - 25 mg/dL NON-INTERFACE D (ONBASE SCANS) Creatinine (External) 1.17(H) 0.57 - 1.11 mg/dL NON-INTERFACE D (ONBASE SCANS) BUN/Creatinine Ratio (External) 30(H) 10 - 20 NON-INTERFACE D (ONBASE SCANS) GFR Estimated (External) 48(L) >90 ml/min/1.7 3m2 NON-INTERFACE D (ONBASE SCANS) Blood BLOOD SPECIMEN / Unknown 05/05/2022 9:54 AM TELEPHONE 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 Narrative KRISTINEEZE PFT - 05/06/2022 3:21 PM TELEPHONE 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 Verified by Yissel Maharaj on 05/06/2022. Faith Thompson ROOFER LAB - BLOOD ORDERABLES Edited Re [facility] ROSE MARY PFT NON-INTERFACED (ONBASE SCANS) * Hepatic function panel (05/05/2022 9:54 AM TELEPHONE 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) Albumin (External) 3.3 3.2 - 4.6 g/dL NON-INTERFACED (ONBASE SCANS) Protein Total (External) 7.5 6.0 - 8.0 g/dL NON-INTERFACED (ONBASE SCANS) Bilirubin Total (External) 0.3 0.2 - 1.2 mg/dL NON-INTERFACED (ONBASE SCANS) Alk Phosphatase (External) 71 50 - 136 IU/L NON-INTERFACED (ONBASE SCANS) ALT (External) 9 8 - 45 IU/L NON-INTERFACED (ONBASE SCANS) AST (External) 10 2 - 40 IU/L NON-INTERFACED (ONBASE SCANS) Blood BLOOD SPECIMEN / Unknown 05/05/2022 9:54 AM TELEPHONE 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 Narrative ROSE MARY PFT - 05/06/2022 3:21 PM TELEPHONE 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 Verified by Yissel Maharaj on 05/06/2022. Faith Thompson NP LAB - BLOOD ORDERABLES Edited Re [facility] ROSE MARY PFT NON-INTERFACED (ONBASE SCANS) documented in this encounter Visit Diagnoses Not on filedocumented in this encounter Care Teams Electrical Logger Relationship Specialty Start Date End Date Lynette Mena DO [address] [place] [address] PCP - General 03/30/22 Uriel Franco MD [address] [place] [address] [address] [place] [address] Assigned Infectious Disease Provider 05/02/22 12/12/23 documented as of this encounter
--- OUTSIDE RECORDS SUMMARY | 2024-04-14 13:52 | XMS_ITS | Encounter Summary ---
Author Organization [place] Address [address] [facility] [place] [address] Care Team Providers Care Airveyor Operator Name Role Phone Lynette Mena Primary Care Provider [phone] Uriel Franco MD Unavailable [phone] Encounter Details Date Type Department Care Team (Late st Contact Info) Description 04/28/2022 External Order Results [facility] [address] [place] [address] Outside, Provider Social History Tobacco Use Types Packs/Day Years Used Date Smoking Tobacco: Former Cigarettes Alcohol Use Standard Drinks/Week Comments Yes 0 (1 standard drink = 0.6 oz pure alcohol) Once a month 1 beer or 1 glass of 1 Comments No Sex and Gender Information Value Date Recorded Sex Assigned at Not on file Legal Sex Female 5:31 PM RESIDENTIAL LIFE DIRECTOR Gender Identity Not on file Sexual Orientation Not on file documented as of this encounter Plan of Treatment Not on file documented as of this encounter Procedures Procedure Name Priority Date/Time Associated Diagnosis Comments PHOSPHORUS Routine 04/28/2022 8:35 AM RESIDENTIAL LIFE DIRECTOR MAGNESIUM Routine 04/28/2022 8:35 AM RESIDENTIAL LIFE DIRECTOR CRP INFLAMMATION Routine 04/28/2022 8:35 AM RESIDENTIAL LIFE DIRECTOR BASIC METABOLIC PANEL Routine 04/28/2022 8:35 AM RESIDENTIAL LIFE DIRECTOR CBC WITH PLATELETS Routine 04/28/2022 8: 35 AM RESIDENTIAL LIFE DIRECTOR documented in this encounter Results * CRP inflammation (04/28/2022 8:35 AM RESIDENTIAL LIFE DIRECTOR) Pathologist [facility] CRP Inflammation (External) 36.80 See scan mg/L NON-INTERFACE D (ONBASE SCANS) Blood BLOOD SPECIMEN / Unknown 04/28/2022 8:35 AM RESIDENTIAL LIFE DIRECTOR Narrative KRISTINEEZE PFT - 04/29/2022 11:49 AM RESIDENTIAL LIFE DIRECTOR Verified by Anat Stevenson on 04/29/2022. Isac Pritchett LAB - BLOOD ORDERABLES Edited Re gailt - Final RSOE MARY PFT NON-INTERFACED (ONBASE SCANS) * (ABNORMAL) CBC with platelets (04/28/2022 8:35 AM RESIDENTIAL LIFE DIRECTOR) Pathologist [facility] WBC Count (External) 8.8 4.5 - 11.0 thou/cu mm NON-INTERFACE D (ONBASE SCANS) RBC Count (External) 3.33(L) 4.00 - 5.20 mil/cu mm NON-INTERFACE D (ONBASE SCANS) Hemoglobin (External) 9.8(L) 12.0 - 16.0 g/dL NON-INTERFACE D (ONBASE SCANS) Hematocrit (External) 33.5 33.0 - 51.0 % NON-INTERFACE D (ONBASE SCANS) MCV (External) 101(H) 80 - 100 fL NON-INTERFACE D (ONBASE SCANS) MCH (External) 29.4 26.0 - 34.0 pg NON-INTERFACE D (ONBASE SCANS) MCHC (External) 29.3(L) 32.0 - 38.0 g/dL NON-INTERFACE D (ONBASE SCANS) RDW (External) 16.6(H) 11.5 - 15.5 % NON-INTERFACE D (ONBASE SCANS) Platelet Count (External) 362 140 - 440 thou/cu mm NON-INTERFACE D (ONBASE SCANS) Blood BLOOD SPECIMEN / Unknown 04/28/2022 8:35 AM RESIDENTIAL LIFE DIRECTOR Narrative ELIZABETHE PFT - 04/29/2022 11:49 AM RESIDENTIAL LIFE DIRECTOR Verified by Anat Stevenson on 04/29/2022. Isac Pritchett LAB - BLOOD ORDERABLES Edited Re sult - Final Performing Organization Address [facility] de Phone Number ROSE MARY PFT NON-INTERFACED (ONBASE SCANS) * Phosphorus (04/28/2022 8:35 AM RESIDENTIAL LIFE DIRECTOR) [facility] Phosphorus (External) 3.2 2.3 - 4.7 mg/dL NON-INTERFACED (ONBASE SCANS) Blood BLOOD SPECIMEN / Unknown 04/28/2022 8:35 AM RESIDENTIAL LIFE DIRECTOR Narrative BREEZE PFT - 04/29/2022 11:49 AM RESIDENTIAL LIFE DIRECTOR Verified by Anat Stevenson on 04/29/2022. Isac Pritchett LAB - BLOOD ORDERABLES Edited [facility] Performing Organization Address [facility] Phone Number KRISTINEEZE PFT NON-INTERFACED (ONBASE SCANS) * Magnesium (04/28/2022 8:35 AM RESIDENTIAL LIFE DIRECTOR) [facility] Magnesium (External) 1.6 1.6 - 2.6 mg/dL NON-INTERFACED (ONBASE SCANS) Blood BLOOD SPECIMEN / Unknown 04/28/2022 8:35 AM RESIDENTIAL LIFE DIRECTOR Narrative BREEZE PFT - 04/29/2022 11:49 AM RESIDENTIAL LIFE DIRECTOR Verified by Anat Stevenson on 04/29/2022. Isac Pritchett LAB - BLOOD ORDERABLES Edited [facility] Performing Organization Address [facility] Phone Number ELIZABETHE PFT NON-INTERFACED (ONBASE SCANS) * (ABNORMAL) Basic metabolic panel (04/28/2022 8:35 AM RESIDENTIAL LIFE DIRECTOR) [facility] Sodium (External) 141 135 - 145 mmol/L NON-INTERFACE D (ONBASE SCANS) Potassium (External) 3.1(L) 3.5 - 5.0 mmol/L NON-INTERFACE D (ONBASE SCANS) Chloride (External) 98 98 - 110 mmol/L NON-INTERFACE D (ONBASE SCANS) CO2 (External) 28 21 - 31 mmol/L NON-INTERFACE D (ONBASE SCANS) Anion Gap (External) 15 5 - 18 NON-INTERFACE D (ONBASE SCANS) Glucose (External) 131(H) 70 - 99 mg/dL NON-INTERFACE D (ONBASE SCANS) Calcium (External) 10.0 8.5 - 10.5 mg/dL NON-INTERFACE D (ONBASE SCANS) Urea Nitrogen (External) 39(H) 8 - 25 mg/dL NON-INTERFACE D (ONBASE SCANS) Creatinine (External) 1.30(H) 0.57 - 1.11 mg/dL NON-INTERFACE D (ONBASE SCANS) BUN/Creatinine Ratio (External) 36(H) 10 - 20 NON-INTERFACE D (ONBASE SCANS) GFR Estimated (External) 42(L) >90 ml/min/1.7 3m2 NON-INTERFACE D (ONBASE SCANS) Blood BLOOD SPECIMEN / Unknown 04/28/2022 8:35 AM RESIDENTIAL LIFE DIRECTOR Narrative ROSE MARY PFT - 04/29/2022 11:49 AM RESIDENTIAL LIFE DIRECTOR Verified by Anat Stevenson on 04/29/2022. us Isac Pritchett LAB - BLOOD ORDERABLES Edited Re sult - Final ROSE MARY PFT NON-INTERFACED (ONBASE SCANS) documented in this encounter Visit Diagnoses Not on filedocumented in this encounter Care Teams Airveyor Operator Relationship Specialty Start Date End Date Lynette Mena DO [address] [place] [address] PCP - General 03/30/22 Uriel Franco MD [address] [place] [address] [address] [place] [address] Assigned Infectious Disease Provider 05/02/22 12/12/23 documented as of this encounter
--- OUTSIDE RECORDS SUMMARY | 2024-04-14 13:52 | XMS_ITS | Continuity of Care Document ---
Author Organization [facility] Address [address] [place] [address] Phone Care Team Providers Care Ux Interaction Designer Name Role Phone Kalia Márquez Unavailable Unavaila ble Procedures Procedure Date Office/Outpatient Visit,Michael Zev 2016 X-Ray Exam Lwr Spine, Min 4 Views Advance Directives Directive Yes / No Effective Date File Name No Information Encounters Encounter Description Practice Location Reason(s) For Visit Diagnoses Date Provider Providers Copied on Encounter Office/Outpa tient Visit,New, Mod [facility], [address], [place], [place], [id number] , [place] tel:[phone] [facility] [place] Spinal stenosis, lumbar regionOther intervertebral disc degeneration, lumbar regionOther spondylosis, lumbar region [address], [place], [address], [place]. tel:[phone] Referring Provider: Heather Suarez [address], [address]. tel:[phone] Family History Family Member Type Diagnosis Age At Onset No Information Payers Payer name Insurance type Covered democrat ID Authoriza tion(s) No Information Social History Type Description Quantity Date Captured Comments Sex Female Smoking Status No Information Vital Signs Date / Time: Height Weight BMI Pulse Rate Blood Pressure Temperature Respiratory Rate Body Surface Area Head Circumference Head Circ. Percentile Wt./Arik. Percentile BMI percentile Pulse Ox Inhaled Ox 2:23 PM 65.50 in 80.558 kg (177.60 lbs) 29.1 0 kg/m eter (2) 71 /min 123/69 mm[Hg] Chief Complaint And Reason For Visit No Information Reason For Referral Reason For Referral No Information Plan Of Treatment Date Type Action Status Future Order: Radiology Order AP /Lat/Flex/Ext Lumb (APLatFlExL), Ordered on: Ordered History Of Present Illness Encounter Date Complaint History Of Prese nt Illness No Information Functional Status Date Functional Assessmen t No Information Instructions Date Instruction Additional Infor mation No Information Assessments Type Assessment Date assessment Spinal stenosis, lumbar region J assessment Other intervertebral disc degene ration, lumbar region assessment Other spondylosis, lumbar region Patient Care Teams Name Effective Dates (start - stop) Status Members No Information
--- OUTSIDE RECORDS SUMMARY | 2024-04-14 14:36 | XMS_ITS | Encounter Summary ---
Author Organization [facility] Address [address] [place] [address] Care Team Providers Care Tool Or Die Drawing Checker Name Role Phone None Reported, Pcp Primary Care Provider Unavail able Encounter Details Date Type Department Care Team ([facility] st Contact Info) Description 03/21/2024 [place] [address] [place] [phone] Provider, Historical Social History Tobacco Use Types [...] on file Legal Sex Female 11:44 PM POULTRY DEBEAKER Gender Identity Not on file Sexual Orientation Not on file documented as of this encounter Plan of Treatment Not on file documented as of this encounter Visit Diagnoses Not on filedocumented in this encounter Care Teams Tool Or Die Drawing Checker Relationship Specialty Start Date End Date None Reported, Pcp PCP - General Family Medicine 01/28/23 documented as of this encounter
--- OUTSIDE RECORDS SUMMARY | 2024-04-14 14:36 | XMS_ITS | Clinical Summary ---
Author Organization [place] Address [address] [place] [address]. [place] [address] Care Team Providers Care Tractor Trailer Truck Driver Name Role Phone Lynette Mena Primary Care Provider [phone] Allergies Active Allergy Reactions Criticality Noted Date [...] spasms 04/12/19 23 Active vitamin D2 (ERGOCALCIFEROL) 97618 units (1250 mcg) capsuleIndication s:Hyperparathyroi dism due [...] Type Department Care Team Description 04/04/2024 Telephone [facility] [address] [place] [address] Aruna Card RN from Last 3 Months [...] on file Legal Sex Female 5:31 PM SENIOR FINANCIAL CONSULTANT Gender Identity Not on file Sexual Orientation Not on file Last Filed Vital Signs Vital Sign Reading Time Taken Comments Blood Pressure 127/61 04/13/2022 8:30 AM SENIOR FINANCIAL CONSULTANT Pulse 78 04/13/2022 8:30 AM SENIOR FINANCIAL CONSULTANT Temperature 36.8 C (98.2 F) 04/13/2022 8:30 AM SENIOR FINANCIAL CONSULTANT Respiratory Rate 16 04/12/2022 11:22 PM SENIOR FINANCIAL CONSULTANT Oxygen Saturation 98% 04/13/2022 8:30 AM SENIOR FINANCIAL CONSULTANT Inhaled Oxygen Concentration - - Weight 84.4 kg (186 lb 1.6 oz) 04/12/2022 7:55 A M SENIOR FINANCIAL CONSULTANT Height 167.6 cm (5' 6) 03/30/2022 10:39 PM SENIOR FINANCIAL CONSULTANT Body Mass Index 30.04 03/30/2022 10:39 PM SENIOR FINANCIAL CONSULTANT Plan of Treatment Health Maintenance Due Date [...] this topic Medical Devices Implanted Type Area [employer] Lecturer Device Identifier Shelf Expiration Date Model / Serial / Lot Imp Liner Hip Depuy [place] Altrx [id number] +[id number] 1221-36-454 - [id number] Implanted:Qty : 1 on 04/02/2022 by Yao Snyder MD at [facility] Total Joint Componen t/Insert Right: Hip [employer]- [id number] 11/19/2026 1221-36-454 / / [id number] Imp Head Femoral Depuy 36mm +5 1365-52-000 - [id number] Implanted:Qty : 1 on 04/02/2022 by Yao Snyder MD at [facility] Total Joint Componen t/Insert Right: Hip [employer] [id number] 04/21/2026 [id number] / / [id number] Explanted Type Area [employer]ology Lecturer Device Identifier Shelf Expiration Date Model / Serial / Lot Imp Head Femoral Depuy 36mm +5 1365-52-000 - [id number] Explanted:Qty : 1 on 04/02/2022 by Yao Snyder MD at [facility] Total Joint Componen t/Insert Right: Hip [employer]- [id number] / / Imp Liner Hip Depuy [place] Altrx [id number] +4 1221-36-454 - [id number] Explanted:Qty : 1 on 04/02/2022 at [facility] Total Joint Componen t/Insert Right: Hip [facility]- [id number] 1221-36-454 / / Procedures Procedure Name Priority Date/Time Associated Diagnosis Comments CBC WITH PLATELETS & DIFFERENTIAL Routine 06/09/2022 7:47 AM CDT COMPREHENSIVE METABOLIC PANEL Routine 06/09/2022 7:47 AM CDT PHOSPHORUS Routine 06/02/2022 7:25 AM CDT TSH WITH FREE T4 REFLEX STAT 04/02/2022 6:57 PM SENIOR FINANCIAL CONSULTANT from Last 3 Months or Most Recently [...] - BLOOD ORDERABLES Edited Re gailt [facility] Performing Organization Address [facility] Co de Phone Number KRISTINEEZE [...] with free T4 reflex (04/02/2022 6:57 PM SENIOR FINANCIAL CONSULTANT) TSH 0.55 0.40 - 4.00 mU/L 04/02/2022 8:05 PM SENIOR FINANCIAL CONSULTANT [facility] Blood ARTERIAL LINE / Unknown Venipuncture / Unknown 04/02/2022 6:57 PM SENIOR FINANCIAL CONSULTANT 04/02/2022 7:32 PM SENIOR FINANCIAL CONSULTANT us Petey Lisa PA-C LAB - BLOOD ORDERAB LES Final Result [facility] [address] [facility] [place] [address], [facility] [phone] from Last 3 Months or Most Recently Relevant to Health Maintenance Insurance [facility] MEDICARE Advance Directives For more information, please contact: [phone] * Full Code (Latest Code Status on [...] jerry allen/ legal decision maker Care Teams Tractor Trailer Truck Driver Relationship Specialty Start Date End Date Lynette Mena DO [address] [place] [address] PCP - General 03/30/22
--- OUTSIDE RECORDS SUMMARY | 2024-04-14 14:36 | XMS_ITS ---
Author Organization [facility] Address [address] [place] [address] Care Team Providers Care Chain Hoist Operator Name Role Phone Unavailable Unavailable Unavailable Surgery Details Not on file Complications Check Surgery Details section. Procedure Estimated Blood Loss Check Surgery Details section. Procedure Findings Check Surgery Details section. Procedure Specimens Taken Check Surgery Details section.
--- OUTSIDE RECORDS SUMMARY | 2024-04-14 14:36 | XMS_ITS | Encounter Summary ---
Author Organization [facility] Address [address] [facility] [place] [address] Care Team Providers Care Quality Assurance Monitor Chassis Name Role Phone Lynette Mena Primary Care Provider [phone] Uriel Franco MD Unavailable [phone] Encounter Details Date Type Department Care Team (Late st Contact Info) Description 05/12/2022 External Order Results [facility] [address] [place] [address] Outside, Provider Social History Tobacco Use Types Packs/Day Years Used Date Smoking Tobacco: Former Cigarettes Alcohol Use Standard Drinks/Week Comments Yes 0 (1 standard drink = 0.6 oz pure alcohol) Once a month 1 beer or 1 glass of 1 Comments No Sex and Gender Information Value Date Recorded Sex Assigned at Not on file Legal Sex Female 5:31 PM ENERGY RATER Gender Identity Not on file Sexual Orientation Not on file documented as of this encounter Plan of Treatment Not on file documented as of this encounter Procedures Procedure Name Priority Date/Time Associated Diagnosis Comments CBC WITH PLATELETS & DIFFERENTIAL Routine 05/12/2022 8:44 AM ENERGY RATER PHOSPHORUS Routine 05/12/2022 8:44 AM ENERGY RATER MAGNESIUM Routine 05/12/2022 8:44 AM ENERGY RATER CRP INFLAMMATION Routine 05/12/2022 8:44 AM ENERGY RATER COMPREHENSIVE METABOLIC PANEL Routine 05/12/2022 8:44 AM ENERGY RATER documented in this encounter Results * CRP inflammation (05/12/2022 8:44 AM ENERGY RATER) Pathologist [facility] CRP Inflammation (External) 46.40 mg/L NON-INTERFACE D (ONBASE SCANS) Comment:High Sensitivity-CRP Blood BLOOD SPECIMEN / Unknown 05/12/2022 8:44 AM ENERGY RATER Narrative ROSE MARY PFT - 05/17/2022 7:48 AM ENERGY RATER Verified by Clive Mcnally on 05/17/2022. us [facility]ac [facility] LAB - BLOOD ORDERABLES Edited Re sult - Final ROSE MARY PFT NON-INTERFACED (ONBASE SCANS) * (ABNORMAL) CBC with Platelets & Differential (05/12/2022 8:44 AM ENERGY RATER) Pathologist [facility] WBC Count (External) 11.6(H) 4.5 - 11.0 [...] BLOOD SPECIMEN / Unknown 05/12/2022 8:44 AM ENERGY RATER Narrative BREEZE PFT - 05/13/2022 12:38 PM ENERGY RATER Verified by Yissel Maharaj on 05/13/2022. [facility] LAB - BLOOD ORDERABLES Edited [facility] BREEZE PFT NON-INTERFACED (ONBASE SCANS) * Phosphorus (05/12/2022 8:44 AM ENERGY RATER) Phosphorus (External) 2.3 2.3 - 4.7 mg/dL NON-INTERFACED (ONBASE SCANS) Blood BLOOD SPECIMEN / Unknown 05/12/2022 8:44 AM ENERGY RATER Narrative BREEZE PFT - 05/13/2022 12:38 PM ENERGY RATER Verified by Yissel Maharaj on 05/13/2022. Is[facility] LAB - BLOOD ORDERABLES Edited [facility] BREEZE PFT NON-INTERFACED (ONBASE SCANS) * Magnesium (05/12/2022 8:44 AM ENERGY RATER) Magnesium (External) 1.6 1.6 - 2.6 mg/dL NON-INTERFACED (ONBASE SCANS) Blood BLOOD SPECIMEN / Unknown 05/12/2022 8:44 AM ENERGY RATER Narrative ROSE MARY PFT - 05/13/2022 12:38 PM ENERGY RATER Verified by Yissel Maharaj on 05/13/2022. us Isac F [facility] LAB - BLOOD ORDERABLES Edited Re sult - Final ROSE MARY PFT NON-INTERFACED (ONBASE SCANS) * (ABNORMAL) Comprehensive metabolic panel (05/12/2022 8:44 AM ENERGY RATER) Sodium (External) 139 135 - 145 mmol/L [...] BLOOD SPECIMEN / Unknown 05/12/2022 8:44 AM ENERGY RATER Narrative ROSE MARY PFT - 05/13/2022 12:38 PM ENERGY RATER Verified by Yissel Maharaj on 05/13/2022. us Isac [facility] LAB - BLOOD ORDERABLES Edited Re sult - Final ROSE MARY PFT NON-INTERFACED (ONBASE SCANS) documented in this encounter Visit Diagnoses Not on filedocumented in this encounter Care Teams Quality Assurance Monitor Chassis Relationship Specialty Start Date End Date Lynette Mena DO [address] [place] [address] PCP - General 03/30/22 Uriel Franco MD [address] [place] [address] [address] [place] [address] Assigned Infectious Disease Provider 05/02/22 12/12/23 documented as of this encounter
--- OUTSIDE RECORDS SUMMARY | 2024-04-14 14:36 | XMS_ITS | Referral Summary ---
Author Organization [facility] Address [address] [place] [address]. [place] [address] Care Team Providers Care Stretch Press Operator Name Role Phone Lynette Mena Primary Care Provider [phone] Encounters Date Type Department Care Team Description 04/04/[address] [facility] [address] [place] [address] Aruna Card RN from Last [...] spasms 04/12/19 23 Active vitamin D2 (ERGOCALCIFEROL) 90974 units (1250 mcg) capsuleIndication s:Hyperparathyroi dism due [...] on file Legal Sex Female 5:31 PM REAL ESTATE SPECIALIST Gender Identity Not on file Sexual Orientation Not on file Last Filed Vital Signs Vital Sign Reading Time Taken Comments Blood Pressure 127/61 04/13/2022 8:30 AM REAL ESTATE SPECIALIST Pulse 78 04/13/2022 8:30 AM REAL ESTATE SPECIALIST Temperature 36.8 C (98.2 F) 04/13/2022 8:30 AM REAL ESTATE SPECIALIST Respiratory Rate 16 04/12/2022 11:22 PM REAL ESTATE SPECIALIST Oxygen Saturation 98% 04/13/2022 8:30 AM REAL ESTATE SPECIALIST Inhaled Oxygen Concentration - - Weight 84.4 kg (186 lb 1.6 oz) 04/12/2022 7:55 A M REAL ESTATE SPECIALIST Height 167.6 cm (5' 6) 03/30/2022 10:39 PM REAL ESTATE SPECIALIST Body Mass Index 30.04 03/30/2022 10:39 PM REAL ESTATE SPECIALIST Plan of Treatment Not on file Medical Devices Implanted Type Area Rn Bsn Device Identifier Shelf Expiration Date Model / Serial / Lot Imp Liner Hip Depuy [place] Altrx [id number] +4 1221-36-454 - [id number] Implanted:Qty : 1 on 04/02/2022 by Yao Snyder MD at [facility] Total Joint Componen t/Insert Right: Hip [employer] [id number] 11/19/2026 [id number] / / [id number] Imp Head Femoral Depuy 36mm +5 1365-52-000 - [id number] Implanted:Qty : 1 on 04/02/2022 by Yao Snyder MD at [facility] Total Joint Componen t/Insert Right: Hip [employer] [id number] 04/21/2026 [id number] / / [id number] Explanted Type Area Rn Bsn Device Identifier Shelf Expiration Date Model / Serial / Lot Imp Head Femoral Depuy 36mm +5 1365-52-000 - [id number] Explanted:Qty : 1 on 04/02/2022 by Yao Snyder MD at [facility] Total Joint Componen t/Insert Right: Hip [employer] [id number] / / Imp Liner Hip Depuy [place] Altrx [id number] +4 1221-36-454 - [id number] Explanted:Qty : 1 on 04/02/2022 at [facility] Total Joint Componen t/Insert Right: Hip [employer] [id number] / / Procedures Procedure Name Priority Date/Time Associated Diagnosis Comments CBC WITH PLATELETS & DIFFERENTIAL Routine 06/09/2022 7:47 AM CDT COMPREHENSIVE METABOLIC PANEL Routine 06/09/2022 7:47 AM CDT PHOSPHORUS Routine 06/02/2022 7:25 AM CDT TSH WITH FREE T4 REFLEX STAT 04/02/2022 6:57 PM REAL ESTATE SPECIALIST from Last 3 Months or Most Recently [...] [facility] - BLOOD ORDERABLES Edited Re [facility] BREEZE PFT NON-INTERFACED (ONBASE SCANS) * Phosphorus [...] with free T4 reflex (04/02/2022 6:57 PM REAL ESTATE SPECIALIST) TSH 0.55 0.40 - 4.00 mU/L 04/02/2022 8:05 PM REAL ESTATE SPECIALIST [facility] Blood ARTERIAL LINE / Unknown Venipuncture / Unknown 04/02/2022 6:57 PM REAL ESTATE SPECIALIST 04/02/2022 7:32 PM REAL ESTATE SPECIALIST us Petey Lisa PA-C LAB - BLOOD ORDERAB LES Final Result [facility] Acute [facility] [address] [facility] [place] [address], [facility] [phone] from Last 3 Months or Most Recently Relevant to Health Maintenance Insurance [facility] MEDICARE Advance Directives For more information, please contact: [phone] * Full Code (Latest Code Status on [...] jerry allen/ legal decision maker Care Teams Stretch Press Operator Relationship Specialty Start Date End Date Lynette Mena DO [address] [place] [address] PCP - General 03/30/22
--- OUTSIDE RECORDS SUMMARY | 2024-04-14 14:36 | XMS_ITS | Referral Summary ---
Author Organization [facility] Address [address] [place] [address] Care Team Providers Care Direct Care Provider Name Role Phone None Reported, Pcp Primary Care Provider Unavail able Source Comments Patient records contain information from all sites at [facility]. For routine questions regarding patient records, call [phone] during business hours, M-F 8:00 AM - 5:00 PM Central Time. Record requests for emergency care only can be directed to [phone] at any time.[facility] Encounters Date Type Department Care Team Description 03/21/2024 Abstract [place], [place] [address] [place] [address] Provider, Historical 02/22/2024 10:00 AM EARLY CHILDHOOD WORKER External Outreach Division of Nephrology and Hypertension in [place], [place] [address] [place] [address] Tino Natarajan Jr., D.O. Chronic Kidney Disease Stage 4 Glomerular Filtration Rate 15-29 (HCC) (Primary Dx); Hypertensive Chronic Kidney Disease With Stage 1 Through Stage 4 Chronic Kidney Disease, Or Unspecified Chronic Kidney Disease; Hyperparathyroidism Renal Secondary (HCC); Correction (Current) Anticoagulant Treatment; Rheumatoid Arthritis Without Rheumatoid [...] In Situ 05/28/2016 Overview (11/02/2017): Overview: thumb Correction (Current) Anticoagulant Treatment 07/21 Presence Of Right [...] on file Legal Sex Female 11:44 PM EARLY CHILDHOOD WORKER Gender Identity Not on file Sexual Orientation Not on file Last Filed Vital Signs Vital Sign Reading Time Taken Comments Blood Pressure 118/60 02/22/2024 10:20 AM EARLY CHILDHOOD WORKER Pulse 83 02/22/2024 10:20 AM EARLY CHILDHOOD WORKER Temperature - - Respiratory Rate - - Oxygen Saturation - - Inhaled Oxygen Concentration - - Weight 87.5 kg (192 lb 14.4 oz) 024 10:20 AM EARLY CHILDHOOD WORKER Height 182.8 cm (5' 11.97) 12/14/2022 3:01 PM C DT Body Mass Index 26.18 12/14/2022 3:01 PM CDT Plan of Treatment Not on file Procedures Procedure Name Priority Date/Time Associated Diagnosis Comments BASIC METABOLIC PANEL, S/P Routine 10/21/2017 from Last 3 Months or Most Recently Relevant to Health Maintenance Insurance [facility] Advance Directives For more information, please contact: [phone] Documents on File Type Date Recorded Patient Rebeamer Expl anation Advance Directives 03/20/2024 2:20 PM Jessica Morillo HCPOA/ADVOCATE/AGENT/R EPRESENTATIVE/SURROGAT E Healthcare Agents on File Name Relationship Healthcare Agent Relationshi p Communication Jessicatamir Sabillonrdena Daughter Health Care Agent Neelam Morillo Daughter First Alternate Health Care Agent Care Teams Direct Care Provider Relationship Specialty Start Date End Date None Reported, Pcp PCP - General Family Medicine 01/28/23
--- OUTSIDE RECORDS SUMMARY | 2024-04-14 14:36 | XMS_ITS | Continuity of Care Document ---
Author Organization [facility] Address [address] [place] [address] Phone Care Team Providers Care Electrician Helper Powerhouse Name Role Phone Kalia Márquez Unavailable Unavaila ble Procedures Procedure Date Office/Outpatient Visit,Michael Zev 2016 X-Ray Exam Lwr Spine, Min 4 Views Advance Directives Directive Yes / No Effective Date File Name No Information Encounters Encounter Description Practice Location Reason(s) For Visit Diagnoses Date Provider Providers Copied on Encounter Office/Outpa tient Visit,New, Mod [facility], [address], [place], [place], [id number] , [place] tel:[phone] [facility] Spinal stenosis, lumbar regionOther intervertebral disc degeneration, lumbar regionOther spondylosis, lumbar region [address], [place], [address], [place]. tel:[phone] Referring Provider: Heather Suarez [address], [address]. tel:[phone] Family History Family Member Type Diagnosis Age At Onset No Information Payers Payer name Insurance type Covered libertarian ID Authoriza tion(s) No Information Social History [...]
--- OUTSIDE RECORDS SUMMARY | 2024-04-14 14:36 | XMS_ITS | Encounter Summary ---
Author Organization [facility] Address [address] [facility] [place] [address] Care Team Providers Care Green Meat Grader Name Role Phone Lynette Mena Primary Care Provider [phone] Uriel Franco MD Unavailable [phone] Encounter Details Date Type Department Care Team (Late st Contact Info) Description 05/08/2022 External Order Results [facility] [address] [place] [address] Outside, Provider Social History Tobacco Use Types Packs/Day Years Used Date Smoking Tobacco: Former Cigarettes Alcohol Use Standard Drinks/Week Comments Yes 0 (1 standard drink = 0.6 oz pure alcohol) Once a month 1 beer or 1 glass of 1 Comments No Sex and Gender Information Value Date Recorded Sex Assigned at Not on file Legal Sex Female 5:31 PM RETAIL FIELD MERCHANDISER Gender Identity Not on file Sexual Orientation Not on file documented as of this encounter Plan of Treatment Not on file documented as of this encounter Procedures Procedure Name Priority Date/Time Associated Diagnosis Comments CBC WITH PLATELETS & DIFFERENTIAL Routine 05/08/2022 1:50 PM RETAIL FIELD MERCHANDISER documented in this encounter Results * (ABNORMAL) CBC with Platelets & Differential (05/08/2022 1:50 PM RETAIL FIELD MERCHANDISER) WBC Count (External) 12.38(H) 4.50 - 11.0 [...] BLOOD SPECIMEN / Unknown 05/08/2022 1:50 PM RETAIL FIELD MERCHANDISER Thao MENON - 05/19/2022 7:33 AM RETAIL FIELD MERCHANDISER Verified by Clive Mcnally on 05/19/2022. us Isac [facility] LAB - BLOOD ORDERABLES Edited Re sult - Final ROSE MARY PFT NON-INTERFACED (ONBASE SCANS) documented in this encounter Visit Diagnoses Not on filedocumented in this encounter Care Teams Green Meat Grader Relationship Specialty Start Date End Date Lynette Mena DO [address] [place] [address] PCP - General 03/30/22 Uriel Franco MD [address] [place] [address] [address] [place] [address] Assigned Infectious Disease Provider 05/02/22 12/12/23 documented as of this encounter
--- OUTSIDE RECORDS SUMMARY | 2024-04-14 14:36 | XMS_ITS | Encounter Summary ---
Author Organization [place] Address [address] [facility] [place] [address] Care Team Providers Care Paver Layer Name Role Phone Lynette Mena Primary Care Provider [phone] Uriel Franco MD Unavailable [phone] Encounter Details Date Type Department Care Team (Late st Contact Info) Description 05/19/2022 External Order Results [facility] [address] [place] [address] Outside, Provider Social History Tobacco Use Types Packs/Day Years Used Date Smoking Tobacco: Former Cigarettes Alcohol Use Standard Drinks/Week Comments Yes 0 (1 standard drink = 0.6 oz pure alcohol) Once a month 1 beer or 1 glass of 1 Comments No Sex and Gender Information Value Date Recorded Sex Assigned at Not on file Legal Sex Female 5:31 PM TEA TREE FARM WORKER Gender Identity Not on file Sexual Orientation Not on file documented as of this encounter Plan of Treatment Not on file documented as of this encounter Procedures Procedure Name Priority Date/Time Associated Diagnosis Comments CBC WITH PLATELETS & DIFFERENTIAL Routine 05/19/2022 7:25 AM TEA TREE FARM WORKER PHOSPHORUS Routine 05/19/2022 7:25 AM TEA TREE FARM WORKER MAGNESIUM Routine 05/19/2022 7:25 AM TEA TREE FARM WORKER HEPATIC FUNCTION PANEL Routine 05/19/2022 7:25 AM TEA TREE FARM WORKER CRP INFLAMMATION Routine 05/19/2022 7:25 AM TEA TREE FARM WORKER BASIC METABOLIC PANEL Routine 05/19/2022 7:25 AM TEA TREE FARM WORKER documented in this encounter Results * Magnesium (05/19/2022 7:25 AM TEA TREE FARM WORKER) Pathologist [facility] Magnesium (External) 1.6 1.6 - 26 mg/dL NON-INTERFACED (ONBASE SCANS) Blood BLOOD SPECIMEN / Unknown 05/19/2022 7:25 AM TEA TREE FARM WORKER Narrative BREEZE PFT - 05/19/2022 3:11 PM TEA TREE FARM WORKER Verified by Haylie Persaud on 05/19/2022. [facility] - BLOOD ORDERABLES Edited Re [facility] KRISTINEEZE PFT NON-INTERFACED (ONBASE SCANS) * (ABNORMAL) CRP inflammation (05/19/2022 7:25 AM TEA TREE FARM WORKER) [facility] CRP Inflammation (External) 1.46(H) <0.50 mg/dL NON-INTERFACE D (ONBASE SCANS) Blood BLOOD SPECIMEN / Unknown 05/19/2022 7:25 AM TEA TREE FARM WORKER Narrative BREEZE PFT - 05/19/2022 3:11 PM TEA TREE FARM WORKER Verified by Haylie Persaud on 05/19/2022. [facility] - BLOOD ORDERABLES [facility] KRISTINEEZE PFT NON-INTERFACED (ONBASE SCANS) * (ABNORMAL) Basic metabolic panel (05/19/2022 7:25 AM TEA TREE FARM WORKER) Pathologist [facility] Sodium (External) 140 135 - 145 mmol/L [...] BLOOD SPECIMEN / Unknown 05/19/2022 7:25 AM TEA TREE FARM WORKER Narrative ROSE MARY PFT - 05/19/2022 3:11 PM TEA TREE FARM WORKER Verified by Haylie Persaud on 05/19/2022. Isac [facility] LAB - BLOOD ORDERABLES Edited Re justin - Final ROSE MARY PFBatsheva NON-INTERFACED (ONBASE SCANS) * Hepatic function panel (05/19/2022 7:25 AM TEA TREE FARM WORKER) Albumin (External) 3.4 3.2 - 4.6 g/dL [...] BLOOD SPECIMEN / Unknown 05/19/2022 7:25 AM TEA TREE FARM WORKER Narrative ROSE MARY PFT - 05/19/2022 3:11 PM TEA TREE FARM WORKER Verified by Haylie Persaud on 05/19/2022. [facility] - BLOOD ORDERABLES Edited Re [facility] ROSE MARY PFT NON-INTERFACED (ONBASE SCANS) * Phosphorus (05/19/2022 7:25 AM TEA TREE FARM WORKER) Pathologist [facility] Phosphorus (External) 3.3 2.3 - 4.7 mg/dL NON-INTERFACED (ONBASE SCANS) Blood BLOOD SPECIMEN / Unknown 05/19/2022 7:25 AM TEA TREE FARM WORKER Narrative ELIZABETHE PFT - 05/19/2022 3:05 PM TEA TREE FARM WORKER Verified by Haylie Persaud on 05/19/2022. Isac [facility] LAB - BLOOD ORDERABLES Edited [facility] Performing Organization Address [facility] de Phone Number ROSE MARY PFT NON-INTERFACED (ONBASE SCANS) * (ABNORMAL) CBC with Platelets & Differential (05/19/2022 7:25 AM TEA TREE FARM WORKER) WBC Count (External) 8.8 4.5 - 11.0 [...] BLOOD SPECIMEN / Unknown 05/19/2022 7:25 AM TEA TREE FARM WORKER Narrative ROSE MARY PFT - 05/19/2022 3:05 PM TEA TREE FARM WORKER Verified by Haylie Persaud on 05/19/2022. [facility] - BLOOD ORDERABLES Edited Re sult - Final ROSE MARY PFT NON-INTERFACED (ONBASE SCANS) documented in this encounter Visit Diagnoses Not on filedocumented in this encounter Care Teams Paver Layer Relationship Specialty Start Date End Date Lynette Mena DO [address] [place] [address] PCP - General 03/30/22 Uriel Franco MD [address] [place] [phone] Assigned Infectious Disease Provider 05/02/22 12/12/23 documented as of this encounter
--- OUTSIDE RECORDS SUMMARY | 2024-04-14 14:36 | XMS_ITS | Clinical Summary ---
Author Organization [facility] Address [address] [place] [address] Care Team Providers Care Adjunct Professor Name Role Phone None Reported, Pcp Primary Care Provider Unavail able Source Comments Patient records contain information from all sites at [facility]. For routine questions regarding patient records, call [phone] during business hours, M-F 8:00 AM - 5:00 PM Central Time. 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 Chronic Kidney Disease Stage 4 Glomerular Filtration Rate 15-29 (HCC) (Primary Dx); Hypertensive Chronic Kidney Disease With Stage 1 Through Stage 4 Chronic Kidney Disease, Or Unspecified Chronic Kidney Disease; Hyperparathyroidism Renal Secondary (HCC); Senior Care (Current) Anticoagulant Treatment; Rheumatoid Arthritis Without Rheumatoid [...] on file Legal Sex Female 11:44 PM WHITESMITH Gender Identity Not on file Sexual Orientation Not on file Last Filed Vital Signs Vital Sign Reading Time Taken Comments Blood Pressure 118/60 02/22/2024 10:20 AM WHITESMITH Pulse 83 02/22/2024 10:20 AM WHITESMITH Temperature - - Respiratory Rate - - Oxygen Saturation - - Inhaled Oxygen Concentration - - Weight 87.5 kg (192 lb 14.4 oz) 024 10:20 AM WHITESMITH Height 182.8 cm (5' 11.97) 12/14/2022 3:01 [...] Most Recently Relevant to Health Maintenance Insurance [facility] Advance Directives For more information, please contact: [phone] Documents on File Type Date Recorded Patient Picking Table Worker Expl anation Advance Directives 03/20/2024 2:20 PM Jessica Morillo HCPOA/ADVOCATE/AGENT/R EPRESENTATIVE/SURROGAT E Healthcare Agents on File Name Relationship Healthcare Agent Relationshi p Communication Jessica Lindsey Daughter Health Care Agent Neelam Morillo Daughter First Alternate Health Care Agent Care Teams Adjunct Professor Relationship Specialty Start Date End Date None Reported, Pcp PCP - General Family Medicine 01/28/23
--- OUTSIDE RECORDS SUMMARY | 2024-04-14 14:36 | XMS_ITS | Encounter Summary ---
Author Organization [place] Address [address] [facility] [place] [address] Care Team Providers Care Platform Stapler Name Role Phone Lynette Mena DO Primary Care Provider [phone] Uriel Franco MD Unavailable [phone] Encounter Details Date Type Department Care Team (Late st Contact Info) Description 06/09/2022 External Order Results [facility] [address] [place] [address] Outside, Provider Social History Tobacco Use Types Packs/Day Years Used Date Smoking Tobacco: Former Cigarettes Alcohol Use Standard Drinks/Week Comments Yes 0 (1 standard drink = 0.6 oz pure alcohol) Once a month 1 beer or 1 glass of 1 Comments No Sex and Gender Information Value Date Recorded Sex Assigned at Not on file Legal Sex Female 5:31 PM HEMODIALYSIS RN Gender Identity Not on file Sexual Orientation [...] [facility] - BLOOD ORDERABLES Edited [facility] Performing Organization Address [facility] Co de Phone Number ROSE MARY PFT NON-INTERFACED (ONBASE SCANS) * (ABNORMAL) CRP inflammation (06/09/2022 7:47 AM CDT) [facility] CRP Inflammation (External) 2.06(H) <0.50 mg/dL NON-INTERFACE D (ONBASE SCANS) Blood BLOOD SPECIMEN / Unknown 06/09/2022 7:47 AM CDT Narrative KRISTINEEZE PFT - 06/10/2022 10:52 AM CDT Verified by Clive Mcnally on 06/10/2022. Isac [facility] LAB - BLOOD ORDERABLES Edited [facility] Performing Organization Address [facility] de Phone Number ROSE MARY PFT NON-INTERFACED (ONBASE SCANS) * (ABNORMAL) Comprehensive metabolic panel (06/09/2022 7:47 AM CDT) Pathologist [facility] Sodium (External) 140 135 - 145 [...] on filedocumented in this encounter Care Teams Platform Stapler Relationship Specialty Start Date End Date Lynette Mena DO [address] [place] [id number] PCP - General 03/30/22 Uriel Franco MD [address] [place] [id number] Assigned Infectious Disease Provider 05/02/22 12/12/23 documented as of this encounter
--- OUTSIDE RECORDS SUMMARY | 2024-04-14 14:36 | XMS_ITS | Encounter Summary ---
Author Organization [facility] Address [address] [place] [address]. [place] [address] Care Team Providers Care Dredge Operator Name Role Phone Lynette Mena Primary Care Provider [phone] Encounter Details Date Type Department Care Team (Late st Contact Info) Description 04/04/2024 Telephone [facility] Nurse Advisors [address] [place] [address] Aruna Card, RN Social History [...] on file Legal Sex Female 5:31 PM WOOL SAMPLER Gender Identity Not on file Sexual Orientation Not on file documented as of this encounter Miscellaneous Notes * Telephone Encounter - Aruna Card RN - 04/04/2024 8:07 PM CST Patient's granddaughter calling regarding her grandma. Unable to provide address or phone number. Unable to provide patient information. Granddaughter looking for appointment time for surgery tomorrow at [facility]. Advised the clinic is closed with no scheduling available. Will need to call inthe morning to verify appointment time. Aruna Card RN 04/04/24 8:12 PM Health Triage Nurse Advisor SAMPLER documented in this encounter Plan of Treatment Not on file documented as of this encounter Visit Diagnoses Not on filedocumented in this encounter Care Teams Dredge Operator Relationship Specialty Start Date End Date Lynette Mena DO [address] [place] [address] [place] [address] PCP - General 03/30/22 documented as of this encounter
--- OUTSIDE RECORDS SUMMARY | 2024-04-14 14:36 | XMS_ITS | Clinical Summary ---
Author Organization [facility] Address [place], [place] [address] Care Team Providers Care Mechanical Car Checker Name Role Phone Tino Natarajan Unavailable [phone] Teofilo Bertrand MD Unavailable [phone] Vikki Harden Unavailable Lynette Mena DO Primary [...] 2018 with diuresis. Follows with Dr. Natarajan ([facility]) Squamous cell carcinoma in situ of skin [...] Department Care Team Description 04/03/2024 Lab Requisition [facility] [phone] Lupe Gómez NP 02/03/2024 Lab Requisition [facility] [phone] Lupe Gómez NP 02/03/2024 Lab Requisition [facility] [phone] from Last 3 Months Immunizations Name Administration Dates Next Due COVID-19 vaccine (NavigatorMD 30mcg/0.3mL) P F, MDV 05/21/2020,04/30/2020 Pneumococcal Poly,23-Valent [...] on file Legal Sex Female 6:26 AM COMPUTER ASSEMBLER Gender Identity Not on file Sexual Orientation Not on file 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 Not on file [...] Comments Blood Pressure 106/58 03/09/2022 3:06 PM COMPUTER ASSEMBLER Pulse 76 03/09/2022 3:06 PM COMPUTER ASSEMBLER Temperature 36.6 C (97.8 F) 08/19/2021 2:23 PM CDT Respiratory Rate 16 03/09/2022 3:06 PM COMPUTER ASSEMBLER Oxygen Saturation 98% 03/09/2022 3:06 PM COMPUTER ASSEMBLER Inhaled Oxygen Concentration - - Weight 81.5 kg (179 lb 9.6 oz) 03/09/2022 3:06 P M COMPUTER ASSEMBLER Height 163.8 cm (5' 4.49) 02/26/2022 2:52 PM CS T Body Mass Index 30.36 02/26/2022 2:52 PM COMPUTER ASSEMBLER Plan of Treatment Health Maintenance Due Date [...] CELL MORPHOLOGY Routine 04/04/2024 7 :56 AM COMPUTER ASSEMBLER Unspecified visual loss Other giant cell arteritis (HC) Weakness PLATELET ESTIMATE Routine 04/04/2024 7:5 6 AM COMPUTER ASSEMBLER Unspecified visual loss Other giant cell arteritis (HC) Weakness MANUAL DIFFERENTIAL Routine 04/04/2024 7 :56 AM COMPUTER ASSEMBLER Unspecified visual loss Other giant cell arteritis (HC) Weakness CBC WITH AUTO DIFFERENTIAL Routine 04/04/2024 7:56 AM COMPUTER ASSEMBLER Unspecified visual loss Other giant cell arteritis (HC) Weakness C-REACTIVE PROTEIN Routine 04/04/2024 7: 56 AM COMPUTER ASSEMBLER Unspecified visual loss Other giant cell arteritis (HC) Weakness SEDIMENTATION RATE Routine 04/04/2024 7: 56 AM COMPUTER ASSEMBLER Unspecified visual loss Other giant cell arteritis (HC) Weakness BASIC METABOLIC PANEL Routine 04/04/2024 7:56 AM COMPUTER ASSEMBLER Unspecified visual loss Other giant cell arteritis (HC) Weakness CBC WITH AUTO DIFFERENTIAL Routine 04/04/2024 7:56 AM COMPUTER ASSEMBLER Unspecified visual loss Other giant cell arteritis (HC) Weakness RENAL FUNCTION PANEL Routine 02/08/2024 8:10 AM COMPUTER ASSEMBLER Anemia in chronic kidney disease (CODE) Essential (primary) hypertension Chronic kidney disease, stage 3b (HC) PTH,INTACT Routine 02/08/2024 8:10 AM COMPUTER ASSEMBLER Anemia in chronic kidney disease (CODE) Essential (primary) hypertension Chronic kidney disease, stage 3b (HC) IRON Routine 02/08/2024 8:10 AM COMPUTER ASSEMBLER Anemia in chronic kidney disease (CODE) Essential (primary) hypertension Chronic kidney disease, stage 3b (HC) FERRITIN Routine 02/08/2024 8:10 AM COMPUTER ASSEMBLER Anemia in chronic kidney disease (CODE) Essential (primary) hypertension Chronic kidney disease, stage 3b (HC) CBC W PLT NO DIFF Routine 02/08/2024 8:1 0 AM COMPUTER ASSEMBLER Anemia in chronic kidney disease (CODE) Essential (primary) hypertension Chronic kidney disease, stage 3b (HC) XR DXA BONE DENSITY 2 SITES AXIAL Routine 02/09/2022 2:25 PM COMPUTER ASSEMBLER Asymptomatic postmenopausal state from Last 3 Months or Most Recently Relevant to Health Maintenance Results * (ABNORMAL) SEDIMENTATION RATE (04/04/2024 7:56 AM COMPUTER ASSEMBLER) SEDIMENTATION RATE 97(H) <30 mm/hr 2024 9:59 AM COMPUTER ASSEMBLER [facility] Blood BLOOD SPECIMEN / Unknown Butterfly / Unknown 04/04/2024 7:56 AM COMPUTER ASSEMBLER 04/04/2024 9:41 AM COMPUTER ASSEMBLER us Lupe Gómez NP HEMATOLOGY Final Resul t [facility] [address] [place] [address] * (ABNORMAL) CBC WITH AUTO DIFFERENTIAL (04/04/2024 7:56 AM COMPUTER ASSEMBLER) WHITE BLOOD COUNT 13.6(H) 4.5 - 11.0 thou/cu mm 04/04/2024 12:41 PM [facility] RED BLOOD COUNT 3.01(L) 4.00 - 5.20 mil/cu mm 04/04/2024 12:41 PM [facility] HEMOGLOBIN 9.1(L) 12.0 - 16.0 g/dL 04/04/2024 12:41 PM [facility] HEMATOCRIT 29.6(L) 33.0 - 51.0 % 04/04/2024 12:41 PM [facility] MCV 98 80 - 100 fL 04/04/2024 12:41 PM [facility] MCH 30.2 26.0 - 34.0 pg 04/04/2024 12:41 PM [facility] MCHC 30.7(L) 32.0 - 36.0 g/dL 04/04/2024 12:41 PM [facility] RDW 16.0(H) 11.5 - 15.5 % 04/04/2024 12:41 PM [facility] PLATELET COUNT 511(H) 140 - 440 thou/cu mm 04/04/2024 12:41 PM [facility] MPV 9.8 6.5 - 11.0 fL 04/04/2024 12:41 PM [facility] Blood BLOOD SPECIMEN / Unknown Butterfly / Unknown 04/04/2024 7:56 AM COMPUTER ASSEMBLER 04/04/2024 9:41 AM COMPUTER ASSEMBLER us Lupe Gómez NP HEMATOLOGY Final Resul t [facility] [address] [place] [address] * RED CELL MORPHOLOGY (04/04/2024 7:56 AM COMPUTER ASSEMBLER) RBC COMMENT RBC morphology appears normal RBC morphology appears normal, RBC morphology within normal limits for newborns. 04/04/2024 12:41 PM COMPUTER ASSEMBLER [facility] Blood BLOOD SPECIMEN / Unknown Butterfly / Unknown 04/04/2024 7:56 AM COMPUTER ASSEMBLER 04/04/2024 9:41 AM COMPUTER ASSEMBLER Lupe Gómez NP HEMATOLOGY Final Resul t Performing Organization Address City/[facility]/ZIP Co de Phone Number [facility] [address] [place] [address] * (ABNORMAL) PLATELET ESTIMATE (04/04/2024 7:56 AM COMPUTER ASSEMBLER) PLATELET ESTIMATE Increased (A) Adequate, No estimate 04/04/2024 12:41 PM COMPUTER ASSEMBLER [facility] Blood BLOOD SPECIMEN / Unknown Butterfly / Unknown 04/04/2024 7:56 AM COMPUTER ASSEMBLER 04/04/2024 9:41 AM COMPUTER ASSEMBLER Lupe Gómez NP HEMATOLOGY Final Resul t Performing Organization Address City/[facility]/ZIP Co de Phone Number [facility] [address] [place] [address] * (ABNORMAL) MANUAL DIFFERENTIAL (04/04/2024 7:56 AM COMPUTER ASSEMBLER) Pathologist [facility] % NEUTROPHILS 87.0 % 04/04/2024 12:41 PM [facility] % LYMPHOCYTES 7.0 % 04/04/2024 12:41 PM [facility] % MONOCYTES 5.0 % 04/04/2024 12:41 PM [facility] % EOSINOPHILS 1.0 % 04/04/2024 12:41 PM [facility] % BASOPHILS 0.0 % 04/04/2024 12:41 PM [facility] NEUTROPHILS ABSOLUTE 11.8(H) 1.7 - 7.0 thou/cu mm 04/04/2024 12:41 PM [facility] LYMPHOCYTES ABSOLUTE 1.0 0.9 - 2.9 thou/cu mm 04/04/2024 12:41 PM [facility] MONOCYTES ABSOLUTE 0.7 <0.9 thou/cu mm 04/04/2024 12:41 PM [facility] EOSINOPHILS ABSOLUTE 0.1 <0.5 thou/cu mm 04/04/2024 12:41 PM [facility] BASOPHILS ABSOLUTE 0.0 <0.3 thou/cu mm 04/04/2024 12:41 PM [facility] Blood BLOOD SPECIMEN / Unknown Butterfly / Unknown 04/04/2024 7:56 AM COMPUTER ASSEMBLER 04/04/2024 9:41 AM COMPUTER ASSEMBLER Lupe Gómez MANAGER PROVIDER RELATIONS HEMATOLOGY Final Resul t Performing Organization Address [facility]/ZIP Co de Phone Number [facility] [address] [place] [address] * (ABNORMAL) C-REACTIVE PROTEIN (04/04/2024 7:56 AM COMPUTER ASSEMBLER) C-REACTIVE PROTEIN 10.8(H) <0.5 mg/dL 04/04/2024 10:13 AM [facility] Blood BLOOD SPECIMEN / Unknown Butterfly / Unknown 04/04/2024 7:56 AM COMPUTER ASSEMBLER 04/04/2024 9:41 AM COMPUTER ASSEMBLER Lupe Gómez NP CHEMISTRY Final Resul t Performing Organization Address [facility]/ZIP Co de Phone Number [facility] [address] [place] [address] * (ABNORMAL) BASIC METABOLIC PANEL (04/04/2024 7:56 AM COMPUTER ASSEMBLER) SODIUM 136 136 - 145 mmol/L 04/04/2024 10:13 AM [facility] POTASSIUM 3.7 3.5 - 5.1 mmol/L 04/04/2024 10:13 AM [facility] CHLORIDE 98 98 - 107 mmol/L 04/04/2024 10:13 AM [facility] CO2,TOTAL 26 22 - 29 mmol/L 04/04/2024 10:13 AM [facility] ANION GAP 12 5 - 18 04/04/2024 10:13 AM [facility] GLUCOSE 100(H) 70 - 99 mg/dL 04/04/2024 10:13 AM [facility] CALCIUM 9.2 8.8 - 10.4 mg/dL 04/04/2024 10:13 AM [facility] Comment: Reference ranges for this test were updated on 01/25/2024 to reflect our healthy population more accurately. Reference range changes are not retroactively applied to results, but previous results using the same methodology can be interpreted in the context of the new reference range. BUN 27(H) 8 - 23 mg/dL 04/04/2024 10:13 AM [facility] CREATININE 1.21(H) 0.50 - 0.90 mg/dL 04/04/2024 10:13 AM [facility] BUN/CREAT RATIO 22(H) 10 - 20 10:13 AM [facility] eGFR 45(L) >90 mL/min/1. 73m2 04/04/2024 10:13 AM [facility] Comment:As of 2021, eG FR is calculated by the CKD-EPI creatinine equation without race adjustment. eGFR can be influenced by muscle mass, exercise, and diet. The reported eGFR is an estimation only and is only applicable if the renal function is stable. Blood BLOOD SPECIMEN / Unknown Butterfly / Unknown 04/04/2024 7:56 AM COMPUTER ASSEMBLER 04/04/2024 9:41 AM COMPUTER ASSEMBLER us Lupe Gómez NP CHEMISTRY Final Resul t [facility] [address] [place], [place] [id number] * IRON (02/08/2024 8:10 AM COMPUTER ASSEMBLER) IRON 44 37 - 145 ug/dL 02/08/2024 12:50 PM [facility] Blood BLOOD SPECIMEN / Unknown Butterfly / Unknown 02/08/2024 8:10 AM COMPUTER ASSEMBLER 02/08/2024 8:50 AM COMPUTER ASSEMBLER us Lupe Gómez NP CHEMISTRY Final Resul t [facility] [address] [place] [address], * (ABNORMAL) CBC W PLT NO DIFF (02/08/2024 8:10 AM COMPUTER ASSEMBLER) WHITE BLOOD COUNT 7.4 4.5 - 11.0 thou/cu mm 02/08/2024 9:23 AM [facility] RED BLOOD COUNT 3.62(L) 4.00 - 5.20 mil/cu mm 02/08/2024 9:23 AM [facility] HEMOGLOBIN 11.4(L) 12.0 - 16.0 g/dL 02/08/2024 9:23 AM [facility] HEMATOCRIT 37.3 33.0 - 51.0 % 02/08/2024 9:23 AM [facility] MCV 103(H) 80 - 100 fL 02/08/2024 9:23 AM [facility] MCH 31.5 26.0 - 34.0 pg 02/08/2024 9:23 AM [facility] MCHC 30.6(L) 32.0 - 36.0 g/dL 02/08/2024 9:23 AM [facility] RDW 14.7 11.5 - 15.5 % 02/08/2024 9:23 AM [facility] PLATELET COUNT 324 140 - 440 thou/cu mm 02/08/2024 9:23 AM [facility] MPV 10.6 6.5 - 11.0 fL 02/08/2024 9:23 AM [facility] Blood BLOOD SPECIMEN / Unknown Butterfly / Unknown 02/08/2024 8:10 AM COMPUTER ASSEMBLER 02/08/2024 8:50 AM COMPUTER ASSEMBLER us Lupe Gómez NP HEMATOLOGY Final Resul t [facility] [address] [place] [address] * (ABNORMAL) PTH,INTACT (02/08/2024 8:10 AM COMPUTER ASSEMBLER) Pathologist [facility] CALCIUM 9.6 8.8 - 10.4 mg/dL 02/08/2024 12:50 PM COMPUTER ASSEMBLER [facility] Comment: Reference ranges for this test were updated on 01/25/2024 to reflect our healthy population more accurately. Reference range changes are not retroactively applied to results, but previous results using the same methodology can be interpreted in the context of the new reference range. PTH,INTACT 177.0(H) 15.0 - 69.0 pg/mL 02/08/2024 12:50 PM COMPUTER ASSEMBLER [facility] Blood BLOOD SPECIMEN / Unknown Butterfly / Unknown 02/08/2024 8:10 AM COMPUTER ASSEMBLER 02/08/2024 8:50 AM COMPUTER ASSEMBLER Lupe Gómez MANAGER PROVIDER RELATIONS SEND OUTS Final Resul t Performing Organization Address City/[facility]/ZIP Co de Phone Number [facility] [address] [place] [address], [place] * FERRITIN (02/08/2024 8:10 AM COMPUTER ASSEMBLER) Pathologist [facility] FERRITIN 94.1 15.0 - 150.0 ng/mL 02/08/2024 12:50 PM COMPUTER ASSEMBLER [facility] Blood BLOOD SPECIMEN / Unknown Butterfly / Unknown 02/08/2024 8:10 AM COMPUTER ASSEMBLER 02/08/2024 8:50 AM COMPUTER ASSEMBLER Lupe Gómez NP CHEMISTRY Final Resul t [facility] [address] [place] [address], * (ABNORMAL) RENAL FUNCTION PANEL (02/08/2024 8:10 AM COMPUTER ASSEMBLER) Pathologist [facility] SODIUM 142 136 - 145 mmol/L 02/08/2024 9:35 AM COMPUTER ASSEMBLER [facility] POTASSIUM 4.4 3.5 - 5.1 mmol/L 02/08/2024 9:35 AM [facility] CHLORIDE 101 98 - 107 mmol/L 02/08/2024 9:35 AM [facility] CO2,TOTAL 28 22 - 29 mmol/L 02/08/2024 9:35 AM [facility] ANION GAP 13 5 - 18 02/08/2024 9:35 AM [facility] GLUCOSE 92 70 - 99 mg/dL 02/08/2024 9:35 AM [facility] CALCIUM 9.9 8.8 - 10.4 mg/dL 02/08/2024 9:35 AM [facility] Comment: Reference ranges for this test were updated on 01/25/2024 to reflect our healthy population more accurately. Reference range changes are not retroactively applied to results, but previous results using the same methodology can be interpreted in the context of the new reference range. BUN 18 8 - 23 mg/dL 02/08/2024 9:35 AM [facility] CREATININE 1.19(H) 0.50 - 0.90 mg/dL 02/08/2024 9:35 AM [facility] BUN/CREAT RATIO 15 10 - 20 9:35 AM [facility] eGFR 46(L) >90 mL/min/1. 73m2 02/08/2024 9:35 AM [facility] Comment:As of 2021, eG FR is calculated by the CKD-EPI creatinine equation without race adjustment. eGFR can be influenced by muscle mass, exercise, and diet. The reported eGFR is an estimation only and is only applicable if the renal function is stable. PHOSPHORUS 3.4 2.5 - 4.5 mg/dL 02/08/2024 9:35 AM [facility] ALBUMIN 3.6(L) 4.0 - 4.9 g/dL 02/08/2024 9:35 AM [facility] Blood BLOOD SPECIMEN / Unknown Butterfly / Unknown 02/08/2024 8:10 AM [facility] 02/08/2024 8:50 AM COMPUTER ASSEMBLER us Lupe Gómez MANAGER PROVIDER RELATIONS CHEMISTRY Final Resul t [facility] [address] [place] [address] * (ABNORMAL) XR DXA BONE DENSITY 2 SITES AXIAL (02/09/2022 2:25 PM COMPUTER ASSEMBLER) Anatomical Region Laterality Modality Spine, HIPS, HIPL, HIPR Computed Radiography Impressions 02/10/2022 5:21 PM COMPUTER ASSEMBLER Osteoporosis. Bone density has decreased significantly since [...] assess therapeutic efficacy. Narrative 02/10/2022 5:21 PM COMPUTER ASSEMBLER For Patients: Results are automatically released to your [facility] [facility] account once available, in compliance with federal regulations. This means that you may see your results before your provider has had a chance to review them. Please allow 2-3 business days for your provider to comment on the results. XR DXA Bone Mineral Density (BMD) EXAM LOCATION: [facility] [address] [facility] [id number] PATIENT NAME: Lela Lindsey DATE OF : [...] two scanners are made by the same graduate assistant athletic trainer. PROCEDURE: Dual-energy x-ray absorptiometry performed with routine [...] 10-year probability of hip fracture: 16.8%. Lynette Gme Rajesh DO DEXA Final Result from Last [...] Status Discussion: Per Existing Order Care Teams Mechanical Car Checker Relationship Specialty Start Date End Date Lynette Mena DO [address] [place] [address] [place] [id number] PCP - General Internal Medicine 08/06/21 Tino Natarajan DO [address] [place] [address] Nephrology Internal Medicine 06/21/20 Teofilo Bertrand MD [facility] [address] [address] [place] [address] Cardiology Cardiovascular Disease 06/21/20 Vikki Harden [address] [facility] [address] [place] [address] Dermatology Dermatology 06/21/20
--- OUTSIDE RECORDS SUMMARY | 2024-04-14 14:37 | XMS_ITS | Encounter Summary ---
Author Organization [place] Address [address] [facility] [place] [address] Care Team Providers Care Slab Stripper Name Role Phone Lynette Mena Primary Care Provider [phone] Uriel Franco MD Unavailable [phone] Encounter Details Date Type Department Care Team (Late st Contact Info) Description 05/05/2022 External Order Results [facility] [address] [place] [address] Outside, Provider Social History Tobacco Use Types Packs/Day Years Used Date Smoking Tobacco: Former Cigarettes Alcohol Use Standard Drinks/Week Comments Yes 0 (1 standard drink = 0.6 oz pure alcohol) Once a month 1 beer or 1 glass of 1 Comments No Sex and Gender Information Value Date Recorded Sex Assigned at Not on file Legal Sex Female 5:31 PM BEADWORKER Gender Identity Not on file Sexual Orientation Not on file documented as of this encounter Plan of Treatment Not on file documented as of this encounter Procedures Procedure Name Priority Date/Time Associated Diagnosis Comments CBC WITH PLATELETS & DIFFERENTIAL Routine 05/05/2022 9:54 AM BEADWORKER PHOSPHORUS Routine 05/05/2022 9:54 AM BEADWORKER MAGNESIUM Routine 05/05/2022 9:54 AM BEADWORKER HEPATIC FUNCTION PANEL Routine 05/05/2022 9:54 AM BEADWORKER CRP INFLAMMATION Routine 05/05/2022 9:54 AM BEADWORKER BASIC METABOLIC PANEL Routine 05/05/2022 9:54 AM BEADWORKER documented in this encounter Results * (ABNORMAL) CBC with Platelets & Differential (05/05/2022 9:54 AM BEADWORKER) WBC Count (External) 12.8(H) 4.5 - 11.0 [...] BLOOD SPECIMEN / Unknown 05/05/2022 9:54 AM BEADWORKER Narrative BREEZE PFT - 05/06/2022 3:21 PM BEADWORKER Verified by Yissel Maharaj on 05/06/2022. Faith Thompson NP LAB - BLOOD ORDERABLES Edited [facility] Performing Organization Address [facility] de Phone Number BREEZE PFT NON-INTERFACED (ONBASE SCANS) * Phosphorus (05/05/2022 9:54 AM BEADWORKER) Phosphorus (External) 2.5 2.3 - 4.7 mg/dL NON-INTERFACED (ONBASE SCANS) Blood BLOOD SPECIMEN / Unknown 05/05/2022 9:54 AM BEADWORKER Narrative BREEZE PFT - 05/06/2022 3:21 PM BEADWORKER Verified by Yissel Maharaj on 05/06/2022. Faith Thompson NP LAB - BLOOD ORDERABLES Edited [facility] Performing Organization Address [facility] de Phone Number BREEZE PFT NON-INTERFACED (ONBASE SCANS) * (ABNORMAL) Magnesium (05/05/2022 9:54 AM BEADWORKER) Magnesium (External) 1.5(L) 1.6 - 2.6 mg/dL NON-INTERFACED (ONBASE SCANS) Blood BLOOD SPECIMEN / Unknown 05/05/2022 9:54 AM BEADWORKER Narrative BREEZE PFT - 05/06/2022 3:21 PM BEADWORKER Verified by Yissel Maharaj on 05/06/2022. Faith Thompson NP LAB - BLOOD ORDERABLES Edited [facility] Final Performing Organization Address [facility] de Phone Number BREEZE PFT NON-INTERFACED (ONBASE SCANS) * (ABNORMAL) CRP inflammation (05/05/2022 9:54 AM BEADWORKER) Pathologist [facility] CRP Inflammation (External) 1.70(H) <0.50 mg/dL NON-INTERFACE D (ONBASE SCANS) Blood BLOOD SPECIMEN / Unknown 05/05/2022 9:54 AM BEADWORKER Narrative ROSE MARY PFT - 05/06/2022 3:21 PM BEADWORKER Verified by Yissel Maharaj on 05/06/2022. us Faith Thompson NP LAB - BLOOD ORDERABLES Edited Re sult - Final ROSE MARY PFBatsheva NON-INTERFACED (ONBASE SCANS) * (ABNORMAL) Basic metabolic panel (05/05/2022 9:54 AM BEADWORKER) [facility] Sodium (External) 139 135 - 145 mmol/L [...] BLOOD SPECIMEN / Unknown 05/05/2022 9:54 AM BEADWORKER Narrative KRISTINEEZE PFT - 05/06/2022 3:21 PM BEADWORKER Verified by Yissel Maharaj on 05/06/2022. Faith Thompson CARRIAGE OPERATOR LAB - BLOOD ORDERABLES Edited Re [facility] ROSE MARY PFT NON-INTERFACED (ONBASE SCANS) * Hepatic function panel (05/05/2022 9:54 AM BEADWORKER) Albumin (External) 3.3 3.2 - 4.6 g/dL [...] BLOOD SPECIMEN / Unknown 05/05/2022 9:54 AM BEADWORKER Narrative ROSE MARY PFT - 05/06/2022 3:21 PM BEADWORKER Verified by Yissel Maharaj on 05/06/2022. Faith Thompson NP LAB - BLOOD ORDERABLES Edited Re [facility] ROSE MARY PFT NON-INTERFACED (ONBASE SCANS) documented in this encounter Visit Diagnoses Not on filedocumented in this encounter Care Teams Slab Stripper Relationship Specialty Start Date End Date Lynette Mena DO [address] [place] [address] PCP - General 03/30/22 Uriel Franco MD [address] [place] [address] [address] [place] [address] Assigned Infectious Disease Provider 05/02/22 12/12/23 documented as of this encounter
--- OUTSIDE RECORDS SUMMARY | 2024-04-14 14:37 | XMS_ITS | Encounter Summary ---
Author Organization [place] Address [address] [facility] [place] [address] Care Team Providers Care Insurance Service Representative Name Role Phone Lynette Mena Primary Care Provider Uriel Franco MD Unavailable [phone] Encounter Details Date Type Department Care Team (Late st Contact Info) Description 04/28/2022 External Order Results [facility] [address] [place] [address] Outside, Provider Social History Tobacco Use Types Packs/Day Years Used Date Smoking Tobacco: Former Cigarettes Alcohol Use Standard Drinks/Week Comments Yes 0 (1 standard drink = 0.6 oz pure alcohol) Once a month 1 beer or 1 glass of 1 Comments No Sex and Gender Information Value Date Recorded Sex Assigned at Not on file Legal Sex Female 5:31 PM MARINE FIRE FIGHTER Gender Identity Not on file Sexual Orientation Not on file documented as of this encounter Plan of Treatment Not on file documented as of this encounter Procedures Procedure Name Priority Date/Time Associated Diagnosis Comments PHOSPHORUS Routine 04/28/2022 8:35 AM MARINE FIRE FIGHTER MAGNESIUM Routine 04/28/2022 8:35 AM MARINE FIRE FIGHTER CRP INFLAMMATION Routine 04/28/2022 8:35 AM MARINE FIRE FIGHTER BASIC METABOLIC PANEL Routine 04/28/2022 8:35 AM MARINE FIRE FIGHTER CBC WITH PLATELETS Routine 04/28/2022 8: 35 AM MARINE FIRE FIGHTER documented in this encounter Results * CRP inflammation (04/28/2022 8:35 AM MARINE FIRE FIGHTER) Pathologist [facility] CRP Inflammation (External) 36.80 See scan mg/L NON-INTERFACE D (ONBASE SCANS) Blood BLOOD SPECIMEN / Unknown 04/28/2022 8:35 AM MARINE FIRE FIGHTER Narrative KRISTINEEZE PFT - 04/29/2022 11:49 AM MARINE FIRE FIGHTER Verified by Anat Stevenson on 04/29/2022. [facility] - BLOOD ORDERABLES Edited Re gailt - Final ROSE MARY PFT NON-INTERFACED (ONBASE SCANS) * (ABNORMAL) CBC with platelets (04/28/2022 8:35 AM MARINE FIRE FIGHTER) Pathologist [facility] [...] BLOOD SPECIMEN / Unknown 04/28/2022 8:35 AM MARINE FIRE FIGHTER Narrative ELIZABETHE PFT - 04/29/2022 11:49 AM MARINE FIRE FIGHTER Verified by Anat Stevenson on 04/29/2022. [facility] - BLOOD ORDERABLES Edited Re sult - Final Performing Organization Address [facility] de Phone Number ROSE MARY PFT NON-INTERFACED (ONBASE SCANS) * Phosphorus (04/28/2022 8:35 AM MARINE FIRE FIGHTER) [facility] Phosphorus (External) 3.2 2.3 - 4.7 mg/dL NON-INTERFACED (ONBASE SCANS) Blood BLOOD SPECIMEN / Unknown 04/28/2022 8:35 AM MARINE FIRE FIGHTER Narrative BREEZE PFT - 04/29/2022 11:49 AM MARINE FIRE FIGHTER Verified by Anat Stevenson on 04/29/2022. [facility] - BLOOD ORDERABLES Edited [facility] Performing Organization Address [facility] Phone Number KRISTINEEZE PFT NON-INTERFACED (ONBASE SCANS) * Magnesium (04/28/2022 8:35 AM MARINE FIRE FIGHTER) [facility] Magnesium (External) 1.6 1.6 - 2.6 mg/dL NON-INTERFACED (ONBASE SCANS) Blood BLOOD SPECIMEN / Unknown 04/28/2022 8:35 AM MARINE FIRE FIGHTER Narrative BREEZE PFT - 04/29/2022 11:49 AM MARINE FIRE FIGHTER Verified by Anat Stevenson on 04/29/2022. [facility] - BLOOD ORDERABLES Edited [facility] Performing Organization Address [facility] Phone Number ELIZABETHE PFT NON-INTERFACED (ONBASE SCANS) * (ABNORMAL) Basic metabolic panel (04/28/2022 8:35 AM MARINE FIRE FIGHTER) [facility] Sodium (External) 141 135 - 145 mmol/L [...] BLOOD SPECIMEN / Unknown 04/28/2022 8:35 AM MARINE FIRE FIGHTER Narrative ROSE MARY PFT - 04/29/2022 11:49 AM MARINE FIRE FIGHTER Verified by Anat Stevenson on 04/29/2022. us [facility] - BLOOD ORDERABLES Edited Re sult - Final ROSE MARY PFT NON-INTERFACED (ONBASE SCANS) documented in this encounter Visit Diagnoses Not on filedocumented in this encounter Care Teams Insurance Service Representative Relationship Specialty Start Date End Date Lynette Mena DO [address] [place] [address] PCP - General 03/30/22 Uriel Franco MD [address] [place] [address] [address] [place] [address] Assigned Infectious Disease Provider 05/02/22 12/12/23 documented as of this encounter
--- OUTSIDE RECORDS SUMMARY | 2024-04-14 14:37 | XMS_ITS | Encounter Summary ---
Author Organization [place] Address [address] [facility] [place] [address] Care Team Providers Care Merchandise Flow Associate Name Role Phone Lynette Mena Primary Care Provider [phone] Uriel Franco MD Unavailable [phone] Encounter Details Date Type Department Care Team (Late st Contact Info) Description 06/02/2022 External Order Results [facility] [address] [place] [address] Outside, Provider Social History Tobacco Use Types Packs/Day Years Used Date Smoking Tobacco: Former Cigarettes Alcohol Use Standard Drinks/Week Comments Yes 0 (1 standard drink = 0.6 oz pure alcohol) Once a month 1 beer or 1 glass of 1 Comments No Sex and Gender Information Value Date Recorded Sex Assigned at Not on file 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 Co de Phone Number BREEZE PFT [...] - Final Performing Organization Address [facility] de Phone Number B[facility]ZE PFT NON-INTERFACED [...] - Final Performing Organization Address [facility] de Phone Number BREEZE PFT NON-INTERFACED [...] metabolic panel (06/02/2022 7:25 AM CDT) Pathologist [facility] Sodium (External) 140 135 - 145 mmol/L [...] [facility] - BLOOD ORDERABLES Edited [facility] Performing Organization Address City/[facility]/ZIP Co de Phone Number ROSE MARY PFT [...] [facility] - BLOOD ORDERABLES Edited [facility] Performing Organization Address City/[facility]/ZIP Co de Phone Number ROSE MARY PFT NON-INTERFACED (ONBASE SCANS) documented in this encounter Visit Diagnoses Not on filedocumented in this encounter Care Teams Merchandise Flow Associate Relationship Specialty Start Date End Date Lynette Mena DO [address] [place] [address] PCP - General 03/30/22 Uriel Franco MD [address] [place] [address] [address] [place] [address] Assigned Infectious Disease Provider 05/02/22 12/12/23 documented as of this encounter
--- OUTSIDE RECORDS SUMMARY | 2024-04-14 14:37 | XMS_ITS | Encounter Summary ---
Author Organization [place] Address [address] [place] [address] Care Team Providers Care Health Information Director Name Role Phone Lynette Mena Primary Care Provider [phone] Uriel Franco MD Unavailable [phone] Encounter Details Date Type Department Care Team (Late st Contact Info) Description 04/14/2022 External Order Results [facility] [address] [place] [address] Outside, Provider Social History Tobacco Use Types Packs/Day Years Used Date Smoking Tobacco: Former Cigarettes Alcohol Use Standard Drinks/Week Comments Yes 0 (1 standard drink = 0.6 oz pure alcohol) Once a month 1 beer or 1 glass of 1 Comments No Sex and Gender Information Value Date Recorded Sex Assigned at Not on file 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 Gender Identity Not on file Sexual Orientation Not on file documented as of this encounter Plan of Treatment Not on file documented as of this encounter Procedures Procedure Name Priority Date/Time Associated Diagnosis Comments POTASSIUM Routine 04/14/2022 7:57 AM FARM MACHINERY MECHANIC PHOSPHORUS Routine 04/14/2022 7:57 AM FARM MACHINERY MECHANIC MAGNESIUM Routine 04/14/2022 7:57 AM FARM MACHINERY MECHANIC CRP INFLAMMATION Routine 04/14/2022 7:57 AM FARM MACHINERY MECHANIC CBC WITH PLATELETS Routine 04/14/2022 7: 57 AM FARM MACHINERY MECHANIC documented in this encounter Results * CRP inflammation (04/14/2022 7:57 AM FARM MACHINERY MECHANIC) CRP Inflammation (External) 45.50 mg/L NON-INTERFACE D (ONBASE SCANS) Blood BLOOD SPECIMEN / Unknown 04/14/2022 7:57 AM FARM MACHINERY MECHANIC Narrative ROSE MARY PFT - 04/16/2022 8:59 AM FARM MACHINERY MECHANIC Verified by Maisha Lopez on 04/16/2022. [facility] - BLOOD ORDERABLES Edited Re gailt - Final ROSE MARY PFT NON-INTERFACED (ONBASE SCANS) * (ABNORMAL) CBC with platelets (04/14/2022 7:57 AM FARM MACHINERY MECHANIC) [facility] WBC Count (External) 8.4 4.5 - 11.0 [...] BLOOD SPECIMEN / Unknown 04/14/2022 7:57 AM FARM MACHINERY MECHANIC Narrative ROSE MARY PFT - 04/16/2022 8:58 AM FARM MACHINERY MECHANIC Verified by Maisha Lopez on 04/16/2022. [facility] - BLOOD ORDERABLES Edited Re sult - Final Performing Organization Address [facility] de Phone Number BREEZE PFT NON-INTERFACED (ONBASE SCANS) * Potassium (04/14/2022 7:57 AM FARM MACHINERY MECHANIC) Potassium (External) 3.6 3.5 - 5.1 mmol/L NON-INTERFACED (ONBASE SCANS) Blood BLOOD SPECIMEN / Unknown 04/14/2022 7:57 AM FARM MACHINERY MECHANIC Narrative B[facility]ZE PFT - 04/16/2022 8:58 AM FARM MACHINERY MECHANIC Verified by Maisha Lopez on 04/16/2022. [facility] - BLOOD ORDERABLES Edited [facility] Performing Organization Address [facility] Phone Number BREEZE PFT NON-INTERFACED (ONBASE SCANS) * Phosphorus (04/14/2022 7:57 AM FARM MACHINERY MECHANIC) Phosphorus (External) 3.2 2.5 - 4.5 mg/dL NON-INTERFACED (ONBASE SCANS) Blood BLOOD SPECIMEN / Unknown 04/14/2022 7:57 AM FARM MACHINERY MECHANIC Narrative BREEZE PFT - 04/16/2022 8:58 AM FARM MACHINERY MECHANIC Verified by Maisha Lopez on 04/16/2022. [facility] - BLOOD ORDERABLES Edited [facility] Performing Organization Address [facility] Phone Number BREEZE PFT NON-INTERFACED (ONBASE SCANS) * Magnesium (04/14/2022 7:57 AM FARM MACHINERY MECHANIC) Magnesium (External) 1.6 1.6 - 2.4 mg/dL NON-INTERFACED (ONBASE SCANS) Blood BLOOD SPECIMEN / Unknown 04/14/2022 7:57 AM FARM MACHINERY MECHANIC Narrative BREEZE PFT - 04/16/2022 8:58 AM FARM MACHINERY MECHANIC Verified by Maisha Lopez on 04/16/2022. [facility] - BLOOD ORDERABLES Edited Re sult - Final BREEZE PFT NON-INTERFACED (ONBASE SCANS) documented in this encounter Visit Diagnoses Not on filedocumented in this encounter Additional Health Concerns Infection Onset Date Last Indicated Resolved Time RSV 04/12/2022 04/12/2022 04/19/2022 11:3 9 PM FARM MACHINERY MECHANIC documented as of this encounter Care Teams Health Information Director Relationship Specialty Start Date End Date Lynette Mena DO [address] [place] [id number] PCP - General 03/30/22 Uriel Franco MD [address] [place] [address] [address] [place] [address] Assigned Infectious Disease Provider 05/02/22 12/12/23 documented as of this encounter
--- OUTSIDE RECORDS SUMMARY | 2024-04-14 14:37 | XMS_ITS | Encounter Summary ---
Author Organization [place] Address [address] [facility] [place] [address] Care Team Providers Care Broadcasting Equipment Mechanic Name Role Phone Lynette Mena Primary Care Provider [phone] Uriel Franco MD Unavailable [phone] Encounter Details Date Type Department Care Team (Late st Contact Info) Description 05/26/2022 External Order Results [facility] [address] [place] [address] Outside, Provider Social History Tobacco Use Types Packs/Day Years Used Date Smoking Tobacco: Former Cigarettes Alcohol Use Standard Drinks/Week Comments Yes 0 (1 standard drink = 0.6 oz pure alcohol) Once a month 1 beer or 1 glass of 1 Comments No Sex and Gender Information Value Date Recorded Sex Assigned at Not on file Legal Sex Female 5:31 PM TRANSPORTATION DEPARTMENT SUPERVISOR Gender Identity Not on file Sexual Orientation Not on file documented as of this encounter Plan of Treatment Not on file documented as of this encounter Procedures Procedure Name Priority Date/Time Associated Diagnosis Comments CBC WITH PLATELETS & DIFFERENTIAL Routine 05/26/2022 7:22 AM TRANSPORTATION DEPARTMENT SUPERVISOR PHOSPHORUS Routine 05/26/2022 7:22 AM TRANSPORTATION DEPARTMENT SUPERVISOR MAGNESIUM Routine 05/26/2022 7:22 AM TRANSPORTATION DEPARTMENT SUPERVISOR HEPATIC FUNCTION PANEL Routine 05/26/2022 7:22 AM TRANSPORTATION DEPARTMENT SUPERVISOR CRP INFLAMMATION Routine 05/26/2022 7:22 AM TRANSPORTATION DEPARTMENT SUPERVISOR BASIC METABOLIC PANEL Routine 05/26/2022 7:22 AM TRANSPORTATION DEPARTMENT SUPERVISOR documented in this encounter Results * (ABNORMAL) CBC with Platelets & Differential (05/26/2022 7:22 AM TRANSPORTATION DEPARTMENT SUPERVISOR) WBC Count (External) 8.9 4.5 - 11.0 [...] BLOOD SPECIMEN / Unknown 05/26/2022 7:22 AM TRANSPORTATION DEPARTMENT SUPERVISOR Narrative [facility] - 05/26/2022 3:32 PM TRANSPORTATION DEPARTMENT SUPERVISOR Verified by Maisha Lopez on 05/26/2022. [facility] - BLOOD ORDERABLES Edited Re sult - Final BREEZE PFT NON-INTERFACED (ONBASE SCANS) * Phosphorus (05/26/2022 7:22 AM TRANSPORTATION DEPARTMENT SUPERVISOR) Phosphorus (External) 3.1 2.3 - 4.7 mg/dL NON-INTERFACED (ONBASE SCANS) Blood BLOOD SPECIMEN / Unknown 05/26/2022 7:22 AM TRANSPORTATION DEPARTMENT SUPERVISOR Narrative B[facility]ZE PFT - 05/26/2022 3:23 PM TRANSPORTATION DEPARTMENT SUPERVISOR Verified by Yissel Maharaj on 05/26/2022. [facility] - BLOOD ORDERABLES Edited Re sult [facility] Performing Organization Address [facility] Co de Phone Number BREEZE PFT NON-INTERFACED (ONBASE SCANS) * Magnesium (05/26/2022 7:22 AM TRANSPORTATION DEPARTMENT SUPERVISOR) Magnesium (External) 1.6 1.6 - 2.6 mg/dl NON-INTERFACED (ONBASE SCANS) Blood BLOOD SPECIMEN / Unknown 05/26/2022 7:22 AM TRANSPORTATION DEPARTMENT SUPERVISOR Narrative B[facility]ZE PFT - 05/26/2022 3:23 PM TRANSPORTATION DEPARTMENT SUPERVISOR Verified by Yissel Maharaj on 05/26/2022. [facility] - BLOOD ORDERABLES Edited Re sult - Final BREEZE PFT NON-INTERFACED (ONBASE SCANS) * CRP inflammation (05/26/2022 7:22 AM TRANSPORTATION DEPARTMENT SUPERVISOR) Pathologist [facility] CRP Inflammation (External) 0.46 <0.50 mg/dL NON-INTERFACE D (ONBASE SCANS) Blood BLOOD SPECIMEN / Unknown 05/26/2022 7:22 AM TRANSPORTATION DEPARTMENT SUPERVISOR Narrative ROSE MARY PFT - 05/26/2022 3:23 PM TRANSPORTATION DEPARTMENT SUPERVISOR Verified by Yissel Maharaj on 05/26/2022. us [facility] - BLOOD ORDERABLES Edited Re sult - Final ROSE MARY PFBatsheva NON-INTERFACED (ONBASE SCANS) * (ABNORMAL) Basic metabolic panel (05/26/2022 7:22 AM TRANSPORTATION DEPARTMENT SUPERVISOR) Pathologist [facility] Sodium (External) 139 135 - [...] BLOOD SPECIMEN / Unknown 05/26/2022 7:22 AM TRANSPORTATION DEPARTMENT SUPERVISOR Narrative ELIZABETHE PFT - 05/26/2022 3:23 PM TRANSPORTATION DEPARTMENT SUPERVISOR Verified by Yissel Maharaj on 05/26/2022. [facility] - BLOOD ORDERABLES Edited [facility] ROSE MARY PFT NON-INTERFACED (ONBASE SCANS) * Hepatic function panel (05/26/2022 7:22 AM TRANSPORTATION DEPARTMENT SUPERVISOR) Albumin (External) 3.5 3.2 - 4.6 g/dL [...] BLOOD SPECIMEN / Unknown 05/26/2022 7:22 AM TRANSPORTATION DEPARTMENT SUPERVISOR Narrative ROSE MARY PFT - 05/26/2022 3:23 PM TRANSPORTATION DEPARTMENT SUPERVISOR Verified by Yissel Maharaj on 05/26/2022. [facility] - BLOOD ORDERABLES Edited Re [facility] ROSE MARY PFT NON-INTERFACED (ONBASE SCANS) documented in this encounter Visit Diagnoses Not on filedocumented in this encounter Care Teams Broadcasting Equipment Mechanic Relationship Specialty Start Date End Date Lynette Mena DO [address] [place] [id number] PCP - General 03/30/22 Uriel Franco MD [address] [place] [address] [address] [place] [address] Assigned Infectious Disease Provider 05/02/22 12/12/23 documented as of this encounter
[2024-04-14 14:45] LABS: Basophils Percent Auto 0.1 % (0.0-3.0); Hematocrit 30.2 % (33.0-51.0); Hemoglobin* 9.3 gm/dL (12.0-16.0); Immature Granulocytes Pct Auto 1.1 %; Lymphocytes Percent Auto 3.1 % (20-44); Mean Corpuscular HGB Conc 31 gm/dL (32-36); Mean Corpuscular Hemoglobin 30 pg (26-34); Mean Corpuscular Volume 98 fL (80-100); Monocytes Percent Auto 2.5 % (0.0-11.0); Neutrophils Percent Auto 93.2 % (42.0-72.0); Platelet Count* 456 K/uL (140-440); RDW Coefficient of Variation % 16.7 % (11.5-15.5); Red Blood Count 3.09 m/uL (4.00-5.20); White Blood Count* 11.56 K/uL (4.50-11.00)
[2024-04-14 14:47] LABS: Slide Review Reflex No
[2024-04-14 14:54] LABS: Chloride* 103 mmol/L (96-114); Sodium* 137 mmol/L (135-149)
[2024-04-14 14:55] LABS: Potassium* 4.6 mmol/L (3.6-5.1)
[2024-04-14 14:57] LABS: Creatinine* 1.1 mg/dL (0.5-1.5); Est. Creatinine Clearance* 37.55; Estimated Glomerular Filt Rate 50 ml/min
[2024-04-14 14:58] LABS: Anion Gap 9 mEq/L (7-15); Blood Urea Nitrogen* 43 mg/dL (7-30); Calcium* 8.9 mg/dL (8.4-10.6); Carbon Dioxide* 25 mmol/L (20-32); Glucose* 193 mg/dL (60-115)
[2024-04-14 15:33] LABS: Appearance Urine Cloudy (Clear); Bilirubin Urine Negative (Negative); Blood Urine 3+ (Negative); Color Urine Yellow (Yellow); Glucose Urine Negative (Negative); Ketones Urine Negative (Negative); Leukocyte Esterase Urine 3+ (Negative); Nitrite Urine Negative (Negative); Protein Urine 1+ (Negative); Specific Gravity Urine 1.015 (1.000-1.030); Urobilinogen Urine 0.2 (0.2-1.0); pH Urine 6.5 (5.0-8.5)
--- NOTE | 2024-04-14 15:55 | ED_ITS ---
HPI - General Adult General Date Seen: 04/14/24 Chief complaint: Vaginal Bleeding Stated complaint: Vaginal Bleeding Time Seen by Provider: 04/14/24 14:06 Source: patient and EMS Mode of arrival: EMS Limitations: no limitations History of Present Illness HPI narrative: Patient is an 83-year-old female presenting to the emergency department for vaginal bleeding. She states she usually has some spotting which she has seen OB for but noticed today her pad was full of bright red blood. She states that is very abnormal for her so her skilled nursing sent her to the emergency department. 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 After further discussion eventually found out she has had a previous hysterectomy and has a rectovaginal fistula. Denies any pain at this time. Denies lightheadedness, dizziness, fevers, chills, weakness, numbness, abdominal pain, diarrhea, constipation. Has not noticed any blood in her stool. States she feels otherwise fine and just wants to go back to her home. No other concerns noted Related Data Home Medications ?Medication ?Instructions ?Recorded ?Confirmed latanoprost 0.005 % eye drops 1 drp ophthalmic (eye) HS 12/18/21 04/05/24 potassium chloride 20 mEq 40 meq PO TID 12/18/21 04/05/24 tablet,extended release timolol 0.25 % eye drops 1 drp ophthalmic (eye) BID 03/28/22 04/05/24 tramadol 50 mg tablet 50 mg PO Q4H PRN 09/09/22 04/05/24 acetaminophen 650 mg 1,300 mg PO Q12H 11/30/22 04/05/24 tablet,extended release allopurinol 100 mg tablet 200 mg PO DAILY 11/30/22 04/05/24 denosumab 60 mg/mL subcutaneous 60 mg subcut [id number] 11/30/22 04/05/24 syringe 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 11/30/22 04/05/24 torsemide 20 mg tablet 40 mg PO BID 12/14/22 04/05/24 tramadol 50 mg tablet 50 mg PO QDAY 02/22/24 04/05/24 amoxicillin 500 mg capsule 2,000 mg PO ONCE PRN 12/06/24 01/15/25 ergocalciferol (vitamin D2) 1,250 1,250 mcg PO QWEEK 02/25/24 04/05/24 mcg (50,000 unit) capsule (Vitamin D2) metolazone 2.5 mg tablet 2.5 mg PO QDAY PRN 02/25/24 04/05/24 nystatin 100,000 unit/gram topical 1 applic topical BID-TID 02/25/24 04/05/24 powder (Nystop) aspirin 81 mg tablet,delayed 81 mg PO DAILY 04/03/24 04/05/24 release (Adult Aspirin Regimen) Previous Rx's ?Medication ?Instructions ?Recorded prednisone 20 mg tablet 80 mg (4 x 20 mg) PO DAILY 3 weeks 04/03/24 #84 tabs Allergies Allergy/AdvReac Type Severity Reaction Status Date / Time acetaminophen (From Percocet) Allergy Intermediate Agitated Verified 04/05/24 09:52 oxycodone AdvReac Severe Dizzy Verified 04/05/24 09:52 procaine AdvReac Severe Combative Verified 04/05/24 09:52 codeine AdvReac Unknown Nausea, Verified 04/05/24 09:52 Dizzy Review of Systems Status of ROS: Reports: 10 or more systems reviewed and unremarkable except as noted in History and below [facility] Medical History Breast cancer, left breast (2000) ?C50.912 - Malignant neoplasm of unspecified site of left female breast (ICD- 10) POLST (Physician Orders for Life-Sustaining Treatment) ?Z78.9 - Other specified health status (ICD-10) Normal echocardiogram Left anterior fascicular block ?I44.4 - Left anterior fascicular block (ICD-10) Spinal stenosis of lumbar region without neurogenic claudication ?M48.061 - Spinal stenosis, lumbar region without neurogenic claudication (ICD-10) Health care maintenance ?Z00.00 - Encounter for general adult medical examination without abnormal findings (ICD-10) Tricuspid insufficiency ?I07.1 - Rheumatic tricuspid insufficiency (ICD-10) Venous insufficiency of both lower extremities ?I87.2 - Venous insufficiency (chronic) (peripheral) (ICD-10) Squamous cell carcinoma in situ (SCCIS) of skin ?D04.9 - Carcinoma in situ of skin, unspecified (ICD-10) HTN (hypertension) ?I10 - Essential (primary) hypertension (ICD-10) History of malignant neoplasm of breast ?Z85.3 - Personal history of malignant neoplasm of breast (ICD-10) Vitamin D deficiency ?E55.9 - Vitamin D deficiency, unspecified (ICD-10) Gout ?M10.9 - Gout, unspecified (ICD-10) Hyperuricemia ?E79.0 - Hyperuricemia without signs of inflammatory arthritis and tophaceous disease (ICD-10) Lumbar degenerative disc disease ?M51.36 - Other intervertebral disc degeneration, lumbar region (ICD-10) Glaucoma ?H40.9 - Unspecified glaucoma (ICD-10) Nephrosclerosis ?I12.9 - Hypertensive chronic kidney disease with stage 1 through stage 4 chronic kidney disease, or unspecified chronic kidney disease (ICD-10) Chronic kidney disease, stage 3 ?N18.30 - Chronic kidney disease, stage 3 unspecified (ICD-10) Surgical History History of incision and drainage (~03/2022) ?Z98.890 - Other specified postprocedural states (ICD-10) History of appendectomy ?Z90.49 - Acquired absence of other specified parts of digestive tract (ICD- 10) S/P tendon repair ?Z98.890 - Other specified postprocedural states (ICD-10) S/P tubal ligation ?Z98.51 - Tubal ligation status (ICD-10) H/O hernia repair ?Z98.890 - Other specified postprocedural states (ICD-10) ?Z87.19 - Personal history of other diseases of the digestive system (ICD-10) History of lumpectomy of left breast ?Z98.890 - Other specified postprocedural states (ICD-10) History of hysterectomy for benign disease ?Z90.710 - Acquired absence of both cervix and uterus (ICD-10) Status post hysterectomy ?Z90.710 - Acquired absence of both cervix and uterus (ICD-10) 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 Glass of wine or a beer once a month. No recreational drugs. FULL CODE. Highest level of school completed/degree received: high school graduate Smoking Status: Former smoker Do you use any of these nicotine containing products: None Second hand tobacco smoke exposure: No How often do you have a drink containing alcohol: never AUDIT-C Alcohol total score: 0 Non-prescribed substance use: denies use Caffeine: No service: No Exam Narrative: Exam Narrative: Const: Well-nourished, Well-developed, in no distress Eyes: PERRL, no conjunctival injection, and symmetrical lids HENT: Atraumatic external nose and ears. Moist mucous membranes. Neck: Symmetric, trachea midline, No thyromegaly. CVS: RRR, No murmurs or gallops. Peripheral pulses 2+ and equal in all extremities RESP: Unlabored respiratory effort. Clear to auscultation bilaterally. GI: Nontender/Nondistended, No rebound or guarding. MSK:Extremities w/o deformity, Normal Active ROM Skin: Warm, Dry. No rashes or lesions. Neuro: Normal Muscle tone, No focal neurological deficits. Psych: Awake, Alert, & Oriented x3. Appropriate mood and affect. Const: Vital Signs, click to edit/add: Vital Signs - 24 hr 04/14/24 13:52 04/14/24 17:53 04/14/24 18:12 Temperature 96.3 F L 97.4 F L Pulse Rate [Left R adial] 73 69 85 Respiratory Rate 16 18 18 Blood Pressure [Ri ght Upper Arm] 123/68 129/77 129/77 Pulse Oximetry 96 96 96 Oxygen Delivery Me thod Room Air Room Air Room Air 04/14/24 20:17 Temperature Pulse Rate [Left R adial] 88 Respiratory Rate 18 Blood Pressure [Ri ght Upper Arm] 122/79 Pulse Oximetry 96 Oxygen Delivery Me thod Course Vital Signs Vital signs: Initial Vital Signs Temperature 96.3 F L 04/14/24 13:52 Temperature Source Temporal Artery Scan 04/14/24 13:52 Pulse Rate 73 04/14/24 13:52 Pulse Rhythm Regular 04/14/24 13:52 Respiratory Rate 16 04/14/24 13:52 Blood Pressure 123/68 04/14/24 13:52 Blood Pressure Mean 86 04/14/24 13:52 Pulse Oximetry 96 04/14/24 13:52 Oxygen Delivery Method Room Air 04/14/24 13:52 Vital Signs Temperature 96.3 F L 04/14/24 13:52 Pulse Rate 73 04/14/24 13:52 Respiratory Rate 16 04/14/24 13:52 Blood Pressure 123/68 04/14/24 13:52 Pulse Oximetry 96 04/14/24 13:52 Oxygen Delivery Method Room Air 04/14/24 13:52 Temperature 97.4 F L 04/14/24 17:53 Pulse Rate 88 04/14/24 20:17 Respiratory Rate 18 04/14/24 20:17 Blood Pressure 122/79 04/14/24 20:17 Pulse Oximetry 96 04/14/24 20:17 Oxygen Delivery Method Room Air 04/14/24 18:12 Medications Administered Medications: Discontinued Medications Generic Name Dose Route Start Last Admin Trade Name Freq PRN Reason Stop Dose Admin Ketorolac Tromethamine 30 mg 04/14/24 15:35 04/14/24 15:40 Ketorolac 30 Mg/Ml Inj IM 04/14/24 15:36 Not Given ONCE ONE Medical Decision Making [facility] Narrative Medical decision making narrative: Patient is an 83-year-old female presenting for bleeding. Unsure if this is coming vaginally or rectally. Initially was unaware of the rectal vaginal fistula and hysterectomy so an ultrasound was ordered. That was later canceled once I was able to get more information. When I am doing a CT scan for better evaluation of the bleeding. Will also order CBC, BMP, urinalysis for better evaluation. The patient's lab work returned showing show no concerning abnormalities other than a slightly low reason she hemoglobin at 9.3 but this is relatively within her baseline. Urinalysis may show a UTI and she is stool occult positive. CT scan returned showing a she large abscess about 11.5 cm adjacent to the sigmoid colon. There is also air fluid levels within the vagina consistent with a colovesical fistula. Fistula is known. Also nonspecific short segment wall thickening of the sigmoid colon. Is recommended for surgical consult. I spoke to the on-call surgeon here, Dr. Boswell, she recommends that the patient gets transferred for IR for drainage. I ended up speaking to Dr. Zuniga of colorectal surgery of [facility] and she states she this patient will need transferred but since the patient may not want surgery she will consult. Of note I did speak to this patient and she is open to drainage but is very hesitant for any still significant surgeries. Will start her on broad-spectrum antibiotic including Zosyn, vanco, Flagyl and. Is important to note the patient is currently on chronic high-dose steroids for possible temporal arteritis noted a couple weeks ago. 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 Her ESR and CRP are elevated so she was placed on high-dose steroids at this time was post a follow-up to make sure she has some the stop the steroids. As far as I can tell she has not had any follow-up other than with General surgery for a biopsy that she ended up refusing. So she is currently still on high dose steroids. Lab Data Labs: Lab Results 04/14/24 04/14/24 04/14/24 Range/Units 14:32 15:26 17:44 WBC 11.56 H (4.50-11.00) K/uL RBC 3.09 L (4.00-5.20) m/uL Hgb 9.3 L (12.0-16.0) gm/dL Hct 30.2 L (33.0-51.0) % MCV 98 (80-100) fL MCH 30 (26-34) pg MCHC 31 L (32-36) gm/dL RDW Coeff of [place] 16.7 H (11.5-15.5) % Plt Count 456 H (140-440) K/uL Neut % (Auto) 93.2 H (42.0-72.0) % Lymph % (Auto) 3.1 L (20-44) % Towner % (Auto) 2.5 (0.0-11.0) % Eos % (Auto) 0.0 (0.0-7.0) % Baso % (Auto) 0.1 (0.0-3.0) % Neut # (Auto) 10.80 H (1.7-7.0) K/uL Lymph # (Auto) 0.40 L (0.90-2.90) K/uL Towner # (Auto) 0.30 (0.00-0.90) K/UL Eos # (Auto) 0.00 (0.00-0.50) K/uL Baso # (Auto) 0.00 (0.00-0.30) K/uL Abs Immat Gran (auto) 0.10 (0.00-0.30) K/uL Imm/Tot Granulo (auto) 1.1 % Sodium 137 (135-149) mmol/L Potassium 4.6 (3.6-5.1) mmol/L Chloride 103 (96-114) mmol/L Carbon Dioxide 25 (20-32) mmol/L Anion Gap 9 (7-15) mEq/L BUN 43 H (7-30) mg/dL Creatinine 1.1 (0.5-1.5) mg/dL Estimated Creat Clear 37.55 Estimated GFR 50 ml/min Glucose 193 H (60-115) mg/dL Calcium 8.9 (8.4-10.6) mg/dL Urine Color Yellow (Yellow) Urine Appearance Cloudy A (Clear) Urine pH 6.5 (5.0-8.5) Ur Specific [place] 1.015 (1.000-1.030) Urine Protein 1+ A (Negative) Urine Glucose (UA) Negative (Negative) Urine Ketones Negative (Negative) Urine Blood 3+ A (Negative) Urine Nitrite Negative (Negative) Urine Bilirubin Negative (Negative) Urine Urobilinogen 0.2 (0.2-1.0) Ur Leukocyte Esterase 3+ A (Negative) Urine RBC 5-10 A (0-2) Urine WBC 25-50 A (0-5) Urine WBC Clumps Moderate A (None) Ur Squamous Epith Cells None (None-Few) Urine Bacteria Many A (None) Stool Occult Blood Positive A (Negative) Imaging Data CTA abdomen and pelvis: Attestation: I have reviewed the pertinent imaging results. Radiologist's impression: 1. No active bleeding is identified. 2. There is a large circumscribed peripherally enhancing fluid and gas containing pericolic abscess adjacent to the sigmoid colon measuring approximately 11.5 cm in greatest axial dimension (series 11; image 136). Surgical consultation is advised. 3. Air and fluid are present within the vagina consistent with a colovesical fistula. Again, surgical consultation is advised. 4. Nonspecific short segmental wall thickening of the sigmoid colon spanning a length of approximately 7.6 cm (5; 188). This could be due to edema and/or muscular hypertrophy (myochosis coli) in the setting of chronic underlying diverticular disease. However, this appearance is nonspecific and differential diagnostic considerations include neoplastic disease. 5. These findings are superimposed on a background of extensive and severe diverticulosis of the sigmoid colon. 6. Incidental findings as above. Please note that all CT scans at this facility use dose modulation, iterative reconstruction, and/or weight-based dosing when appropriate to reduce radiation dose to as low as reasonably achievable. Dictated by Jim Dumas MD @ 04/14/2024 5:36:43 PM Discharge Plan Discharge Clinical Impression: Abscess of female pelvis Patient Disposition: Xfer Other Condition: Stable Prescriptions: No Action allopurinol 100 mg tablet 200 mg PO DAILY denosumab 60 mg/mL syringe 60 mg subcut [id number] prednisone 5 mg tablet 5 mg PO DAILY acetaminophen 650 mg tablet extended release 1,300 mg PO Q12H ergocalciferol (vitamin D2) [Vitamin D2] 1,250 mcg (50,000 unit) capsule 1,250 mcg PO QWEEK torsemide 20 mg tablet 40 mg PO BID metolazone 2.5 mg tablet 2.5 mg PO QDAY PRN tramadol 50 mg tablet 50 mg PO QDAY amoxicillin 500 mg capsule 2,000 mg PO ONCE PRN Rx Instructions: Give 2000mg po one time prior to dental procedure nystatin [Nystop] 100,000 unit/gram powder 1 applic topical BID-TID timolol 0.25 % drops 1 drp ophthalmic (eye) BID aspirin [Adult Aspirin Regimen] 81 mg tablet,delayed release (DR/EC) 81 mg PO DAILY prednisone 20 mg tablet 80 mg PO DAILY 21 Days Qty: 84 2RF tramadol 50 mg tablet 50 mg PO Q4H PRN potassium chloride 20 mEq tablet extended release 40 meq PO TID latanoprost 0.005 % drops 1 drp ophthalmic (eye) HS Stand Alone Forms: My[facility] Info Instructions
--- NOTE | 2024-04-14 15:58 | CRLHL7_ITS ---
For Patients: As a result of the 21st Century Cures Act, medical imaging exams and procedure reports are released immediately into your electronic medical record. You may view this report before your referring provider. If you have questions, please contact your health care provider. INDICATION: Lower abdominal pain. Vaginal bleeding. From the IMPRESSION of the MRI report from the examination dated 02/29/2024: Diverticulitis involving the midsigmoid colon abuts the vaginal cuff likely causing a colo-vaginal fistula. COMPARISON: MRI 02/29/2024 TECHNIQUE: Dual phase CT angiography of the abdomen and pelvis prior to and following administration of 100 cc of Isovue 370 intravenous contrast. Postcontrast imaging acquired in the systemic arterial and portal venous phases. Please note that all CT scans at this facility use dose modulation, iterative reconstruction, and/or weight-based dosing when appropriate to reduce radiation dose to as low as reasonably achievable. FINDINGS: ABDOMEN Liver: Normal contour and attenuation. No suspicious focal lesion. 1.7 cm (5; 28). Segment 7 right hepatic lobe hemangioma with discontinuous peripheral nodular enhancement and fills in completely on the delayed postcontrast study. Widely scattered small simple cysts are seen elsewhere within the liver. No intrahepatic biliary ductal dilatation. Patent portal veins. Patent hepatic veins. Gallbladder: Normal size. No pericholecystic inflammatory changes. Normal common duct caliber. Pancreas: Normal contour and attenuation. No peripancreatic inflammatory changes. No significant focal lesion. Normal main duct caliber. Spleen: Not enlarged. No significant focal lesion. Patent splenic artery and vein. Adrenal Glands: Symmetrical adrenal glands. No significant focal lesion. Kidneys: Normal bilateral renal attenuation. No significant focal lesion. Bilateral uncomplicated renal cortical cysts. 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 No nephrolith. No dilatation of the intrarenal collecting systems. No ureteral stone. Nondilated ureters. Patent renal arteries and veins. Gastrointestinal tract: No active bleeding. There is a large circumscribed peripherally enhancing fluid and gas containing pericolic abscess adjacent to the sigmoid colon measuring approximately 11.5 cm in greatest axial dimension (series 11; image 136). Air and fluid are present within the vagina consistent with a colovesical fistula. Nonspecific short segmental wall thickening of the sigmoid colon spanning a length of approximately 7.6 cm (5; 188). This could be due to edema and/or muscular hypertrophy (myochosis coli) in the setting of chronic underlying diverticular disease. However, this appearance is nonspecific and differential diagnostic considerations include neoplastic disease. These findings are superimposed on a background of extensive and severe diverticulosis of the sigmoid colon. Diverticulosis is seen elsewhere throughout the left colon. Unseen appendix without signs of acute appendicitis. Vascular: Chronic aortoiliac atherosclerotic mural calcification. Abdominal aorta and its major proximal branches including the celiac, superior mesenteric, inferior mesenteric, renal, and bilateral common iliac arteries are patent. Patent superior mesenteric vein. Peritoneal Cavity/Retroperitoneum: No ascites. No adenopathy. Asymmetrical right iliopsoas atrophy. PELVIS No bladder lesion is identified. Hysterectomy. No ascites. No adenopathy. SKELETON AND BODY WALL Diffuse thoracolumbar spondylosis. Dextroconvex curvature of the lumbar spine. Right hip arthroplasty. LOWER THORAX Posterior segment right lower lobe subsegmental atelectasis or nonspecific minor fibrosis. Right fat containing Bochdalek hernia. IMPRESSION: 1. No active bleeding is identified. 2. There is a large circumscribed peripherally enhancing fluid and gas containing pericolic abscess adjacent to the sigmoid colon measuring approximately 11.5 cm in greatest axial dimension (series 11; image 136). Surgical consultation is advised. 3. Air and fluid are present within the vagina consistent with a colovesical fistula. Again, surgical consultation is advised. 4. Nonspecific short segmental wall thickening of the sigmoid colon spanning a length of approximately 7.6 cm (5; 188). This could be due to edema and/or muscular hypertrophy (myochosis coli) in the setting of chronic underlying diverticular disease. However, this appearance is nonspecific and differential diagnostic considerations include neoplastic disease. 5. These findings are superimposed on a background of extensive and severe diverticulosis of the sigmoid colon. 6. Incidental findings as above. Please note that all CT scans at this facility use dose modulation, iterative reconstruction, and/or weight-based dosing when appropriate to reduce radiation dose to as low as reasonably achievable. Dictated by Jim Dumas MD @ 04/14/2024 5:36:43 PM (Electronically Signed)
[2024-04-14 16:25] LABS: Bacteria Urine Many; WBC Clumps Urine Moderate; WBC Urine 25-50 (0-5)
[2024-04-14 17:53] VITALS: BP 129/77; PULSE 69; RESP 18; TEMP 36.3; O2SAT 96
[2024-04-14 18:12] VITALS: BP 129/77; PULSE 85; RESP 18; O2SAT 96
[2024-04-14 18:55] LABS: Fecal Occult Blood* Positive (Negative)
[2024-04-14 20:17] VITALS: BP 122/79; PULSE 88; RESP 18; O2SAT 96
[2024-04-14] MEDS: VANCOMYCIN 1.5 GM/300 ML 1.5 GM/300 ML PIGGYBACK IVPB (20:46)
[2024-04-14] MEDS: PIPERACILLIN/TAZOBACTAM 3.375 GM in 0.9 % SODIUM CHLORIDE Mini-bag 100 ML IVPB (20:46)
[2024-04-14] MEDS: metroNIDAZOLE 500 MG/100 ML PIGGYBACK 100 MG IVPB (20:46)
[2024-04-14 22:15] VITALS: BP 122/67; PULSE 66; RESP 16; O2SAT 95
[2024-04-15] VITALS (10 sets, daily range): BP systolic 108–135; BP diastolic 56–73; PULSE 62–89; RESP 16–22; TEMP 36.8; O2SAT 92–99
[2024-04-15] MEDS: PIPERACILLIN/TAZOBACTAM 3.375 GM in 0.9 % SODIUM CHLORIDE Mini-bag 100 ML IVPB ×3 (02:29→09:49)
[2024-04-15] MEDS: predniSONE 20 MG TABLET 40 MG PO (09:03)
[2024-04-15 14:42] LABS: Hematocrit 29.5 % (33.0-51.0); Hemoglobin* 9.1 gm/dL (12.0-16.0); Immature Granulocytes Pct Auto 2.1 %; Lymphocytes Percent Auto 2.6 % (20-44); Mean Corpuscular HGB Conc 31 gm/dL (32-36); Mean Corpuscular Hemoglobin 30 pg (26-34); Mean Corpuscular Volume 98 fL (80-100); Monocytes Percent Auto 2.9 % (0.0-11.0); Neutrophils Percent Auto 92.4 % (42.0-72.0); Platelet Count* 405 K/uL (140-440); RDW Coefficient of Variation % 16.8 % (11.5-15.5); Red Blood Count 3.02 m/uL (4.00-5.20); White Blood Count* 13.84 K/uL (4.50-11.00)
[2024-04-15 14:46] LABS: Slide Review Reflex No
[2024-04-15 15:00] LABS: Chloride* 109 mmol/L (96-114); Potassium* 3.7 mmol/L (3.6-5.1); Sodium* 138 mmol/L (135-149)
[2024-04-15 15:03] LABS: Anion Gap 7 mEq/L (7-15); Blood Urea Nitrogen* 30 mg/dL (7-30); Carbon Dioxide* 22 mmol/L (20-32); Creatinine* 1.2 mg/dL (0.5-1.5); Est. Creatinine Clearance* 34.42; Estimated Glomerular Filt Rate 45 ml/min
[2024-04-15 15:04] LABS: Calcium* 8.4 mg/dL (8.4-10.6); Glucose* 156 mg/dL (60-115)
[2024-04-15 15:06] LABS: C Reactive Protein* 4.6 mg/dL (0.5-1.0)
--- NOTE | 2024-04-15 18:33 | ED.NURSE ---
Dispatch contacted for transfer to [facility] in [place]. Daughter and medical decisions maker also updated.
--- NOTE | 2024-04-15 18:53 | ED.NURSE ---
Report to ANA Ochoa at [facility].
== END 2024-04-15 19:14 | disposition other institution (70) ==
PROVIDERS: Family Medicine; Emergency Provider Student in an Organized Health Care Education/Training Program; PCP Family Medicine
DX: N73.9 Female pelvic inflammatory disease, unspecified (principal)
CPT/HCPCS: 36415; 74174; 80048; 81001; 82270; 85025; 86140; 87086; 94761; 96365; 96366; 96372; 99284; 99285; J1836; J2543; J3372; J7512; Q9967

== ENCOUNTER 2024-04-15 18:46 | Outpatient (CLI) | payer MEDICARE, SELFPAY | END 2024-04-15 18:47 | disposition home or self-care (01) | PROVIDERS: PCP Family Medicine; Visit Provider Emergency Medicine Emergency Medical Services | DX: N82.3 Fistula of vagina to large intestine (principal); N73.9 Female pelvic inflammatory disease, unspecified | CPT/HCPCS: A0425; A0429 ==